=== PATIENT | male | born 1935 | race American Indian/Alaskan Native ===

== ENCOUNTER → 2016-12-22 | Outpatient (CLI) | payer MEDICARE, BC, OTHER ==
--- NOTE | 2016-12-22 10:41 | US ---
EXAMINATION: Right upper quadrant ultrasound HISTORY: Pain COMPARISON: None TECHNIQUE: Grayscale and color Doppler images obtained of the right upper quadrant. FINDINGS: The visualized pancreas appears normal. The liver is normal in contour and echogenicity wi thout a focal hepatic mass. The gallbladder wall thickness is normal. No pericholecystic fluid or sh adowing gallstones. The common bile duct measures 4 mm. The right kidney measures 10.4 cm pole-to-po le without evidence of hydronephrosis. The sonographic Barraza sign is negative. IMPRESSION: Unremarkable right upper quadrant ultrasound.
== END | disposition home or self-care (01) ==
LOC: MW.US 08:57
PROVIDERS: ATTEND Family Medicine
DX: R10.11 Right upper quadrant pain (principal)
CPT/HCPCS: 76705; 76705-26

== ENCOUNTER → 2017-01-19 | Outpatient (CLI) | payer MEDICARE, BC, OTHER | LOC: MW.CHIM 08:00 | PROVIDERS: ATTEND Internal Medicine | DX: I25.10 Atherosclerotic heart disease of native coronary artery without angina pectoris (principal); I10 Essential (primary) hypertension; I48.91 Unspecified atrial fibrillation; Z95.5 Presence of coronary angioplasty implant and graft | CPT/HCPCS: 99214 ==

== ENCOUNTER 2017-04-02 08:26 | Emergency (ER) | payer MEDICARE, BC, OTHER ==
--- NOTE | 2017-04-02 08:45 | EDM.PDOC ---
ED HPI GENERAL MEDICAL PROBLEM - General Chief Complaint: Lower Extremity Injury/Pain Stated Complaint: LEG BLEEDING Time Seen by Provider: 04/02/17 08:35 Source of Information: Reports: Patient History Limitations: Reports: No Limitations - History of Present Illness INITIAL COMMENTS - FREE TEXT/NARRATIVE: History of present illness: []Patient was showering this morning and noticed there was blood in the shower. He looked down and saw a small bleed on his right lower leg. He denies any trauma or pain. Patient is a diet-controlled diabetic with pacemaker and cardiac stents who is treated with blood thinner. Patient denies any other pain , syncope, dizziness orshortness of breath Review of systems: As per history of present illness and below otherwise all systems reviewed and negative. Past medical history: As per history of present illness and as reviewed below otherwise noncontributory. Surgical history: As per history of present illness and as reviewed below otherwise noncontributory. Social history: No reported history of drug or alcohol abuse. Family history: As per history of present illness and as reviewed below otherwise noncontributory. Physical exam: General: Well developed, well nourished in NAD HEENT: Atraumatic, normocephalic, pupils reactive, negative for conjunctival pallor or scleral icterus, mucous membranes moist, throat clear, neck supple, nontender, trachea midline. Lungs: Clear to auscultation, breath sounds equal bilaterally, chest nontender. Heart: S1S2, regular, negative for clicks, rubs, or JVD. Abdomen: Soft, nondistended, nontender. Negative for masses or hepatosplenomegaly. Negative for costovertebral tenderness. Pelvis: Stable nontender. Genitourinary: Deferred. Rectal: Deferred. Extremities: Anterior lower leg shows a small 1 mm varicose vein that is scabbed over recently bleeding. Is no active bleeding at this time., negative for cords or calf pain. Neurovascular unremarkable. Neuro: Awake, alert, oriented. Cranial nerves II through XII unremarkable. Cerebellum unremarkable. Motor and sensory unremarkable throughout. Exam nonfocal. Diagnostics: [] Therapeutics: []Small piece of Surgicel and rolled gauze placed on his leg Impression: []Right leg Varicose vein bleeding, on blood thinners. Plan: []Remove gauze later today if recurs apply pressure dressing. If unable to control bleeding return to the ER or follow with primary care. Definitive disposition and diagnosis as appropriate pending reevaluation and review of above. - Related Data Allergies Allergy/AdvReac Type Severity Reaction Status Date / Time dye Allergy Other Uncoded 04/02/17 08:32 Home Meds: Home Meds Candesartan Cilexetil 8 mg PO ASDIRECTED 08/20/15 [History] Clopidogrel [Plavix] 75 mg PO DAILY 08/20/15 [History] Furosemide [Lasix] 40 mg PO DAILY 08/20/15 [History] LORazepam [Ativan] 0.5 mg PO ASDIRECTED 08/20/15 [History] Lansoprazole [Prevacid] 30 mg PO DAILY PRN 08/20/15 [History] Meclizine HCl 25 mg PO ASDIRECTED 08/20/15 [History] Metoprolol Tartrate [Lopressor] 50 mg PO Q12HR 08/20/15 [History] Rivaroxaban [Xarelto] 20 mg PO DAILY 08/20/15 [History] Aspirin 81 mg PO BRK 09/09/16 [History] Diltiazem HCl [Diltiazem 24Hr Cd] 120 mg PO DAILY 09/09/16 [History] Sucralfate [Carafate] 1 gm PO ASDIRECTED 09/09/16 [History] Past Medical History - Past Health History Medical/Surgical History: Denies Medical/Surgical History HEENT History: Reports: Hard of Hearing, Impaired Vision Cardiovascular History: Reports: Afib, CAD, Hypertension, [place], Pacemaker, Prior Cardiac Arrest, Stents Respiratory History: Reports: Sleep Apnea Other Respiratory History: uses cpap Genitourinary History: Reports: Renal Calculus Musculoskeletal History: Reports: Arthritis Neurological History: Reports: TIA, Vertigo, Other (See Below) Other Neuro History: menieres disease Psychiatric History: Reports: Anxiety Endocrine/Metabolic History: Reports: Diabetes, Type II, Obesity/BMI 30+ Other Endocrine/Metabolic History: diabetes controlled by diet Hematologic History: Reports: None Immunologic History: Reports: None Oncologic (Cancer) History: Reports: None Dermatologic History: Reports: None - Infectious Disease History Infectious Disease History: Reports: Other (See Below) Other Infectious Disease History: unknown - Past Surgical History Musculoskeletal Surgical History: Reports: Hip Replacement, Knee Replacement Social & Family History - Family History Family Medical History: Noncontributory - Tobacco Use Smoking Status *Q: Former Smoker Second Hand Smoke Exposure: No - Caffeine Use Caffeine Use: Reports: Coffee - Recreational Drug Use Recreational Drug Use: No Review of Systems - Review of Systems Review Of Systems: See Below ED EXAM, GENERAL - Physical Exam Exam: See Below (CHPI) Departure - Departure Time of Disposition: 08:45 Disposition: Home, Self-Care 01 Condition: Good Clinical Impression: Hemorrhage of varicose veins of lower extremity Qualifiers: Laterality: right Qualified Code(s): I83.891 - Varicose veins of right lower extremities with other complications - Discharge Information Forms: ED Department Discharge Additional Instructions: The following information is given to patients seen in the emergency department who are being discharged to home. This information is to outline your options for follow-up care. We provide all patients seen in our emergency department with a follow-up referral. The need for follow-up, as well as the timing and circumstances, are variable depending upon the specifics of your emergency department visit. If you don't have a primary care physician on staff, we will provide you with a referral. We always advise you to contact your personal physician following an emergency department visit to inform them of the circumstance of the visit and for follow-up with them and/or the need for any referrals to a consulting specialist. The emergency department will also refer you to a specialist when appropriate. This referral assures that you have the opportunity for follow-up care with a specialist. All of these measure are taken in an effort to provide you with optimal care, which includes your follow-up. Under all circumstances we always encourage you to contact your private physician who remains a resource for coordinating your care. When calling for follow-up care, please make the office aware that this follow-up is from your recent emergency room visit. If for any reason you are refused follow-up, please contact the [facility] Emergency Department at and asked to speak to the emergency department charge nurse. He moved dressing later today return if any symptoms recur or worsen. Follow-up with your primary care as needed [facility] [address] [place] [id number]
== END 2017-04-02 08:53 | disposition home or self-care (01) ==
LOC: MW.ED 08:26
CPT/HCPCS: 99282

== ENCOUNTER 2017-11-11 13:55 | Observation (INO) | payer MEDICARE, BC, OTHER ==
[2017-11-11] MEDS ORDERED: Aspirin 81 MG Tab.Chew PO ONE (14:13)
--- NOTE | 2017-11-11 14:24 | EDM.PDOC ---
ED HPI GENERAL MEDICAL PROBLEM - General Chief Complaint: Chest Pain Stated Complaint: HEART ISSUES Time Seen by Provider: 11/11/17 13:59 Source of Information: Reports: Patient History Limitations: Reports: No Limitations - History of Present Illness INITIAL COMMENTS - FREE TEXT/NARRATIVE: HISTORY AND PHYSICAL: History of present illness: [Patient comes to the emergency room complaining of heart palpitations and mild chest discomfort. Symptoms have been present for the past 7-8 days. He has an extensive cardiac history and follows regularly with Dr. Cat. History of atrial fibrillation and atrial flutter, pacemaker. He's noticed increased frequency of palpitations, and increased intensity. He also complains of some chest discomfort that he describes as mild, and 4-5/10 pain scale, which comes and goes, and to remain constant. After a heart palpitation he feels short of breath, and he feels as though the palpitation takes his breath away. No recent illnesses or infection. He was hospitalized at this facility in August 2017 for chest pain. Had a normal Lexiscan in September 2017 as an outpatient. Was evaluated at the [place] [facility] this morning and was advised to present to the ER for evaluation.] Review of systems: As per history of present illness and below otherwise all systems reviewed and negative. Past medical history: As per history of present illness and as reviewed below otherwise noncontributory. Surgical history: As per history of present illness and as reviewed below otherwise noncontributory. Social history: No reported history of drug or alcohol abuse. Family history: As per history of present illness and as reviewed below otherwise noncontributory. Physical exam: HEENT: Atraumatic, normocephalic. Oral mucous membranes are pink and moist. neck supple, nontender. Lungs: Clear to auscultation, breath sounds equal bilaterally. Heart: S1S2, regular rate and rhythm. Rate 92. , negative for clicks, rubs, and murmur. Abdomen: Soft, nondistended, nontender. Negative for masses, guarding and rebound. Negative for costovertebral tenderness. Pelvis: Stable nontender. Genitourinary: Deferred. Rectal: Deferred. Extremities: Atraumatic, negative for cords or calf pain. Neurovascular unremarkable. Neuro: Awake, alert, oriented. Motor and sensory unremarkable throughout. Exam nonfocal. Diagnostics: [CXR, EKG, CBC, CMP, PT/INR] Therapeutics: [aspirin] Impression: [atypical chest pain] Plan: [Chest x-ray shows no abnormality. Troponin is negative. Labs are otherwise unremarkable. Case is discussed with Dr. Babar Acosta who agrees for patient to be placed in observation with telemetry. Dr. Cat, patient's contract admin, is made aware that patient will be placed in observation and consult was made. Patients in agreement with today's plan. Note: Nitro was not given as patient was not experiencing any pain when med was going to be administered. ] Definitive disposition and diagnosis as appropriate pending reevaluation and review of above. Left Chest Pain Score (Numeric/FACES): 5 Left Shoulder Pain Score (Numeric/FACES): 3 - Related Data Allergies Allergy/AdvReac Type Severity Reaction Status Date / Time dye Allergy Other Uncoded 04/02/17 08:32 Home Meds: Home Meds Furosemide [Lasix] 40 mg PO DAILY 08/20/15 [History] LORazepam [Ativan] 0.5 mg PO ASDIRECTED 08/20/15 [History] Metoprolol Tartrate [Lopressor] 50 mg PO BID 08/20/15 [History] Aspirin 81 mg PO BRK 09/09/16 [History] Antiox#10/Om3/DHA/EPA/Lut/Zeax [I-Caps with Lutein-[place] 3 SFG] 1 cap PO BID [History] Apixaban [Eliquis] 2.5 mg BID 11/11/17 [History] Past Medical History - Past Health History Medical/Surgical History: Denies Medical/Surgical History HEENT History: Reports: Hard of Hearing, Impaired Vision Other HEENT History: on hearing aids Cardiovascular History: Reports: Afib, CAD, Hypertension, [place], Pacemaker, Prior Cardiac Arrest, Stents Respiratory History: Reports: Sleep Apnea Other Respiratory History: uses cpap Gastrointestinal History: Reports: None Genitourinary History: Reports: Renal Calculus Musculoskeletal History: Reports: Arthritis Neurological History: Reports: TIA, Vertigo, Other (See Below) Other Neuro History: menieres disease Psychiatric History: Reports: Anxiety Endocrine/Metabolic History: Reports: Diabetes, Type II, Obesity/BMI 30+ Other Endocrine/Metabolic History: diabetes controlled by diet Hematologic History: Reports: None Immunologic History: Reports: None Oncologic (Cancer) History: Reports: None Dermatologic History: Reports: None - Infectious Disease History Infectious Disease History: Reports: Other (See Below) Other Infectious Disease History: unknown - Past Surgical History Musculoskeletal Surgical History: Reports: Hip Replacement, Knee Replacement Social & Family History - Family History Family Medical History: Noncontributory - Tobacco Use Smoking Status *Q: Former Smoker Used Tobacco, but Quit: No Second Hand Smoke Exposure: No - Caffeine Use Caffeine Use: Reports: Coffee - Recreational Drug Use Recreational Drug Use: No ED ROS GENERAL - Review of Systems Review Of Systems: ROS reveals no pertinent complaints other than HPI. ED EXAM, GENERAL - Physical Exam Exam: See Below Course - Vital Signs Last Recorded V/S: Last Vital Signs Temp 98.9 F 11/11/17 19:55 Pulse 75 11/11/17 21:19 Resp 18 11/11/17 19:55 BP 121/73 11/11/17 21:19 Pulse Ox 96 11/11/17 19:55 - Orders/Labs/Meds Orders: Active Orders 24 hr Category Date Time Status EKG Documentation Completion [RC] STAT Care 11/11/17 14:13 Active Notify Provider Consults [RC] ASDIRECTED Care 11/11/17 14:22 Active Consult to Physician [CONS] Stat Cons 11/11/17 14:22 Active Nitroglycerin [Nitrostat] Med 11/11/17 15:24 Active 0.4 mg SL Q5M PRN Medication Orders Acetaminophen (Tylenol) 650 mg PO Q4H PRN PRN Reason: Pain (Mild 1-3)/fever Last Admin: 11/11/17 21:33 Dose: 650 mg Apixaban (Eliquis) 5 mg PO BID [facility] Last Admin: 11/11/17 21:20 Dose: 5 mg Metoprolol Tartrate (Lopressor) 75 mg PO Q12HR [facility] Last Admin: 11/11/17 21:19 Dose: 75 mg Morphine Sulfate (Morphine) 2 mg IV Q2H PRN PRN Reason: Pain (severe 7-10) Nitroglycerin (Nitrostat) 0.4 mg SL Q5M PRN PRN Reason: Chest Pain Ondansetron HCl (Zofran) 4 mg IVPUSH Q4H PRN PRN Reason: Nausea/Vomiting Sodium Chloride (Saline Flush) 10 ml FLUSH ASDIRECTED PRN PRN Reason: Keep Vein Open Sodium Chloride (Saline Flush) 2.5 ml FLUSH ASDIRECTED PRN PRN Reason: Keep Vein Open Labs: Laboratory Tests 11/11/17 11/11/17 11/11/17 Range/Units 14:15 14:15 14:15 WBC 6.76 (4.0-11.0) K/uL RBC 4.14 L (4.50-5.90) M/uL Hgb 13.3 (13.0-17.0) g/dL Hct 40.4 (38.0-50.0) % MCV 97.6 (80.0-98.0) fL MCH 32.1 H (27.0-32.0) pg MCHC 32.9 (31.0-37.0) g/dL RDW Std Deviation 50.4 (28.0-62.0) fl RDW Coeff of Mary 14 (11.0-15.0) % Plt Count 157 (150-400) K/uL MPV 10.80 (7.40-12.00) fL Neut % (Auto) 64.8 (48.0-80.0) % Lymph % (Auto) 24.9 (16.0-40.0) % [place] % (Auto) 7.8 (0.0-15.0) % Eos % (Auto) 2.1 (0.0-7.0) % Baso % (Auto) 0.4 (0.0-1.5) % Neut # (Auto) 4.4 (1.4-5.7) K/uL Lymph # (Auto) 1.7 (0.6-2.4) K/uL [place] # (Auto) 0.5 (0.0-0.8) K/uL Eos # (Auto) 0.1 (0.0-0.7) K/uL Baso # (Auto) 0.0 (0.0-0.1) K/uL Nucleated RBC % 0.0 /100WBC Nucleated RBCs # 0 K/uL INR 1.05 Sodium 143 (136-148) mmol/L Potassium 3.5 (3.5-5.1) mmol/L Chloride 106 (98-107) mmol/L Carbon Dioxide 28.5 (21.0-32.0) mmol/L BUN 19 H (7.0-18.0) mg/dL Creatinine 1.2 (0.8-1.3) mg/dL Est Cr Clr Drug Dosing TNP Estimated GFR (MDRD) 58.1 ml/min Glucose 123 H (74-106) mg/dL Calcium 9.0 (8.5-10.1) mg/dL Total Bilirubin 0.4 (0.2-1.0) mg/dL AST 19 (15-37) U/L ALT 19 (14-63) U/L Alkaline Phosphatase 79 (46-116) U/L Troponin I < 0.050 (0.000-0.056) ng/mL Total Protein 7.2 (6.4-8.2) g/dL Albumin 3.5 (3.4-5.0) g/dL Globulin 3.7 H (2.0-3.5) g/dL Albumin/Globulin Ratio 1.0 L (1.3-2.8) TSH 3rd Generation (0.47-5.0) uIU/mL 11/11/17 Range/Units 14:15 WBC (4.0-11.0) K/uL RBC (4.50-5.90) M/uL Hgb (13.0-17.0) g/dL Hct (38.0-50.0) % MCV (80.0-98.0) fL MCH (27.0-32.0) pg MCHC (31.0-37.0) g/dL RDW Std Deviation (28.0-62.0) fl RDW Coeff of Mary (11.0-15.0) % Plt Count (150-400) K/uL MPV (7.40-12.00) fL Neut % (Auto) (48.0-80.0) % Lymph % (Auto) (16.0-40.0) % [place] % (Auto) (0.0-15.0) % Eos % (Auto) (0.0-7.0) % Baso % (Auto) (0.0-1.5) % Neut # (Auto) (1.4-5.7) K/uL Lymph # (Auto) (0.6-2.4) K/uL [place] # (Auto) (0.0-0.8) K/uL Eos # (Auto) (0.0-0.7) K/uL Baso # (Auto) (0.0-0.1) K/uL Nucleated RBC % /100WBC Nucleated RBCs # K/uL INR Sodium (136-148) mmol/L Potassium (3.5-5.1) mmol/L Chloride (98-107) mmol/L Carbon Dioxide (21.0-32.0) mmol/L BUN (7.0-18.0) mg/dL Creatinine (0.8-1.3) mg/dL Est Cr Clr Drug Dosing Estimated GFR (MDRD) ml/min Glucose (74-106) mg/dL Calcium (8.5-10.1) mg/dL Total Bilirubin (0.2-1.0) mg/dL AST (15-37) U/L ALT (14-63) U/L Alkaline Phosphatase (46-116) U/L Troponin I (0.000-0.056) ng/mL Total Protein (6.4-8.2) g/dL Albumin (3.4-5.0) g/dL Globulin (2.0-3.5) g/dL Albumin/Globulin Ratio (1.3-2.8) TSH 3rd Generation 1.20 (0.47-5.0) uIU/mL Meds: Medications Generic Name Dose Route Start Last Admin Trade Name Freq PRN Reason Stop Dose Admin Acetaminophen 650 mg 11/11/17 18:50 11/11/17 21:33 Tylenol PO 650 mg Q4H PRN Administration Pain (Mild 1-3)/fever Apixaban 5 mg 11/11/17 21:00 11/11/17 21:20 Eliquis PO 5 mg BID UJLIAN Administration Metoprolol Tartrate 75 mg 11/11/17 21:00 11/11/17 21:19 Lopressor PO 75 mg Q12HR JULIAN Administration Morphine Sulfate 2 mg 11/11/17 19:15 Morphine IV Q2H PRN Pain (severe 7-10) Nitroglycerin 0.4 mg 11/11/17 15:24 Nitrostat SL Q5M PRN Chest Pain Ondansetron HCl 4 mg 11/11/17 18:50 Zofran IVPUSH Q4H PRN Nausea/Vomiting Sodium Chloride 10 ml 11/11/17 18:50 Saline Flush FLUSH ASDIRECTED PRN Keep Vein Open Sodium Chloride 2.5 ml 11/11/17 18:50 Saline Flush FLUSH ASDIRECTED PRN Keep Vein Open Discontinued Medications Generic Name Dose Route Start Last Admin Trade Name Tylor PRN Reason Stop Dose Admin Aspirin 324 mg 11/11/17 14:13 11/11/17 14:21 Aspirin PO 11/11/17 14:14 324 mg ONETIME ONE Administration Departure - Departure Time of Disposition: 15:35 Disposition: Admitted As Inpatient 66 Condition: Good Clinical Impression: Chest pain, atypical - My Orders Last 24 Hours: My Active Orders 11/11/17 14:13 EKG Documentation Completion [RC] STAT 11/11/17 15:24 Nitroglycerin [Nitrostat] 0.4 mg SL Q5M PRN - Assessment/Plan Last 24 Hours: My Active Orders 11/11/17 14:13 EKG Documentation Completion [RC] STAT 11/11/17 15:24 Nitroglycerin [Nitrostat] 0.4 mg SL Q5M PRN
--- NOTE | 2017-11-11 14:28 | PCM.SN ---
- Free Text/Narrative Note: This is Dr. Huerta dictating a brief addendum note as I have seen and evaluated this patient with the nurse practitioner. According to his history in the computer the patient was seen and admitted to the hospital here at the end of August for chest pain. His cardiac enzymes were negative and he did have an echocardiogram which revealed an ejection fraction of 62%. At that point he was following with Dr. Jimenez in [place] but Dr. NEWSOME cargo agent was counseled that the time. The patient also has a history of a pacemaker and A. fib/A flutter as well as coronary artery disease and MIs 2 stents hypertension diet-controlled diabetes and obesity. The patient had an outpatient CT scan performed on October [address] Cat and that revealed an ejection fraction of 55 % and no evidence of any ischemic changes. The patient is on rate controlling medications as well as Xarelto and Plavix. According to the patient and family at bedside he has not followed up in [place] and has only had the outpatient testing with Dr. Cat. [facility] with a history as described by the nurse practitioner and here in the ED he saying that his symptoms are very brief and fleeting but due to his significant history Dr. Cat was notified at 1420 p.m. and will do a formal consult. We will continue monitoring the patient's testing results and clinical status and plan for observation admission due to his significant medical history and atypicality of symptoms.
--- NOTE | 2017-11-11 14:37 | CR ---
EXAMINATION: Portable chest radiograph. HISTORY: Shortness of breath. FINDINGS: The trachea is midline. The cardiomediastinal silhouette is within normal limits. No pulmonary infilt rates, effusions or pneumothorax. There is a left-sided pacemaker. Mild chronic interstitial prominen ce. Osseous structures appear unremarkable. IMPRESSION: No acute cardiopulmonary process.
[2017-11-11 15:02] LABS: CHLORIDE,CL 106 mmol/L (98-107); SODIUM,NA 143 mmol/L (136-148)
[2017-11-11] MEDS ORDERED: Nitroglycerin 0.4 MG Tab.SL SL PRN (15:24)
[2017-11-11] MEDS ORDERED: Sodium Chloride 0.9% 2.5 ML Syringe FLUSH PRN (18:50)
[2017-11-11] MEDS ORDERED: Sodium Chloride 0.9% 10 ML Syringe FLUSH PRN (18:50)
[2017-11-11] MEDS ORDERED: Ondansetron 4 MG/2 ML SDV IVPUSH PRN (18:50)
[2017-11-11] MEDS ORDERED: Acetaminophen 325 MG Tab PO PRN (18:50)
--- NOTE | 2017-11-11 18:50 | PCM.HP ---
H&P History of Present Illness - General Date of Service: 11/11/17 Admit Problem/Dx: Admission Diagnosis/Problem Admission Diagnosis/Problem Chest pain - History of Present Illness Initial Comments - Free Text/Narative: 81-year-old male with a significant past medical history of sick sinus syndrome on with a pacemaker in place is presenting with heart palpitations and concern for pacing issues. She also has a significant past medical history of atrial fibrillation for which he is on Eliquis was 2.5 mg twice a day. Patient states that these palpitation type symptoms have been ongoing for the past week they aren't very quick in nature and resolved on their own, patient was concerned due to this being slightly out of the abnormal for him, the patient also was having chest discomfort secondary to the palpitations. Patient denies any chest pain at the present moment, patient denies any heart palpitations at the present moment. I assessed the patient along with Dr. Cat at the same time, we assessed the pacemaker which appear to be working appropriately with no dysfunction, and pacing the patient appropriately as well. Patient is taking metoprolol tartrate 50 mg twice a day as well for his atrial fibrillation control. Patient states that he was initially on Xeralto however that caused diarrhea and he is sent switch to Eliquis for anticoagulation, however patient stated that at 10 mg he was having muscular skeletal pain and it was cut to 5 mg which she states is appropriate for him at this point in time. Left Chest Pain Score (Numeric/FACES): 5 - Related Data Allergies/Adverse Reactions: Allergies Allergy/AdvReac Type Severity Reaction Status Date / Time dye Allergy Other Uncoded 04/02/17 08:32 Home Medications: Home Meds Furosemide [Lasix] 40 mg PO DAILY 08/20/15 [History] LORazepam [Ativan] 0.5 mg PO ASDIRECTED 08/20/15 [History] Metoprolol Tartrate [Lopressor] 50 mg PO BID 08/20/15 [History] Aspirin 81 mg PO BRK 09/09/16 [History] Antiox#10/Om3/DHA/EPA/Lut/Zeax [I-Caps with Lutein-[place] 3 SFG] 1 cap PO BID [History] Apixaban [Eliquis] 2.5 mg BID 11/11/17 [History] Past Medical History - Past Health History Medical/Surgical History: Denies Medical/Surgical History HEENT History: Reports: Hard of Hearing, Impaired Vision Other HEENT History: on hearing aids Cardiovascular History: Reports: Afib, CAD, Hypertension, GA, Pacemaker, Prior Cardiac Arrest, Stents Respiratory History: Reports: Sleep Apnea Other Respiratory History: uses cpap Gastrointestinal History: Reports: None Genitourinary History: Reports: Renal Calculus Musculoskeletal History: Reports: Arthritis Neurological History: Reports: TIA, Vertigo, Other (See Below) Other Neuro History: menieres disease Psychiatric History: Reports: Anxiety Endocrine/Metabolic History: Reports: Diabetes, Type II, Obesity/BMI 30+ Other Endocrine/Metabolic History: diabetes controlled by diet Hematologic History: Reports: None Immunologic History: Reports: None Oncologic (Cancer) History: Reports: None Dermatologic History: Reports: None - Infectious Disease History Infectious Disease History: Reports: Other (See Below) Other Infectious Disease History: unknown - Past Surgical History Head Surgeries/Procedures: Reports: None Musculoskeletal Surgical History: Reports: Hip Replacement, Knee Replacement Social & Family History - Family History Family Medical History: Noncontributory - Tobacco Use Smoking Status *Q: Never Smoker Used Tobacco, but Quit: No Month Tobacco Last Used: 09/1974 Second Hand Smoke Exposure: No - Caffeine Use Caffeine Use: Reports: Coffee, Soda, Tea - Alcohol Use Days Per Week of Alcohol Use: 2 Number of Drinks Per Day: 1 Total Drinks Per Week: 2 Date of Last Drink: 11/11/17 Time of Last Drink: 21:00 - Recreational Drug Use Recreational Drug Use: No H&P Review of Systems - Review of Systems: Review Of Systems: ROS reveals no pertinent complaints other than HPI. Exam - Exam Exam: See Below - Vital Signs Vital Signs: Last Vital Signs Temp 36.5 C 11/11/17 14:23 Pulse 48 L 11/11/17 15:40 Resp 20 11/11/17 15:40 BP 134/81 11/11/17 15:40 Pulse Ox 99 11/11/17 15:40 Weight: 112.536 kg - Exam General: Alert, Oriented, Cooperative HEENT: Conjunctiva Clear Lungs: Clear to Auscultation, Normal Respiratory Effort Cardiovascular: Regular Rate, Irregular Rhythm GI/Abdominal Exam: Normal Bowel Sounds Extremities: No Pedal Edema - Patient Data Result Diagrams: 11/11/17 14:15 11/11/17 14:15 *Q Meaningful Use (ADM) - VTE *Q VTE Criteria *Q: - Stroke *Q Stroke Criteria *Q: - AMI *Q AMI Criteria *Q: Problem List Initiated/Reviewed/Updated: Yes Orders Last 24hrs: Active Orders 24 hr Category Date Time Status ADA Diabetic [[place] [employer] Diet] [DIET Diet 11/12/17 Dinner Active ] TSH [CHEM] Routine Lab 11/11/17 17:57 Ordered Medication Orders Nitroglycerin (Nitrostat) 0.4 mg SL Q5M PRN PRN Reason: Chest Pain Assessment/Plan Comment:: 81-year-old male presenting today with heart palpitation issues, with a significant past medical history of sick sinus syndrome status post pacemaker as well as atrial fibrillation for which is controlled with metoprolol 50 mg twice a day. After speaking with Dr. Cat we do not believe that the pacemaker is having any issues, Dr. Cat tested the pacemaker out with no present concerns it is pacing the patient appropriately. There is possible concern that the patient is having symptomatic atrial fibrillation as such Dr. Cat recommends the patient be on metoprolol tartrate 75 mg twice a day rather than 50 mg twice a day. He also recommends that the patient have his Eliquis increased back to 10 mg a day and see if he still has muscle pain as the effectiveness of the anticoagulation medication is limited when reducing the dose. We shall admit the patient for observation, do hebert 3 placed the recommendation of Dr. Cat has recommended in place and assess the patient in the morning.
[2017-11-11] MEDS ORDERED: Morphine 2 MG/ML Syringe IV PRN (19:15)
[2017-11-11] MEDS: Metoprolol Tartrate 25 MG Tab PO SCH (21:19)
[2017-11-11] MEDS: Apixaban 5 MG Tab PO SCH (21:20)
[2017-11-12 06:31] LABS: CHLORIDE,CL 107 mmol/L (98-107); SODIUM,NA 143 mmol/L (136-148)
[2017-11-12] MEDS: Apixaban 5 MG Tab PO SCH (08:38)
[2017-11-12] MEDS: Metoprolol Tartrate 25 MG Tab PO SCH (08:38)
--- NOTE | 2017-11-12 10:38 | PCM.PRNOTE ---
- Free Text/Narrative Note: Device interrogation/re-programming DOS 11/12/2017 [employer] Model Adapta ADDR01 Mode DDD LRL 60 % paced Vs 72% [employer] 27% intrinsic rhythm afib, intermittent pacer dependent. Battery life 5 years Atrial lead sensin.18 mV capture threshold: N/A impedance: 452 Ventricular lead sensin.6 mV capture threshold: 0.25 mV/0.4msec impedance: 597 episode: PVCs 0 (probably inaccurate) Rate histrogram there were time V rate (V sensed, V paced) up from 100-180, but most of the time were 50-100 Setting changed (with help fromn [employer]tronic reps) = DDD to DDIR, lower rate limit from 60 to 70 bpm Imp normally functioning dual chamber pacemaker, with permanent afib with PVCs. Plan - will increase metoprolol to 75 BID, will schedule for device clinic and check if any diaphragmatic stimulation.
--- NOTE | 2017-11-12 11:00 | CONS ---
DATE OF CONSULTATION: 11/11/2017 DATE OF : 1935 PRIMARY CARE PHYSICIAN: None PCP REASON FOR CONSULTATION: Palpitation. HISTORY OF PRESENT ILLNESS: This is an 81-year-old male with history of dual-chamber pacemaker Medtronic CAD status post LAD, PCI in the past, hypertension, hyperlipidemia, diabetes and former smoker. He presented to the hospital at this time due to feeling palpitations. He started feeling palpitations on and off for almost 3 weeks. He has been feeling well for years and he stated that he has been on and off for several times a day and when it comes it come very quick and it goes quickly, less than few seconds and he feels like almost every day. When he feels it, it takes his breath away. No dizziness. No syncope. No chest pain. Most of the time when he is sitting at rest, not with his activities and not related to any certain position, have not seen him for a year and he had his pacemaker checked last time two weeks ago and he was told everything was okay. He also mentioned that like he used to take Xarelto, however it irritates his stomach having a diarrhea, so Eliquis was started 5 mg twice a day. However he started having muscle aches and muscle pain and the dose was lowered to 2.5. He is also on metoprolol 50 twice a day as well as the Lasix 40 mg once a day, aspirin 81 mg once a day as well. PAST MEDICAL HISTORY: Sick sinus syndrome status post dual-chamber pacemaker, permanent atrial fibrillation, CAD status post LAD, PCI, diabetes, hypertension, hyperlipidemia and former smoker. ALLERGIES: He is allergic to Lipitor causing myalgia. FAMILY HISTORY: No CAD. SOCIAL HISTORY: Former smoker. No illicit drug use. Occasional alcohol consumption. REVIEW OF SYSTEMS: Positive for palpitation, otherwise indicated in HPI. PHYSICAL EXAMINATION: VITAL SIGNS: Initial blood pressure is 152/84, heart rate of 60 to 70, temperature 36.6, O2 saturation 95% on room air, respiration 19. HEENT: No pallor. No jaundice. No JVD. HEART: Normal S1, S2. No murmur. LUNGS: Clear. ABDOMEN: Soft, nontender. Bowel sounds are present. No hepatosplenomegaly. EXTREMITIES: Legs, no edema. INVESTIGATIONS: CBC show WBC 6, hematocrit of 40, hemoglobin of 13, platelet of 157, INR 1.05. Sodium 143, potassium 3.5, chloride 106, bicarb 28, BUN 19, creatinine 1.2, glucose 123, troponin less than 0.05. TSH is 1.2. Initial pacemaker interrogation from the rate histogram, he still in the DDD tracking mode and his heart rate was up to 160-180 sometime, but most of the time it has run between 60-80 and the PVC count is 20. This seemed to be inaccurate. Apparently I have seen the PVC on the telemetry as well. ASSESSMENT AND PLAN: This is an 81-year-old male with history of dual-chamber pacemaker, permanent atrial fibrillation, CAD, hypertension who has come in with the palpitation, could be related to fast atrial fibrillation, RVR, as well as the PVCs. I will contact with [employer] to see what setting should be set up for his pacemaker and I will increase the metoprolol to 75 twice a day as well as increase the Eliquis to 5 mg twice a day for full protection from stroke and then recommend to cycle cardiac enzymes. BRANDIE / LYLY /[id number]
[2017-11-12 11:37] VITALS: BP 151/99
--- NOTE | 2017-11-12 19:08 | PCM.DCSUM1 ---
<Marco Maldonado Z - Last Filed: 11/12/17 18:57> Discharge Summary - Hospital Course HPI Initial Comments: Discharge Summary Date of admission: 11/11/2017 Date of discharge: 11/12/2017 Admitting diagnosis: #1. Heart Palpitations #2. Chest pain likely secondary to heart palpitations versus acute coronary syndrome #3. Past medical history of atrial fibrillation, sick sinus syndrome and pacemaker #4. #5. Discharge diagnoses: #1. Type palpitations secondary to PVCs, and atrial fibrillation. #2. Pain now resolved tropes negative 3 #3. #4. #5. Consultations: Cardiology Procedures: None Hospitalization course: Patient was admitted secondary to heart palpitations, Dr. Cat assessed the patient and after reviewing his telemetry patient was assessed for his pacemaker functioning appropriately which it was, it was determined that the heart palpitations were likely secondary to atrial fibrillation initially on 11/11/2017. Decision was made to increase the patient's Lopressor from 50 mg twice a day to 75 mg twice a day, and also ensure that the patient is taking his Eliquis is at its optimal dosage of 10 mg of then 5 mg. Overnight the patient did start to throw a lot of PVCs and in the morning Dr. Cat switch the patient in terms of pacemaker capability from DDD to VVI and also increased his pacemaker setting from 60-70. Patient's tropes were negative 3 patient was not having any further chest pain decision was made for the patient to be discharge follow-up with Dr. Cat in one week as well as follow-up with cardiac pacing clinic as well as primary care physician. Was discharged on Eliquis at 10 mg rather than 5 mg because below 10 the patient blood premedication is supple optimal and he is at risk of developing a clot that could possibly cause a stroke. Patient did state that previously he did have muscle pain secondary to his blood thinning medication however he did not report any issues currently and we still strongly recommend that the patient be on 10 mg despite muscle aches and pains if they are tolerable to the patient. Disposition on discharge: home Condition on discharge: stable Discharge medications: continuation of home medication with changes to Lopressor from 50 mg twice a day to 75 mg twice a day and Eliquis at 10 mg daily Follow-up instructions: Urology follow-up in one week, cardiology pacing clinic follow-up in one week, PCP follow-up in one week. - Discharge Data Discharge Date: 11/12/17 Discharge Disposition: Home, Self-Care 01 Condition: Fair - Patient Instructions Diet: Heart Healthy Diet Activity: As Tolerated Driving: Do Not Drive Showering/Bathing: May Shower Notify Provider of: Fever, Increased Pain, Swelling and Redness, Drainage, Nausea and/or Vomiting - Discharge Plan Prescriptions/Med Rec: Apixaban [Eliquis] 5 mg PO BID 30 Days #60 tablet Metoprolol Tartrate 75 mg PO BID 30 Days #60 tablet Home Medications: Home Meds Furosemide [Lasix] 40 mg PO DAILY 08/20/15 [History] LORazepam [Ativan] 0.5 mg PO ASDIRECTED 08/20/15 [History] Aspirin 81 mg PO BRK 09/09/16 [History] Antiox#10/Om3/DHA/EPA/Lut/Zeax [I-Caps with Lutein-[place] 3 SFG] 1 cap PO BID [History] Apixaban [Eliquis] 5 mg PO BID 30 Days #60 tablet 11/12/17 [Rx] Metoprolol Tartrate 75 mg PO BID 30 Days #60 tablet 11/12/17 [Rx] Patient Handouts: Metoprolol tablets, Chest Wall Pain, [id number], Apixaban oral tablets Referrals: Han Saeed MD [Physician] - 11/17/17 10:00 am Rena Enriquez MD [Physician] - 11/18/17 10:30 am - Patient Data Vitals - Most Recent: Last Vital Signs Temp 36.5 C 11/12/17 11:38 Pulse 77 11/12/17 11:38 Resp 22 H 11/12/17 11:38 BP 151/99 H 11/12/17 11:38 Pulse Ox 92 L 11/12/17 11:38 Weight - Most Recent: 112.5 kg I&O - Last 24 hours: Intake & Output 11/12/17 11/12/17 11/12/17 06:59 14:59 22:59 Intake Total 1090 790 Output Total 530 520 Balance 560 270 Lab Results - Last 24 hrs: Laboratory Results - last 24 hr 11/11/17 11/12/17 11/12/17 Range/Units 20:22 02:08 05:31 WBC 5.32 (4.0-11.0) K/uL RBC 4.04 L (4.50-5.90) M/uL Hgb 13.0 (13.0-17.0) g/dL Hct 39.4 (38.0-50.0) % MCV 97.5 (80.0-98.0) fL MCH 32.2 H (27.0-32.0) pg MCHC 33.0 (31.0-37.0) g/dL RDW Std Deviation 50.0 (28.0-62.0) fl RDW Coeff of Mary 14 (11.0-15.0) % Plt Count 146 L (150-400) K/uL MPV 10.50 (7.40-12.00) fL Neut % (Auto) 62.2 (48.0-80.0) % Lymph % (Auto) 25.2 (16.0-40.0) % Bollinger % (Auto) 9.2 (0.0-15.0) % Eos % (Auto) 3.0 (0.0-7.0) % Baso % (Auto) 0.4 (0.0-1.5) % Neut # (Auto) 3.3 (1.4-5.7) K/uL Lymph # (Auto) 1.3 (0.6-2.4) K/uL Bollinger # (Auto) 0.5 (0.0-0.8) K/uL Eos # (Auto) 0.2 (0.0-0.7) K/uL Baso # (Auto) 0.0 (0.0-0.1) K/uL Nucleated RBC % 0.0 /100WBC Nucleated RBCs # 0 K/uL Sodium (136-148) mmol/L Potassium (3.5-5.1) mmol/L Chloride (98-107) mmol/L Carbon Dioxide (21.0-32.0) mmol/L BUN (7.0-18.0) mg/dL Creatinine (0.8-1.3) mg/dL Est Cr Clr Drug Dosing mL/min Estimated GFR (MDRD) ml/min Glucose (74-106) mg/dL POC Glucose (60-110) mg/dL Calcium (8.5-10.1) mg/dL Total Bilirubin (0.2-1.0) mg/dL AST (15-37) U/L ALT (14-63) U/L Alkaline Phosphatase (46-116) U/L Troponin I < 0.050 < 0.050 (0.000-0.056) ng/mL Total Protein (6.4-8.2) g/dL Albumin (3.4-5.0) g/dL Globulin (2.0-3.5) g/dL Albumin/Globulin Ratio (1.3-2.8) 11/12/17 11/12/17 Range/Units 05:31 06:34 WBC (4.0-11.0) K/uL RBC (4.50-5.90) M/uL Hgb (13.0-17.0) g/dL Hct (38.0-50.0) % MCV (80.0-98.0) fL MCH (27.0-32.0) pg MCHC (31.0-37.0) g/dL RDW Std Deviation (28.0-62.0) fl RDW Coeff of Mary (11.0-15.0) % Plt Count (150-400) K/uL MPV (7.40-12.00) fL Neut % (Auto) (48.0-80.0) % Lymph % (Auto) (16.0-40.0) % Bollinger % (Auto) (0.0-15.0) % Eos % (Auto) (0.0-7.0) % Baso % (Auto) (0.0-1.5) % Neut # (Auto) (1.4-5.7) K/uL Lymph # (Auto) (0.6-2.4) K/uL Bollinger # (Auto) (0.0-0.8) K/uL Eos # (Auto) (0.0-0.7) K/uL Baso # (Auto) (0.0-0.1) K/uL Nucleated RBC % /100WBC Nucleated RBCs # K/uL Sodium 143 (136-148) mmol/L Potassium 3.7 (3.5-5.1) mmol/L Chloride 107 (98-107) mmol/L Carbon Dioxide 29.1 (21.0-32.0) mmol/L BUN 18 (7.0-18.0) mg/dL Creatinine 1.1 (0.8-1.3) mg/dL Est Cr Clr Drug Dosing 50.95 mL/min Estimated GFR (MDRD) > 60.0 ml/min Glucose 89 (74-106) mg/dL POC Glucose 88 (60-110) mg/dL Calcium 8.8 (8.5-10.1) mg/dL Total Bilirubin 0.5 (0.2-1.0) mg/dL AST 18 (15-37) U/L ALT 17 (14-63) U/L Alkaline Phosphatase 70 (46-116) U/L Troponin I (0.000-0.056) ng/mL Total Protein 6.7 (6.4-8.2) g/dL Albumin 3.3 L (3.4-5.0) g/dL Globulin 3.4 (2.0-3.5) g/dL Albumin/Globulin Ratio 1.0 L (1.3-2.8) Med Orders - Current: Current Medications Discontinued Medications Acetaminophen (Tylenol) 650 mg PO Q4H PRN PRN Reason: Pain (Mild 1-3)/fever Last Admin: 11/11/17 21:33 Dose: 650 mg Apixaban (Eliquis) 5 mg PO BID [facility] Last Admin: 11/12/17 08:38 Dose: 5 mg Aspirin (Aspirin) 324 mg PO ONETIME ONE Stop: 11/11/17 14:14 Last Admin: 11/11/17 14:21 Dose: 324 mg Metoprolol Tartrate (Lopressor) 75 mg PO Q12HR [facility] Last Admin: 11/12/17 08:38 Dose: 75 mg Morphine Sulfate (Morphine) 2 mg IV Q2H PRN PRN Reason: Pain (severe 7-10) Nitroglycerin (Nitrostat) 0.4 mg SL Q5M PRN PRN Reason: Chest Pain Ondansetron HCl (Zofran) 4 mg IVPUSH Q4H PRN PRN Reason: Nausea/Vomiting Sodium Chloride (Saline Flush) 10 ml FLUSH ASDIRECTED PRN PRN Reason: Keep Vein Open Sodium Chloride (Saline Flush) 2.5 ml FLUSH ASDIRECTED PRN PRN Reason: Keep Vein Open *Q Meaningful Use (DIS) - VTE *Q VTE Criteria *Q: - Stroke *Q Stroke Criteria *Q: - AMI *Q AMI Criteria *Q: <aBbar Acosta - Last Filed: 11/17/17 11:10> - Patient Data Vitals - Most Recent: Last Vital Signs Temp 36.5 C 11/12/17 11:38 Pulse 77 11/12/17 11:38 Resp 22 H 11/12/17 11:38 BP 151/99 H 11/12/17 11:38 Pulse Ox 92 L 11/12/17 11:38 Med Orders - Current: Current Medications Discontinued Medications Acetaminophen (Tylenol) 650 mg PO Q4H PRN PRN Reason: Pain (Mild 1-3)/fever Last Admin: 11/11/17 21:33 Dose: 650 mg Apixaban (Eliquis) 5 mg PO BID [facility] Last Admin: 11/12/17 08:38 Dose: 5 mg Aspirin (Aspirin) 324 mg PO ONETIME ONE Stop: 11/11/17 14:14 Last Admin: 11/11/17 14:21 Dose: 324 mg Metoprolol Tartrate (Lopressor) 75 mg PO Q12HR [facility] Last Admin: 11/12/17 08:38 Dose: 75 mg Morphine Sulfate (Morphine) 2 mg IV Q2H PRN PRN Reason: Pain (severe 7-10) Nitroglycerin (Nitrostat) 0.4 mg SL Q5M PRN PRN Reason: Chest Pain Ondansetron HCl (Zofran) 4 mg IVPUSH Q4H PRN PRN Reason: Nausea/Vomiting Sodium Chloride (Saline Flush) 10 ml FLUSH ASDIRECTED PRN PRN Reason: Keep Vein Open Sodium Chloride (Saline Flush) 2.5 ml FLUSH ASDIRECTED PRN PRN Reason: Keep Vein Open *Q Meaningful Use (DIS) - VTE *Q VTE Criteria *Q: - Stroke *Q Stroke Criteria *Q: - AMI *Q AMI Criteria *Q: - Free Text/Narrative Note: I have examined the patient. I have discussed findings and treatment plan with the resident. I agree with the assessment and plan outlined in the following resident's note.
== END 2017-11-12 13:00 | disposition home or self-care (01) ==
LOC: MW.ED 13:55 → MW.MS 15:35
PROVIDERS: ADMIT Internal Medicine; ATTEND Internal Medicine
DX: I48.2 Chronic atrial fibrillation (principal); I25.10 Atherosclerotic heart disease of native coronary artery without angina pectoris; I10 Essential (primary) hypertension; I25.2 Old myocardial infarction; G47.30 Sleep apnea, unspecified; M19.90 Unspecified osteoarthritis, unspecified site; F41.9 Anxiety disorder, unspecified; E11.9 Type 2 diabetes mellitus without complications; E66.9 Obesity, unspecified; Z68.30 Body mass index [BMI] 30.0-30.9, adult; Z95.0 Presence of cardiac pacemaker; Z86.79 Personal history of other diseases of the circulatory system; Z79.899 Other long term (current) drug therapy; Z79.82 Long term (current) use of aspirin; Z91.09 Other allergy status, other than to drugs and biological substances; Z79.01 Long term (current) use of anticoagulants; Z99.89 Dependence on other enabling machines and devices; Z86.73 Personal history of transient ischemic attack (TIA), and cerebral infarction without residual deficits; Z87.891 Personal history of nicotine dependence; Z88.8 Allergy status to other drugs, medicaments and biological substances
CPT/HCPCS: 36415; 71045; 80053; 82962; 84443; 84484; 85025; 85610; 93005; 99285; A9270; G0378; 99284

== ENCOUNTER 2019-04-05 08:49 | Inpatient (IN) | payer MEDICARE, BC, OTHER ==
--- NOTE | 2019-04-05 08:56 | EDM.PDOC ---
ED HPI GENERAL MEDICAL PROBLEM - General Chief Complaint: Gastrointestinal Problem Stated Complaint: DIAHRREA AND CHEST PAIN Time Seen by Provider: 04/05/19 08:55 Source of Information: Reports: Patient - History of Present Illness INITIAL COMMENTS - FREE TEXT/NARRATIVE: HISTORY AND PHYSICAL: History of present illness: []Shunt presents with chest pain which began last night no fever nausea vomiting chills sweats he has had some loose stools is in no apparent distress no diaphoresis no radiation of pain to arm neck or jaw Review of systems: As per history of present illness and below otherwise all systems reviewed and negative. Past medical history: As per history of present illness and as reviewed below otherwise noncontributory. Surgical history: As per history of present illness and as reviewed below otherwise noncontributory. Social history: No reported history of drug or alcohol abuse. Family history: As per history of present illness and as reviewed below otherwise noncontributory. Physical exam: HEENT: Atraumatic, normocephalic, pupils reactive, negative for conjunctival pallor or scleral icterus, mucous membranes moist, throat clear, neck supple, nontender, trachea midline. Lungs: Clear to auscultation, breath sounds equal bilaterally, chest nontender. Heart: S1S2, regular, negative for clicks, rubs, or JVD. Abdomen: Soft, nondistended, nontender. Negative for masses or hepatosplenomegaly. Negative for costovertebral tenderness. Pelvis: Stable nontender. Genitourinary: Deferred. Rectal: Deferred. Extremities: Atraumatic, negative for cords or calf pain. Neurovascular unremarkable. Neuro: Awake, alert, oriented. Cranial nerves II through XII unremarkable. Cerebellum unremarkable. Motor and sensory unremarkable throughout. Exam nonfocal. Diagnostics: [CBC CMP UA troponin lipase EKG Chest 1 view Stool studies pending -culture guaiac C. difficile ] Therapeutics: [ normal saline GI cocktail Proton X Ativan 0.5 mg ] 1 g Rocephin IV Azithromycin IV Patient admitted Impression: Pancreatitis Renal insufficiency Infiltrates on chest x-ray Leukocytosis Loose stools History of acid reflux History of anxiety ] Chronic history of baseline Definitive disposition and diagnosis as appropriate pending reevaluation and review of above. heartburn Pain Score (Numeric/FACES): 10 - Related Data Allergies Allergy/AdvReac Type Severity Reaction Status Date / Time dye Allergy Cardiac Uncoded 04/05/19 08:55 Arrest Home Meds: Home Meds Furosemide [Lasix] 40 mg PO DAILY 08/20/15 [History] LORazepam [Ativan] 0.5 mg PO ASDIRECTED 08/20/15 [History] Aspirin 81 mg PO BRK 09/09/16 [History] Antiox#10/Om3/DHA/EPA/Lut/Zeax [I-Caps with Lutein-[place] 3 SFG] 1 cap PO BID [History] Metoprolol Tartrate 75 mg PO BID 30 Days #60 tablet 11/12/17 [Rx] Rivaroxaban [Xarelto] 25 mg PO ASDIRECTED 04/05/19 [History] Past Medical History - Past Health History Medical/Surgical History: Denies Medical/Surgical History HEENT History: Reports: Hard of Hearing, Impaired Vision Other HEENT History: on hearing aids Cardiovascular History: Reports: Afib, CAD, Hypertension, [place], Pacemaker, Prior Cardiac Arrest, Stents Respiratory History: Reports: Sleep Apnea Other Respiratory History: uses cpap Gastrointestinal History: Reports: None Genitourinary History: Reports: Renal Calculus Musculoskeletal History: Reports: Arthritis Neurological History: Reports: TIA, Vertigo, Other (See Below) Other Neuro History: menieres disease Psychiatric History: Reports: Anxiety Endocrine/Metabolic History: Reports: Diabetes, Type II, Obesity/BMI 30+ Other Endocrine/Metabolic History: diabetes controlled by diet Hematologic History: Reports: None Immunologic History: Reports: None Oncologic (Cancer) History: Reports: None Dermatologic History: Reports: None - Infectious Disease History Infectious Disease History: Reports: Other (See Below) Other Infectious Disease History: unknown - Past Surgical History Musculoskeletal Surgical History: Reports: Hip Replacement, Knee Replacement Social & Family History - Family History Family Medical History: Noncontributory - Caffeine Use Caffeine Use: Reports: Coffee ED ROS GENERAL - Review of Systems Review Of Systems: See Below ED EXAM, GENERAL - Physical Exam Exam: See Below Course - Vital Signs Last Recorded V/S: Last Vital Signs Temp 98.0 F 04/05/19 08:51 Pulse 88 04/05/19 08:51 Resp 18 04/05/19 08:51 BP 150/91 H 04/05/19 08:51 Pulse Ox 96 04/05/19 09:50 - Orders/Labs/Meds Orders: Active Orders 24 hr Category Date Time Status EKG Documentation Completion [RC] STAT Care 04/05/19 08:55 Active CDIFF TOX A+B [OP] Stat Lab 04/05/19 08:55 Ordered CULTURE BLOOD [BC] Stat Lab 04/05/19 09:35 Ordered CULTURE BLOOD [BC] Stat Lab 04/05/19 09:35 Ordered CULTURE STOOL + CAMPY+SHIGATOX [RM] Stat Lab 04/05/19 08:55 Ordered OCCULT BLOOD DIAGNOSTIC [OP] Stat Lab 04/05/19 08:55 Ordered UA RFX GI AND CULT IF INDIC [URIN] Stat Lab 04/05/19 08:55 Ordered Azithromycin [Zithromax] 1,000 mg Med 04/05/19 09:52 Active Sodium Chloride 0.9% [Normal Saline] 500 ml IV ONETIME Sodium Chloride 0.9% [Normal Saline] 500 ml Med 04/05/19 09:00 Active IV STAT Blood Culture x2 Reflex Set [OM.PC] Stat Oth 04/05/19 09:35 Ordered Isolation [COMM] Stat Oth 04/05/19 08:55 Ordered Medication Orders Sodium Chloride (Normal Saline) 500 mls @ 999 mls/hr IV STAT JULIAN Last Admin: 04/05/19 09:17 Dose: 999 mls/hr Azithromycin 1,000 mg/ Sodium (Chloride) 500 mls @ 250 mls/hr IV ONETIME ONE Stop: 04/05/19 11:51 Labs: Laboratory Tests 04/05/19 04/05/19 Range/Units 09:07 09:07 WBC 14.11 H (4.0-11.0) K/uL RBC 4.47 L (4.50-5.90) M/uL Hgb 14.4 (13.0-17.0) g/dL Hct 43.8 (38.0-50.0) % MCV 98.0 (80.0-98.0) fL MCH 32.2 H (27.0-32.0) pg MCHC 32.9 (31.0-37.0) g/dL RDW Std Deviation 48.5 (28.0-62.0) fl RDW Coeff of Mary 14 (11.0-15.0) % Plt Count 179 (150-400) K/uL MPV 10.80 (7.40-12.00) fL Neut % (Auto) 90.8 H (48.0-80.0) % Lymph % (Auto) 6.2 L (16.0-40.0) % [place] % (Auto) 3.0 (0.0-15.0) % Eos % (Auto) 0.0 (0.0-7.0) % Baso % (Auto) 0.0 (0.0-1.5) % Neut # (Auto) 12.8 H (1.4-5.7) K/uL Lymph # (Auto) 0.9 (0.6-2.4) K/uL [place] # (Auto) 0.4 (0.0-0.8) K/uL Eos # (Auto) 0.0 (0.0-0.7) K/uL Baso # (Auto) 0.0 (0.0-0.1) K/uL Nucleated RBC % 0.0 /100WBC Nucleated RBCs # 0 K/uL Sodium 140 (136-148) mmol/L Potassium 4.3 (3.5-5.1) mmol/L Chloride 104 (98-107) mmol/L Carbon Dioxide 25.5 (21.0-32.0) mmol/L BUN 35 H (7.0-18.0) mg/dL Creatinine 1.5 H (0.8-1.3) mg/dL Est Cr Clr Drug Dosing 36.10 mL/min Estimated GFR (MDRD) 44.7 ml/min Glucose 189 H (74-106) mg/dL Calcium 10.1 (8.5-10.1) mg/dL Total Bilirubin 0.5 (0.2-1.0) mg/dL AST 24 (15-37) IU/L ALT 18 (14-63) IU/L Alkaline Phosphatase 89 (46-116) U/L Troponin I < 0.050 (0.000-0.056) ng/mL Total Protein 8.2 (6.4-8.2) g/dL Albumin 4.1 (3.4-5.0) g/dL Globulin 4.1 H (2.6-4.0) g/dL Albumin/Globulin Ratio 1.0 (0.9-1.6) Lipase 472 H (73-393) U/L Meds: Medications Generic Name Dose Route Start Last Admin Trade Name Tylor PRN Reason Stop Dose Admin Sodium Chloride 500 mls @ 999 mls/hr 04/05/19 09:00 04/05/19 09:17 Normal Saline IV 999 mls/hr STAT JULIAN Administration Azithromycin 1,000 mg/ Sodium 500 mls @ 250 mls/hr 04/05/19 09:52 Chloride IV 04/05/19 11:51 ONETIME ONE Discontinued Medications Generic Name Dose Route Start Last Admin Trade Name Tylor PRN Reason Stop Dose Admin Aspirin 324 mg 04/05/19 09:16 04/05/19 09:24 Aspirin PO 04/05/19 09:17 324 mg ONETIME ONE Administration Al Hydroxide/Mg Hydroxide 15 0 ml 04/05/19 09:14 04/05/19 09:24 ml/ Metoclopramide HCl 5 mg/ PO 04/05/19 09:15 1 each Lidocaine HCl 5 ml ONETIME ONE Administration Ceftriaxone Sodium/Dextrose 1 50 mls @ 100 mls/hr 04/05/19 09:51 04/05/19 10: 29 gm/ Premix IV 04/05/19 10:20 100 mls/hr ONETIME ONE Administration Lorazepam 0.5 mg 04/05/19 09:14 04/05/19 09:24 Ativan IVPUSH 04/05/19 09:15 0.5 mg ONETIME ONE Administration Departure - Departure Time of Disposition: 10:41 Disposition: Admitted As Inpatient 66 Condition: Fair Clinical Impression: Pancreatitis, Pneumonia - Discharge Information Referrals: PCP,Unknown [Primary Care Provider] - Forms: ED Department Discharge - My Orders Last 24 Hours: My Active Orders 04/05/19 08:55 EKG Documentation Completion [RC] STAT CDIFF TOX A+B [OP] Stat CULTURE STOOL + CAMPY+SHIGATOX [RM] Stat OCCULT BLOOD DIAGNOSTIC [OP] Stat UA RFX GI AND CULT IF INDIC [URIN] Stat Isolation [COMM] Stat 04/05/19 09:00 Sodium Chloride 0.9% [Normal Saline] 500 ml IV STAT 04/05/19 09:35 CULTURE BLOOD [BC] Stat CULTURE BLOOD [BC] Stat Blood Culture x2 Reflex Set [OM.PC] Stat 04/05/19 09:52 Azithromycin [Zithromax] 1,000 mg Sodium Chloride 0.9% [Normal Saline] 500 ml IV ONETIME - Assessment/Plan Last 24 Hours: My Active Orders 04/05/19 08:55 EKG Documentation Completion [RC] STAT CDIFF TOX A+B [OP] Stat CULTURE STOOL + CAMPY+SHIGATOX [RM] Stat OCCULT BLOOD DIAGNOSTIC [OP] Stat UA RFX GI AND CULT IF INDIC [URIN] Stat Isolation [COMM] Stat 04/05/19 09:00 Sodium Chloride 0.9% [Normal Saline] 500 ml IV STAT 04/05/19 09:35 CULTURE BLOOD [BC] Stat CULTURE BLOOD [BC] Stat Blood Culture x2 Reflex Set [OM.PC] Stat 04/05/19 09:52 Azithromycin [Zithromax] 1,000 mg Sodium Chloride 0.9% [Normal Saline] 500 ml IV ONETIME
[2019-04-05] MEDS ORDERED: Sodium Chloride 0.9% 500 ML IV SCH (09:00)
[2019-04-05] MEDS ORDERED: Alum Hydrox/Mag Hydrox/Simeth 15 ML, Metoclopramide 5 MG, Lidocaine 2% 5 ML PO ONE ×3 (09:14)
[2019-04-05] MEDS ORDERED: LORazepam 2 MG/ML SDV IVPUSH ONE (09:14)
[2019-04-05] MEDS ORDERED: Aspirin 81 MG Tab.Chew PO ONE (09:16)
--- NOTE | 2019-04-05 09:29 | CR ---
EXAMINATION: Portable chest radiograph. HISTORY: Shortness of breath. Comparison: 11/11/2017. FINDINGS: The trachea is midline. The heart is borderline in size for technique. Left-sided pacemaker is noted. Mild left basilar atelectasis/infiltrate, likely chronic. No pleural effusion or pneumothorax. Osseous structures appear unremarkable. IMPRESSION: 1. Mild cardiomegaly is left-sided pacemaker. 2. Chronic appearing basilar scarring. Infiltrate is less likely.
[2019-04-05] MEDS ORDERED: cefTRIAXone 1 GM in Premix Bag 1 BAG IV ONE (09:51)
[2019-04-05] MEDS ORDERED: Azithromycin 1,000 MG in Sodium Chloride 0.9% 500 ML IV ONE (09:52)
[2019-04-05 10:01] LABS: CHLORIDE,CL 104 mmol/L (98-107); SODIUM,NA 140 mmol/L (136-148)
[2019-04-05] MEDS ORDERED: Sodium Chloride 0.9% 1,000 ML IV SCH (11:00)
[2019-04-05] MEDS ORDERED: Docusate Sodium 100 MG Cap PO PRN (11:42)
[2019-04-05] MEDS ORDERED: oxyCODONE 5 MG Tab PO PRN (11:42)
[2019-04-05] MEDS ORDERED: Temazepam 15 MG Cap PO PRN (11:42)
[2019-04-05] MEDS ORDERED: Heparin Sodium 5,000 Units/ML Vial SUBCUT SCH (11:45)
--- NOTE | 2019-04-05 11:48 | PCM.HP ---
H&P History of Present Illness - General Date of Service: 04/05/19 Admit Problem/Dx: Admission Diagnosis/Problem Admission Diagnosis/Problem bibasilar scarring, no pneumonia, chest pain with reflux. Source of Information: Patient, Family History Limitations: Reports: No Limitations - History of Present Illness Initial Comments - Free Text/Narative: The patient is an 83-year-old gentleman who had presented to the emergency department complaining predominantly of acid reflux that has been radiating into his chest and he has some chest pain associated with this. The patient does have a history of atrial fibrillation, is chronically anticoagulated and has a pacemaker AICD in place. The patient also had been complaining of loose stools. The patient has denied any associated symptoms such as dizziness or lightheadedness. No diaphoresis. No radiation of the pain. The patient has had no specific aggravating or relieving factors. He has been in his usual state of health up until the present time. He takes medication for diabetes, hypertension and his heart disease. Onset of Symptoms: Reports: Gradual Duration of Symptoms: Reports: Day(s):, Getting Worse Location: Reports: Chest Quality: Reports: Ache, Dull, Stabbing Severity: Moderate Improves with: Reports: None Worsens with: Reports: None Associated Symptoms: Reports: No Other Symptoms heartburn Pain Score (Numeric/FACES): 10 - Related Data Allergies/Adverse Reactions: Allergies Allergy/AdvReac Type Severity Reaction Status Date / Time dye Allergy Cardiac Uncoded 04/05/19 08:55 Arrest Home Medications: Home Meds Furosemide [Lasix] 40 mg PO DAILY 08/20/15 [History] LORazepam [Ativan] 1 mg PO TID PRN 08/20/15 [History] Aspirin 81 mg PO BRK 09/09/16 [History] Antiox#10/Om3/DHA/EPA/Lut/Zeax [I-Caps with Lutein-[place] 3 SFG] 1 cap PO BID [History] Metoprolol Tartrate 75 mg PO BID 30 Days #60 tablet 11/12/17 [Rx] Rivaroxaban [Xarelto] 20 mg PO DAILY 04/05/19 [History] Past Medical History - Past Health History Medical/Surgical History: Denies Medical/Surgical History HEENT History: Reports: Hard of Hearing, Impaired Vision Other HEENT History: on hearing aids Cardiovascular History: Reports: Afib, CAD, Hypertension, [place], Pacemaker, Prior Cardiac Arrest, Stents Respiratory History: Reports: Sleep Apnea Other Respiratory History: uses cpap Gastrointestinal History: Reports: None Genitourinary History: Reports: Renal Calculus Musculoskeletal History: Reports: Arthritis Neurological History: Reports: TIA, Vertigo, Other (See Below) Other Neuro History: menieres disease Psychiatric History: Reports: Anxiety Endocrine/Metabolic History: Reports: Diabetes, Type II, Obesity/BMI 30+ Other Endocrine/Metabolic History: diabetes controlled by diet Hematologic History: Reports: None Immunologic History: Reports: None Oncologic (Cancer) History: Reports: None Dermatologic History: Reports: None - Infectious Disease History Infectious Disease History: Reports: Other (See Below) Other Infectious Disease History: unknown - Past Surgical History Musculoskeletal Surgical History: Reports: Hip Replacement, Knee Replacement Social & Family History - Family History Family Medical History: Noncontributory - Tobacco Use Smoking Status *Q: Never Smoker - Caffeine Use Caffeine Use: Reports: Coffee - Alcohol Use Days Per Week of Alcohol Use: 2 Number of Drinks Per Day: 2 Total Drinks Per Week: 4 - Recreational Drug Use Recreational Drug Use: No - Living Situation & Occupation Living situation: Reports: with Family Occupation: Retired H&P Review of Systems - Review of Systems: Review Of Systems: See Below General: Reports: Weakness HEENT: Reports: No Symptoms Pulmonary: Reports: No Symptoms Cardiovascular: Reports: Chest Pain Gastrointestinal: Reports: Abdominal Pain (Epigastric pain), Other (Acid reflux) Genitourinary: Reports: No Symptoms Musculoskeletal: Reports: No Symptoms Skin: Reports: No Symptoms Psychiatric: Reports: No Symptoms Neurological: Reports: No Symptoms Hematologic/Lymphatic: Reports: No Symptoms Immunologic: Reports: No Symptoms Exam - Exam Exam: See Below - Vital Signs Vital Signs: Last Vital Signs Temp 36.7 C 04/05/19 08:51 Pulse 88 04/05/19 08:51 Resp 18 04/05/19 08:51 BP 150/91 H 04/05/19 08:51 Pulse Ox 96 04/05/19 09:50 Weight: 106.594 kg - Exam Quality Assessment: No: Supplemental Oxygen General: Alert HEENT: Conjunctiva Clear, EACs Clear, EOMI, Nares Patent, Pupils Equal, PERRLA. No: Mucosa Moist & [place] (Dry) Neck: Supple, Trachea Midline Lungs: Clear to Auscultation, Normal Respiratory Effort, Other (Pacemaker/AICD left upper chest wall) Cardiovascular: Regular Rate, Regular Rhythm GI/Abdominal Exam: Normal Bowel Sounds, Soft, No Distention Back Exam: Normal Inspection Extremities: Normal Inspection, No Pedal Edema Skin: Warm, Dry, Intact Neurological: Cranial Nerves Intact Neuro Extensive - Mental Status: Alert, Oriented x3 Psychiatric: Alert, Normal Affect, Normal Mood - Patient Data Lab Results Last 24 hrs: Laboratory Results - last 24 hr 04/05/19 04/05/19 Range/Units 09:07 09:07 WBC 14.11 H (4.0-11.0) K/uL RBC 4.47 L (4.50-5.90) M/uL Hgb 14.4 (13.0-17.0) g/dL Hct 43.8 (38.0-50.0) % MCV 98.0 (80.0-98.0) fL MCH 32.2 H (27.0-32.0) pg MCHC 32.9 (31.0-37.0) g/dL RDW Std Deviation 48.5 (28.0-62.0) fl RDW Coeff of Mary 14 (11.0-15.0) % Plt Count 179 (150-400) K/uL MPV 10.80 (7.40-12.00) fL Neut % (Auto) 90.8 H (48.0-80.0) % Lymph % (Auto) 6.2 L (16.0-40.0) % [place] % (Auto) 3.0 (0.0-15.0) % Eos % (Auto) 0.0 (0.0-7.0) % Baso % (Auto) 0.0 (0.0-1.5) % Neut # (Auto) 12.8 H (1.4-5.7) K/uL Lymph # (Auto) 0.9 (0.6-2.4) K/uL [place] # (Auto) 0.4 (0.0-0.8) K/uL Eos # (Auto) 0.0 (0.0-0.7) K/uL Baso # (Auto) 0.0 (0.0-0.1) K/uL Nucleated RBC % 0.0 /100WBC Nucleated RBCs # 0 K/uL Sodium 140 (136-148) mmol/L Potassium 4.3 (3.5-5.1) mmol/L Chloride 104 (98-107) mmol/L Carbon Dioxide 25.5 (21.0-32.0) mmol/L BUN 35 H (7.0-18.0) mg/dL Creatinine 1.5 H (0.8-1.3) mg/dL Est Cr Clr Drug Dosing 36.10 mL/min Estimated GFR (MDRD) 44.7 ml/min Glucose 189 H (74-106) mg/dL Calcium 10.1 (8.5-10.1) mg/dL Total Bilirubin 0.5 (0.2-1.0) mg/dL AST 24 (15-37) IU/L ALT 18 (14-63) IU/L Alkaline Phosphatase 89 (46-116) U/L Troponin I < 0.050 (0.000-0.056) ng/mL Total Protein 8.2 (6.4-8.2) g/dL Albumin 4.1 (3.4-5.0) g/dL Globulin 4.1 H (2.6-4.0) g/dL Albumin/Globulin Ratio 1.0 (0.9-1.6) Lipase 472 H (73-393) U/L Result Diagrams: 04/05/19 09:07 04/05/19 09:07 - Problem List (1) Chest pain, atypical SNOMED Code(s): 822757352 ICD Code: R07.89 - OTHER CHEST PAIN Status: Acute Priority: High Current Visit: Yes (2) HTN (hypertension) SNOMED Code(s): 63043565 ICD Code: I10 - ESSENTIAL (PRIMARY) HYPERTENSION Status: Chronic Priority : High Current Visit: Yes Qualifiers: Hypertension type: essential hypertension Qualified Code(s): I10 - Essential (primary) hypertension (3) CAD (coronary artery disease) SNOMED Code(s): 70458260 ICD Code: I25.10 - ATHSCL HEART DISEASE OF [place] CORONARY ARTERY W/O ANG PCTRS Status: Chronic Priority: High Current Visit: Yes Qualifiers: Coronary Disease-Associated Artery/Lesion type: [place] artery [place] vs. transplanted heart: [place] heart (4) DM type 2 (diabetes mellitus, type 2) SNOMED Code(s): 23382907 ICD Code: E11.9 - TYPE 2 DIABETES MELLITUS WITHOUT COMPLICATIONS Status: Chronic Priority: High Current Visit: Yes Qualifiers: Diabetes mellitus alf insulin use: without alf use Diabetes mellitus complication status: without complication Qualified Code(s): E11.9 - Type 2 diabetes mellitus without complications (5) Pacemaker SNOMED Code(s): 534634520 ICD Code: Z95.0 - PRESENCE OF CARDIAC PACEMAKER Status: Chronic Priority : Medium Current Visit: No Problem List Initiated/Reviewed/Updated: Yes Orders Last 24hrs: Active Orders 24 hr Category Date Time Status Admission Status [Patient Status] [ADT] Stat ADT 04/05/19 10:41 Active Blood Glucose Check, Bedside [RC] WITHMEALSANDBED Care 04/05/19 11:42 Ordered Cardiac Monitoring [RC] . DIRECTED Care 04/05/19 10:41 Active Cardiac Monitoring [RC] CONTINUOUS Care 04/05/19 11:42 Ordered Diabetes Education [RC] Click to Edit Care 04/05/19 11:43 Ordered EKG Documentation Completion [RC] AM Care 04/06/19 08:00 Ordered EKG Documentation Completion [RC] STAT Care 04/05/19 08:55 Active Oxygen Therapy [RC] PRN Care 04/05/19 11:41 Ordered Oxygen Therapy [RC] PRN Care 04/05/19 11:42 Ordered Up ad Kathleen [RC] ASDIRECTED Care 04/05/19 11:41 Ordered VTE/DVT Education [RC] PER UNIT ROUTINE Care 04/05/19 11:41 Ordered VTE/DVT Education [RC] PER UNIT ROUTINE Care 04/05/19 11:42 Ordered Vital Signs [RC] Q4H Care 04/05/19 11:41 Ordered Vital Signs [RC] Q4H Care 04/05/19 11:42 Ordered [place] [employer] Diet [DIET] Diet 04/05/19 Dinner Ordered BASIC METABOLIC PANEL,BMP [CHEM] AM Lab 04/06/19 05:11 Ordered CBC WITH AUTO DIFF [HEME] AM Lab 04/06/19 05:11 Ordered CDIFF TOX A+B [OP] Stat Lab 04/05/19 08:55 Ordered CULTURE BLOOD [BC] Stat Lab 04/05/19 10:27 Received CULTURE BLOOD [BC] Stat Lab 04/05/19 10:35 Received CULTURE STOOL + CAMPY+SHIGATOX [RM] Stat Lab 04/05/19 08:55 Ordered OCCULT BLOOD DIAGNOSTIC [OP] Stat Lab 04/05/19 08:55 Ordered TROPONIN I [CHEM] Q6H Lab 04/05/19 16:00 Ordered TROPONIN I [CHEM] Q6H Lab 04/05/19 22:00 Ordered UA RFX GI AND CULT IF INDIC [URIN] Stat Lab 04/05/19 08:55 Ordered Acetaminophen [Tylenol] Med 04/05/19 11:42 Ordered 650 mg PO Q4H PRN Aspirin Med 04/06/19 08:00 Ordered 81 mg PO BRK Azithromycin [Zithromax] 1,000 mg Med 04/05/19 09:52 Active Sodium Chloride 0.9% [Normal Saline] 500 ml IV ONETIME Docusate Sodium [Colace] Med 04/05/19 11:42 Ordered 100 mg PO BID PRN Furosemide [Lasix] Med 04/06/19 09:00 Ordered 40 mg PO DAILY Insulin Aspart [NovoLOG] Med 04/05/19 17:00 Ordered See Protocol SUBCUT TIDAC LORazepam Med 04/05/19 12:00 Ordered 0.5 mg PO ASDIRECTED Metoprolol Tartrate [Metoprolol Tartrate] Med 04/05/19 21:00 Ordered 75 mg PO BID Ondansetron [Zofran ODT] Med 04/05/19 11:42 Ordered 4 mg PO Q6H PRN Rivaroxaban [Xarelto] Med 04/05/19 12:00 Ordered 25 mg PO ASDIRECTED Sodium Chloride 0.9% [Normal Saline] 1,000 ml Med 04/05/19 11:45 Ordered IV ASDIRECTED Sodium Chloride 0.9% [Normal Saline] 1,000 ml Med 04/05/19 11:00 Active IV STAT Sodium Chloride 0.9% [Normal Saline] 500 ml Med 04/05/19 09:00 Active IV STAT Temazepam [Restoril] Med 04/05/19 11:42 Ordered 15 mg PO BEDTIME PRN oxyCODONE Med 04/05/19 11:42 Ordered 5 mg PO Q4H PRN Blood Culture x2 Reflex Set [OM.PC] Stat Oth 04/05/19 09:35 Ordered Glucose Management Sub Q Reflex [OM.PC] Click To Edit Oth 04/05/19 11:42 Ordered Isolation [COMM] Stat Oth 04/05/19 08:55 Ordered Resuscitation Status Routine Resus Stat 04/05/19 11:41 Ordered Medication Orders Acetaminophen (Tylenol) 650 mg PO Q4H PRN PRN Reason: Pain (Mild 1-3)/fever Aspirin (Aspirin) 81 mg PO BRK JULIAN Docusate Sodium (Colace) 100 mg PO BID PRN PRN Reason: Constipation Furosemide (Lasix) 40 mg PO DAILY [facility] Sodium Chloride (Normal Saline) 500 mls @ 999 mls/hr IV STAT [facility] Last Admin: 04/05/19 09:17 Dose: 999 mls/hr Azithromycin 1,000 mg/ Sodium (Chloride) 500 mls @ 250 mls/hr IV ONETIME ONE Stop: 04/05/19 11:51 Last Admin: 04/05/19 11:03 Dose: 250 mls/hr Sodium Chloride (Normal Saline) 1,000 mls @ 125 mls/hr IV STAT [facility] Last Admin: 04/05/19 11:03 Dose: 125 mls/hr Sodium Chloride (Normal Saline) 1,000 mls @ 75 mls/hr IV ASDIRECTED [facility] Insulin Aspart (Novolog) 0 unit SUBCUT TIDAC JULIAN; Protocol Non-Formulary Medication (Lorazepam) 0.5 mg PO ASDIRECTED [facility] Non-Formulary Medication (Metoprolol Tartrate [Metoprolol Tartrate]) 75 mg PO BID JULIAN Non-Formulary Medication (Rivaroxaban [Xarelto]) 25 mg PO ASDIRECTED [facility] Ondansetron HCl (Zofran Odt) 4 mg PO Q6H PRN PRN Reason: nausea, able to take PO Oxycodone HCl (Oxycodone) 5 mg PO Q4H PRN PRN Reason: Pain (moderate 4-6) Temazepam (Restoril) 15 mg PO BEDTIME PRN PRN Reason: Sleep Assessment/Plan Comment:: The patient is an 83-year-old gentleman who had presented primarily out of concern for acid reflux and chest pain. The patient's narrative for his history of present illness has changed somewhat since initial presentation. Also, chest x-ray was over read by radiologist which did not show any acute pulmonary issues. Pneumonia is not a diagnosis. The patient's antibiotics have been discontinued. The patient will also be kept on an appropriate heart healthy, ADA diet and he has been ordered to have insulin sliding scale before meals and at bedtime. He will be kept on his home medications to include furosemide to help with any concern for pulmonary edema. He'll also be kept on oxygen as necessary. The patient also has had troponins ordered 2 and if these are elevated we'll consider transfer to a tertiary care center. The patient's C. difficile toxin as well as fecal occult blood are currently pending. I've also ordered repeat laboratory studies. The patient has been placed on DVT prophylaxis with the use of Lovenox at 40 mg subcutaneous on a daily basis. The patient has been encouraged to ambulate. The patient should be appropriate for discharge 1 day.
[2019-04-05] MEDS ORDERED: Non-Formulary Medication 1 Each (Lorazepam 0.5 MG) PO PRN (14:00)
[2019-04-05] MEDS: Sodium Chloride 0.9% 1,000 ML IV SCH ×2 (15:17→22:24)
[2019-04-05] MEDS ORDERED: LORazepam 0.5 MG Tab PO PRN (15:54)
[2019-04-05] MEDS: Benzonatate 100 MG Cap PO PRN (16:04)
[2019-04-05] MEDS: Insulin Aspart 100 Units/ML 3 ML Pen SUBCUT SCH (17:29)
[2019-04-05] MEDS: Rivaroxaban 10 MG Tab PO SCH (17:47)
[2019-04-05] MEDS: Metoprolol Tartrate 25 MG Tab PO SCH (22:07)
[2019-04-05] MEDS: Ondansetron 4 MG Tab.DIS PO PRN (22:20)
[2019-04-06] MEDS: Ondansetron 4 MG Tab.DIS PO PRN (03:53)
[2019-04-06] MEDS ORDERED: Alum Hydrox/Mag Hydrox/Simeth 15 ML, Metoclopramide 5 MG, Lidocaine 2% 5 ML PO ONE ×3 (06:07)
[2019-04-06] MEDS: Benzonatate 100 MG Cap PO PRN (06:52)
[2019-04-06] MEDS ORDERED: Azithromycin 500 MG in Sodium Chloride 0.9% 250 ML IV SCH (07:00)
--- NOTE | 2019-04-06 07:22 | PCM.PN ---
- General Info Date of Service: 04/06/19 Admission Dx/Problem (Free Text): Admission Diagnosis/Problem Admission Diagnosis/Problem bibasilar scarring, no pneumonia, chest pain with reflux. Subjective Update: The patient is an 83-year-old gentleman who was admitted yesterday primarily out of concern for heartburn, atypical chest pain and diarrhea. The patient today says that he has had severe heartburn and reflux has been causing him pain in his chest. Also, the patient's diarrhea has not resolved. The patient has been tolerating his diet. The patient has denied any pain. Functional Status: Reports: Pain Controlled - Review of Systems General: Reports: Weakness, Fatigue HEENT: Reports: No Symptoms Pulmonary: Reports: No Symptoms Cardiovascular: Reports: No Symptoms Gastrointestinal: Reports: Abdominal Pain, Diarrhea, Other (Acid reflux) Genitourinary: Reports: No Symptoms Musculoskeletal: Reports: No Symptoms Skin: Reports: No Symptoms Neurological: Reports: No Symptoms Psychiatric: Reports: No Symptoms - Patient Data Vitals - Most Recent: Last Vital Signs Temp 36.9 C 04/06/19 04:00 Pulse 72 04/06/19 04:00 Resp 16 04/06/19 04:00 BP 137/67 04/06/19 04:00 Pulse Ox 95 04/06/19 04:00 Weight - Most Recent: 106.594 kg I&O - Last 24 Hours: Intake & Output 04/05/19 04/06/19 04/06/19 22:59 06:59 14:59 Intake Total 240 1190 Output Total 700 Balance 240 490 Lab Results Last 24 Hours: Laboratory Results - last 24 hr 04/05/19 04/05/19 04/05/19 Range/Units 09:07 09:07 16:09 WBC 14.11 H (4.0-11.0) K/uL RBC 4.47 L (4.50-5.90) M/uL Hgb 14.4 (13.0-17.0) g/dL Hct 43.8 (38.0-50.0) % MCV 98.0 (80.0-98.0) fL MCH 32.2 H (27.0-32.0) pg MCHC 32.9 (31.0-37.0) g/dL RDW Std Deviation 48.5 (28.0-62.0) fl RDW Coeff of Mary 14 (11.0-15.0) % Plt Count 179 (150-400) K/uL MPV 10.80 (7.40-12.00) fL Neut % (Auto) 90.8 H (48.0-80.0) % Lymph % (Auto) 6.2 L (16.0-40.0) % [place] % (Auto) 3.0 (0.0-15.0) % Eos % (Auto) 0.0 (0.0-7.0) % Baso % (Auto) 0.0 (0.0-1.5) % Neut # (Auto) 12.8 H (1.4-5.7) K/uL Lymph # (Auto) 0.9 (0.6-2.4) K/uL [place] # (Auto) 0.4 (0.0-0.8) K/uL Eos # (Auto) 0.0 (0.0-0.7) K/uL Baso # (Auto) 0.0 (0.0-0.1) K/uL Nucleated RBC % 0.0 /100WBC Nucleated RBCs # 0 K/uL Sodium 140 (136-148) mmol/L Potassium 4.3 (3.5-5.1) mmol/L Chloride 104 (98-107) mmol/L Carbon Dioxide 25.5 (21.0-32.0) mmol/L BUN 35 H (7.0-18.0) mg/dL Creatinine 1.5 H (0.8-1.3) mg/dL Est Cr Clr Drug Dosing 36.10 mL/min Estimated GFR (MDRD) 44.7 ml/min Glucose 189 H (74-106) mg/dL POC Glucose (60-110) mg/dL Calcium 10.1 (8.5-10.1) mg/dL Total Bilirubin 0.5 (0.2-1.0) mg/dL AST 24 (15-37) IU/L ALT 18 (14-63) IU/L Alkaline Phosphatase 89 (46-116) U/L Troponin I < 0.050 < 0.050 (0.000-0.056) ng/mL Total Protein 8.2 (6.4-8.2) g/dL Albumin 4.1 (3.4-5.0) g/dL Globulin 4.1 H (2.6-4.0) g/dL Albumin/Globulin Ratio 1.0 (0.9-1.6) Lipase 472 H (73-393) U/L Urine Color Urine Appearance Urine pH (5.0-8.0) Ur Specific Bang[place] (1.001-1.035) Urine Protein (NEGATIVE) mg/dL Urine Glucose (UA) (NEGATIVE) mg/dL Urine Ketones (NEGATIVE) mg/dL Urine Occult Blood (NEGATIVE) Urine Nitrite (NEGATIVE) Urine Bilirubin (NEGATIVE) Urine Urobilinogen (<2.0) EU/dL Ur Leukocyte Esterase (NEGATIVE) Urine RBC (0-2/HPF) Urine WBC (0-5/HPF) Ur Epithelial Cells (NONE-FEW) Urine Bacteria (NEGATIVE) Urine Mucus (NONE-MOD) 04/05/19 04/05/19 04/05/19 Range/Units 16:14 21:26 22:05 WBC (4.0-11.0) K/uL RBC (4.50-5.90) M/uL Hgb (13.0-17.0) g/dL Hct (38.0-50.0) % MCV (80.0-98.0) fL MCH (27.0-32.0) pg MCHC (31.0-37.0) g/dL RDW Std Deviation (28.0-62.0) fl RDW Coeff of Mary (11.0-15.0) % Plt Count (150-400) K/uL MPV (7.40-12.00) fL Neut % (Auto) (48.0-80.0) % Lymph % (Auto) (16.0-40.0) % [place] % (Auto) (0.0-15.0) % Eos % (Auto) (0.0-7.0) % Baso % (Auto) (0.0-1.5) % Neut # (Auto) (1.4-5.7) K/uL Lymph # (Auto) (0.6-2.4) K/uL [place] # (Auto) (0.0-0.8) K/uL Eos # (Auto) (0.0-0.7) K/uL Baso # (Auto) (0.0-0.1) K/uL Nucleated RBC % /100WBC Nucleated RBCs # K/uL Sodium (136-148) mmol/L Potassium (3.5-5.1) mmol/L Chloride (98-107) mmol/L Carbon Dioxide (21.0-32.0) mmol/L BUN (7.0-18.0) mg/dL Creatinine (0.8-1.3) mg/dL Est Cr Clr Drug Dosing mL/min Estimated GFR (MDRD) ml/min Glucose (74-106) mg/dL POC Glucose 134 H 183 H (60-110) mg/dL Calcium (8.5-10.1) mg/dL Total Bilirubin (0.2-1.0) mg/dL AST (15-37) IU/L ALT (14-63) IU/L Alkaline Phosphatase (46-116) U/L Troponin I (0.000-0.056) ng/mL Total Protein (6.4-8.2) g/dL Albumin (3.4-5.0) g/dL Globulin (2.6-4.0) g/dL Albumin/Globulin Ratio (0.9-1.6) Lipase (73-393) U/L Urine Color YELLOW Urine Appearance CLEAR Urine pH 5.5 (5.0-8.0) Ur Specific [place] >= 1.030 (1.001-1.035) Urine Protein NEGATIVE (NEGATIVE) mg/dL Urine Glucose (UA) NEGATIVE (NEGATIVE) mg/dL Urine Ketones NEGATIVE (NEGATIVE) mg/dL Urine Occult Blood NEGATIVE (NEGATIVE) Urine Nitrite NEGATIVE (NEGATIVE) Urine Bilirubin NEGATIVE (NEGATIVE) Urine Urobilinogen 0.2 (<2.0) EU/dL Ur Leukocyte Esterase TRACE H (NEGATIVE) Urine RBC 0-1 (0-2/HPF) Urine WBC 0-3 (0-5/HPF) Ur Epithelial Cells RARE (NONE-FEW) Urine Bacteria FEW (NEGATIVE) Urine Mucus LIGHT (NONE-MOD) 04/05/19 04/06/19 04/06/19 Range/Units 22:09 05:35 05:35 WBC 17.18 H (4.0-11.0) K/uL RBC 4.16 L (4.50-5.90) M/uL Hgb 13.2 (13.0-17.0) g/dL Hct 41.6 (38.0-50.0) % MCV 100.0 H (80.0-98.0) fL MCH 31.7 (27.0-32.0) pg MCHC 31.7 (31.0-37.0) g/dL RDW Std Deviation 51.1 (28.0-62.0) fl RDW Coeff of Mary 14 (11.0-15.0) % Plt Count 183 (150-400) K/uL MPV 10.80 (7.40-12.00) fL Neut % (Auto) 88.8 H (48.0-80.0) % Lymph % (Auto) 5.6 L (16.0-40.0) % [place] % (Auto) 5.6 (0.0-15.0) % Eos % (Auto) 0.0 (0.0-7.0) % Baso % (Auto) 0.0 (0.0-1.5) % Neut # (Auto) 15.3 H (1.4-5.7) K/uL Lymph # (Auto) 1.0 (0.6-2.4) K/uL [place] # (Auto) 1.0 H (0.0-0.8) K/uL Eos # (Auto) 0.0 (0.0-0.7) K/uL Baso # (Auto) 0.0 (0.0-0.1) K/uL Nucleated RBC % 0.0 /100WBC Nucleated RBCs # 0 K/uL Sodium 143 (136-148) mmol/L Potassium 4.8 (3.5-5.1) mmol/L Chloride 109 H (98-107) mmol/L Carbon Dioxide 27.9 (21.0-32.0) mmol/L BUN 33 H (7.0-18.0) mg/dL Creatinine 1.3 (0.8-1.3) mg/dL Est Cr Clr Drug Dosing 41.65 mL/min Estimated GFR (MDRD) 52.7 ml/min Glucose 156 H (74-106) mg/dL POC Glucose (60-110) mg/dL Calcium 8.5 (8.5-10.1) mg/dL Total Bilirubin (0.2-1.0) mg/dL AST (15-37) IU/L ALT (14-63) IU/L Alkaline Phosphatase (46-116) U/L Troponin I < 0.050 (0.000-0.056) ng/mL Total Protein (6.4-8.2) g/dL Albumin (3.4-5.0) g/dL Globulin (2.6-4.0) g/dL Albumin/Globulin Ratio (0.9-1.6) Lipase (73-393) U/L Urine Color Urine Appearance Urine pH (5.0-8.0) Ur Specific [place] (1.001-1.035) Urine Protein (NEGATIVE) mg/dL Urine Glucose (UA) (NEGATIVE) mg/dL Urine Ketones (NEGATIVE) mg/dL Urine Occult Blood (NEGATIVE) Urine Nitrite (NEGATIVE) Urine Bilirubin (NEGATIVE) Urine Urobilinogen (<2.0) EU/dL Ur Leukocyte Esterase (NEGATIVE) Urine RBC (0-2/HPF) Urine WBC (0-5/HPF) Ur Epithelial Cells (NONE-FEW) Urine Bacteria (NEGATIVE) Urine Mucus (NONE-MOD) 04/06/19 Range/Units 05:53 WBC (4.0-11.0) K/uL RBC (4.50-5.90) M/uL Hgb (13.0-17.0) g/dL Hct (38.0-50.0) % MCV (80.0-98.0) fL MCH (27.0-32.0) pg MCHC (31.0-37.0) g/dL RDW Std Deviation (28.0-62.0) fl RDW Coeff of Mary (11.0-15.0) % Plt Count (150-400) K/uL MPV (7.40-12.00) fL Neut % (Auto) (48.0-80.0) % Lymph % (Auto) (16.0-40.0) % [place] % (Auto) (0.0-15.0) % Eos % (Auto) (0.0-7.0) % Baso % (Auto) (0.0-1.5) % Neut # (Auto) (1.4-5.7) K/uL Lymph # (Auto) (0.6-2.4) K/uL [place] # (Auto) (0.0-0.8) K/uL Eos # (Auto) (0.0-0.7) K/uL Baso # (Auto) (0.0-0.1) K/uL Nucleated RBC % /100WBC Nucleated RBCs # K/uL Sodium (136-148) mmol/L Potassium (3.5-5.1) mmol/L Chloride (98-107) mmol/L Carbon Dioxide (21.0-32.0) mmol/L BUN (7.0-18.0) mg/dL Creatinine (0.8-1.3) mg/dL Est Cr Clr Drug Dosing mL/min Estimated GFR (MDRD) ml/min Glucose (74-106) mg/dL POC Glucose 156 H (60-110) mg/dL Calcium (8.5-10.1) mg/dL Total Bilirubin (0.2-1.0) mg/dL AST (15-37) IU/L ALT (14-63) IU/L Alkaline Phosphatase (46-116) U/L Troponin I (0.000-0.056) ng/mL Total Protein (6.4-8.2) g/dL Albumin (3.4-5.0) g/dL Globulin (2.6-4.0) g/dL Albumin/Globulin Ratio (0.9-1.6) Lipase (73-393) U/L Urine Color Urine Appearance Urine pH (5.0-8.0) Ur Specific [place] (1.001-1.035) Urine Protein (NEGATIVE) mg/dL Urine Glucose (UA) (NEGATIVE) mg/dL Urine Ketones (NEGATIVE) mg/dL Urine Occult Blood (NEGATIVE) Urine Nitrite (NEGATIVE) Urine Bilirubin (NEGATIVE) Urine Urobilinogen (<2.0) EU/dL Ur Leukocyte Esterase (NEGATIVE) Urine RBC (0-2/HPF) Urine WBC (0-5/HPF) Ur Epithelial Cells (NONE-FEW) Urine Bacteria (NEGATIVE) Urine Mucus (NONE-MOD) Kaleb Results Last 24 Hours: Microbiology 04/05/19 12:50 Campylobacter Antigen Assay - Final Stool / Feces NEGATIVE CAMPYLOBACTER AG REFERENCE RANGE: NEGATIVE Shiga Toxin I - Final NEGATIVE FOR SHIGA TOXIN 1 REFERENCE RANGE: NEGATIVE Shiga Toxin II - Final NEGATIVE FOR SHIGA TOXIN 2 REFERENCE RANGE: NEGATIVE 04/05/19 12:50 Clostridium difficile Toxin A & B - Final Stool / Feces Negative for C.Diff Toxin/AG REFERENCE RANGE: NEGATIVE Stool Occult Blood (KALEB) - Final Med Orders - Current: Current Medications Acetaminophen (Tylenol) 650 mg PO Q4H PRN PRN Reason: Pain (Mild 1-3)/fever Aspirin (Aspirin) 81 mg PO BRK JULIAN Benzonatate (Tessalon Perles) 100 mg PO TID PRN PRN Reason: Cough Last Admin: 04/06/19 06:52 Dose: 100 mg Docusate Sodium (Colace) 100 mg PO BID PRN PRN Reason: Constipation Furosemide (Lasix) 40 mg PO DAILY [facility] Sodium Chloride (Normal Saline) 500 mls @ 999 mls/hr IV STAT [facility] Last Admin: 04/05/19 09:17 Dose: 999 mls/hr Sodium Chloride (Normal Saline) 1,000 mls @ 125 mls/hr IV STAT [facility] Last Admin: 04/05/19 11:03 Dose: 125 mls/hr Sodium Chloride (Normal Saline) 1,000 mls @ 75 mls/hr IV ASDIRECTED [facility] Last Admin: 04/05/19 22:24 Dose: 75 mls/hr Azithromycin 500 mg/ Sodium (Chloride) 250 mls @ 250 mls/hr IV Q24H [facility] Insulin Aspart (Novolog) 0 unit SUBCUT TIDAC [facility]; Protocol Last Admin: 04/05/19 17:29 Dose: Not Given Lorazepam (Ativan) 0.5 mg PO Q8H PRN PRN Reason: ANXIETY Metoprolol Tartrate (Lopressor) 75 mg PO BID [facility] Last Admin: 04/05/19 22:07 Dose: 75 mg Ondansetron HCl (Zofran Odt) 4 mg PO Q6H PRN PRN Reason: nausea, able to take PO Last Admin: 04/06/19 03:53 Dose: 4 mg Oxycodone HCl (Oxycodone) 5 mg PO Q4H PRN PRN Reason: Pain (moderate 4-6) Rivaroxaban (Xarelto) 20 mg PO DAILY@1730 [facility] Last Admin: 04/05/19 17:47 Dose: 20 mg Temazepam (Restoril) 15 mg PO BEDTIME PRN PRN Reason: Sleep Discontinued Medications Aspirin (Aspirin) 324 mg PO ONETIME ONE Stop: 04/05/19 09:17 Last Admin: 04/05/19 09:24 Dose: 324 mg Al Hydroxide/Mg Hydroxide 15 ml/ Metoclopramide HCl 5 mg/Lidocaine HCl 5 ml 0 ml PO ONETIME ONE Stop: 04/05/19 09:15 Last Admin: 04/05/19 09:24 Dose: 1 each Al Hydroxide/Mg Hydroxide 15 ml/ Metoclopramide HCl 5 mg/Lidocaine HCl 5 ml 0 ml PO ONETIME ONE Stop: 04/06/19 06:08 Last Admin: 04/06/19 06:59 Dose: 1 each Heparin Sodium (Porcine) (Heparin Sodium) 5,000 units SUBCUT Q8H JULIAN Azithromycin 1,000 mg/ Sodium (Chloride) 500 mls @ 250 mls/hr IV ONETIME ONE Stop: 04/05/19 11:51 Last Admin: 04/05/19 11:03 Dose: 250 mls/hr Ceftriaxone Sodium/Dextrose 1 (gm/ Premix) 50 mls @ 100 mls/hr IV ONETIME ONE Stop: 04/05/19 10:20 Last Admin: 04/05/19 10:29 Dose: 100 mls/hr Lorazepam (Ativan) 0.5 mg IVPUSH ONETIME ONE Stop: 04/05/19 09:15 Last Admin: 04/05/19 09:24 Dose: 0.5 mg Non-Formulary Medication (Lorazepam) 0.5 mg PO Q8H PRN PRN Reason: ANXIETY - Exam Quality Assessment: No: Supplemental Oxygen General: Alert, Oriented, Cooperative, Mild Distress HEENT: Pupils Equal, Pupils Reactive, EOMI, Mucous Membr. Moist/[place] Neck: Supple, Trachea Midline Lungs: Clear to Auscultation, Normal Respiratory Effort Cardiovascular: Regular Rate, Regular Rhythm GI/Abdominal Exam: Normal Bowel Sounds, Soft, No Distention, Tender (Epigastrium ). No: Guarding, Rigid, Rebound Back Exam: Normal Inspection, Full Range of Motion Extremities: Normal Inspection, No Pedal Edema Skin: Warm, Dry, Intact Neurological: No New Focal Deficit Psy/Mental Status: Alert, Normal Affect, Normal Mood - Problem List & Annotations (1) Diarrhea SNOMED Code(s): 80410115 Code(s): R19.7 - DIARRHEA, UNSPECIFIED Status: Acute Priority: High Current Visit: Yes Qualifiers: Diarrhea type: functional diarrhea Qualified Code(s): K59.1 - Functional diarrhea (2) Chest pain, atypical SNOMED Code(s): 271207069 Code(s): R07.89 - OTHER CHEST PAIN Status: Resolved Priority: High Current Visit: Yes (3) HTN (hypertension) SNOMED Code(s): 67487501 Code(s): I10 - ESSENTIAL (PRIMARY) HYPERTENSION Status: Chronic Priority : High Current Visit: Yes Qualifiers: Hypertension type: essential hypertension Qualified Code(s): I10 - Essential (primary) hypertension (4) CAD (coronary artery disease) SNOMED Code(s): 76999283 Code(s): I25.10 - ATHSCL HEART DISEASE OF [place] CORONARY ARTERY W/O ANG PCTRS Status: Chronic Priority: High Current Visit: Yes Qualifiers: Coronary Disease-Associated Artery/Lesion type: [place] artery [place] vs. transplanted heart: [place] heart (5) DM type 2 (diabetes mellitus, type 2) SNOMED Code(s): 72855706 Code(s): E11.9 - TYPE 2 DIABETES MELLITUS WITHOUT COMPLICATIONS Status: Chronic Priority: High Current Visit: Yes Qualifiers: Diabetes mellitus terminal make up operator insulin use: without detention use Diabetes mellitus complication status: without complication Qualified Code(s): E11.9 - Type 2 diabetes mellitus without complications (6) Pacemaker SNOMED Code(s): 280311189 Code(s): Z95.0 - PRESENCE OF CARDIAC PACEMAKER Status: Chronic Priority: Medium Current Visit: No - Problem List Review Problem List Initiated/Reviewed/Updated: Yes - My Orders Last 24 Hours: My Active Orders 04/05/19 11:41 Oxygen Therapy [RC] PRN Up ad Kathleen [RC] ASDIRECTED VTE/DVT Education [RC] PER UNIT ROUTINE Vital Signs [RC] Q4H Resuscitation Status Routine 04/05/19 11:42 Blood Glucose Check, Bedside [RC] WITHMEALSANDBED Cardiac Monitoring [RC] CONTINUOUS Oxygen Therapy [RC] PRN VTE/DVT Education [RC] PER UNIT ROUTINE Vital Signs [RC] Q4H Acetaminophen [Tylenol] 650 mg PO Q4H PRN Docusate Sodium [Colace] 100 mg PO BID PRN Ondansetron [Zofran ODT] 4 mg PO Q6H PRN Temazepam [Restoril] 15 mg PO BEDTIME PRN oxyCODONE 5 mg PO Q4H PRN Glucose Management Sub Q Reflex [OM.PC] Click To Edit 04/05/19 11:43 Diabetes Education [RC] Click to Edit 04/05/19 11:45 Sodium Chloride 0.9% [Normal Saline] 1,000 ml IV ASDIRECTED 04/05/19 15:54 LORazepam [Ativan] 0.5 mg PO Q8H PRN 04/05/19 17:00 Insulin Aspart [NovoLOG] See Protocol SUBCUT TIDAC 04/05/19 17:30 Rivaroxaban [Xarelto] 20 mg PO DAILY@1730 04/05/19 21:00 Metoprolol Tartrate [Lopressor] 75 mg PO BID 04/05/19 Dinner [employer] Diet [DIET] 04/06/19 07:00 Azithromycin [Zithromax] 500 mg Sodium Chloride 0.9% [Normal Saline] 250 ml IV Q24H 04/06/19 08:00 EKG Documentation Completion [RC] AM Aspirin 81 mg PO BRK 04/06/19 09:00 Furosemide [Lasix] 40 mg PO DAILY - Plan Plan:: The patient is an 83-year-old gentleman who is still continued to have acid reflux. I placed the patient on Zantac 150 mg by mouth twice a day. I've also ordered a testing for H. pylori. The patient's diarrhea is noninfectious as a testing is come back negative. The patient is still having leukocytosis and he' ll be kept on a the antibiotics for now. The patient's white blood cell count had increased to 17,000. I've also ordered repeat laboratory studies. The patient has been encouraged to ambulate.
[2019-04-06] MEDS: Azithromycin 500 MG in Sodium Chloride 0.9% 250 ML IV SCH (08:20)
[2019-04-06] MEDS: Furosemide 40 MG Tab PO SCH (08:23)
[2019-04-06] MEDS: Aspirin 81 MG Tab.Chew PO SCH (08:23)
[2019-04-06] MEDS: Metoprolol Tartrate 25 MG Tab PO SCH ×2 (08:23→20:24)
[2019-04-06] MEDS: Insulin Aspart 100 Units/ML 3 ML Pen SUBCUT SCH ×3 (09:27→17:40)
[2019-04-06] MEDS: Acetaminophen 325 MG Tab PO PRN ×2 (09:30→19:24)
[2019-04-06] MEDS: Ranitidine 15 MG/ML Syrup 10 ML UD Cup PO SCH ×2 (09:32→20:24)
[2019-04-06] MEDS: Sodium Chloride 0.9% 1,000 ML IV SCH (12:55)
[2019-04-06] MEDS: Rivaroxaban 10 MG Tab PO SCH (18:20)
[2019-04-07] MEDS: Sodium Chloride 0.9% 1,000 ML IV SCH ×4 (03:42→20:53)
[2019-04-07] MEDS: Benzonatate 100 MG Cap PO PRN (07:12)
[2019-04-07] MEDS: Insulin Aspart 100 Units/ML 3 ML Pen SUBCUT SCH ×3 (07:15→17:31)
[2019-04-07] MEDS ORDERED: Loperamide 2 MG Cap PO PRN ×2 (07:18→07:26)
--- NOTE | 2019-04-07 08:00 | PCM.PN ---
- General Info Date of Service: 04/07/19 Admission Dx/Problem (Free Text): Admission Diagnosis/Problem Admission Diagnosis/Problem bibasilar scarring, no pneumonia, chest pain with reflux. Subjective Update: The patient is an 83-year-old gentleman who was admitted secondary to what was thought to be pneumonia. The patient also has been complaining of abdominal pain today it is more generalized. Patient says that he has had heartburn but this is resolved. Patient still complaining of diarrhea. The patient says that he feels worse today than yesterday. Functional Status: Reports: Pain Controlled - Review of Systems General: Reports: Weakness, Fatigue HEENT: Reports: No Symptoms Pulmonary: Reports: No Symptoms Cardiovascular: Reports: No Symptoms Gastrointestinal: Reports: Abdominal Pain, Diarrhea Genitourinary: Reports: No Symptoms Musculoskeletal: Reports: No Symptoms Skin: Reports: No Symptoms Neurological: Reports: No Symptoms Psychiatric: Reports: No Symptoms - Patient Data Vitals - Most Recent: Last Vital Signs Temp 37.1 C 04/07/19 03:41 Pulse 76 04/07/19 03:41 Resp 20 04/07/19 03:41 BP 140/78 04/07/19 03:41 Pulse Ox 94 L 04/07/19 03:41 Weight - Most Recent: 106.594 kg I&O - Last 24 Hours: Intake & Output 04/06/19 04/07/19 04/07/19 22:59 06:59 14:59 Intake Total 640 1361 Output Total 450 300 Balance 190 1061 Lab Results Last 24 Hours: Laboratory Results - last 24 hr 04/06/19 04/06/19 04/06/19 Range/Units 11:22 16:12 20:52 WBC (4.0-11.0) K/uL RBC (4.50-5.90) M/uL Hgb (13.0-17.0) g/dL Hct (38.0-50.0) % MCV (80.0-98.0) fL MCH (27.0-32.0) pg MCHC (31.0-37.0) g/dL RDW Std Deviation (28.0-62.0) fl RDW Coeff of Mary (11.0-15.0) % Plt Count (150-400) K/uL MPV (7.40-12.00) fL Neut % (Auto) (48.0-80.0) % Lymph % (Auto) (16.0-40.0) % [place] % (Auto) (0.0-15.0) % Eos % (Auto) (0.0-7.0) % Baso % (Auto) (0.0-1.5) % Neut # (Auto) (1.4-5.7) K/uL Lymph # (Auto) (0.6-2.4) K/uL [place] # (Auto) (0.0-0.8) K/uL Eos # (Auto) (0.0-0.7) K/uL Baso # (Auto) (0.0-0.1) K/uL Nucleated RBC % /100WBC Nucleated RBCs # K/uL Sodium (136-148) mmol/L Potassium (3.5-5.1) mmol/L Chloride (98-107) mmol/L Carbon Dioxide (21.0-32.0) mmol/L BUN (7.0-18.0) mg/dL Creatinine (0.8-1.3) mg/dL Est Cr Clr Drug Dosing mL/min Estimated GFR (MDRD) ml/min Glucose (74-106) mg/dL POC Glucose 133 H 137 H 142 H (60-110) mg/dL Calcium (8.5-10.1) mg/dL Total Bilirubin (0.2-1.0) mg/dL AST (15-37) IU/L ALT (14-63) IU/L Alkaline Phosphatase (46-116) U/L Total Protein (6.4-8.2) g/dL Albumin (3.4-5.0) g/dL Globulin (2.6-4.0) g/dL Albumin/Globulin Ratio (0.9-1.6) Lipase (73-393) U/L 04/07/19 04/07/19 04/07/19 Range/Units 04:35 04:35 04:35 WBC 12.88 H (4.0-11.0) K/uL RBC 3.92 L (4.50-5.90) M/uL Hgb 12.6 L (13.0-17.0) g/dL Hct 39.4 (38.0-50.0) % MCV 100.5 H (80.0-98.0) fL MCH 32.1 H (27.0-32.0) pg MCHC 32.0 (31.0-37.0) g/dL RDW Std Deviation 51.8 (28.0-62.0) fl RDW Coeff of Mary 14 (11.0-15.0) % Plt Count 169 (150-400) K/uL MPV 11.30 (7.40-12.00) fL Neut % (Auto) 82.9 H (48.0-80.0) % Lymph % (Auto) 8.9 L (16.0-40.0) % [place] % (Auto) 7.9 (0.0-15.0) % Eos % (Auto) 0.2 (0.0-7.0) % Baso % (Auto) 0.1 (0.0-1.5) % Neut # (Auto) 10.7 H (1.4-5.7) K/uL Lymph # (Auto) 1.2 (0.6-2.4) K/uL [place] # (Auto) 1.0 H (0.0-0.8) K/uL Eos # (Auto) 0.0 (0.0-0.7) K/uL Baso # (Auto) 0.0 (0.0-0.1) K/uL Nucleated RBC % 0.0 /100WBC Nucleated RBCs # 0 K/uL Sodium 142 (136-148) mmol/L Potassium 4.4 (3.5-5.1) mmol/L Chloride 107 (98-107) mmol/L Carbon Dioxide 28.2 (21.0-32.0) mmol/L BUN 33 H (7.0-18.0) mg/dL Creatinine 1.3 (0.8-1.3) mg/dL Est Cr Clr Drug Dosing 41.65 mL/min Estimated GFR (MDRD) 52.7 ml/min Glucose 113 H (74-106) mg/dL POC Glucose (60-110) mg/dL Calcium 8.1 L (8.5-10.1) mg/dL Total Bilirubin 0.4 (0.2-1.0) mg/dL AST 24 (15-37) IU/L ALT 26 (14-63) IU/L Alkaline Phosphatase 62 (46-116) U/L Total Protein 6.6 (6.4-8.2) g/dL Albumin 3.5 (3.4-5.0) g/dL Globulin 3.1 (2.6-4.0) g/dL Albumin/Globulin Ratio 1.1 (0.9-1.6) Lipase 208 (73-393) U/L 04/07/19 Range/Units 06:48 WBC (4.0-11.0) K/uL RBC (4.50-5.90) M/uL Hgb (13.0-17.0) g/dL Hct (38.0-50.0) % MCV (80.0-98.0) fL MCH (27.0-32.0) pg MCHC (31.0-37.0) g/dL RDW Std Deviation (28.0-62.0) fl RDW Coeff of Mary (11.0-15.0) % Plt Count (150-400) K/uL MPV (7.40-12.00) fL Neut % (Auto) (48.0-80.0) % Lymph % (Auto) (16.0-40.0) % [place] % (Auto) (0.0-15.0) % Eos % (Auto) (0.0-7.0) % Baso % (Auto) (0.0-1.5) % Neut # (Auto) (1.4-5.7) K/uL Lymph # (Auto) (0.6-2.4) K/uL [place] # (Auto) (0.0-0.8) K/uL Eos # (Auto) (0.0-0.7) K/uL Baso # (Auto) (0.0-0.1) K/uL Nucleated RBC % /100WBC Nucleated RBCs # K/uL Sodium (136-148) mmol/L Potassium (3.5-5.1) mmol/L Chloride (98-107) mmol/L Carbon Dioxide (21.0-32.0) mmol/L BUN (7.0-18.0) mg/dL Creatinine (0.8-1.3) mg/dL Est Cr Clr Drug Dosing mL/min Estimated GFR (MDRD) ml/min Glucose (74-106) mg/dL POC Glucose 101 (60-110) mg/dL Calcium (8.5-10.1) mg/dL Total Bilirubin (0.2-1.0) mg/dL AST (15-37) IU/L ALT (14-63) IU/L Alkaline Phosphatase (46-116) U/L Total Protein (6.4-8.2) g/dL Albumin (3.4-5.0) g/dL Globulin (2.6-4.0) g/dL Albumin/Globulin Ratio (0.9-1.6) Lipase (73-393) U/L Kaleb Results Last 24 Hours: Microbiology 04/05/19 10:35 Aerobic Blood Culture - Preliminary Blood - Venous - Lab Draw NO GROWTH AFTER 1 DAY Anaerobic Blood Culture - Preliminary NO GROWTH AFTER 1 DAY 04/05/19 10:27 Aerobic Blood Culture - Preliminary Blood - Venous NO GROWTH AFTER 1 DAY Anaerobic Blood Culture - Preliminary NO GROWTH AFTER 1 DAY 04/05/19 12:50 Campylobacter Antigen Assay - Final Stool / Feces NEGATIVE CAMPYLOBACTER AG REFERENCE RANGE: NEGATIVE Shiga Toxin I - Final NEGATIVE FOR SHIGA TOXIN 1 REFERENCE RANGE: NEGATIVE Shiga Toxin II - Final NEGATIVE FOR SHIGA TOXIN 2 REFERENCE RANGE: NEGATIVE Med Orders - Current: Current Medications Acetaminophen (Tylenol) 650 mg PO Q4H PRN PRN Reason: Pain (Mild 1-3)/fever Last Admin: 04/06/19 19:24 Dose: 650 mg Aspirin (Aspirin) 81 mg PO BRK [facility] Last Admin: 04/06/19 08:23 Dose: 81 mg Benzonatate (Tessalon Perles) 100 mg PO TID PRN PRN Reason: Cough Last Admin: 04/07/19 07:12 Dose: 100 mg Docusate Sodium (Colace) 100 mg PO BID PRN PRN Reason: Constipation Furosemide (Lasix) 40 mg PO DAILY [facility] Last Admin: 04/06/19 08:23 Dose: 40 mg Sodium Chloride (Normal Saline) 500 mls @ 999 mls/hr IV STAT [facility] Last Admin: 04/05/19 09:17 Dose: 999 mls/hr Sodium Chloride (Normal Saline) 1,000 mls @ 75 mls/hr IV ASDIRECTED [facility] Last Admin: 04/07/19 03:42 Dose: 75 mls/hr Azithromycin 500 mg/ Sodium (Chloride) 250 mls @ 250 mls/hr IV Q24H [facility] Last Admin: 04/06/19 08:20 Dose: 250 mls/hr Insulin Aspart (Novolog) 0 unit SUBCUT TIDAC [facility]; Protocol Last Admin: 04/07/19 07:15 Dose: Not Given Loperamide HCl (Imodium) 4 mg PO ONETIME PRN PRN Reason: Diarrhea Loperamide HCl (Imodium) 2 mg PO .QID PRN PRN Reason: DIARRHEA Lorazepam (Ativan) 0.5 mg PO Q8H PRN PRN Reason: ANXIETY Metoprolol Tartrate (Lopressor) 75 mg PO BID [facility] Last Admin: 04/06/19 20:24 Dose: 75 mg Ondansetron HCl (Zofran Odt) 4 mg PO Q6H PRN PRN Reason: nausea, able to take PO Last Admin: 04/06/19 03:53 Dose: 4 mg Oxycodone HCl (Oxycodone) 5 mg PO Q4H PRN PRN Reason: Pain (moderate 4-6) Ranitidine HCl (Zantac) 150 mg PO BID [facility] Last Admin: 04/06/19 20:24 Dose: 10 ml Rivaroxaban (Xarelto) 20 mg PO DAILY@1730 [facility] Last Admin: 04/06/19 18:20 Dose: 20 mg Temazepam (Restoril) 15 mg PO BEDTIME PRN PRN Reason: Sleep Discontinued Medications Aspirin (Aspirin) 324 mg PO ONETIME ONE Stop: 04/05/19 09:17 Last Admin: 04/05/19 09:24 Dose: 324 mg Al Hydroxide/Mg Hydroxide 15 ml/ Metoclopramide HCl 5 mg/Lidocaine HCl 5 ml 0 ml PO ONETIME ONE Stop: 04/05/19 09:15 Last Admin: 04/05/19 09:24 Dose: 1 each Al Hydroxide/Mg Hydroxide 15 ml/ Metoclopramide HCl 5 mg/Lidocaine HCl 5 ml 0 ml PO ONETIME ONE Stop: 04/06/19 06:08 Last Admin: 04/06/19 06:59 Dose: 1 each Heparin Sodium (Porcine) (Heparin Sodium) 5,000 units SUBCUT Q8H [facility] Last Admin: 04/06/19 08:54 Dose: Not Given Azithromycin 1,000 mg/ Sodium (Chloride) 500 mls @ 250 mls/hr IV ONETIME ONE Stop: 04/05/19 11:51 Last Admin: 04/05/19 11:03 Dose: 250 mls/hr Ceftriaxone Sodium/Dextrose 1 (gm/ Premix) 50 mls @ 100 mls/hr IV ONETIME ONE Stop: 04/05/19 10:20 Last Admin: 04/05/19 10:29 Dose: 100 mls/hr Sodium Chloride (Normal Saline) 1,000 mls @ 125 mls/hr IV STAT [facility] Last Admin: 04/05/19 11:03 Dose: 125 mls/hr Azithromycin 500 mg/ Sodium (Chloride) 250 mls @ 250 mls/hr IV Q24H [facility] Last Admin: 04/06/19 08:54 Dose: Not Given Lorazepam (Ativan) 0.5 mg IVPUSH ONETIME ONE Stop: 04/05/19 09:15 Last Admin: 04/05/19 09:24 Dose: 0.5 mg Non-Formulary Medication (Lorazepam) 0.5 mg PO Q8H PRN PRN Reason: ANXIETY - Exam Quality Assessment: No: Supplemental Oxygen General: Alert, Oriented, Cooperative, Mild Distress HEENT: Pupils Equal, Pupils Reactive, EOMI. No: Mucous Membr. Moist/[place] (Dry) Neck: Supple, Trachea Midline Lungs: Clear to Auscultation, Normal Respiratory Effort Cardiovascular: Regular Rate, Regular Rhythm GI/Abdominal Exam: Soft, No Distention, Tender (Predominantly in umbilical area) , Other (Tympanic). No: Normal Bowel Sounds (Hyperactive), Guarding, Rigid, Rebound Back Exam: Normal Inspection, Full Range of Motion Extremities: Normal Inspection, No Pedal Edema Skin: Warm, Dry, Intact Neurological: No New Focal Deficit Psy/Mental Status: Alert, Normal Affect, Normal Mood - Problem List & Annotations (1) Diarrhea SNOMED Code(s): 92028797 Code(s): R19.7 - DIARRHEA, UNSPECIFIED Status: Acute Priority: High Current Visit: Yes Qualifiers: Diarrhea type: functional diarrhea Qualified Code(s): K59.1 - Functional diarrhea (2) Chest pain, atypical SNOMED Code(s): 534625035 Code(s): R07.89 - OTHER CHEST PAIN Status: Resolved Priority: High Current Visit: Yes (3) HTN (hypertension) SNOMED Code(s): 85382114 Code(s): I10 - ESSENTIAL (PRIMARY) HYPERTENSION Status: Chronic Priority : High Current Visit: Yes Qualifiers: Hypertension type: essential hypertension Qualified Code(s): I10 - Essential (primary) hypertension (4) CAD (coronary artery disease) SNOMED Code(s): 03434240 Code(s): I25.10 - ATHSCL HEART DISEASE OF [place] CORONARY ARTERY W/O ANG PCTRS Status: Chronic Priority: High Current Visit: Yes Qualifiers: Coronary Disease-Associated Artery/Lesion type: [place] artery [place] vs. transplanted heart: [place] heart (5) DM type 2 (diabetes mellitus, type 2) SNOMED Code(s): 22849740 Code(s): E11.9 - TYPE 2 DIABETES MELLITUS WITHOUT COMPLICATIONS Status: Chronic Priority: High Current Visit: Yes Qualifiers: Diabetes mellitus snf insulin use: without snf use Diabetes mellitus complication status: without complication Qualified Code(s): E11.9 - Type 2 diabetes mellitus without complications (6) Pacemaker SNOMED Code(s): 236646291 Code(s): Z95.0 - PRESENCE OF CARDIAC PACEMAKER Status: Chronic Priority: Medium Current Visit: No - Problem List Review Problem List Initiated/Reviewed/Updated: Yes - My Orders Last 24 Hours: My Active Orders 04/06/19 08:00 Aspirin 81 mg PO BRK 04/06/19 08:12 Azithromycin [Zithromax] 500 mg Sodium Chloride 0.9% [Normal Saline] 250 ml IV Q24H 04/06/19 08:14 H PYLORI STOOL ANTIGEN [MREF] Routine 04/06/19 09:00 Furosemide [Lasix] 40 mg PO DAILY Ranitidine [Zantac] 150 mg PO BID 04/06/19 11:23 May Shower [RC] ASDIRECTED 04/07/19 07:18 Loperamide [Imodium] 4 mg PO ONETIME PRN 04/07/19 07:24 Abdomen 2V AP Flat Upright [CR] Routine 04/07/19 07:26 Loperamide [Imodium] 2 mg PO .QID PRN - Plan Plan:: The patient is an 83-year-old gentleman who is still continuing to have diarrhea. I've ordered Imodium to help control this as the patient does not have infectious diarrhea. The patient's abdominal pain has changed in characteristic and as a result of this I've ordered a abdominal x-ray flat and upright to help exclude small bowel obstruction although this is less likely with his diarrhea. The patient will be continued on IV hydration for now. H. pylori test is currently pending. The patient is still having pain leukocytosis although this is improved to 12,000. The patient will be continued on appropriate ADA diet as tolerated. He was still continue with Accu-Cheks before meals and at bedtime. Patient also has been encouraged to ambulate. Overall, the patient's treatment plan will be changed as conditions indicated.
[2019-04-07] MEDS: Aspirin 81 MG Tab.Chew PO SCH (08:36)
[2019-04-07] MEDS: Furosemide 40 MG Tab PO SCH (08:36)
[2019-04-07] MEDS: Azithromycin 500 MG in Sodium Chloride 0.9% 250 ML IV SCH (08:37)
[2019-04-07] MEDS: Metoprolol Tartrate 25 MG Tab PO SCH ×2 (08:39→20:52)
[2019-04-07] MEDS: Ranitidine 15 MG/ML Syrup 10 ML UD Cup PO SCH ×2 (08:39→20:52)
--- NOTE | 2019-04-07 09:42 | CR ---
HISTORY: Abdominal pain. TECHNIQUE: Supine and upright frontal views of the abdomen. COMPARISON: None. FINDINGS: Few mildly to moderately dilated loops of small bowel. On the upright view there are air-fluid levels within the most dilated loop of bowel which measures approximately 4.1 cm in diameter. No free intraperitoneal gas. Degenerative changes of the spine. 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 Phleboliths in the pelvis. IMPRESSION: Findings suggestive of small-bowel obstruction. Dictated by Bryan Mann MD @ Apr 07 2019 9:38AM Signed by Dr. Bryan Mann @ Apr 07 2019 9:40AM
[2019-04-07] MEDS ORDERED: 50% Dextrose in Water 50 ML Syringe IVPUSH ONE (13:35)
--- NOTE | 2019-04-07 15:09 | CT ---
INDICATION: Abdominal pain TECHNIQUE: CT abdomen and pelvis acquired without IV contrast. COMPARISON: CT December 09, 2018 FINDINGS: Lower chest: Faint ground-glass opacities in the lingula. Pacemaker wires partially visualized. Liver: Unremarkable. Spleen: Unremarkable. Pancreas: Unremarkable. Gallbladder and bile ducts: Unremarkable. Adrenal glands: Unremarkable. Kidneys: Unremarkable. GI tract: There are a few air and fluid filled loops of proximal small bowel which reach a maximum diameter of 3.4 cm. The mid to distal small bowel and colon are decompressed. There is some fluid within the colon. Vascular structures: Unremarkable. Lymph nodes: Unremarkable. Miscellaneous: No free air. Trace amount of free fluid. Pelvic Organs: Enlarged prostate gland. Bones: Status post left hip arthroplasty. IMPRESSION: There are few loops of mildly dilated small bowel. There is some fluid within nondistended loops of colon. Findings may represent an early small bowel obstruction versus enteritis with diarrheal illness. There are some faint ground-glass opacities in the lingula which may represent infection. Correlate with symptoms. Enlarged prostate gland. Status post left hip arthroplasty. Please note that all CT scans at this facility use dose modulation, iterative reconstruction, and/or weight-based dosing when appropriate to reduce radiation dose to as low as reasonably achievable. Dictated by Berna Ladd MD @ Apr 07 2019 2:58PM Signed by Dr. Berna Ladd @ Apr 07 2019 3:06PM
--- NOTE | 2019-04-07 15:26 | PCM.CONS ---
H&P History of Present Illness - General Date of Service: 04/07/19 Admit Problem/Dx: Admission Diagnosis/Problem Admission Diagnosis/Problem bibasilar scarring, no pneumonia, chest pain with reflux. Source of Information: Patient History Limitations: Reports: No Limitations - History of Present Illness Initial Comments - Free Text/Narative: 83-year-old gentleman who had presented to the emergency department complaining of diarrhea. He also c/o acid reflux and chest pain. The patient does have a history of atrial fibrillation and is chronically anticoagulated and has a pacemaker AICD in place. The patient denied dizziness or lightheadedness. He had a normal colonoscopy 2 years ago. He has a history of an appendectomy when he was young. He was admitted to the medicine service. He was been NPO and recieving antibiotics. His WBC has come down. He c/o a little nausea this morning but has not vomited. VSS. He has had multiple loose BM today. His stool cultures have been negative so far. abdominal XR showed possible SBO. Ct abdomen pelvis showed mildly thickened loops of small bowel concerning for infectious disease or early partial SBO. heartburn Pain Score (Numeric/FACES): 10 - Related Data Allergies/Adverse Reactions: Allergies Allergy/AdvReac Type Severity Reaction Status Date / Time dye Allergy Cardiac Uncoded 04/05/19 17:31 Arrest Home Medications: Home Meds Furosemide [Lasix] 40 mg PO DAILY 08/20/15 [History] LORazepam [Ativan] 1 mg PO TID PRN 08/20/15 [History] Aspirin 81 mg PO BRK 09/09/16 [History] Antiox#10/Om3/DHA/EPA/Lut/Zeax [I-Caps with Lutein-Glen 3 SFG] 1 cap PO BID [History] Metoprolol Tartrate 75 mg PO BID 30 Days #60 tablet 11/12/17 [Rx] Rivaroxaban [Xarelto] 20 mg PO DAILY 04/05/19 [History] Past Medical History - Past Health History Medical/Surgical History: Denies Medical/Surgical History HEENT History: Reports: Hard of Hearing, Impaired Vision Other HEENT History: on hearing aids Cardiovascular History: Reports: Afib, CAD, Hypertension, MA, Pacemaker, Prior Cardiac Arrest, Stents Respiratory History: Reports: Sleep Apnea Other Respiratory History: uses cpap Gastrointestinal History: Reports: None Genitourinary History: Reports: Renal Calculus Musculoskeletal History: Reports: Arthritis Neurological History: Reports: TIA, Vertigo, Other (See Below) Other Neuro History: menieres disease Psychiatric History: Reports: Anxiety Endocrine/Metabolic History: Reports: Diabetes, Type II, Obesity/BMI 30+ Other Endocrine/Metabolic History: diabetes controlled by diet Hematologic History: Reports: None Immunologic History: Reports: None Oncologic (Cancer) History: Reports: None Dermatologic History: Reports: None - Infectious Disease History Infectious Disease History: Reports: Other (See Below) Other Infectious Disease History: unknown - Past Surgical History Musculoskeletal Surgical History: Reports: Hip Replacement, Knee Replacement Social & Family History - Family History Family Medical History: Noncontributory - Tobacco Use Smoking Status *Q: Never Smoker Second Hand Smoke Exposure: No - Caffeine Use Caffeine Use: Reports: Coffee - Alcohol Use Days Per Week of Alcohol Use: 2 Number of Drinks Per Day: 2 Total Drinks Per Week: 4 Date of Last Drink: 04/04/19 - Recreational Drug Use Recreational Drug Use: No - Living Situation & Occupation Living situation: Reports: with Family Occupation: Retired H&P Review of Systems - Review of Systems: Review Of Systems: ROS reveals no pertinent complaints other than HPI. Exam - Exam Exam: See Below - Vital Signs Vital Signs: Last Vital Signs Temp 36.4 C 04/07/19 12:00 Pulse 76 04/07/19 12:00 Resp 18 04/07/19 12:00 BP 123/77 04/07/19 12:00 Pulse Ox 95 04/07/19 12:00 Weight: 106.594 kg - Exam Quality Assessment: Supplemental Oxygen General: Alert, Oriented HEENT: Conjunctiva Clear, Mucosa Moist & [place], Posterior Pharynx Clear Neck: Supple Cardiovascular: Irregular Rhythm GI/Abdominal Exam: Soft, Non-Tender, No Distention, No Mass Back Exam: Normal Inspection Extremities: Normal Inspection - Patient Data Lab Results Last 24 hrs: Laboratory Results - last 24 hr 04/06/19 04/06/19 04/07/19 Range/Units 16:12 20:52 04:35 WBC 12.88 H (4.0-11.0) K/uL RBC 3.92 L (4.50-5.90) M/uL Hgb 12.6 L (13.0-17.0) g/dL Hct 39.4 (38.0-50.0) % MCV 100.5 H (80.0-98.0) fL MCH 32.1 H (27.0-32.0) pg MCHC 32.0 (31.0-37.0) g/dL RDW Std Deviation 51.8 (28.0-62.0) fl RDW Coeff of Mary 14 (11.0-15.0) % Plt Count 169 (150-400) K/uL MPV 11.30 (7.40-12.00) fL Neut % (Auto) 82.9 H (48.0-80.0) % Lymph % (Auto) 8.9 L (16.0-40.0) % [place] % (Auto) 7.9 (0.0-15.0) % Eos % (Auto) 0.2 (0.0-7.0) % Baso % (Auto) 0.1 (0.0-1.5) % Neut # (Auto) 10.7 H (1.4-5.7) K/uL Lymph # (Auto) 1.2 (0.6-2.4) K/uL [place] # (Auto) 1.0 H (0.0-0.8) K/uL Eos # (Auto) 0.0 (0.0-0.7) K/uL Baso # (Auto) 0.0 (0.0-0.1) K/uL Nucleated RBC % 0.0 /100WBC Nucleated RBCs # 0 K/uL Sodium (136-148) mmol/L Potassium (3.5-5.1) mmol/L Chloride (98-107) mmol/L Carbon Dioxide (21.0-32.0) mmol/L BUN (7.0-18.0) mg/dL Creatinine (0.8-1.3) mg/dL Est Cr Clr Drug Dosing mL/min Estimated GFR (MDRD) ml/min Glucose (74-106) mg/dL POC Glucose 137 H 142 H (60-110) mg/dL Calcium (8.5-10.1) mg/dL Total Bilirubin (0.2-1.0) mg/dL AST (15-37) IU/L ALT (14-63) IU/L Alkaline Phosphatase (46-116) U/L Total Protein (6.4-8.2) g/dL Albumin (3.4-5.0) g/dL Globulin (2.6-4.0) g/dL Albumin/Globulin Ratio (0.9-1.6) Lipase (73-393) U/L 04/07/19 04/07/19 04/07/19 Range/Units 04:35 04:35 06:48 WBC (4.0-11.0) K/uL RBC (4.50-5.90) M/uL Hgb (13.0-17.0) g/dL Hct (38.0-50.0) % MCV (80.0-98.0) fL MCH (27.0-32.0) pg MCHC (31.0-37.0) g/dL RDW Std Deviation (28.0-62.0) fl RDW Coeff of Mary (11.0-15.0) % Plt Count (150-400) K/uL MPV (7.40-12.00) fL Neut % (Auto) (48.0-80.0) % Lymph % (Auto) (16.0-40.0) % [place] % (Auto) (0.0-15.0) % Eos % (Auto) (0.0-7.0) % Baso % (Auto) (0.0-1.5) % Neut # (Auto) (1.4-5.7) K/uL Lymph # (Auto) (0.6-2.4) K/uL [place] # (Auto) (0.0-0.8) K/uL Eos # (Auto) (0.0-0.7) K/uL Baso # (Auto) (0.0-0.1) K/uL Nucleated RBC % /100WBC Nucleated RBCs # K/uL Sodium 142 (136-148) mmol/L Potassium 4.4 (3.5-5.1) mmol/L Chloride 107 (98-107) mmol/L Carbon Dioxide 28.2 (21.0-32.0) mmol/L BUN 33 H (7.0-18.0) mg/dL Creatinine 1.3 (0.8-1.3) mg/dL Est Cr Clr Drug Dosing 41.65 mL/min Estimated GFR (MDRD) 52.7 ml/min Glucose 113 H (74-106) mg/dL POC Glucose 101 (60-110) mg/dL Calcium 8.1 L (8.5-10.1) mg/dL Total Bilirubin 0.4 (0.2-1.0) mg/dL AST 24 (15-37) IU/L ALT 26 (14-63) IU/L Alkaline Phosphatase 62 (46-116) U/L Total Protein 6.6 (6.4-8.2) g/dL Albumin 3.5 (3.4-5.0) g/dL Globulin 3.1 (2.6-4.0) g/dL Albumin/Globulin Ratio 1.1 (0.9-1.6) Lipase 208 (73-393) U/L 04/07/19 04/07/19 04/07/19 Range/Units 11:46 13:25 14:42 WBC (4.0-11.0) K/uL RBC (4.50-5.90) M/uL Hgb (13.0-17.0) g/dL Hct (38.0-50.0) % MCV (80.0-98.0) fL MCH (27.0-32.0) pg MCHC (31.0-37.0) g/dL RDW Std Deviation (28.0-62.0) fl RDW Coeff of Mary (11.0-15.0) % Plt Count (150-400) K/uL MPV (7.40-12.00) fL Neut % (Auto) (48.0-80.0) % Lymph % (Auto) (16.0-40.0) % [place] % (Auto) (0.0-15.0) % Eos % (Auto) (0.0-7.0) % Baso % (Auto) (0.0-1.5) % Neut # (Auto) (1.4-5.7) K/uL Lymph # (Auto) (0.6-2.4) K/uL [place] # (Auto) (0.0-0.8) K/uL Eos # (Auto) (0.0-0.7) K/uL Baso # (Auto) (0.0-0.1) K/uL Nucleated RBC % /100WBC Nucleated RBCs # K/uL Sodium (136-148) mmol/L Potassium (3.5-5.1) mmol/L Chloride (98-107) mmol/L Carbon Dioxide (21.0-32.0) mmol/L BUN (7.0-18.0) mg/dL Creatinine (0.8-1.3) mg/dL Est Cr Clr Drug Dosing mL/min Estimated GFR (MDRD) ml/min Glucose (74-106) mg/dL POC Glucose 89 79 160 H (60-110) mg/dL Calcium (8.5-10.1) mg/dL Total Bilirubin (0.2-1.0) mg/dL AST (15-37) IU/L ALT (14-63) IU/L Alkaline Phosphatase (46-116) U/L Total Protein (6.4-8.2) g/dL Albumin (3.4-5.0) g/dL Globulin (2.6-4.0) g/dL Albumin/Globulin Ratio (0.9-1.6) Lipase (73-393) U/L Result Diagrams: 04/07/19 04:35 04/07/19 04:35 Kaleb Results Last 24 hrs: Microbiology 04/05/19 10:35 Aerobic Blood Culture - Preliminary Blood - Venous - Lab Draw NO GROWTH AFTER 2 DAYS Anaerobic Blood Culture - Preliminary NO GROWTH AFTER 2 DAYS 04/05/19 10:27 Aerobic Blood Culture - Preliminary Blood - Venous NO GROWTH AFTER 2 DAYS Anaerobic Blood Culture - Preliminary NO GROWTH AFTER 2 DAYS 04/05/19 12:50 Stool Culture - Final Stool / Feces NO SALMONELLA, SHIGELLA,OR E.COLI O157 ISOLATED Campylobacter Antigen Assay - Final NEGATIVE CAMPYLOBACTER AG REFERENCE RANGE: NEGATIVE Shiga Toxin I - Final NEGATIVE FOR SHIGA TOXIN 1 REFERENCE RANGE: NEGATIVE Shiga Toxin II - Final NEGATIVE FOR SHIGA TOXIN 2 REFERENCE RANGE: NEGATIVE Consult PN Assessment/Plan Procedures: Procedures ASSAY OF NATRIURETIC PEPTIDE (09/09/16) ASSAY OF PSA TOTAL (02/21/18) ASSAY OF TROPONIN QUANT (11/11/17) ASSAY THYROID STIM HORMONE (11/11/17) CARDIOVASCULAR STRESS TEST (01/12/19) CHEST X-RAY 1 VIEW FRONTAL (09/09/16) COMPLETE CBC W/AUTO DIFF WBC (11/11/17) COMPREHEN METABOLIC PANEL (11/11/17) CREATINE MB FRACTION (09/09/16) CT ABDOMEN W/DYE (12/09/18) DRAIN/INJ JOINT/BURSA W/O US (08/09/18) ECHO EXAM OF ABDOMEN (12/22/16) ELECTROCARDIOGRAM TRACING (12/06/18) EMERGENCY DEPT VISIT (11/11/17) EMERGENCY DEPT VISIT (04/02/17) EMERGENCY DEPT VISIT (09/09/16) EMERGENCY DEPT VISIT (08/20/15) GLUCOSE BLOOD TEST (11/11/17) GLYCOSYLATED HEMOGLOBIN TEST (09/09/16) HT MUSCLE IMAGE SPECT MULT (01/12/19) HT MUSCLE IMAGE SPECT SING (10/06/16) LIPID PANEL (09/09/16) METABOLIC PANEL TOTAL CA (12/06/18) NASAL ENDOSCOPY DX (02/03/16) NEEDLE LOCALIZATION BY XRAY (08/09/18) OFFICE/OUTPATIENT VISIT NEW (02/03/16) PROTHROMBIN TIME (11/11/17) ROUTINE VENIPUNCTURE (12/06/18) TTE W/DOPPLER COMPLETE (09/09/16) URINALYSIS AUTO W/SCOPE (02/21/18) X-RAY EXAM CHEST 1 VIEW (11/11/17) (1) Small bowel obstruction SNOMED Code(s): 352066193 Code(s): K56.609 - UNSP INTESTNL OBST, UNSP TO PARTIAL VERSUS COMPLETE OBST Current Visit: Yes Problem List Initiated/Reviewed/Updated: Yes Plan: I feel the patient has an infectious reason for his bowel thickening. Abdomen is soft and nontender. Diet advancement and antibiotic treatment per primary team. If he has a clinical decline please call.
[2019-04-07] MEDS: Rivaroxaban 10 MG Tab PO SCH (17:28)
[2019-04-08] MEDS: Ondansetron 4 MG Tab.DIS PO PRN (05:07)
--- NOTE | 2019-04-08 05:42 | PCM.PN ---
- General Info Date of Service: 04/08/19 Admission Dx/Problem (Free Text): Admission Diagnosis/Problem Admission Diagnosis/Problem bibasilar scarring, no pneumonia, chest pain with reflux. Subjective Update: The patient is an 83-year-old gentleman who was noted to have a small bowel obstruction on abdominal x-ray yesterday. Patient says that he has had altered mental episodes of loose stools. The patient says that his abdominal pain is better today. Functional Status: Reports: Pain Controlled - Review of Systems General: Reports: No Symptoms HEENT: Reports: No Symptoms Pulmonary: Reports: No Symptoms Cardiovascular: Reports: No Symptoms Gastrointestinal: Reports: Abdominal Pain, Diarrhea Genitourinary: Reports: No Symptoms Musculoskeletal: Reports: No Symptoms Skin: Reports: No Symptoms Neurological: Reports: No Symptoms Psychiatric: Reports: No Symptoms - Patient Data Vitals - Most Recent: Last Vital Signs Temp 36.3 C 04/08/19 04:00 Pulse 70 04/08/19 04:00 Resp 20 04/08/19 04:00 BP 119/57 L 04/08/19 04:00 Pulse Ox 95 04/08/19 04:00 Weight - Most Recent: 106.594 kg I&O - Last 24 Hours: Intake & Output 04/07/19 04/07/19 04/08/19 14:59 22:59 06:59 Intake Total 2576 1071 Output Total 0 Balance 2576 1071 Lab Results Last 24 Hours: Laboratory Results - last 24 hr 04/07/19 04/07/19 04/07/19 Range/Units 04:35 04:35 04:35 WBC 12.88 H (4.0-11.0) K/uL RBC 3.92 L (4.50-5.90) M/uL Hgb 12.6 L (13.0-17.0) g/dL Hct 39.4 (38.0-50.0) % MCV 100.5 H (80.0-98.0) fL MCH 32.1 H (27.0-32.0) pg MCHC 32.0 (31.0-37.0) g/dL RDW Std Deviation 51.8 (28.0-62.0) fl RDW Coeff of Mary 14 (11.0-15.0) % Plt Count 169 (150-400) K/uL MPV 11.30 (7.40-12.00) fL Neut % (Auto) 82.9 H (48.0-80.0) % Lymph % (Auto) 8.9 L (16.0-40.0) % [place] % (Auto) 7.9 (0.0-15.0) % Eos % (Auto) 0.2 (0.0-7.0) % Baso % (Auto) 0.1 (0.0-1.5) % Neut # (Auto) 10.7 H (1.4-5.7) K/uL Lymph # (Auto) 1.2 (0.6-2.4) K/uL [place] # (Auto) 1.0 H (0.0-0.8) K/uL Eos # (Auto) 0.0 (0.0-0.7) K/uL Baso # (Auto) 0.0 (0.0-0.1) K/uL Nucleated RBC % 0.0 /100WBC Nucleated RBCs # 0 K/uL Sodium 142 (136-148) mmol/L Potassium 4.4 (3.5-5.1) mmol/L Chloride 107 (98-107) mmol/L Carbon Dioxide 28.2 (21.0-32.0) mmol/L BUN 33 H (7.0-18.0) mg/dL Creatinine 1.3 (0.8-1.3) mg/dL Est Cr Clr Drug Dosing 41.65 mL/min Estimated GFR (MDRD) 52.7 ml/min Glucose 113 H (74-106) mg/dL POC Glucose (60-110) mg/dL Calcium 8.1 L (8.5-10.1) mg/dL Total Bilirubin 0.4 (0.2-1.0) mg/dL AST 24 (15-37) IU/L ALT 26 (14-63) IU/L Alkaline Phosphatase 62 (46-116) U/L Total Protein 6.6 (6.4-8.2) g/dL Albumin 3.5 (3.4-5.0) g/dL Globulin 3.1 (2.6-4.0) g/dL Albumin/Globulin Ratio 1.1 (0.9-1.6) Lipase 208 (73-393) U/L 04/07/19 04/07/19 04/07/19 Range/Units 06:48 11:46 13:25 WBC (4.0-11.0) K/uL RBC (4.50-5.90) M/uL Hgb (13.0-17.0) g/dL Hct (38.0-50.0) % MCV (80.0-98.0) fL MCH (27.0-32.0) pg MCHC (31.0-37.0) g/dL RDW Std Deviation (28.0-62.0) fl RDW Coeff of Mary (11.0-15.0) % Plt Count (150-400) K/uL MPV (7.40-12.00) fL Neut % (Auto) (48.0-80.0) % Lymph % (Auto) (16.0-40.0) % [place] % (Auto) (0.0-15.0) % Eos % (Auto) (0.0-7.0) % Baso % (Auto) (0.0-1.5) % Neut # (Auto) (1.4-5.7) K/uL Lymph # (Auto) (0.6-2.4) K/uL [place] # (Auto) (0.0-0.8) K/uL Eos # (Auto) (0.0-0.7) K/uL Baso # (Auto) (0.0-0.1) K/uL Nucleated RBC % /100WBC Nucleated RBCs # K/uL Sodium (136-148) mmol/L Potassium (3.5-5.1) mmol/L Chloride (98-107) mmol/L Carbon Dioxide (21.0-32.0) mmol/L BUN (7.0-18.0) mg/dL Creatinine (0.8-1.3) mg/dL Est Cr Clr Drug Dosing mL/min Estimated GFR (MDRD) ml/min Glucose (74-106) mg/dL POC Glucose 101 89 79 (60-110) mg/dL Calcium (8.5-10.1) mg/dL Total Bilirubin (0.2-1.0) mg/dL AST (15-37) IU/L ALT (14-63) IU/L Alkaline Phosphatase (46-116) U/L Total Protein (6.4-8.2) g/dL Albumin (3.4-5.0) g/dL Globulin (2.6-4.0) g/dL Albumin/Globulin Ratio (0.9-1.6) Lipase (73-393) U/L 04/07/19 04/07/19 04/07/19 Range/Units 14:42 17:25 23:33 WBC (4.0-11.0) K/uL RBC (4.50-5.90) M/uL Hgb (13.0-17.0) g/dL Hct (38.0-50.0) % MCV (80.0-98.0) fL MCH (27.0-32.0) pg MCHC (31.0-37.0) g/dL RDW Std Deviation (28.0-62.0) fl RDW Coeff of Mary (11.0-15.0) % Plt Count (150-400) K/uL MPV (7.40-12.00) fL Neut % (Auto) (48.0-80.0) % Lymph % (Auto) (16.0-40.0) % [place] % (Auto) (0.0-15.0) % Eos % (Auto) (0.0-7.0) % Baso % (Auto) (0.0-1.5) % Neut # (Auto) (1.4-5.7) K/uL Lymph # (Auto) (0.6-2.4) K/uL [place] # (Auto) (0.0-0.8) K/uL Eos # (Auto) (0.0-0.7) K/uL Baso # (Auto) (0.0-0.1) K/uL Nucleated RBC % /100WBC Nucleated RBCs # K/uL Sodium (136-148) mmol/L Potassium (3.5-5.1) mmol/L Chloride (98-107) mmol/L Carbon Dioxide (21.0-32.0) mmol/L BUN (7.0-18.0) mg/dL Creatinine (0.8-1.3) mg/dL Est Cr Clr Drug Dosing mL/min Estimated GFR (MDRD) ml/min Glucose (74-106) mg/dL POC Glucose 160 H 82 92 (60-110) mg/dL Calcium (8.5-10.1) mg/dL Total Bilirubin (0.2-1.0) mg/dL AST (15-37) IU/L ALT (14-63) IU/L Alkaline Phosphatase (46-116) U/L Total Protein (6.4-8.2) g/dL Albumin (3.4-5.0) g/dL Globulin (2.6-4.0) g/dL Albumin/Globulin Ratio (0.9-1.6) Lipase (73-393) U/L Kaleb Results Last 24 Hours: Microbiology 04/05/19 10:35 Aerobic Blood Culture - Preliminary Blood - Venous - Lab Draw NO GROWTH AFTER 2 DAYS Anaerobic Blood Culture - Preliminary NO GROWTH AFTER 2 DAYS 04/05/19 10:27 Aerobic Blood Culture - Preliminary Blood - Venous NO GROWTH AFTER 2 DAYS Anaerobic Blood Culture - Preliminary NO GROWTH AFTER 2 DAYS 04/05/19 12:50 Stool Culture - Final Stool / Feces NO SALMONELLA, SHIGELLA,OR E.COLI O157 ISOLATED Campylobacter Antigen Assay - Final NEGATIVE CAMPYLOBACTER AG REFERENCE RANGE: NEGATIVE Shiga Toxin I - Final NEGATIVE FOR SHIGA TOXIN 1 REFERENCE RANGE: NEGATIVE Shiga Toxin II - Final NEGATIVE FOR SHIGA TOXIN 2 REFERENCE RANGE: NEGATIVE Med Orders - Current: Current Medications Acetaminophen (Tylenol) 650 mg PO Q4H PRN PRN Reason: Pain (Mild 1-3)/fever Last Admin: 04/06/19 19:24 Dose: 650 mg Aspirin (Aspirin) 81 mg PO BRK [facility] Last Admin: 04/07/19 08:36 Dose: 81 mg Benzonatate (Tessalon Perles) 100 mg PO TID PRN PRN Reason: Cough Last Admin: 04/07/19 07:12 Dose: 100 mg Docusate Sodium (Colace) 100 mg PO BID PRN PRN Reason: Constipation Furosemide (Lasix) 40 mg PO DAILY [facility] Last Admin: 04/07/19 08:36 Dose: 40 mg Sodium Chloride (Normal Saline) 500 mls @ 999 mls/hr IV STAT [facility] Last Admin: 04/05/19 09:17 Dose: 999 mls/hr Azithromycin 500 mg/ Sodium (Chloride) 250 mls @ 250 mls/hr IV Q24H [facility] Last Admin: 04/07/19 08:37 Dose: 250 mls/hr Sodium Chloride (Normal Saline) 1,000 mls @ 100 mls/hr IV ASDIRECTED [facility] Last Admin: 04/07/19 20:53 Dose: 100 mls/hr Insulin Aspart (Novolog) 0 unit SUBCUT TIDAC [facility]; Protocol Last Admin: 04/07/19 17:31 Dose: Not Given Loperamide HCl (Imodium) 4 mg PO ONETIME PRN PRN Reason: Diarrhea Last Admin: 04/07/19 08:44 Dose: 4 mg Loperamide HCl (Imodium) 2 mg PO .QID PRN PRN Reason: DIARRHEA Lorazepam (Ativan) 0.5 mg PO Q8H PRN PRN Reason: ANXIETY Metoprolol Tartrate (Lopressor) 75 mg PO BID [facility] Last Admin: 04/07/19 20:52 Dose: 75 mg Ondansetron HCl (Zofran Odt) 4 mg PO Q6H PRN PRN Reason: nausea, able to take PO Last Admin: 04/08/19 05:07 Dose: 4 mg Oxycodone HCl (Oxycodone) 5 mg PO Q4H PRN PRN Reason: Pain (moderate 4-6) Ranitidine HCl (Zantac) 150 mg PO BID [facility] Last Admin: 04/07/19 20:52 Dose: 10 ml Rivaroxaban (Xarelto) 20 mg PO DAILY@1730 [facility] Last Admin: 04/07/19 17:28 Dose: 20 mg Temazepam (Restoril) 15 mg PO BEDTIME PRN PRN Reason: Sleep Discontinued Medications Aspirin (Aspirin) 324 mg PO ONETIME ONE Stop: 04/05/19 09:17 Last Admin: 04/05/19 09:24 Dose: 324 mg Al Hydroxide/Mg Hydroxide 15 ml/ Metoclopramide HCl 5 mg/Lidocaine HCl 5 ml 0 ml PO ONETIME ONE Stop: 04/05/19 09:15 Last Admin: 04/05/19 09:24 Dose: 1 each Al Hydroxide/Mg Hydroxide 15 ml/ Metoclopramide HCl 5 mg/Lidocaine HCl 5 ml 0 ml PO ONETIME ONE Stop: 04/06/19 06:08 Last Admin: 04/06/19 06:59 Dose: 1 each Dextrose/Water (Dextrose 50% In Water) 50 ml IVPUSH ONETIME ONE Stop: 04/07/19 13:36 Last Admin: 04/07/19 14:02 Dose: 50 ml Heparin Sodium (Porcine) (Heparin Sodium) 5,000 units SUBCUT Q8H [facility] Last Admin: 04/06/19 08:54 Dose: Not Given Azithromycin 1,000 mg/ Sodium (Chloride) 500 mls @ 250 mls/hr IV ONETIME ONE Stop: 04/05/19 11:51 Last Admin: 04/05/19 11:03 Dose: 250 mls/hr Ceftriaxone Sodium/Dextrose 1 (gm/ Premix) 50 mls @ 100 mls/hr IV ONETIME ONE Stop: 04/05/19 10:20 Last Admin: 04/05/19 10:29 Dose: 100 mls/hr Sodium Chloride (Normal Saline) 1,000 mls @ 125 mls/hr IV STAT [facility] Last Admin: 04/05/19 11:03 Dose: 125 mls/hr Sodium Chloride (Normal Saline) 1,000 mls @ 75 mls/hr IV ASDIRECTED [facility] Last Admin: 04/07/19 03:42 Dose: 75 mls/hr Azithromycin 500 mg/ Sodium (Chloride) 250 mls @ 250 mls/hr IV Q24H [facility] Last Admin: 04/06/19 08:54 Dose: Not Given Lorazepam (Ativan) 0.5 mg IVPUSH ONETIME ONE Stop: 04/05/19 09:15 Last Admin: 04/05/19 09:24 Dose: 0.5 mg Non-Formulary Medication (Lorazepam) 0.5 mg PO Q8H PRN PRN Reason: ANXIETY - Exam Quality Assessment: No: Supplemental Oxygen General: Alert, Oriented, Cooperative, No Acute Distress HEENT: Pupils Equal, Pupils Reactive, EOMI, Mucous Membr. Moist/[place] Neck: Supple, Trachea Midline Lungs: Clear to Auscultation, Normal Respiratory Effort Cardiovascular: Regular Rate, Regular Rhythm GI/Abdominal Exam: Soft, Non-Tender, No Distention. No: Normal Bowel Sounds ( Hyperactive), Guarding, Rigid, Rebound Back Exam: Normal Inspection, Full Range of Motion Extremities: Normal Inspection, No Pedal Edema Skin: Warm, Dry, Intact Neurological: No New Focal Deficit Psy/Mental Status: Alert, Normal Affect, Normal Mood - Problem List & Annotations (1) Small bowel obstruction SNOMED Code(s): 838919232 Code(s): K56.609 - UNSP INTESTNL OBST, UNSP TO PARTIAL VERSUS COMPLETE OBST Status: Acute Priority: High Current Visit: Yes Annotation/Comment: : Partial small bowel obstruction (2) Diarrhea SNOMED Code(s): 17338997 Code(s): R19.7 - DIARRHEA, UNSPECIFIED Status: Acute Priority: High Current Visit: Yes Qualifiers: Diarrhea type: functional diarrhea Qualified Code(s): K59.1 - Functional diarrhea (3) Chest pain, atypical SNOMED Code(s): 035646023 Code(s): R07.89 - OTHER CHEST PAIN Status: Resolved Priority: High Current Visit: Yes (4) HTN (hypertension) SNOMED Code(s): 89607539 Code(s): I10 - ESSENTIAL (PRIMARY) HYPERTENSION Status: Chronic Priority : High Current Visit: Yes Qualifiers: Hypertension type: essential hypertension Qualified Code(s): I10 - Essential (primary) hypertension (5) CAD (coronary artery disease) SNOMED Code(s): 21022205 Code(s): I25.10 - ATHSCL HEART DISEASE OF [place] CORONARY ARTERY W/O ANG PCTRS Status: Chronic Priority: High Current Visit: Yes Qualifiers: Coronary Disease-Associated Artery/Lesion type: [place] artery [place] vs. transplanted heart: [place] heart (6) DM type 2 (diabetes mellitus, type 2) SNOMED Code(s): 98267747 Code(s): E11.9 - TYPE 2 DIABETES MELLITUS WITHOUT COMPLICATIONS Status: Chronic Priority: High Current Visit: Yes Qualifiers: Diabetes mellitus watcher [employer] insulin use: without prison use Diabetes mellitus complication status: without complication Qualified Code(s): E11.9 - Type 2 diabetes mellitus without complications (7) Pacemaker SNOMED Code(s): 343337680 Code(s): Z95.0 - PRESENCE OF CARDIAC PACEMAKER Status: Chronic Priority: Medium Current Visit: No - Problem List Review Problem List Initiated/Reviewed/Updated: Yes - My Orders Last 24 Hours: My Active Orders 04/07/19 07:18 Loperamide [Imodium] 4 mg PO ONETIME PRN 04/07/19 07:26 Loperamide [Imodium] 2 mg PO .QID PRN 04/07/19 11:07 Consult to Physician [CONS] Urgent 04/07/19 11:08 Notify Provider Consults [RC] ASDIRECTED 04/07/19 12:17 Blood Glucose Check, Bedside [RC] Q6H 04/07/19 12:30 Sodium Chloride 0.9% [Normal Saline] 1,000 ml IV ASDIRECTED 04/07/19 Lunch NPO Now [Nothing per Oral Now Diet] [DIET] 04/08/19 05:11 BASIC METABOLIC PANEL,BMP [CHEM] AM CBC WITH AUTO DIFF [HEME] AM - Plan Plan:: The patient is an 83-year-old gentleman who is doing somewhat better today. Patient still has abdominal pain and surgery has evaluated the patient for small bowel obstruction. The periods at this time that the patient small bowel obstruction is partial as he has been having some diarrhea. The patient will be continued nothing by mouth for now with ice chips. Continue the patient on IV fluids. H. pylori testing is currently pending. The patient also has been ambulating. The patient has had some significant improvement we'll consider advancing the patient's diet to an appropriate ADA diet. He should be appropriate for discharge in 1 day. Repeat laboratory studies have been ordered.
[2019-04-08] MEDS: Sodium Chloride 0.9% 1,000 ML IV SCH ×2 (06:37→18:01)
[2019-04-08] MEDS: Insulin Aspart 100 Units/ML 3 ML Pen SUBCUT SCH ×3 (07:05→17:14)
[2019-04-08] MEDS: Furosemide 40 MG Tab PO SCH (08:41)
[2019-04-08] MEDS: Metoprolol Tartrate 25 MG Tab PO SCH ×2 (08:41→20:17)
[2019-04-08] MEDS: Aspirin 81 MG Tab.Chew PO SCH (08:42)
[2019-04-08] MEDS: Ranitidine 15 MG/ML Syrup 10 ML UD Cup PO SCH ×2 (08:42→20:18)
[2019-04-08] MEDS: Azithromycin 500 MG in Sodium Chloride 0.9% 250 ML IV SCH (08:45)
[2019-04-08] MEDS: Rivaroxaban 10 MG Tab PO SCH (18:00)
[2019-04-09] MEDS: Sodium Chloride 0.9% 1,000 ML IV SCH ×2 (04:20→17:23)
[2019-04-09 06:32] LABS: CHLORIDE,CL 108 mmol/L (98-107); SODIUM,NA 142 mmol/L (136-148)
[2019-04-09] MEDS: Insulin Aspart 100 Units/ML 3 ML Pen SUBCUT SCH ×3 (08:10→17:44)
[2019-04-09] MEDS: Ranitidine 15 MG/ML Syrup 10 ML UD Cup PO SCH ×2 (08:11→20:13)
[2019-04-09] MEDS: Metoprolol Tartrate 25 MG Tab PO SCH ×2 (08:11→20:13)
[2019-04-09] MEDS: Furosemide 40 MG Tab PO SCH (08:12)
[2019-04-09] MEDS: Aspirin 81 MG Tab.Chew PO SCH (08:12)
[2019-04-09] MEDS: Azithromycin 500 MG in Sodium Chloride 0.9% 250 ML IV SCH (08:12)
--- NOTE | 2019-04-09 11:25 | PCM.PN ---
- General Info Date of Service: 04/09/19 Admission Dx/Problem (Free Text): Admission Diagnosis/Problem Admission Diagnosis/Problem bibasilar scarring, no pneumonia, chest pain with reflux. Subjective Update: The patient is a 89-year-old gentleman who is doing some better today. He's been evaluated by surgeon who advises current diet and pain control. The patient also has been ambulating. Today the patient says that he is doing better. He is still having pain in the middle of his abdomen less diarrhea. The patient has been tolerating his diet. Functional Status: Reports: Pain Controlled - Review of Systems General: Reports: No Symptoms HEENT: Reports: No Symptoms Pulmonary: Reports: No Symptoms Cardiovascular: Reports: No Symptoms Gastrointestinal: Reports: Abdominal Pain, Diarrhea Genitourinary: Reports: No Symptoms Musculoskeletal: Reports: No Symptoms Skin: Reports: No Symptoms Neurological: Reports: No Symptoms Psychiatric: Reports: No Symptoms - Patient Data Vitals - Most Recent: Last Vital Signs Temp 37.1 C 04/09/19 07:45 Pulse 77 04/09/19 08:11 Resp 18 04/09/19 07:45 BP 139/78 04/09/19 08:11 Pulse Ox 97 04/09/19 07:45 Weight - Most Recent: 106.594 kg I&O - Last 24 Hours: Intake & Output 04/08/19 04/09/19 04/09/19 22:59 06:59 14:59 Intake Total 1610 1334 490 Output Total 200 600 Balance 1410 734 490 Lab Results Last 24 Hours: Laboratory Results - last 24 hr 04/08/19 04/08/19 04/08/19 Range/Units 12:06 16:28 21:20 WBC (4.0-11.0) K/uL RBC (4.50-5.90) M/uL Hgb (13.0-17.0) g/dL Hct (38.0-50.0) % MCV (80.0-98.0) fL MCH (27.0-32.0) pg MCHC (31.0-37.0) g/dL RDW Std Deviation (28.0-62.0) fl RDW Coeff of Mary (11.0-15.0) % Plt Count (150-400) K/uL MPV (7.40-12.00) fL Neut % (Auto) (48.0-80.0) % Lymph % (Auto) (16.0-40.0) % [place] % (Auto) (0.0-15.0) % Eos % (Auto) (0.0-7.0) % Baso % (Auto) (0.0-1.5) % Neut # (Auto) (1.4-5.7) K/uL Lymph # (Auto) (0.6-2.4) K/uL [place] # (Auto) (0.0-0.8) K/uL Eos # (Auto) (0.0-0.7) K/uL Baso # (Auto) (0.0-0.1) K/uL Nucleated RBC % /100WBC Nucleated RBCs # K/uL Sodium (136-148) mmol/L Potassium (3.5-5.1) mmol/L Chloride (98-107) mmol/L Carbon Dioxide (21.0-32.0) mmol/L BUN (7.0-18.0) mg/dL Creatinine (0.8-1.3) mg/dL Est Cr Clr Drug Dosing mL/min Estimated GFR (MDRD) ml/min Glucose (74-106) mg/dL POC Glucose 90 100 95 (60-110) mg/dL Calcium (8.5-10.1) mg/dL 04/09/19 04/09/19 04/09/19 Range/Units 05:47 05:47 08:07 WBC 8.01 (4.0-11.0) K/uL RBC 3.74 L (4.50-5.90) M/uL Hgb 12.0 L (13.0-17.0) g/dL Hct 36.8 L (38.0-50.0) % MCV 98.4 H (80.0-98.0) fL MCH 32.1 H (27.0-32.0) pg MCHC 32.6 (31.0-37.0) g/dL RDW Std Deviation 48.5 (28.0-62.0) fl RDW Coeff of Mary 14 (11.0-15.0) % Plt Count 147 L (150-400) K/uL MPV 10.70 (7.40-12.00) fL Neut % (Auto) 73.9 (48.0-80.0) % Lymph % (Auto) 14.6 L (16.0-40.0) % [place] % (Auto) 9.9 (0.0-15.0) % Eos % (Auto) 1.4 (0.0-7.0) % Baso % (Auto) 0.2 (0.0-1.5) % Neut # (Auto) 5.9 H (1.4-5.7) K/uL Lymph # (Auto) 1.2 (0.6-2.4) K/uL [place] # (Auto) 0.8 (0.0-0.8) K/uL Eos # (Auto) 0.1 (0.0-0.7) K/uL Baso # (Auto) 0.0 (0.0-0.1) K/uL Nucleated RBC % 0.0 /100WBC Nucleated RBCs # 0 K/uL Sodium 142 (136-148) mmol/L Potassium 4.0 (3.5-5.1) mmol/L Chloride 108 H (98-107) mmol/L Carbon Dioxide 26.9 (21.0-32.0) mmol/L BUN 21 H (7.0-18.0) mg/dL Creatinine 1.1 (0.8-1.3) mg/dL Est Cr Clr Drug Dosing 49.23 mL/min Estimated GFR (MDRD) > 60.0 ml/min Glucose 85 (74-106) mg/dL POC Glucose 78 (60-110) mg/dL Calcium 8.0 L (8.5-10.1) mg/dL Kaleb Results Last 24 Hours: Microbiology 04/05/19 10:35 Aerobic Blood Culture - Preliminary Blood - Venous - Lab Draw NO GROWTH AFTER 4 DAYS Anaerobic Blood Culture - Preliminary NO GROWTH AFTER 4 DAYS 04/05/19 10:27 Aerobic Blood Culture - Preliminary Blood - Venous NO GROWTH AFTER 4 DAYS Anaerobic Blood Culture - Preliminary NO GROWTH AFTER 4 DAYS 04/05/19 22:05 Urine Culture - Final Urine, Clean Catch MIXED SUMMER <1000 CFU/ML Med Orders - Current: Current Medications Acetaminophen (Tylenol) 650 mg PO Q4H PRN PRN Reason: Pain (Mild 1-3)/fever Last Admin: 04/06/19 19:24 Dose: 650 mg Aspirin (Aspirin) 81 mg PO BRK [facility] Last Admin: 04/09/19 08:12 Dose: 81 mg Benzonatate (Tessalon Perles) 100 mg PO TID PRN PRN Reason: Cough Last Admin: 04/07/19 07:12 Dose: 100 mg Docusate Sodium (Colace) 100 mg PO BID PRN PRN Reason: Constipation Furosemide (Lasix) 40 mg PO DAILY [facility] Last Admin: 04/09/19 08:12 Dose: 40 mg Sodium Chloride (Normal Saline) 500 mls @ 999 mls/hr IV STAT [facility] Last Admin: 04/05/19 09:17 Dose: 999 mls/hr Azithromycin 500 mg/ Sodium (Chloride) 250 mls @ 250 mls/hr IV Q24H [facility] Last Admin: 04/09/19 08:12 Dose: 250 mls/hr Sodium Chloride (Normal Saline) 1,000 mls @ 100 mls/hr IV ASDIRECTED [facility] Last Admin: 04/09/19 04:20 Dose: 100 mls/hr Insulin Aspart (Novolog) 0 unit SUBCUT TIDAC [facility]; Protocol Last Admin: 04/09/19 08:10 Dose: Not Given Loperamide HCl (Imodium) 4 mg PO ONETIME PRN PRN Reason: Diarrhea Last Admin: 04/07/19 08:44 Dose: 4 mg Loperamide HCl (Imodium) 2 mg PO .QID PRN PRN Reason: DIARRHEA Last Admin: 04/08/19 15:41 Dose: 2 mg Lorazepam (Ativan) 0.5 mg PO Q8H PRN PRN Reason: ANXIETY Metoprolol Tartrate (Lopressor) 75 mg PO BID [facility] Last Admin: 04/09/19 08:11 Dose: 75 mg Ondansetron HCl (Zofran Odt) 4 mg PO Q6H PRN PRN Reason: nausea, able to take PO Last Admin: 04/08/19 05:07 Dose: 4 mg Oxycodone HCl (Oxycodone) 5 mg PO Q4H PRN PRN Reason: Pain (moderate 4-6) Ranitidine HCl (Zantac) 150 mg PO BID [facility] Last Admin: 04/09/19 08:11 Dose: 10 ml Rivaroxaban (Xarelto) 20 mg PO DAILY@1730 [facility] Last Admin: 04/08/19 18:00 Dose: 20 mg Temazepam (Restoril) 15 mg PO BEDTIME PRN PRN Reason: Sleep Discontinued Medications Aspirin (Aspirin) 324 mg PO ONETIME ONE Stop: 04/05/19 09:17 Last Admin: 04/05/19 09:24 Dose: 324 mg Al Hydroxide/Mg Hydroxide 15 ml/ Metoclopramide HCl 5 mg/Lidocaine HCl 5 ml 0 ml PO ONETIME ONE Stop: 04/05/19 09:15 Last Admin: 04/05/19 09:24 Dose: 1 each Al Hydroxide/Mg Hydroxide 15 ml/ Metoclopramide HCl 5 mg/Lidocaine HCl 5 ml 0 ml PO ONETIME ONE Stop: 04/06/19 06:08 Last Admin: 04/06/19 06:59 Dose: 1 each Dextrose/Water (Dextrose 50% In Water) 50 ml IVPUSH ONETIME ONE Stop: 04/07/19 13:36 Last Admin: 04/07/19 14:02 Dose: 50 ml Heparin Sodium (Porcine) (Heparin Sodium) 5,000 units SUBCUT Q8H [facility] Last Admin: 04/06/19 08:54 Dose: Not Given Azithromycin 1,000 mg/ Sodium (Chloride) 500 mls @ 250 mls/hr IV ONETIME ONE Stop: 04/05/19 11:51 Last Admin: 04/05/19 11:03 Dose: 250 mls/hr Ceftriaxone Sodium/Dextrose 1 (gm/ Premix) 50 mls @ 100 mls/hr IV ONETIME ONE Stop: 04/05/19 10:20 Last Admin: 04/05/19 10:29 Dose: 100 mls/hr Sodium Chloride (Normal Saline) 1,000 mls @ 125 mls/hr IV STAT [facility] Last Admin: 04/05/19 11:03 Dose: 125 mls/hr Sodium Chloride (Normal Saline) 1,000 mls @ 75 mls/hr IV ASDIRECTED [facility] Last Admin: 04/07/19 03:42 Dose: 75 mls/hr Azithromycin 500 mg/ Sodium (Chloride) 250 mls @ 250 mls/hr IV Q24H [facility] Last Admin: 04/06/19 08:54 Dose: Not Given Lorazepam (Ativan) 0.5 mg IVPUSH ONETIME ONE Stop: 04/05/19 09:15 Last Admin: 04/05/19 09:24 Dose: 0.5 mg Non-Formulary Medication (Lorazepam) 0.5 mg PO Q8H PRN PRN Reason: ANXIETY - Exam Quality Assessment: No: Supplemental Oxygen General: Alert, Oriented, Cooperative, No Acute Distress HEENT: Pupils Equal, Pupils Reactive, EOMI, Mucous Membr. Moist/[place] Neck: Supple, Trachea Midline Lungs: Clear to Auscultation, Normal Respiratory Effort Cardiovascular: Regular Rate, Regular Rhythm GI/Abdominal Exam: Soft, No Distention, Tender (Umbilical area). No: Normal Bowel Sounds (Hyperactive), Guarding, Rigid, Rebound Back Exam: Normal Inspection, Full Range of Motion Extremities: Normal Inspection, Normal Range of Motion, No Pedal Edema Skin: Warm, Dry, Intact Neurological: No New Focal Deficit, Normal Gait Psy/Mental Status: Alert, Normal Affect, Normal Mood - Problem List & Annotations (1) Small bowel obstruction SNOMED Code(s): 242541001 Code(s): K56.609 - UNSP INTESTNL OBST, UNSP TO PARTIAL VERSUS COMPLETE OBST Status: Acute Priority: High Current Visit: Yes Annotation/Comment: : Partial small bowel obstruction (2) Diarrhea SNOMED Code(s): 06834413 Code(s): R19.7 - DIARRHEA, UNSPECIFIED Status: Acute Priority: High Current Visit: Yes Qualifiers: Diarrhea type: functional diarrhea Qualified Code(s): K59.1 - Functional diarrhea (3) Chest pain, atypical SNOMED Code(s): 190719449 Code(s): R07.89 - OTHER CHEST PAIN Status: Resolved Priority: High Current Visit: Yes (4) HTN (hypertension) SNOMED Code(s): 42068824 Code(s): I10 - ESSENTIAL (PRIMARY) HYPERTENSION Status: Chronic Priority : High Current Visit: Yes Qualifiers: Hypertension type: essential hypertension Qualified Code(s): I10 - Essential (primary) hypertension (5) CAD (coronary artery disease) SNOMED Code(s): 91800001 Code(s): I25.10 - ATHSCL HEART DISEASE OF [place] CORONARY ARTERY W/O ANG PCTRS Status: Chronic Priority: High Current Visit: Yes Qualifiers: Coronary Disease-Associated Artery/Lesion type: [place] artery [place] vs. 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 Diabetes mellitus complication status: without complication Qualified Code(s): E11.9 - Type 2 diabetes mellitus without complications (7) Pacemaker SNOMED Code(s): 268268603 Code(s): Z95.0 - PRESENCE OF CARDIAC PACEMAKER Status: Chronic Priority: Medium Current Visit: No - Problem List Review Problem List Initiated/Reviewed/Updated: Yes - My Orders Last 24 Hours: My Active Orders 04/08/19 15:15 Discontinue Telemetry Monitoring [Cardiac Monitoring Discontinue] [RC] Click to Edit 04/09/19 07:30 Blood Glucose Check, Bedside [RC] TIDAC 04/09/19 Lunch Full Liquid Diet [DIET] - Plan Plan:: The patient is an 83-year-old gentleman who is doing better today. He says that his diarrhea is improved. He still has abdominal pain and hyperactive bowel sounds. The patient will be kept on his full liquid diet as tolerated. H. pylori testing is currently pending. Patient has been ambulating and he's been encouraged to continue this. The patient should be appropriate for discharge in 1 day. I've ordered repeat laboratory studies. Patient will have repeat abdominal x-ray in the morning.
[2019-04-09] MEDS: Rivaroxaban 10 MG Tab PO SCH (17:38)
[2019-04-10] MEDS: Sodium Chloride 0.9% 1,000 ML IV SCH (03:00)
[2019-04-10 06:42] LABS: CHLORIDE,CL 109 mmol/L (98-107); SODIUM,NA 143 mmol/L (136-148)
[2019-04-10] MEDS: Insulin Aspart 100 Units/ML 3 ML Pen SUBCUT SCH ×2 (07:00→11:59)
[2019-04-10] MEDS: Azithromycin 500 MG in Sodium Chloride 0.9% 250 ML IV SCH (08:23)
[2019-04-10] MEDS: Metoprolol Tartrate 25 MG Tab PO SCH (08:26)
[2019-04-10] MEDS: Furosemide 40 MG Tab PO SCH (08:26)
[2019-04-10] MEDS: Aspirin 81 MG Tab.Chew PO SCH (08:27)
[2019-04-10] MEDS: Ranitidine 15 MG/ML Syrup 10 ML UD Cup PO SCH (08:27)
[2019-04-10] MEDS ORDERED: ClonazePAM 1 MG Tab PO PRN (10:48)
--- NOTE | 2019-04-10 12:34 | PCM.DCSUM1 ---
Discharge Summary - Hospital Course Free Text/Narrative:: The patient was admitted secondary to pneumonia however this proved to be by basilar scarring Diagnosis: Stroke: No - Discharge Data Discharge Date: 04/11/19 Discharge Disposition: Home, Self-Care 01 Condition: Fair - Discharge Diagnosis/Problem(s) (1) Small bowel obstruction SNOMED Code(s): 151155324 ICD Code: K56.609 - UNSP INTESTNL OBST, UNSP TO PARTIAL VERSUS COMPLETE OBST Status: Resolved Priority: High Problem Details: Partial small bowel obstruction (2) Diarrhea SNOMED Code(s): 69330142 ICD Code: R19.7 - DIARRHEA, UNSPECIFIED Status: Resolved Priority: High Qualifiers: Diarrhea type: functional diarrhea Qualified Code(s): K59.1 - Functional diarrhea (3) Chest pain, atypical SNOMED Code(s): 592128615 ICD Code: R07.89 - OTHER CHEST PAIN Status: Resolved Priority: High (4) HTN (hypertension) SNOMED Code(s): 88178249 ICD Code: I10 - ESSENTIAL (PRIMARY) HYPERTENSION Status: Chronic Priority : High Qualifiers: Hypertension type: essential hypertension Qualified Code(s): I10 - Essential (primary) hypertension (5) CAD (coronary artery disease) SNOMED Code(s): 42388660 ICD Code: I25.10 - ATHSCL HEART DISEASE OF [place] CORONARY ARTERY W/O ANG PCTRS Status: Chronic Priority: High Qualifiers: Coronary Disease-Associated Artery/Lesion type: [place] artery [place] vs. transplanted heart: [place] heart (6) DM type 2 (diabetes mellitus, type 2) SNOMED Code(s): 03643126 ICD Code: E11.9 - TYPE 2 DIABETES MELLITUS WITHOUT COMPLICATIONS Status: Chronic Priority: High Qualifiers: Diabetes mellitus senior care insulin use: without long term care social worker use Diabetes mellitus complication status: without complication Qualified Code(s): E11.9 - Type 2 diabetes mellitus without complications (7) Pacemaker SNOMED Code(s): 408259374 ICD Code: Z95.0 - PRESENCE OF CARDIAC PACEMAKER Status: Chronic Priority : Medium - Patient Summary/Data Consults: Consultations 04/07/19 11:07 Consult to Physician [CONS] Urgent Hospital Course: The patient is an 83-year-old gentleman who had presented to the emergency department complaining of acid reflux and had been radiating into his chest and he has some chest pain associated with this. The patient initially had a chest x -ray which was interpreted as pneumonia however this had been read as atelectasis and scarring. The patient had been placed on Protonix and Zantac to help with the acid reflux. Stool cultures for H. pylori were ordered and have not returned. Out of concern for patient having pneumonia he was placed on ceftriaxone. The patient had tolerated this well. The patient had also been complaining of diarrhea and he was tested for Salmonella, Shigella, Escherichia coli, Campylobacter and these were all negative. An abdominal examination was obtained radiographically flat and upright plate which had suggested partial small bowel obstruction. The patient had been kept nothing by mouth and on IV fluids. Surgery was consulted and felt that this was not a surgical issue and that observation would be appropriate. Initially the patient's white blood cell count was at a maximum of 17,000 and by day of discharge this had normalized to 7.6 thousand. By day of discharge the patient said that his abdominal pain had resolved and his diarrhea had also resolved. By day of discharge the patient had been doing better. He was on his current diet and this had been advanced and he was tolerating this. The patient has been recommended to continue with his diet as tolerated. The patient is also to continue with his current medications. He is also to have activity as tolerated. The patient has been recommended to follow-up with his primary care physician for this. He has been hemodynamically stable and his vital signs also have been stable and he is discharged from acute hospitalization with recommendations listed above. - Patient Instructions Diet: Heart Healthy Diet, Diabetic Diet Activity: As Tolerated - Discharge Plan *PRESCRIPTION DRUG MONITORING PROGRAM REVIEWED*: No *COPY OF PRESCRIPTION DRUG MONITORING REPORT IN PATIENT FUAD: No Home Medications: Home Meds Furosemide [Lasix] 40 mg PO DAILY 08/20/15 [History] Aspirin 81 mg PO BRK 09/09/16 [History] Antiox#10/Om3/DHA/EPA/Lut/Zeax [I-Caps with Lutein-[place] 3 SFG] 1 cap PO BID [History] Metoprolol Tartrate 75 mg PO BID 30 Days #60 tablet 11/12/17 [Rx] Rivaroxaban [Xarelto] 20 mg PO DAILY 04/05/19 [History] ClonazePAM [KlonoPIN] 1 mg PO BID PRN 04/10/19 [History] Diclofenac Sodium [Voltaren 1% Gel] 1 applic TOP QID PRN 04/10/19 [History] Erythromycin Base [Erythromycin 0.5% Ophth Oint] 1 applic EYEBOTH BEDTIME [History] Meclizine HCl 25 mg PO TID PRN 04/10/19 [History] Metaxalone 800 mg PO BID PRN 04/10/19 [History] Mometasone Furoate 1 applic TOP DAILY 04/10/19 [History] Nitroglycerin [Nitrostat] 0.4 mg SL ASDIRECTED 04/10/19 [History] Omeprazole 20 mg PO DAILY 04/10/19 [History] Oxygen Therapy Mode: Room Air Patient Handouts: Nonspecific Chest Pain, [id number], Community-Acquired Pneumonia, Adult, [id number] Referrals: Rena Enriquez MD [Physician] - [facility] - - Discharge Summary/Plan Comment DC Time >30 min.: Yes - General Info Date of Service: 04/11/19 Admission Dx/Problem (Free Text: Admission Diagnosis/Problem Admission Diagnosis/Problem bibasilar scarring, no pneumonia, chest pain with reflux. Subjective Update: The patient is doing much better today. He feels like he can go home. Functional Status: Reports: Pain Controlled - Review of Systems General: Reports: No Symptoms HEENT: Reports: No Symptoms Pulmonary: Reports: No Symptoms Cardiovascular: Reports: No Symptoms Gastrointestinal: Reports: No Symptoms Genitourinary: Reports: No Symptoms Musculoskeletal: Reports: No Symptoms Skin: Reports: No Symptoms Neurological: Reports: No Symptoms Psychiatric: Reports: No Symptoms - Patient Data Vitals - Most Recent: Last Vital Signs Temp 36.4 C 04/10/19 07:20 Pulse 79 04/10/19 08:26 Resp 16 04/10/19 07:20 BP 125/72 04/10/19 08:26 Pulse Ox 94 L 04/10/19 07:20 Weight - Most Recent: 106.594 kg I&O - Last 24 hours: Intake & Output 04/09/19 04/10/19 04/10/19 22:59 06:59 14:59 Intake Total 1840 1476 240 Output Total 1600 1150 Balance 240 326 240 Lab Results - Last 24 hrs: Laboratory Results - last 24 hr 04/09/19 04/10/19 04/10/19 Range/Units 17:20 05:42 05:42 WBC 7.69 (4.0-11.0) K/uL RBC 3.76 L (4.50-5.90) M/uL Hgb 11.9 L (13.0-17.0) g/dL Hct 36.8 L (38.0-50.0) % MCV 97.9 (80.0-98.0) fL MCH 31.6 (27.0-32.0) pg MCHC 32.3 (31.0-37.0) g/dL RDW Std Deviation 47.5 (28.0-62.0) fl RDW Coeff of Mary 13 (11.0-15.0) % Plt Count 145 L (150-400) K/uL MPV 10.60 (7.40-12.00) fL Neut % (Auto) 72.0 (48.0-80.0) % Lymph % (Auto) 15.6 L (16.0-40.0) % [place] % (Auto) 10.9 (0.0-15.0) % Eos % (Auto) 1.4 (0.0-7.0) % Baso % (Auto) 0.1 (0.0-1.5) % Neut # (Auto) 5.5 (1.4-5.7) K/uL Lymph # (Auto) 1.2 (0.6-2.4) K/uL [place] # (Auto) 0.8 (0.0-0.8) K/uL Eos # (Auto) 0.1 (0.0-0.7) K/uL Baso # (Auto) 0.0 (0.0-0.1) K/uL Nucleated RBC % 0.0 /100WBC Nucleated RBCs # 0 K/uL Sodium 143 (136-148) mmol/L Potassium 3.9 (3.5-5.1) mmol/L Chloride 109 H (98-107) mmol/L Carbon Dioxide 27.4 (21.0-32.0) mmol/L BUN 18 (7.0-18.0) mg/dL Creatinine 1.0 (0.8-1.3) mg/dL Est Cr Clr Drug Dosing 54.15 mL/min Estimated GFR (MDRD) > 60.0 ml/min Glucose 96 (74-106) mg/dL POC Glucose 82 (60-110) mg/dL Calcium 8.2 L (8.5-10.1) mg/dL 04/10/19 04/10/19 Range/Units 06:57 11:53 WBC (4.0-11.0) K/uL RBC (4.50-5.90) M/uL Hgb (13.0-17.0) g/dL Hct (38.0-50.0) % MCV (80.0-98.0) fL MCH (27.0-32.0) pg MCHC (31.0-37.0) g/dL RDW Std Deviation (28.0-62.0) fl RDW Coeff of Mary (11.0-15.0) % Plt Count (150-400) K/uL MPV (7.40-12.00) fL Neut % (Auto) (48.0-80.0) % Lymph % (Auto) (16.0-40.0) % [place] % (Auto) (0.0-15.0) % Eos % (Auto) (0.0-7.0) % Baso % (Auto) (0.0-1.5) % Neut # (Auto) (1.4-5.7) K/uL Lymph # (Auto) (0.6-2.4) K/uL [place] # (Auto) (0.0-0.8) K/uL Eos # (Auto) (0.0-0.7) K/uL Baso # (Auto) (0.0-0.1) K/uL Nucleated RBC % /100WBC Nucleated RBCs # K/uL Sodium (136-148) mmol/L Potassium (3.5-5.1) mmol/L Chloride (98-107) mmol/L Carbon Dioxide (21.0-32.0) mmol/L BUN (7.0-18.0) mg/dL Creatinine (0.8-1.3) mg/dL Est Cr Clr Drug Dosing mL/min Estimated GFR (MDRD) ml/min Glucose (74-106) mg/dL POC Glucose 90 73 (60-110) mg/dL Calcium (8.5-10.1) mg/dL GI Results - Last 24 hrs: Microbiology 04/05/19 10:35 Aerobic Blood Culture - Final Blood - Venous - Lab Draw NO GROWTH AFTER 5 DAYS Anaerobic Blood Culture - Final NO GROWTH AFTER 5 DAYS 04/05/19 10:27 Aerobic Blood Culture - Final Blood - Venous NO GROWTH AFTER 5 DAYS Anaerobic Blood Culture - Final NO GROWTH AFTER 5 DAYS Med Orders - Current: Current Medications Acetaminophen (Tylenol) 650 mg PO Q4H PRN PRN Reason: Pain (Mild 1-3)/fever Last Admin: 04/06/19 19:24 Dose: 650 mg Aspirin (Aspirin) 81 mg PO BRK [facility] Last Admin: 04/10/19 08:27 Dose: 81 mg Benzonatate (Tessalon Perles) 100 mg PO TID PRN PRN Reason: Cough Last Admin: 04/07/19 07:12 Dose: 100 mg Clonazepam (Klonopin) 1 mg PO BID PRN PRN Reason: Anxiety Last Admin: 04/10/19 10:59 Dose: 1 mg Docusate Sodium (Colace) 100 mg PO BID PRN PRN Reason: Constipation Furosemide (Lasix) 40 mg PO DAILY [facility] Last Admin: 04/10/19 08:26 Dose: 40 mg Sodium Chloride (Normal Saline) 500 mls @ 999 mls/hr IV STAT [facility] Last Admin: 04/05/19 09:17 Dose: 999 mls/hr Azithromycin 500 mg/ Sodium (Chloride) 250 mls @ 250 mls/hr IV Q24H [facility] Last Admin: 04/10/19 08:23 Dose: 250 mls/hr Sodium Chloride (Normal Saline) 1,000 mls @ 100 mls/hr IV ASDIRECTED [facility] Last Admin: 04/10/19 03:00 Dose: 100 mls/hr Insulin Aspart (Novolog) 0 unit SUBCUT TIDAC [facility]; Protocol Last Admin: 04/10/19 11:59 Dose: Not Given Loperamide HCl (Imodium) 4 mg PO ONETIME PRN PRN Reason: Diarrhea Last Admin: 04/07/19 08:44 Dose: 4 mg Loperamide HCl (Imodium) 2 mg PO .QID PRN PRN Reason: DIARRHEA Last Admin: 04/08/19 15:41 Dose: 2 mg Lorazepam (Ativan) 0.5 mg PO Q8H PRN PRN Reason: ANXIETY Metoprolol Tartrate (Lopressor) 75 mg PO BID [facility] Last Admin: 04/10/19 08:26 Dose: 75 mg Ondansetron HCl (Zofran Odt) 4 mg PO Q6H PRN PRN Reason: nausea, able to take PO Last Admin: 04/08/19 05:07 Dose: 4 mg Oxycodone HCl (Oxycodone) 5 mg PO Q4H PRN PRN Reason: Pain (moderate 4-6) Ranitidine HCl (Zantac) 150 mg PO BID [facility] Last Admin: 04/10/19 08:27 Dose: 10 ml Rivaroxaban (Xarelto) 20 mg PO DAILY@1730 [facility] Last Admin: 04/09/19 17:38 Dose: 20 mg Temazepam (Restoril) 15 mg PO BEDTIME PRN PRN Reason: Sleep Discontinued Medications Aspirin (Aspirin) 324 mg PO ONETIME ONE Stop: 04/05/19 09:17 Last Admin: 04/05/19 09:24 Dose: 324 mg Al Hydroxide/Mg Hydroxide 15 ml/ Metoclopramide HCl 5 mg/Lidocaine HCl 5 ml 0 ml PO ONETIME ONE Stop: 04/05/19 09:15 Last Admin: 04/05/19 09:24 Dose: 1 each Al Hydroxide/Mg Hydroxide 15 ml/ Metoclopramide HCl 5 mg/Lidocaine HCl 5 ml 0 ml PO ONETIME ONE Stop: 04/06/19 06:08 Last Admin: 04/06/19 06:59 Dose: 1 each Dextrose/Water (Dextrose 50% In Water) 50 ml IVPUSH ONETIME ONE Stop: 04/07/19 13:36 Last Admin: 04/07/19 14:02 Dose: 50 ml Heparin Sodium (Porcine) (Heparin Sodium) 5,000 units SUBCUT Q8H [facility] Last Admin: 04/06/19 08:54 Dose: Not Given Azithromycin 1,000 mg/ Sodium (Chloride) 500 mls @ 250 mls/hr IV ONETIME ONE Stop: 04/05/19 11:51 Last Admin: 04/05/19 11:03 Dose: 250 mls/hr Ceftriaxone Sodium/Dextrose 1 (gm/ Premix) 50 mls @ 100 mls/hr IV ONETIME ONE Stop: 04/05/19 10:20 Last Admin: 04/05/19 10:29 Dose: 100 mls/hr Sodium Chloride (Normal Saline) 1,000 mls @ 125 mls/hr IV STAT [facility] Last Admin: 04/05/19 11:03 Dose: 125 mls/hr Sodium Chloride (Normal Saline) 1,000 mls @ 75 mls/hr IV ASDIRECTED [facility] Last Admin: 04/07/19 03:42 Dose: 75 mls/hr Azithromycin 500 mg/ Sodium (Chloride) 250 mls @ 250 mls/hr IV Q24H [facility] Last Admin: 04/06/19 08:54 Dose: Not Given Lorazepam (Ativan) 0.5 mg IVPUSH ONETIME ONE Stop: 04/05/19 09:15 Last Admin: 04/05/19 09:24 Dose: 0.5 mg Non-Formulary Medication (Lorazepam) 0.5 mg PO Q8H PRN PRN Reason: ANXIETY - Exam Quality Assessment: Denies: Supplemental Oxygen General: Reports: Alert, Oriented, Cooperative HEENT: Reports: Pupils Equal, Pupils Reactive, EOMI Neck: Reports: Supple, Trachea Midline Lungs: Reports: Clear to Auscultation, Normal Respiratory Effort Cardiovascular: Reports: Regular Rate, Regular Rhythm GI/Abdominal Exam: Normal Bowel Sounds, Soft, No Distention. No: Guarding, Rigid, Rebound Back Exam: Reports: Normal Inspection, Full Range of Motion Extremities: Normal Inspection, Normal Range of Motion, No Pedal Edema Skin: Reports: Warm, Dry, Intact Neurological: Reports: No New Focal Deficit Psy/Mental Status: Reports: Alert, Normal Affect, Normal Mood
[2019-04-10 13:22] VITALS: BP 129/76
--- NOTE | 2019-04-10 13:27 | CR ---
EXAMINATION: Abdomen HISTORY: Pain COMPARISON: CT dated 04/07/2019 TECHNIQUE: AP and upright views of the abdomen FINDINGS: There is no free air under the diaphragm. Small amount of gas noted within the colon. No dilated loops of small bowel. Small calcification projects over the region of the right kidney however was not noted on the prior CT. No organomegaly. Degenerative changes noted within the lumbar spine and mildly within the right hip. Left total hip hardware is noted. IMPRESSION: No acute finding noted within the abdomen.
== END 2019-04-10 14:40 | disposition home or self-care (01) | DRG 390 ==
LOC: MW.ED 08:49 → MW.MS 10:57
PROVIDERS: ADMIT Internal Medicine; ATTEND Internal Medicine
DX: K56.600 Partial intestinal obstruction, unspecified as to cause (principal); K85.90 Acute pancreatitis without necrosis or infection, unspecified; J18.9 Pneumonia, unspecified organism; J34.2 Deviated nasal septum; K21.9 Gastro-esophageal reflux disease without esophagitis; H54.7 Unspecified visual loss; H91.90 Unspecified hearing loss, unspecified ear; M19.91 Primary osteoarthritis, unspecified site; F41.9 Anxiety disorder, unspecified; I48.91 Unspecified atrial fibrillation; I25.10 Atherosclerotic heart disease of native coronary artery without angina pectoris; I10 Essential (primary) hypertension; K59.1 Functional diarrhea; R07.89 Other chest pain; I11.9 Hypertensive heart disease without heart failure; I25.2 Old myocardial infarction; Z90.49 Acquired absence of other specified parts of digestive tract; Z95.0 Presence of cardiac pacemaker; Z95.5 Presence of coronary angioplasty implant and graft; Z91.048 Other nonmedicinal substance allergy status; Z86.74 Personal history of sudden cardiac arrest; G47.30 Sleep apnea, unspecified; Z95.810 Presence of automatic (implantable) cardiac defibrillator; M19.90 Unspecified osteoarthritis, unspecified site; Z86.73 Personal history of transient ischemic attack (TIA), and cerebral infarction without residual deficits; E11.9 Type 2 diabetes mellitus without complications; E66.9 Obesity, unspecified; Z68.30 Body mass index [BMI] 30.0-30.9, adult; Z96.649 Presence of unspecified artificial hip joint; Z96.659 Presence of unspecified artificial knee joint; Z91.09 Other allergy status, other than to drugs and biological substances; Z79.01 Long term (current) use of anticoagulants; Z79.82 Long term (current) use of aspirin; Z79.899 Other long term (current) drug therapy
CPT/HCPCS: 36415; 71045; 80053; 83690; 84484; 85025; 87040 ×2; 93005; 96361; 96365; 96375; 99284; A9270 ×4; J0696; J2060; J7040; 74019; 74019-26; 74176; 74176-26; 80048; 81001; 82272; 82962; 87046; 87086; 87324; 87338; 87899; 96367; 99283; J0456; J1815-GY; J7050; J7060

== ENCOUNTER 2019-08-02 14:40 | Observation (INO) | payer MEDICARE, BC, OTHER ==
[2019-08-02] MEDS ORDERED: Aspirin 81 MG Tab.Chew PO ONE (14:43)
[2019-08-02] MEDS ORDERED: Sodium Chloride 0.9% 2.5 ML Syringe FLUSH PRN (14:43)
[2019-08-02] MEDS ORDERED: Sodium Chloride 0.9% 10 ML Syringe FLUSH PRN (14:43)
--- NOTE | 2019-08-02 15:24 | CR ---
EXAM DATE: 08/02/19 PATIENT'S AGE: 83 Chest: Portable view of the chest was obtained. Comparison: Prior chest x-ray of 04/05/19. Heart size and mediastinum are within normal limits for AP technique. Left retrocardiac region is not well penetrated. No definite acute parenchymal change is seen within the lungs. Bichamber pacemaker is present. Bony structures are grossly intact. Impression: 1. Findings as noted above. 2. Nothing acute is appreciated. Diagnostic code #2 Report Signed by Proxy. [facility]
[2019-08-02 15:38] LABS: BLOOD UREA NITROGEN,BUN 19 mg/dL (7.0-18.0); CARBON DIOXIDE,CO2 28.3 mmol/L (21.0-32.0); CHLORIDE,CL 103 mmol/L (98-107); GLUCOSE RANDOM 90 mg/dL (74-106); POTASSIUM,K 3.8 mmol/L (3.5-5.1); SODIUM,NA 138 mmol/L (136-148)
--- NOTE | 2019-08-02 16:14 | EDM.PDOC ---
ED HPI GENERAL MEDICAL PROBLEM - General Chief Complaint: Chest Pain Stated Complaint: CHEST PAIN Time Seen by Provider: 08/02/19 16:12 Source of Information: Reports: Patient - History of Present Illness INITIAL COMMENTS - FREE TEXT/NARRATIVE: HISTORY AND PHYSICAL: History of present illness: []Patient presents with chest pain mild 2-3 out of 10 intermittent shortness breath associated no radiation arm neck or jaw no diaphoresis in terms began at 9 AM he has taken 4 nitroglycerin tablets at home with no benefit He is followed by cardiology through us with Dr. Cat as well as [place] he has had stenting in 2012 with pacemaker placement I've spoken with Dr. Cat he would like to admit and follow enzymes. He is familiar with the patient and has performed a stress test within last year as patient has had these symptoms intermittently however would be more comfortable if he was admitted and following the 3 sets of enzymes No fever nausea vomiting chills sweats no shortness breath headache dizziness palpitation no bowel or urine symptoms Review of systems: As per history of present illness and below otherwise all systems reviewed and negative. Past medical history: As per history of present illness and as reviewed below otherwise noncontributory. Surgical history: As per history of present illness and as reviewed below otherwise noncontributory. Social history: No reported history of drug or alcohol abuse. Family history: As per history of present illness and as reviewed below otherwise noncontributory. Physical exam: HEENT: Atraumatic, normocephalic, pupils reactive, negative for conjunctival pallor or scleral icterus, mucous membranes moist, throat clear, neck supple, nontender, trachea midline. Lungs: Clear to auscultation, breath sounds equal bilaterally, chest nontender. Heart: S1S2, regular, negative for clicks, rubs, or JVD. Abdomen: Soft, nondistended, nontender. Negative for masses or hepatosplenomegaly. Negative for costovertebral tenderness. Pelvis: Stable nontender. Genitourinary: Deferred. Rectal: Deferred. Extremities: Atraumatic, negative for cords or calf pain. Neurovascular unremarkable. Neuro: Awake, alert, oriented. Cranial nerves II through XII unremarkable. Cerebellum unremarkable. Motor and sensory unremarkable throughout. Exam nonfocal. Diagnostics: [ E CMP troponin EKG Chest 1 view ] Therapeutics: [ normal saline Aspirin Admit for observation telemetry ] Impression: [ atypical chest pain chronic history of baseline ] Definitive disposition and diagnosis as appropriate pending reevaluation and review of above. left chest Pain Score (Numeric/FACES): 7 - Related Data Allergies Allergy/AdvReac Type Severity Reaction Status Date / Time dye Allergy Cardiac Uncoded 08/02/19 14:44 Arrest Home Meds: Home Meds Furosemide [Lasix] 40 mg PO DAILY 08/20/15 [History] Aspirin 81 mg PO BRK 09/09/16 [History] Antiox.mv No.10/Omeg3s/Lut/Zac [I-Caps with Lutein-[place] 3 SFG] 1 cap PO BID [History] Metoprolol Tartrate 75 mg PO BID 30 Days #60 tablet 11/12/17 [Rx] Rivaroxaban [Xarelto] 20 mg PO DAILY 04/05/19 [History] ClonazePAM [KlonoPIN] 1 mg PO BID PRN 04/10/19 [History] Diclofenac Sodium [Voltaren 1% Gel] 1 applic TOP QID PRN 04/10/19 [History] Erythromycin Base [Erythromycin 0.5% Ophth Oint] 1 applic EYEBOTH BEDTIME [History] Meclizine HCl 25 mg PO TID PRN 04/10/19 [History] Metaxalone 800 mg PO BID PRN 04/10/19 [History] Mometasone Furoate 1 applic TOP DAILY PRN 04/10/19 [History] Nitroglycerin [Nitrostat] 0.4 mg SL ASDIRECTED 04/10/19 [History] Omeprazole 20 mg PO DAILY 04/10/19 [History] Past Medical History - Past Health History Medical/Surgical History: Denies Medical/Surgical History HEENT History: Reports: Hard of Hearing, Impaired Vision Other HEENT History: on hearing aids Cardiovascular History: Reports: Afib, CAD, Hypertension, [place], Pacemaker, Prior Cardiac Arrest, Stents Respiratory History: Reports: Sleep Apnea Other Respiratory History: uses cpap Gastrointestinal History: Reports: None Genitourinary History: Reports: Renal Calculus Musculoskeletal History: Reports: Arthritis Neurological History: Reports: TIA, Vertigo, Other (See Below) Other Neuro History: menieres disease Psychiatric History: Reports: Anxiety Endocrine/Metabolic History: Reports: Diabetes, Type II, Obesity/BMI 30+ Other Endocrine/Metabolic History: diabetes controlled by diet Hematologic History: Reports: None Immunologic History: Reports: None Oncologic (Cancer) History: Reports: None Dermatologic History: Reports: None - Infectious Disease History Infectious Disease History: Reports: Other (See Below) Other Infectious Disease History: unknown - Past Surgical History Head Surgeries/Procedures: Reports: None Cardiovascular Surgical History: Reports: Coronary Artery Stent Musculoskeletal Surgical History: Reports: Hip Replacement, Knee Replacement Social & Family History - Family History Family Medical History: Noncontributory - Tobacco Use Smoking Status *Q: Never Smoker - Caffeine Use Caffeine Use: Reports: Coffee - Recreational Drug Use Recreational Drug Use: No - Living Situation & Occupation Living situation: Reports: with Family Occupation: Retired ED ROS GENERAL - Review of Systems Review Of Systems: See Below ED EXAM, GENERAL - Physical Exam Exam: See Below Course - Vital Signs Last Recorded V/S: Last Vital Signs Temp 97.0 F 08/02/19 14:41 Pulse 66 08/02/19 15:58 Resp 18 08/02/19 15:58 BP 93/57 L 08/02/19 15:58 Pulse Ox 98 08/02/19 15:58 - Orders/Labs/Meds Orders: Active Orders 24 hr Category Date Time Status EKG Documentation Completion [RC] STAT Care 08/02/19 14:43 Active Sodium Chloride 0.9% [Normal Saline] 1,000 ml Med 08/02/19 16:15 Active IV STAT Sodium Chloride 0.9% [Saline Flush] Med 08/02/19 14:43 Active 10 ml FLUSH ASDIRECTED PRN Sodium Chloride 0.9% [Saline Flush] Med 08/02/19 14:43 Active 2.5 ml FLUSH ASDIRECTED PRN Saline Lock Insert [OM.PC] Stat Oth 08/02/19 14:43 Ordered Medication Orders Sodium Chloride (Normal Saline) 1,000 mls @ 125 mls/hr IV STAT JULIAN Sodium Chloride (Saline Flush) 10 ml FLUSH ASDIRECTED PRN PRN Reason: Keep Vein Open Last Admin: 08/02/19 14:59 Dose: 10 ml Sodium Chloride (Saline Flush) 2.5 ml FLUSH ASDIRECTED PRN PRN Reason: Keep Vein Open Last Admin: 08/02/19 14:59 Dose: 2.5 ml Labs: Laboratory Tests 08/02/19 08/02/19 Range/Units 14:45 14:45 WBC 8.85 (4.0-11.0) K/uL RBC 4.16 L (4.50-5.90) M/uL Hgb 13.6 (13.0-17.0) g/dL Hct 40.9 (38.0-50.0) % MCV 98.3 H (80.0-98.0) fL MCH 32.7 H (27.0-32.0) pg MCHC 33.3 (31.0-37.0) g/dL RDW Std Deviation 48.7 (28.0-62.0) fl RDW Coeff of Mary 14 (11.0-15.0) % Plt Count 164 (150-400) K/uL MPV 10.50 (7.40-12.00) fL Neut % (Auto) 70.5 (48.0-80.0) % Lymph % (Auto) 20.2 (16.0-40.0) % [place] % (Auto) 7.8 (0.0-15.0) % Eos % (Auto) 1.0 (0.0-7.0) % Baso % (Auto) 0.5 (0.0-1.5) % Neut # (Auto) 6.2 H (1.4-5.7) K/uL Lymph # (Auto) 1.8 (0.6-2.4) K/uL [place] # (Auto) 0.7 (0.0-0.8) K/uL Eos # (Auto) 0.1 (0.0-0.7) K/uL Baso # (Auto) 0.0 (0.0-0.1) K/uL Nucleated RBC % 0.0 /100WBC Nucleated RBCs # 0 K/uL Sodium 138 (136-148) mmol/L Potassium 3.8 (3.5-5.1) mmol/L Chloride 103 (98-107) mmol/L Carbon Dioxide 28.3 (21.0-32.0) mmol/L BUN 19 H (7.0-18.0) mg/dL Creatinine 1.3 (0.8-1.3) mg/dL Est Cr Clr Drug Dosing 40.25 mL/min Estimated GFR (MDRD) 52.7 ml/min Glucose 90 (74-106) mg/dL Calcium 8.5 (8.5-10.1) mg/dL Total Bilirubin 0.4 (0.2-1.0) mg/dL AST 20 (15-37) IU/L ALT 18 (14-63) IU/L Alkaline Phosphatase 78 (46-116) U/L Troponin I < 0.050 (0.000-0.056) ng/mL Total Protein 7.7 (6.4-8.2) g/dL Albumin 4.0 (3.4-5.0) g/dL Globulin 3.7 (2.6-4.0) g/dL Albumin/Globulin Ratio 1.1 (0.9-1.6) Meds: Medications Generic Name Dose Route Start Last Admin Trade Name Freq PRN Reason Stop Dose Admin Sodium Chloride 1,000 mls @ 125 mls/hr 08/02/19 16:15 Normal Saline IV STAT JULIAN Sodium Chloride 10 ml 08/02/19 14:43 08/02/19 14:59 Saline Flush FLUSH 10 ml ASDIRECTED PRN Administration Keep Vein Open Sodium Chloride 2.5 ml 08/02/19 14:43 08/02/19 14:59 Saline Flush FLUSH 2.5 ml ASDIRECTED PRN Administration Keep Vein Open Discontinued Medications Generic Name Dose Route Start Last Admin Trade Name Freq PRN Reason Stop Dose Admin Aspirin 324 mg 08/02/19 14:43 08/02/19 14:58 Aspirin PO 08/02/19 14:44 324 mg ONETIME ONE Administration Departure - Departure Time of Disposition: 16:14 Disposition: Home, Self-Care 01 Condition: Good Clinical Impression: Atypical chest pain - Discharge Information Referrals: PCP,Unknown [Primary Care Provider] - - My Orders Last 24 Hours: My Active Orders 08/02/19 16:15 Sodium Chloride 0.9% [Normal Saline] 1,000 ml IV STAT - Assessment/Plan Last 24 Hours: My Active Orders 08/02/19 16:15 Sodium Chloride 0.9% [Normal Saline] 1,000 ml IV STAT
[2019-08-02] MEDS ORDERED: Sodium Chloride 0.9% 1,000 ML IV SCH (16:15)
[2019-08-02] MEDS ORDERED: Rivaroxaban 10 MG Tab PO SCH (17:30)
[2019-08-02] MEDS ORDERED: ClonazePAM 1 MG Tab PO PRN (17:44)
--- NOTE | 2019-08-02 17:44 | PCM.HP.2 ---
H&P History of Present Illness - General Date of Service: 08/02/19 Admit Problem/Dx: Admission Diagnosis/Problem Admission Diagnosis/Problem Atypical chest pain - History of Present Illness Initial Comments - Free Text/Narative: 83 yo male with pmh of CAD, HTN, atrial fibrillation and dual chamber pacemaker who presents to the ED with complaints of chest pain. Patient has had intermitent chest pain today with some shortness of breath. He denies any fever , cough or diaphoresis. left chest Pain Score (Numeric/FACES): 7 - Related Data Allergies/Adverse Reactions: Allergies Allergy/AdvReac Type Severity Reaction Status Date / Time dye Allergy Cardiac Uncoded 08/02/19 17:53 Arrest Home Medications: Home Meds Furosemide [Lasix] 40 mg PO DAILY 08/20/15 [History] Aspirin 81 mg PO BRK 09/09/16 [History] Antiox.mv No.10/Omeg3s/Lut/Zac [I-Caps with Lutein-[place] 3 SFG] 1 cap PO BID [History] Metoprolol Tartrate 75 mg PO BID 30 Days #60 tablet 11/12/17 [Rx] Rivaroxaban [Xarelto] 20 mg PO DAILY 04/05/19 [History] ClonazePAM [KlonoPIN] 1 mg PO BID PRN 04/10/19 [History] Diclofenac Sodium [Voltaren 1% Gel] 1 applic TOP QID PRN 04/10/19 [History] Erythromycin Base [Erythromycin 0.5% Ophth Oint] 1 applic EYEBOTH BEDTIME [History] Meclizine HCl 25 mg PO TID PRN 04/10/19 [History] Metaxalone 800 mg PO BID PRN 04/10/19 [History] Mometasone Furoate 1 applic TOP DAILY PRN 04/10/19 [History] Nitroglycerin [Nitrostat] 0.4 mg SL ASDIRECTED 04/10/19 [History] Omeprazole 20 mg PO DAILY 04/10/19 [History] Past Medical History - Past Health History Medical/Surgical History: Denies Medical/Surgical History HEENT History: Reports: Hard of Hearing, Impaired Vision Other HEENT History: on hearing aids Cardiovascular History: Reports: Afib, CAD, Hypertension, [place], Pacemaker, Prior Cardiac Arrest, Stents Respiratory History: Reports: Sleep Apnea Other Respiratory History: uses cpap Gastrointestinal History: Reports: None Genitourinary History: Reports: Renal Calculus Musculoskeletal History: Reports: Arthritis Neurological History: Reports: TIA, Vertigo, Other (See Below) Other Neuro History: menieres disease Psychiatric History: Reports: Anxiety Endocrine/Metabolic History: Reports: Diabetes, Type II, Obesity/BMI 30+ Other Endocrine/Metabolic History: diabetes controlled by diet Hematologic History: Reports: None Immunologic History: Reports: None Oncologic (Cancer) History: Reports: None Dermatologic History: Reports: None - Infectious Disease History Infectious Disease History: Reports: Other (See Below) Other Infectious Disease History: unknown - Past Surgical History Head Surgeries/Procedures: Reports: None Cardiovascular Surgical History: Reports: Coronary Artery Stent Musculoskeletal Surgical History: Reports: Hip Replacement, Knee Replacement Social & Family History - Family History Family Medical History: Noncontributory - Tobacco Use Smoking Status *Q: Never Smoker Second Hand Smoke Exposure: No - Caffeine Use Caffeine Use: Reports: Coffee, Soda - Recreational Drug Use Recreational Drug Use: No - Living Situation & Occupation Living situation: Reports: with Family Occupation: Retired H&P Review of Systems - Review of Systems: Review Of Systems: Comprehensive ROS is negative, except as noted in HPI. Exam - Exam Exam: See Below - Vital Signs Vital Signs: Last Vital Signs Temp 36.1 C 08/02/19 17:30 Pulse 72 08/02/19 17:30 Resp 14 08/02/19 17:30 BP 137/84 08/02/19 17:30 Pulse Ox 97 08/02/19 17:30 Weight: 106.503 kg - Exam General: Alert, Severe Distress HEENT: Mucosa Moist & [place] Lungs: Clear to Auscultation, Normal Respiratory Effort Cardiovascular: Regular Rate, Regular Rhythm GI/Abdominal Exam: Soft, Non-Tender, No Distention Extremities: Non-Tender, No Pedal Edema Skin: Warm, Dry, Intact - Patient Data Lab Results Last 24 hrs: Laboratory Results - last 24 hr 08/02/19 08/02/19 Range/Units 14:45 14:45 WBC 8.85 (4.0-11.0) K/uL RBC 4.16 L (4.50-5.90) M/uL Hgb 13.6 (13.0-17.0) g/dL Hct 40.9 (38.0-50.0) % MCV 98.3 H (80.0-98.0) fL MCH 32.7 H (27.0-32.0) pg MCHC 33.3 (31.0-37.0) g/dL RDW Std Deviation 48.7 (28.0-62.0) fl RDW Coeff of Mary 14 (11.0-15.0) % Plt Count 164 (150-400) K/uL MPV 10.50 (7.40-12.00) fL Neut % (Auto) 70.5 (48.0-80.0) % Lymph % (Auto) 20.2 (16.0-40.0) % [place] % (Auto) 7.8 (0.0-15.0) % Eos % (Auto) 1.0 (0.0-7.0) % Baso % (Auto) 0.5 (0.0-1.5) % Neut # (Auto) 6.2 H (1.4-5.7) K/uL Lymph # (Auto) 1.8 (0.6-2.4) K/uL [place] # (Auto) 0.7 (0.0-0.8) K/uL Eos # (Auto) 0.1 (0.0-0.7) K/uL Baso # (Auto) 0.0 (0.0-0.1) K/uL Nucleated RBC % 0.0 /100WBC Nucleated RBCs # 0 K/uL Sodium 138 (136-148) mmol/L Potassium 3.8 (3.5-5.1) mmol/L Chloride 103 (98-107) mmol/L Carbon Dioxide 28.3 (21.0-32.0) mmol/L BUN 19 H (7.0-18.0) mg/dL Creatinine 1.3 (0.8-1.3) mg/dL Est Cr Clr Drug Dosing 40.25 mL/min Estimated GFR (MDRD) 52.7 ml/min Glucose 90 (74-106) mg/dL Calcium 8.5 (8.5-10.1) mg/dL Total Bilirubin 0.4 (0.2-1.0) mg/dL AST 20 (15-37) IU/L ALT 18 (14-63) IU/L Alkaline Phosphatase 78 (46-116) U/L Troponin I < 0.050 (0.000-0.056) ng/mL Total Protein 7.7 (6.4-8.2) g/dL Albumin 4.0 (3.4-5.0) g/dL Globulin 3.7 (2.6-4.0) g/dL Albumin/Globulin Ratio 1.1 (0.9-1.6) Result Diagrams: 08/02/19 14:45 08/02/19 14:45 Problem List Initiated/Reviewed/Updated: Yes Orders Last 24hrs: Active Orders 24 hr Category Date Time Status Admission Status [Patient Status] [ADT] Stat ADT 08/02/19 16:14 Active Sodium Chloride 0.9% [Normal Saline] 1,000 ml Med 08/02/19 16:15 Active IV STAT Sodium Chloride 0.9% [Saline Flush] Med 08/02/19 14:43 Active 10 ml FLUSH ASDIRECTED PRN Sodium Chloride 0.9% [Saline Flush] Med 08/02/19 14:43 Active 2.5 ml FLUSH ASDIRECTED PRN Saline Lock Insert [OM.PC] Stat Oth 08/02/19 14:43 Ordered Medication Orders Sodium Chloride (Normal Saline) 1,000 mls @ 125 mls/hr IV STAT JULIAN Sodium Chloride (Saline Flush) 10 ml FLUSH ASDIRECTED PRN PRN Reason: Keep Vein Open Last Admin: 08/02/19 14:59 Dose: 10 ml Sodium Chloride (Saline Flush) 2.5 ml FLUSH ASDIRECTED PRN PRN Reason: Keep Vein Open Last Admin: 08/02/19 14:59 Dose: 2.5 ml Assessment/Plan Comment:: 83 yo male presenting with chest pain. He was monitored overnight with no events on telemetry and no more chest pain. Patient ruled out for acute coronary syndrome with serial negative cardiac enzymes and EKG. Patient was discharged home to have follow up with Dr. Mcgraw.
[2019-08-02] MEDS: Metoprolol Tartrate 25 MG Tab PO SCH (21:03)
[2019-08-02] MEDS: [UNRECOGNIZED DRUG - REMARK] PO SCH (21:04)
[2019-08-03] MEDS ORDERED: Omeprazole 20 MG Cap.CR PO SCH (07:30)
[2019-08-03] MEDS: Metoprolol Tartrate 25 MG Tab PO SCH (08:00)
[2019-08-03] MEDS ORDERED: Aspirin 81 MG Tab.Chew PO SCH (08:00)
[2019-08-03 08:19] VITALS: BP 142/76; PULSE 72
[2019-08-03] MEDS ORDERED: Rivaroxaban 10 MG Tab PO SCH ×3 (09:00→17:30)
[2019-08-03] MEDS ORDERED: Furosemide 40 MG Tab PO SCH (09:00)
[2019-08-03] MEDS: [UNRECOGNIZED DRUG - REMARK] PO SCH (09:04)
== END 2019-08-03 10:55 | disposition home or self-care (01) ==
LOC: MW.ED 14:40 → MW.MS 17:04 → MW.ED 17:20
PROVIDERS: ADMIT Internal Medicine; ATTEND Internal Medicine
DX: R07.89 Other chest pain (principal); I25.10 Atherosclerotic heart disease of native coronary artery without angina pectoris; I10 Essential (primary) hypertension; I48.91 Unspecified atrial fibrillation; I25.2 Old myocardial infarction; E11.9 Type 2 diabetes mellitus without complications; F41.9 Anxiety disorder, unspecified; G47.30 Sleep apnea, unspecified; Z99.89 Dependence on other enabling machines and devices; Z95.0 Presence of cardiac pacemaker; Z91.041 Radiographic dye allergy status; Z79.82 Long term (current) use of aspirin; Z79.01 Long term (current) use of anticoagulants; Z79.899 Other long term (current) drug therapy
CPT/HCPCS: 36415; 71045; 80053; 84484; 85025; 93005; 99285; A9270; G0378; J7040

== ENCOUNTER 2019-11-05 16:33 | Emergency (ER) | payer MEDICARE, OTHER ==
[2019-11-05 16:44] VITALS: BP 136/79; PULSE 90
[2019-11-05] MEDS ORDERED: Acetaminophen 325 MG Tab PO ONE (16:57)
--- NOTE | 2019-11-05 17:20 | EDM.PDOC ---
ED HPI GENERAL MEDICAL PROBLEM - General Chief Complaint: Respiratory Problem Stated Complaint: CHEST PAIN,SHORTNESS OF BREATH Time Seen by Provider: 11/05/19 16:43 - History of Present Illness INITIAL COMMENTS - FREE TEXT/NARRATIVE: 83-year-old gentleman history of CAD history of hypertension history of A. fib on AC, reports that he tripped and fell day prior fell onto the sternum and left shoulder. Denies pain in the lower extremities . Shoulder and sternum is worse with movement and palpation. Denied head trauma. denied Headache. Denied vomiting. Not vision changes. denied weakness denied numbness denied shortness of breath Duration: Day(s): (1) Location: Reports: Chest, Other Quality: Reports: Ache Improves with: Reports: None Worsens with: Reports: Movement Context: Reports: Trauma Associated Symptoms: Reports: No Other Symptoms Treatments GREASER HELPER: Reports: Other (see below) (none) left shoulder Pain Score (Numeric/FACES): 8 - Related Data Allergies Allergy/AdvReac Type Severity Reaction Status Date / Time dye Allergy Cardiac Uncoded 08/02/19 17:53 Arrest Home Meds: Home Meds Furosemide [Lasix] 40 mg PO DAILY 08/20/15 [History] Aspirin 81 mg PO BRK 09/09/16 [History] Antiox.mv No.10/Omeg3s/Lut/Zac [I-Caps with Lutein-[place] 3 SFG] 1 cap PO BID [History] Metoprolol Tartrate 75 mg PO BID 30 Days #60 tablet 11/12/17 [Rx] Rivaroxaban [Xarelto] 20 mg PO DAILY 04/05/19 [History] ClonazePAM [KlonoPIN] 1 mg PO BID PRN 04/10/19 [History] Diclofenac Sodium [Voltaren 1% Gel] 1 applic TOP QID PRN 04/10/19 [History] Erythromycin Base [Erythromycin 0.5% Ophth Oint] 1 applic EYEBOTH BEDTIME [History] Meclizine HCl 25 mg PO TID PRN 04/10/19 [History] Metaxalone 800 mg PO BID PRN 04/10/19 [History] Mometasone Furoate 1 applic TOP DAILY PRN 04/10/19 [History] Nitroglycerin [Nitrostat] 0.4 mg SL ASDIRECTED 04/10/19 [History] Omeprazole 20 mg PO DAILY 04/10/19 [History] Past Medical History - Past Health History Medical/Surgical History: Denies Medical/Surgical History HEENT History: Reports: Hard of Hearing, Impaired Vision Other HEENT History: on hearing aids Cardiovascular History: Reports: Afib, CAD, Hypertension, [place], Pacemaker, Prior Cardiac Arrest, Stents Respiratory History: Reports: Sleep Apnea Other Respiratory History: uses cpap Gastrointestinal History: Reports: None Genitourinary History: Reports: Renal Calculus Musculoskeletal History: Reports: Arthritis Neurological History: Reports: TIA, Vertigo, Other (See Below) Other Neuro History: menieres disease Psychiatric History: Reports: Anxiety Endocrine/Metabolic History: Reports: Diabetes, Type II, Obesity/BMI 30+ Other Endocrine/Metabolic History: diabetes controlled by diet Hematologic History: Reports: None Immunologic History: Reports: None Oncologic (Cancer) History: Reports: None Dermatologic History: Reports: None - Infectious Disease History Infectious Disease History: Reports: Other (See Below) Other Infectious Disease History: unknown - Past Surgical History Head Surgeries/Procedures: Reports: None Cardiovascular Surgical History: Reports: Coronary Artery Stent Musculoskeletal Surgical History: Reports: Hip Replacement, Knee Replacement Social & Family History - Family History Family Medical History: Noncontributory - Tobacco Use Smoking Status *Q: Never Smoker - Caffeine Use Caffeine Use: Reports: Coffee, Soda - Recreational Drug Use Recreational Drug Use: No - Living Situation & Occupation Living situation: Reports: with Family Occupation: Retired ED ROS GENERAL - Review of Systems Review Of Systems: See Below Constitutional: Reports: No Symptoms HEENT: Reports: No Symptoms Respiratory: Reports: No Symptoms Cardiovascular: Reports: No Symptoms Endocrine: Reports: No Symptoms GI/Abdominal: Reports: No Symptoms : Reports: No Symptoms Musculoskeletal: Reports: Muscle Pain Skin: Reports: No Symptoms Neurological: Reports: No Symptoms ED EXAM, GENERAL - Physical Exam Exam: See Below Free Text/Narrative:: [place]-sized area of point tenderness along the left parasternal border at the level of the fourth rib. Tenderness to palpation in the proximal left shoulder. Full range of motion of the shoulder. Sensation and strength intact throughout upper extremities. Exam Limited By: No Limitations General Appearance: Alert, WD/WN, Moderate Distress Eye Exam: Bilateral Eye: EOMI, PERRL Ears: Normal External Exam Nose: Normal Inspection Throat/Mouth: Normal Inspection Head: Atraumatic, Normocephalic Neck: Normal Inspection, Supple, Non-Tender, Full Range of Motion Respiratory/Chest: No Respiratory Distress, Lungs Clear, Normal Breath Sounds Cardiovascular: Normal Peripheral Pulses, Regular Rate, Rhythm, No Edema, No JVD Peripheral Pulses: 4+: Radial (L), Radial (R) GI/Abdominal: Normal Bowel Sounds, Soft, Non-Tender (Male) Exam: Deferred Rectal (Males) Exam: Deferred Back Exam: Normal Inspection, Full Range of Motion, Vertebral Tenderness, Other (no c spine tenderness ). No: CVA Tenderness (L), CVA Tenderness (R) Neurological: Alert, Oriented, CN II-XII Intact, Normal Cognition, Normal Gait Psychiatric: Normal Affect Skin Exam: Warm Course - Vital Signs Last Recorded V/S: Last Vital Signs Temp 96.3 F L 11/05/19 16:42 Pulse 90 11/05/19 16:42 Resp 16 11/05/19 16:42 BP 136/79 11/05/19 16:42 Pulse Ox 95 11/05/19 16:42 - Orders/Labs/Meds Meds: Medications Discontinued Medications Generic Name Dose Route Start Last Admin Trade Name Freq PRN Reason Stop Dose Admin Acetaminophen 650 mg 11/05/19 16:57 11/05/19 17:18 Tylenol PO 11/05/19 16:58 650 mg NOW ONE Administration - Re-Assessments/Exams Free Text/Narrative Re-Assessment/Exam: 11/05/19 18:28 Patient's symptoms consistent with a contusion from a mechanical fall. No fractures on chest x-ray was shoulder x-ray. No Respiratory distress. No head trauma no headache no vomiting. REturn precautions discussed with patient and his grocery caddy. He is ambulatory with a steady gait and verbalized understanding of the return precautions and expected course of his condition. Departure - Departure Time of Disposition: 18:33 Disposition: Home, Self-Care 01 Condition: Good Clinical Impression: Contusion - Discharge Information *PRESCRIPTION DRUG MONITORING PROGRAM REVIEWED*: Not Applicable *COPY OF PRESCRIPTION DRUG MONITORING REPORT IN PATIENT FUAD: Not Applicable Instructions: Contusion, [id number] Referrals: Rena Enriquez MD [Primary Care Provider] - Forms: ED Department Discharge Additional Instructions: Take tylenol as needed for your pain. return to ed if symptoms worsen, you develop worsening chest pain, shortness of breath, weakness, numbness, headache or any concerns. The following information is given to patients seen in the emergency department who are being discharged to home. This information is to outline your options for follow-up care. We provide all patients seen in our emergency department with a follow-up referral. The need for follow-up, as well as the timing and circumstances, are variable depending upon the specifics of your emergency department visit. If you don't have a primary care physician on staff, we will provide you with a referral. We always advise you to contact your personal physician following an emergency department visit to inform them of the circumstance of the visit and for follow-up with them and/or the need for any referrals to a consulting specialist. The emergency department will also refer you to a specialist when appropriate. This referral assures that you have the opportunity for follow-up care with a specialist. All of these measure are taken in an effort to provide you with optimal care, which includes your follow-up. Under all circumstances we always encourage you to contact your private physician who remains a resource for coordinating your care. When calling for follow-up care, please make the office aware that this follow-up is from your recent emergency room visit. If for any reason you are refused follow-up, please contact the [facility] Emergency Department at and asked to speak to the emergency department charge nurse. Sepsis Event Note - Evaluation Sepsis Screening Result: No Definite Risk - Focused Exam Vital Signs: Vital Signs Temp Pulse Resp BP Pulse Ox 11/05/19 16:42 96.3 F L 90 16 136/79 95 Date Exam was Performed: 11/05/19 Time Exam was Performed: 18:33
--- NOTE | 2019-11-05 17:50 | CR ---
Chest: PA view of the chest was obtained. Comparison: Prior chest x-ray of 08/02/19. Increased lung markings are seen. Findings are fairly stable from prior exam and findings presumably are due to fibrosis. Heart size appears within normal limits. Pacemaker is noted. Bony structures are grossly intact. Impression: 1. Findings as described above. 2. No appreciable change from prior chest x-ray is seen. 3. Nothing acute is definitely appreciated. Diagnostic code #3 This report was dictated in [place] Standard Time
--- NOTE | 2019-11-05 17:50 | CR ---
Right shoulder: 3 views of the left shoulder were obtained. Mild degenerative change is noted within the acromioclavicular joint with joint space narrowing and inferior spurring. Slight calcification is seen beneath the acromion process possibly due to calcific bursitis or calcific tendinitis. Osteopenia is noted. No acute fracture or dislocation is seen. Impression: 1. Degenerative change as noted above. 2. Osteopenia. 3. Nothing acute is appreciated. Diagnostic code #2 This report was dictated in [place] Standard Time
== END 2019-11-05 18:55 | disposition home or self-care (01) ==
LOC: MW.ED 16:33
DX: S20.219A Contusion of unspecified front wall of thorax, initial encounter (principal); S40.012A Contusion of left shoulder, initial encounter; I10 Essential (primary) hypertension; I48.91 Unspecified atrial fibrillation; I25.10 Atherosclerotic heart disease of native coronary artery without angina pectoris; Z91.09 Other allergy status, other than to drugs and biological substances; Z79.899 Other long term (current) drug therapy; I25.2 Old myocardial infarction; E11.9 Type 2 diabetes mellitus without complications; E66.9 Obesity, unspecified; Z86.73 Personal history of transient ischemic attack (TIA), and cerebral infarction without residual deficits; Z79.82 Long term (current) use of aspirin; W01.0XXA Fall on same level from slipping, tripping and stumbling without subsequent striking against object, initial encounter
CPT/HCPCS: 71046; 73030; 99284; A9270

== ENCOUNTER 2020-04-17 19:15 | Emergency (ER) | payer MEDICARE, OTHER ==
[2020-04-17] MEDS ORDERED: Sodium Chloride 0.9% 10 ML Syringe FLUSH PRN (19:50)
[2020-04-17] MEDS ORDERED: Sodium Chloride 0.9% 2.5 ML Syringe FLUSH PRN (19:50)
--- NOTE | 2020-04-17 20:06 | EDM.PDOC ---
ED HPI GENERAL MEDICAL PROBLEM - General Chief Complaint: Chest Pain Stated Complaint: cold/cough/chest hurts Time Seen by Provider: 04/17/20 19:19 Source of Information: Reports: Patient History Limitations: Reports: No Limitations - History of Present Illness INITIAL COMMENTS - FREE TEXT/NARRATIVE: 84M presents for non-productive cough x5-6 days. He notes burning chest pain a ssociated with cough. Non-exertional. No SOB. Mild sore throat "after coughing a lot". No fevers. No sick exposure. No known COVID exposure. No abdominal pain or diarrhea. Notes symptoms are improving over the last couple of days. Onset: Other (5-6 days ago) Location: Reports: Chest Quality: Reports: Burning, Dull Severity: Moderate Improves with: Reports: None Worsens with: Reports: Other (cough) Associated Symptoms: Reports: Chest Pain, Cough. Denies: cough w sputum, Diaphoresis, Fever/Chills, Nausea/Vomiting, Shortness of Breath - Related Data Allergies Allergy/AdvReac Type Severity Reaction Status Date / Time dye Allergy Cardiac Uncoded 04/17/20 19:30 Arrest Home Meds: Home Meds Furosemide [Lasix] 40 mg PO DAILY 08/20/15 [History] Aspirin 81 mg PO BRK 09/09/16 [History] Antiox.mv No.10/Omeg3s/Lut/Zac [I-Caps with Lutein-[place] 3 SFG] 1 cap PO BID 04/02/17 [History] Rivaroxaban [Xarelto] 20 mg PO DAILY 04/05/19 [History] ClonazePAM [KlonoPIN] 1 mg PO BID PRN 04/10/19 [History] Diclofenac Sodium [Voltaren 1% Gel] 1 applic TOP QID PRN 04/10/19 [History] Erythromycin Base [Erythromycin 0.5% Ophth Oint] 1 applic EYEBOTH BEDTIME 04/10/19 [History] Meclizine HCl 25 mg PO TID PRN 04/10/19 [History] Mometasone Furoate 1 applic TOP DAILY PRN 04/10/19 [History] Nitroglycerin [Nitrostat] 0.4 mg SL ASDIRECTED 04/10/19 [History] Omeprazole 20 mg PO DAILY 04/10/19 [History] Acetaminophen 500 mg PO Q6HR PRN #60 capsule 11/05/19 [Rx] Azithromycin [Zithromax] 250 mg PO DAILY #6 tab 04/17/20 [Rx] Metoprolol Tartrate 75 mg PO DAILY 04/17/20 [History] predniSONE [Prednisone] 10 mg PO DAILY 5 Days #5 tablet 04/17/20 [Rx] Past Medical History - Past Health History Medical/Surgical History: Denies Medical/Surgical History HEENT History: Reports: Hard of Hearing, Impaired Vision Other HEENT History: on hearing aids Cardiovascular History: Reports: Afib, CAD, Hypertension, [place], Pacemaker, Prior Cardiac Arrest, Stents Respiratory History: Reports: Sleep Apnea Other Respiratory History: uses cpap Gastrointestinal History: Reports: None Genitourinary History: Reports: Renal Calculus Musculoskeletal History: Reports: Arthritis Neurological History: Reports: TIA, Vertigo, Other (See Below) Other Neuro History: menieres disease Psychiatric History: Reports: Anxiety Endocrine/Metabolic History: Reports: Diabetes, Type II, Obesity/BMI 30+ Other Endocrine/Metabolic History: diabetes controlled by diet Hematologic History: Reports: None Immunologic History: Reports: None Oncologic (Cancer) History: Reports: None Dermatologic History: Reports: None - Infectious Disease History Infectious Disease History: Reports: Other (See Below) Other Infectious Disease History: unknown - Past Surgical History Head Surgeries/Procedures: Reports: None Cardiovascular Surgical History: Reports: Coronary Artery Stent GI Surgical History: Reports: Appendectomy Musculoskeletal Surgical History: Reports: Hip Replacement, Knee Replacement Social & Family History - Family History Family Medical History: Noncontributory - Tobacco Use Smoking Status *Q: Former Smoker Used Tobacco, but Quit: Yes Month/Year Tobacco Last Used: 09/1979 - Caffeine Use Caffeine Use: Reports: Coffee - Recreational Drug Use Recreational Drug Use: No - Living Situation & Occupation Living situation: Reports: with Family Occupation: Retired ED ROS GENERAL - Review of Systems Review Of Systems: Comprehensive ROS is negative, except as noted in HPI. ED EXAM, GENERAL - Physical Exam Exam: See Below Exam Limited By: No Limitations General Appearance: Alert, No Apparent Distress Head: Atraumatic Neck: Normal Inspection Respiratory/Chest: No Respiratory Distress, Lungs Clear, Normal Breath Sounds, No Accessory Muscle Use Cardiovascular: Normal Peripheral Pulses, Regular Rate, Rhythm, No Edema GI/Abdominal: Soft, Non-Tender Neurological: Alert EKG INTERPRETATION EKG Date: 04/17/20 Course - Vital Signs Last Recorded V/S: Last Vital Signs Temp 97.3 F 04/17/20 19:26 Pulse 75 04/17/20 20:52 Resp 20 04/17/20 20:52 BP 151/87 H 04/17/20 20:52 Pulse Ox 96 04/17/20 20:52 Orthostatic Blood Pressure [ 125/65 Sitting] Orthostatic Blood Pressure [ 133/67 Standing] Orthostatic Blood Pressure [ 141/75 Supine] - Orders/Labs/Meds Orders: Active Orders 24 hr Category Date Time Status Cardiac Monitoring [RC] . DIRECTED Care 04/17/20 19:51 Active Pulse Oximetry [RC] ASDIRECTED Care 04/17/20 19:51 Active Sodium Chloride 0.9% [Saline Flush] Med 04/17/20 19:50 Active 10 ml FLUSH ASDIRECTED PRN Sodium Chloride 0.9% [Saline Flush] Med 04/17/20 19:50 Active 2.5 ml FLUSH ASDIRECTED PRN Saline Lock Insert [OM.PC] Stat Oth 04/17/20 19:50 Ordered Medication Orders Sodium Chloride (Saline Flush) 10 ml FLUSH ASDIRECTED PRN PRN Reason: Keep Vein Open Last Admin: 04/17/20 20:41 Dose: 10 ml Documented by: ARIES Sodium Chloride (Saline Flush) 2.5 ml FLUSH ASDIRECTED PRN PRN Reason: Keep Vein Open Last Admin: 04/17/20 20:40 Dose: 2.5 ml Documented by: ARIES Labs: Laboratory Tests 04/17/20 04/17/20 04/17/20 Range/Units 19:35 20:05 20:37 WBC 7.13 (4.0-11.0) K/uL RBC 4.20 L (4.50-5.90) M/uL Hgb 13.6 (13.0-17.0) g/dL Hct 41.9 (38.0-50.0) % MCV 99.8 H (80.0-98.0) fL MCH 32.4 H (27.0-32.0) pg MCHC 32.5 (31.0-37.0) g/dL RDW Std Deviation 52.6 (28.0-62.0) fl RDW Coeff of Mary 15 (11.0-15.0) % Plt Count 155 (150-400) K/uL MPV 11.50 (7.40-12.00) fL Neut % (Auto) 66.9 (48.0-80.0) % Lymph % (Auto) 20.9 (16.0-40.0) % [place] % (Auto) 9.0 (0.0-15.0) % Eos % (Auto) 2.9 (0.0-7.0) % Baso % (Auto) 0.3 (0.0-1.5) % Neut # (Auto) 4.8 (1.4-5.7) K/uL Lymph # (Auto) 1.5 (0.6-2.4) K/uL [place] # (Auto) 0.6 (0.0-0.8) K/uL Eos # (Auto) 0.2 (0.0-0.7) K/uL Baso # (Auto) 0.0 (0.0-0.1) K/uL Nucleated RBC % 0.0 /100WBC Nucleated RBCs # 0 K/uL Sodium 142 (136-148) mmol/L Potassium 4.5 (3.5-5.1) mmol/L Chloride 107 (98-107) mmol/L Carbon Dioxide 28.2 (21.0-32.0) mmol/L BUN 24 H (7.0-18.0) mg/dL Creatinine 1.5 H (0.8-1.3) mg/dL Est Cr Clr Drug Dosing 34.27 mL/min Estimated GFR (MDRD) 44.6 ml/min Glucose 110 H (74-106) mg/dL Calcium 8.6 (8.5-10.1) mg/dL Magnesium 2.4 (1.8-2.4) mg/dL Total Bilirubin 0.3 (0.2-1.0) mg/dL AST 16 (15-37) IU/L ALT 16 (14-63) IU/L Alkaline Phosphatase 102 (46-116) U/L Troponin I < 0.050 (0.000-0.056) ng/mL B-Natriuretic Peptide (<100) PG/ML Total Protein 7.5 (6.4-8.2) g/dL Albumin 3.6 (3.4-5.0) g/dL Globulin 3.9 (2.6-4.0) g/dL Albumin/Globulin Ratio 0.9 (0.9-1.6) COVID-19 ([facility]LETTE) NEGATIVE (NEGATIVE) 04/17/20 Range/Units 20:37 WBC (4.0-11.0) K/uL RBC (4.50-5.90) M/uL Hgb (13.0-17.0) g/dL Hct (38.0-50.0) % MCV (80.0-98.0) fL MCH (27.0-32.0) pg MCHC (31.0-37.0) g/dL RDW Std Deviation (28.0-62.0) fl RDW Coeff of Mary (11.0-15.0) % Plt Count (150-400) K/uL MPV (7.40-12.00) fL Neut % (Auto) (48.0-80.0) % Lymph % (Auto) (16.0-40.0) % [place] % (Auto) (0.0-15.0) % Eos % (Auto) (0.0-7.0) % Baso % (Auto) (0.0-1.5) % Neut # (Auto) (1.4-5.7) K/uL Lymph # (Auto) (0.6-2.4) K/uL [place] # (Auto) (0.0-0.8) K/uL Eos # (Auto) (0.0-0.7) K/uL Baso # (Auto) (0.0-0.1) K/uL Nucleated RBC % /100WBC Nucleated RBCs # K/uL Sodium (136-148) mmol/L Potassium (3.5-5.1) mmol/L Chloride (98-107) mmol/L Carbon Dioxide (21.0-32.0) mmol/L BUN (7.0-18.0) mg/dL Creatinine (0.8-1.3) mg/dL Est Cr Clr Drug Dosing mL/min Estimated GFR (MDRD) ml/min Glucose (74-106) mg/dL Calcium (8.5-10.1) mg/dL Magnesium (1.8-2.4) mg/dL Total Bilirubin (0.2-1.0) mg/dL AST (15-37) IU/L ALT (14-63) IU/L Alkaline Phosphatase (46-116) U/L Troponin I (0.000-0.056) ng/mL B-Natriuretic Peptide 322 H (<100) PG/ML Total Protein (6.4-8.2) g/dL Albumin (3.4-5.0) g/dL Globulin (2.6-4.0) g/dL Albumin/Globulin Ratio (0.9-1.6) COVID-19 ([facility]) (NEGATIVE) Meds: Medications Generic Name Dose Route Start Last Admin Trade Name Freq PRN Reason Stop Dose Admin Sodium Chloride 10 ml 04/17/20 19:50 04/17/20 20:41 Saline Flush FLUSH 10 ml ASDIRECTED PRN Administration Keep Vein Open Sodium Chloride 2.5 ml 04/17/20 19:50 04/17/20 20:40 Saline Flush FLUSH 2.5 ml ASDIRECTED PRN Administration Keep Vein Open - Re-Assessments/Exams Free Text/Narrative Re-Assessment/Exam: 04/17/20 21:23 Labs grossly unremarkable, mild EDY Cr 1.5 bump from 1.3, troponin negative, CXR remarkable for evidence of bronchitis otherwise unremarkable. Will d/c with Z- pack and short course low dose prednisone. Return precautions discussed. Instructed to monitor glucose frequently. F/u PMD Departure - Departure Time of Disposition: 21:23 Disposition: Home, Self-Care 01 Preliminary Cause of *Q: Sepsis & Multi System Organ Failure Condition: Good Clinical Impression: Bronchitis - Discharge Information *PRESCRIPTION DRUG MONITORING PROGRAM REVIEWED*: Not Applicable *COPY OF PRESCRIPTION DRUG MONITORING REPORT IN PATIENT FUAD: Not Applicable Prescriptions: predniSONE [Prednisone] 10 mg PO DAILY 5 Days #5 tablet Azithromycin [Zithromax] 250 mg PO DAILY #6 tab Referrals: MD ADENIKE [Other] ([facility] [address] [place] [id number] ) PCP,None [Primary Care Provider] - Forms: ED Department Discharge Additional Instructions: The following information is given to patients seen in the emergency department who are being discharged to home. This information is to outline your options for follow-up care. We provide all patients seen in our emergency department with a follow-up referral. The need for follow-up, as well as the timing and circumstances, are variable depending upon the specifics of your emergency department visit. If you don't have a primary care physician on staff, we will provide you with a referral. We always advise you to contact your personal physician following an emergency department visit to inform them of the circumstance of the visit and for follow-up with them and/or the need for any referrals to a consulting specialist. The emergency department will also refer you to a specialist when appropriate. This referral assures that you have the opportunity for follow-up care with a specialist. All of these measure are taken in an effort to provide you with optimal care, which includes your follow-up. Under all circumstances we always encourage you to contact your private physician who remains a resource for coordinating your care. When calling for follow-up care, please make the office aware that this follow-up is from your recent emergency room visit. If for any reason you are refused follow-up, please contact the [facility] Emergency Department at and asked to speak to the emergency department charge nurse. Sepsis Event Note (ED) - Evaluation Sepsis Screening Result: No Definite Risk - Focused Exam Vital Signs: Vital Signs Temp Pulse Resp BP Pulse Ox 04/17/20 20:52 75 20 151/87 H 96 04/17/20 19:26 97.3 F 74 18 160/93 H 94 L - My Orders Last 24 Hours: My Active Orders 04/17/20 19:50 Sodium Chloride 0.9% [Saline Flush] 10 ml FLUSH ASDIRECTED PRN Sodium Chloride 0.9% [Saline Flush] 2.5 ml FLUSH ASDIRECTED PRN Saline Lock Insert [OM.PC] Stat 04/17/20 19:51 Cardiac Monitoring [RC] . DIRECTED Pulse Oximetry [RC] ASDIRECTED - Assessment/Plan Last 24 Hours: My Active Orders 04/17/20 19:50 Sodium Chloride 0.9% [Saline Flush] 10 ml FLUSH ASDIRECTED PRN Sodium Chloride 0.9% [Saline Flush] 2.5 ml FLUSH ASDIRECTED PRN Saline Lock Insert [OM.PC] Stat 04/17/20 19:51 Cardiac Monitoring [RC] . DIRECTED Pulse Oximetry [RC] ASDIRECTED
[2020-04-17 20:16] LABS: BLOOD UREA NITROGEN,BUN 24 mg/dL (7.0-18.0); CHLORIDE,CL 107 mmol/L (98-107)
--- NOTE | 2020-04-17 20:32 | CR ---
Chest: 2 views of the chest were obtained. Comparison: Prior chest x-ray of 11/05/19. Heart size at the upper limits of normal. Lung markings are increased which appear fairly stable from prior exam presumably due to mild fibrosis. No definite acute parenchymal change is seen although difficult to exclude mild superimposed bronchitis. Degenerative change noted within the spine with scattered endplate osteophytes and disc space narrowing within the mid thoracic spine. Slight anterior wedging within the mid thoracic spine which is stable in appearance. Impression: 1. Multiple findings as noted above believed to be chronic. 2. Difficult to exclude superimposed bronchitis. Diagnostic code #3 This report was dictated in MDT
[2020-04-17 21:06] LABS: CARBON DIOXIDE,CO2 28.2 mmol/L (21.0-32.0); GLUCOSE RANDOM 110 mg/dL (74-106); POTASSIUM,K 4.5 mmol/L (3.5-5.1); SODIUM,NA 142 mmol/L (136-148)
[2020-04-17 22:02] VITALS: BP 145/91; PULSE 71
== END 2020-04-17 22:10 | disposition home or self-care (01) ==
LOC: MW.ED 19:15
DX: J40 Bronchitis, not specified as acute or chronic (principal); I10 Essential (primary) hypertension; I25.10 Atherosclerotic heart disease of native coronary artery without angina pectoris; I48.91 Unspecified atrial fibrillation; E11.9 Type 2 diabetes mellitus without complications; E66.9 Obesity, unspecified; F41.9 Anxiety disorder, unspecified; Z86.73 Personal history of transient ischemic attack (TIA), and cerebral infarction without residual deficits; Z20.828 Contact with and (suspected) exposure to other viral communicable diseases; Z91.041 Radiographic dye allergy status; Z79.899 Other long term (current) drug therapy; Z68.37 Body mass index [BMI] 37.0-37.9, adult; Z87.891 Personal history of nicotine dependence
CPT/HCPCS: 36415; 71046; 80053; 83735; 83880; 84484; 85025; 93005; 99285; U0002

== ENCOUNTER 2020-06-03 10:52 | Emergency (ER) | payer OTHER, MEDICARE ==
[2020-06-03] MEDS ORDERED: Sodium Chloride 0.9% 10 ML Syringe FLUSH PRN (11:12)
[2020-06-03] MEDS ORDERED: Sodium Chloride 0.9% 2.5 ML Syringe FLUSH PRN (11:12)
--- NOTE | 2020-06-03 11:21 | EDM.PDOC ---
ED HPI GENERAL MEDICAL PROBLEM - General Chief Complaint: Cardiovascular Problem Stated Complaint: DIZZY Time Seen by Provider: 06/03/20 11:00 - History of Present Illness INITIAL COMMENTS - FREE TEXT/NARRATIVE: History of present illness: Patient presents today with an altered mental status and dizziness. He is been also coughing for the past 2 days patient has a history of heart disease but has been usually lucid but yesterday he started becoming confused as to what time of day it was and he still remains confused today he has had intermittent headaches apparently he has had a couple falls it is unknown whether he is hit his head he currently is not complaining of any pain anywhere he denies any shortness of breath he denies any chest pain he has had some occasional diarrhea he says and he is complaining of dizziness like he is going to pass out. He was tested for COVID 2 weeks ago this was negative. He has no known exposures. Nothing makes this better or worse Review of systems: As per history of present illness and below otherwise all systems reviewed and negative. Past medical history: As per history of present illness and as reviewed below otherwise noncontributory. Surgical history: As per history of present illness and as reviewed below otherwise noncontributory. Social history: No reported history of drug or alcohol abuse. Family history: As per history of present illness and as reviewed below otherwise noncontributory. Physical exam: HEENT: Atraumatic, normocephalic, pupils reactive, negative for conjunctival pallor or scleral icterus, mucous membranes moist, throat clear, neck supple, nontender, trachea midline. Lungs: Clear to auscultation, breath sounds equal bilaterally, chest nontender. Heart: S1S2, regular, negative for clicks, rubs, or JVD. Abdomen: Soft, nondistended, nontender. Negative for masses or hepatosplenomegaly. Negative for costovertebral tenderness. Pelvis: Stable nontender. Genitourinary: Deferred. Rectal: Deferred. Extremities: Atraumatic, negative for cords or calf pain. Neurovascular unremarkable. Neuro: Awake, alert, oriented. Cranial nerves II through XII unremarkable. Cerebellum unremarkable. Motor and sensory unremarkable throughout. Exam n onfocal. Diagnostics: [] Therapeutics: [] Impression: Altered mental status and cough [] Plan: Altered mental status work-up with COVID testing and reassess the patient. [] Definitive disposition and diagnosis as appropriate pending reevaluation and review of above. - Related Data Allergies Allergy/AdvReac Type Severity Reaction Status Date / Time dye Allergy Cardiac Uncoded 06/03/20 11:02 Arrest Home Meds: Home Meds Furosemide [Lasix] 40 mg PO DAILY 08/20/15 [History] Aspirin 81 mg PO BRK 09/09/16 [History] Antiox.mv No.10/Omeg3s/Lut/Zac [I-Caps with [place] 3 SFG] 1 cap PO BID 04/02/17 [History] Rivaroxaban [Xarelto] 20 mg PO DAILY 04/05/19 [History] ClonazePAM [KlonoPIN] 1 mg PO BID PRN 04/10/19 [History] Diclofenac Sodium [Voltaren 1% Gel] 1 applic TOP QID PRN 04/10/19 [History] Erythromycin Base [Erythromycin 0.5% Ophth Oint] 1 applic EYEBOTH BEDTIME 04/10/19 [History] Meclizine HCl 25 mg PO TID PRN 04/10/19 [History] Mometasone Furoate 1 applic TOP DAILY PRN 04/10/19 [History] Nitroglycerin [Nitrostat] 0.4 mg SL ASDIRECTED 04/10/19 [History] Omeprazole 20 mg PO DAILY 04/10/19 [History] Acetaminophen 500 mg PO Q6HR PRN #60 capsule 11/05/19 [Rx] Azithromycin [Zithromax] 250 mg PO DAILY #6 tab 04/17/20 [Rx] Metoprolol Tartrate 75 mg PO DAILY 04/17/20 [History] predniSONE [Prednisone] 10 mg PO DAILY 5 Days #5 tablet 04/17/20 [Rx] Past Medical History - Past Health History Medical/Surgical History: Denies Medical/Surgical History HEENT History: Reports: Hard of Hearing, Impaired Vision Other HEENT History: on hearing aids Cardiovascular History: Reports: Afib, CAD, Hypertension, RI, Pacemaker, Prior Cardiac Arrest, Stents Respiratory History: Reports: Sleep Apnea Other Respiratory History: uses cpap Gastrointestinal History: Reports: None Genitourinary History: Reports: Renal Calculus Musculoskeletal History: Reports: Arthritis Neurological History: Reports: TIA, Vertigo, Other (See Below) Other Neuro History: menieres disease Psychiatric History: Reports: Anxiety Endocrine/Metabolic History: Reports: Diabetes, Type II, Obesity/BMI 30+ Other Endocrine/Metabolic History: diabetes controlled by diet Hematologic History: Reports: None Immunologic History: Reports: None Oncologic (Cancer) History: Reports: None Dermatologic History: Reports: None - Infectious Disease History Infectious Disease History: Reports: None Other Infectious Disease History: unknown - Past Surgical History Head Surgeries/Procedures: Reports: None Cardiovascular Surgical History: Reports: Coronary Artery Stent GI Surgical History: Reports: Appendectomy Musculoskeletal Surgical History: Reports: Hip Replacement, Knee Replacement Social & Family History - Family History Family Medical History: Noncontributory - Tobacco Use Smoking Status *Q: Never Smoker - Caffeine Use Caffeine Use: Reports: Coffee, Soda - Recreational Drug Use Recreational Drug Use: No - Living Situation & Occupation Living situation: Reports: with Family Occupation: Retired ED ROS GENERAL - Review of Systems Review Of Systems: See Below ED EXAM, GENERAL - Physical Exam Exam: See Below EKG INTERPRETATION EKG Interpretation Comments: EKG is a ventricular paced rhythm at 70 bpm no other abnormalities are noted no padma ischemia is determined by this EKG read interpreted by me Course - Vital Signs Last Recorded V/S: Last Vital Signs Temp 36.8 C 06/03/20 13:14 Pulse 73 06/03/20 13:14 Resp 18 06/03/20 13:14 BP 134/86 06/03/20 13:14 Pulse Ox 93 L 06/03/20 13:14 - Orders/Labs/Meds Orders: Active Orders 24 hr Category Date Time Status EKG Documentation Completion [RC] STAT Care 06/03/20 11:13 Active CORONAVIRUS COVID-19 PCR PHL Stat Lab 06/03/20 12:22 Received UA W/GI RFLX IF INDICATED [URIN] Stat Lab 06/03/20 11:13 Ordered Sodium Chloride 0.9% [Saline Flush] Med 06/03/20 11:12 Active 10 ml FLUSH ASDIRECTED PRN Sodium Chloride 0.9% [Saline Flush] Med 06/03/20 11:12 Active 2.5 ml FLUSH ASDIRECTED PRN Saline Lock Insert [OM.PC] Stat Oth 06/03/20 11:13 Ordered Medication Orders Sodium Chloride (Saline Flush) 10 ml FLUSH ASDIRECTED PRN PRN Reason: Keep Vein Open Last Admin: 06/03/20 13:16 Dose: 10 ml Documented by: BEATRIZ Sodium Chloride (Saline Flush) 2.5 ml FLUSH ASDIRECTED PRN PRN Reason: Keep Vein Open Last Admin: 06/03/20 13:16 Dose: 2.5 ml Documented by: BEATRIZ Labs: Laboratory Tests 06/03/20 06/03/20 06/03/20 Range/Units 11:40 11:40 12:22 WBC 7.14 (4.0-11.0) K/uL RBC 4.21 L (4.50-5.90) M/uL Hgb 13.7 (13.0-17.0) g/dL Hct 41.7 (38.0-50.0) % MCV 99.0 H (80.0-98.0) fL MCH 32.5 H (27.0-32.0) pg MCHC 32.9 (31.0-37.0) g/dL RDW Std Deviation 51.8 (28.0-62.0) fl RDW Coeff of Mary 14 (11.0-15.0) % Plt Count 143 L (150-400) K/uL MPV 11.00 (7.40-12.00) fL Neut % (Auto) 67.1 (48.0-80.0) % Lymph % (Auto) 15.7 L (16.0-40.0) % [place] % (Auto) 15.3 H (0.0-15.0) % Eos % (Auto) 1.3 (0.0-7.0) % Baso % (Auto) 0.6 (0.0-1.5) % Neut # (Auto) 4.8 (1.4-5.7) K/uL Lymph # (Auto) 1.1 (0.6-2.4) K/uL [place] # (Auto) 1.1 H (0.0-0.8) K/uL Eos # (Auto) 0.1 (0.0-0.7) K/uL Baso # (Auto) 0.0 (0.0-0.1) K/uL Nucleated RBC % 0.0 /100WBC Nucleated RBCs # 0 K/uL Sodium 142 (136-148) mmol/L Potassium 4.1 (3.5-5.1) mmol/L Chloride 105 (98-107) mmol/L Carbon Dioxide 26.4 (21.0-32.0) mmol/L BUN 28 H (7.0-18.0) mg/dL Creatinine 1.5 H (0.8-1.3) mg/dL Est Cr Clr Drug Dosing 34.27 mL/min Estimated GFR (MDRD) 44.6 ml/min Glucose 115 H (74-106) mg/dL Calcium 8.6 (8.5-10.1) mg/dL Total Bilirubin 0.3 (0.2-1.0) mg/dL AST 18 (15-37) IU/L ALT 17 (14-63) IU/L Alkaline Phosphatase 93 (46-116) U/L Troponin I < 0.050 (0.000-0.056) ng/mL Total Protein 7.4 (6.4-8.2) g/dL Albumin 3.7 (3.4-5.0) g/dL Globulin 3.7 (2.6-4.0) g/dL Albumin/Globulin Ratio 1.0 (0.9-1.6) SARS CoV-2 RNA Rapid COLLETTE POSITIVE H (NEGATIVE) Meds: Medications Generic Name Dose Route Start Last Admin Trade Name Freq PRN Reason Stop Dose Admin Sodium Chloride 10 ml 06/03/20 11:12 06/03/20 13:16 Saline Flush FLUSH 10 ml ASDIRECTED PRN Administration Keep Vein Open Sodium Chloride 2.5 ml 06/03/20 11:12 06/03/20 13:16 Saline Flush FLUSH 2.5 ml ASDIRECTED PRN Administration Keep Vein Open Discontinued Medications Generic Name Dose Route Start Last Admin Trade Name Freq PRN Reason Stop Dose Admin Sodium Chloride 1,000 mls @ 999 mls/hr 06/03/20 12:46 06/03/20 13:16 Normal Saline IV 06/03/20 13:46 999 mls/hr .Bolus ONE Administration Departure - Departure Time of Disposition: 14:13 Disposition: Home, Self-Care 01 Condition: Good Clinical Impression: COVID-19 Instructions: COVID-19 Frequently Asked Questions, Prevent the Spread of COVID- 19 if You Are Sick - [facility] Referrals: PCP,None [Primary Care Provider] - Forms: ED Department Discharge Additional Instructions: The following information is given to patients seen in the emergency department who are being discharged to home. This information is to outline your options for follow-up care. We provide all patients seen in our emergency department with a follow-up referral. The need for follow-up, as well as the timing and circumstances, are variable depending upon the specifics of your emergency department visit. If you don't have a primary care physician on staff, we will provide you with a referral. We always advise you to contact your personal physician following an emergency department visit to inform them of the circumstance of the visit and for follow-up with them and/or the need for any referrals to a consulting s pecialist. The emergency department will also refer you to a specialist when appropriate. This referral assures that you have the opportunity for follow-up care with a specialist. All of these measure are taken in an effort to provide you with optimal care, which includes your follow-up. Under all circumstances we always encourage you to contact your private physician who remains a resource for coordinating your care. When calling for follow-up care, please make the office aware that this follow-up is from your recent emergency room visit. If for any reason you are refused follow-up, please contact the [facility] Emergency Department at and asked to speak to the emergency department charge nurse. Sepsis Event Note (ED) - Evaluation Sepsis Screening Result: No Definite Risk - Focused Exam Vital Signs: Vital Signs Temp Pulse Resp BP Pulse Ox 06/03/20 13:14 36.8 C 73 18 134/86 93 L 06/03/20 11:03 36.2 C 71 18 134/88 93 L - My Orders Last 24 Hours: My Active Orders 06/03/20 11:12 Sodium Chloride 0.9% [Saline Flush] 10 ml FLUSH ASDIRECTED PRN Sodium Chloride 0.9% [Saline Flush] 2.5 ml FLUSH ASDIRECTED PRN 06/03/20 11:13 EKG Documentation Completion [RC] STAT UA W/GI RFLX IF INDICATED [URIN] Stat Saline Lock Insert [OM.PC] Stat 06/03/20 12:22 CORONAVIRUS COVID-19 PCR PHL Stat - Assessment/Plan Last 24 Hours: My Active Orders 06/03/20 11:12 Sodium Chloride 0.9% [Saline Flush] 10 ml FLUSH ASDIRECTED PRN Sodium Chloride 0.9% [Saline Flush] 2.5 ml FLUSH ASDIRECTED PRN 06/03/20 11:13 EKG Documentation Completion [RC] STAT UA W/GI RFLX IF INDICATED [URIN] Stat Saline Lock Insert [OM.PC] Stat 06/03/20 12:22 CORONAVIRUS COVID-19 PCR PHL Stat
[2020-06-03 12:18] LABS: BLOOD UREA NITROGEN,BUN 28 mg/dL (7.0-18.0); CARBON DIOXIDE,CO2 26.4 mmol/L (21.0-32.0); CHLORIDE,CL 105 mmol/L (98-107); GLUCOSE RANDOM 115 mg/dL (74-106); POTASSIUM,K 4.1 mmol/L (3.5-5.1); SODIUM,NA 142 mmol/L (136-148)
[2020-06-03] MEDS ORDERED: Sodium Chloride 0.9% 1,000 ML IV ONE (12:46)
--- NOTE | 2020-06-03 13:07 | CR ---
Chest: Frontal view of the chest was obtained. Comparison: Prior chest x-ray of 04/17/20. Heart size at the upper limits of normal. Increased lung markings are noted on the left side. Findings are fairly stable from prior exam and difficult to exclude persisting bronchitis. No alveolar type densities are seen. Pacemaker is noted. Bony structures are grossly intact. Impression: 1. Continuing increased lung markings on the left side as described above. 2. Other findings which are also stable. Nothing acute is seen from prior chest x-ray. Diagnostic code #3 This report was dictated in MDT
--- NOTE | 2020-06-03 13:08 | CT ---
Head CT Technique: Multiple axial sections through the brain were obtained. Intravenous contrast not utilized. Comparison: Prior head CT exam of 09/24/13. Findings: Ventricles along with basal cisterns and sulci over convexities are moderately prominent. Mild areas of diminished density are noted within the periventricular white matter which is most likely due to small vessel ischemic demyelination change. No other abnormal parenchymal densities are seen. No evidence of intracranial hemorrhage. No midline shift or mass effect is seen. Bone window settings were reviewed. No acute calvarial finding is seen. Small nodular areas are seen within both maxillary sinuses most likely due to multiple retention cysts. No acute paranasal sinus findings are seen. Impression: 1. Sinus findings as noted above most likely chronic. 2. Mild senescent change. 3. No acute intracranial abnormality is appreciated. Diagnostic code #2 This report was dictated in MDT
[2020-06-03 14:38] VITALS: BP 138/85; PULSE 69
== END 2020-06-03 14:38 | disposition home or self-care (01) ==
LOC: MW.ED 10:52
DX: U07.1 COVID-19 (principal); R41.82 Altered mental status, unspecified; I48.91 Unspecified atrial fibrillation; I25.10 Atherosclerotic heart disease of native coronary artery without angina pectoris; I10 Essential (primary) hypertension; I25.2 Old myocardial infarction; E11.9 Type 2 diabetes mellitus without complications; E66.9 Obesity, unspecified; F41.9 Anxiety disorder, unspecified; Z95.5 Presence of coronary angioplasty implant and graft; Z91.041 Radiographic dye allergy status; Z79.82 Long term (current) use of aspirin; Z79.899 Other long term (current) drug therapy; Z79.01 Long term (current) use of anticoagulants; Z86.73 Personal history of transient ischemic attack (TIA), and cerebral infarction without residual deficits; Z68.37 Body mass index [BMI] 37.0-37.9, adult
CPT/HCPCS: 70450; 71045; 80053; 84484; 85025; 87635; 93005; 96360; 99285; J7030; 99284; U0002

== ENCOUNTER 2020-06-07 21:37 | Emergency (ER) | payer OTHER, MEDICARE ==
[2020-06-07] MEDS ORDERED: Sodium Chloride 0.9% 10 ML Syringe FLUSH PRN (22:01)
[2020-06-07] MEDS ORDERED: Sodium Chloride 0.9% 2.5 ML Syringe FLUSH PRN (22:01)
--- NOTE | 2020-06-07 22:07 | EDM.PDOC ---
ED HPI GENERAL MEDICAL PROBLEM - General Chief Complaint: Gastrointestinal Problem Stated Complaint: GI BLEED Time Seen by Provider: 06/07/20 21:55 - History of Present Illness INITIAL COMMENTS - FREE TEXT/NARRATIVE: History of present illness: [] The patient reports he had blood in his stool. He has had it for 2 days. 1 of our nurses who is his sons best friend went to check and did 2 Hemoccults on what was bright red blood per rectum without stool. There was no obvious abnormality around the perianal area. Hemoccults were positive. Patient was tested for COVID-19 positive by PCR PCR and retroviral test on the of this month. The cough at that time but his respiratory symptoms have improved markedly. Has a pacemaker and he takes Xarelto because of atrial fib. His last dose was in the morning of 07 June. Review of systems: As per history of present illness and below otherwise all systems reviewed and negative. Past medical history: As per history of present illness and as reviewed below otherwise noncontributory. Surgical history: As per history of present illness and as reviewed below otherwise noncontributory. Social history: No reported history of drug or alcohol abuse. Family history: As per history of present illness and as reviewed below otherwise noncontributory. Physical exam: Constitutional - well developed, well-nourished and in no acute distress HEENT - normocephalic, no evidence of trauma - external nose and mouth normal - no mass in neck and no JVD - mucosae moist EYES - full EOM, PERRL, no icterus - no evidence of inflammation, injection, or drainage Respiratory - no respiratory distress, equal bilateral expansion, lungs clear to auscultation and no abnormal lung sounds Cardiovascular - Regular Rhythm with S1 and S2 appreciated and no murmur, gallop or rub. GI - abdomen soft without distension or organomegaly - normal bowel sounds - no guard or rebound Anal soft tissues-there is excoriation and some bleeding in the area of abrasion in the perianal soft tissues mostly in the left buttocks. A deep digital exam of the rectum revealed brown stool that is Hemoccult negative. Musculoskeletal no gross deformity of long bones or joints - no tenderness, swelling or edema Neurologic - Alert and oriented times four - CN II-XII grossly intact - motor sensory and coordination symmetrically normal Psychiatric - appropriate mood and affect with normal thought content Hematologic - No petechiae or purpura - mucosa appropriate color and sclera not pale - normal nail bed color and refill Integument - no rash or evidence of trauma - normal turgor Diagnostics: [] Therapeutics: [] Impression: [] Plan: [] Definitive disposition and diagnosis as appropriate pending reevaluation and review of above. The case was discussed with Dr. Moreno for the patient could hold the Xarelto if he was doing significant bleeding but under the circumstances probably did not need to and should follow-up with his doctor early in the week and she would do a colonoscopy next week. - Related Data Allergies Allergy/AdvReac Type Severity Reaction Status Date / Time dye Allergy Cardiac Uncoded 06/07/20 22:16 Arrest Home Meds: Home Meds Furosemide [Lasix] 40 mg PO DAILY 08/20/15 [History] Aspirin 81 mg PO DAILY 09/09/16 [History] Rivaroxaban [Xarelto] 20 mg PO DAILY 04/05/19 [History] ClonazePAM [KlonoPIN] 1 mg PO BID PRN 04/10/19 [History] Meclizine HCl 25 mg PO TID PRN 04/10/19 [History] Metoprolol Tartrate 75 mg PO BID 04/17/20 [History] Benzonatate [Tessalon Perle] 100 mg PO ASDIRECTED 06/07/20 [History] traMADol [Ultram] 50 mg PO Q6HR PRN 06/07/20 [History] Past Medical History - Past Health History Medical/Surgical History: Denies Medical/Surgical History HEENT History: Reports: Hard of Hearing, Impaired Vision Other HEENT History: on hearing aids Cardiovascular History: Reports: Afib, CAD, Hypertension, [place], Pacemaker, Prior Cardiac Arrest, Stents Respiratory History: Reports: Sleep Apnea Other Respiratory History: uses cpap Gastrointestinal History: Reports: None Genitourinary History: Reports: Renal Calculus Musculoskeletal History: Reports: Arthritis Neurological History: Reports: TIA, Vertigo, Other (See Below) Other Neuro History: menieres disease Psychiatric History: Reports: Anxiety Endocrine/Metabolic History: Reports: Diabetes, Type II, Obesity/BMI 30+ Other Endocrine/Metabolic History: diabetes controlled by diet Hematologic History: Reports: None Immunologic History: Reports: None Oncologic (Cancer) History: Reports: None Dermatologic History: Reports: None - Infectious Disease History Infectious Disease History: Reports: None Other Infectious Disease History: unknown - Past Surgical History Head Surgeries/Procedures: Reports: None Cardiovascular Surgical History: Reports: Coronary Artery Stent GI Surgical History: Reports: Appendectomy Musculoskeletal Surgical History: Reports: Hip Replacement, Knee Replacement Social & Family History - Family History Family Medical History: Noncontributory - Caffeine Use Caffeine Use: Reports: Coffee, Soda - Living Situation & Occupation Living situation: Reports: with Family Occupation: Retired ED ROS GENERAL - Review of Systems Review Of Systems: Comprehensive ROS is negative, except as noted in HPI. ED EXAM, GENERAL - Physical Exam Exam: See Below Free Text/Narrative:: My physical exam as in the HPI Course - Vital Signs Last Recorded V/S: Last Vital Signs Temp 96.6 F L 06/07/20 21:39 Pulse 73 06/07/20 21:39 Resp 20 06/07/20 21:39 BP 140/76 06/07/20 21:39 Pulse Ox 93 L 06/07/20 21:39 - Orders/Labs/Meds Orders: Active Orders 24 hr Category Date Time Status Sodium Chloride 0.9% [Saline Flush] Med 06/07/20 22:01 Active 10 ml FLUSH ASDIRECTED PRN Sodium Chloride 0.9% [Saline Flush] Med 06/07/20 22:01 Active 2.5 ml FLUSH ASDIRECTED PRN Saline Lock Insert [OM.PC] Stat Oth 06/07/20 22:01 Ordered Medication Orders Sodium Chloride (Saline Flush) 10 ml FLUSH ASDIRECTED PRN PRN Reason: Keep Vein Open Sodium Chloride (Saline Flush) 2.5 ml FLUSH ASDIRECTED PRN PRN Reason: Keep Vein Open Labs: Laboratory Tests 06/07/20 06/07/20 06/07/20 Range/Units 22:05 22:05 22:05 WBC 5.72 (4.0-11.0) K/uL RBC 4.37 L (4.50-5.90) M/uL Hgb 14.1 (13.0-17.0) g/dL Hct 43.5 (38.0-50.0) % MCV 99.5 H (80.0-98.0) fL MCH 32.3 H (27.0-32.0) pg MCHC 32.4 (31.0-37.0) g/dL RDW Std Deviation 50.8 (28.0-62.0) fl RDW Coeff of Mary 14 (11.0-15.0) % Plt Count 145 L (150-400) K/uL MPV 10.40 (7.40-12.00) fL Neut % (Auto) 55.9 (48.0-80.0) % Lymph % (Auto) 25.9 (16.0-40.0) % [place] % (Auto) 16.1 H (0.0-15.0) % Eos % (Auto) 1.9 (0.0-7.0) % Baso % (Auto) 0.2 (0.0-1.5) % Neut # (Auto) 3.2 (1.4-5.7) K/uL Lymph # (Auto) 1.5 (0.6-2.4) K/uL [place] # (Auto) 0.9 H (0.0-0.8) K/uL Eos # (Auto) 0.1 (0.0-0.7) K/uL Baso # (Auto) 0.0 (0.0-0.1) K/uL Nucleated RBC % 0.0 /100WBC Nucleated RBCs # 0 K/uL INR 1.25 APTT 30.9 (18.6-31.3) SEC Sodium 140 (136-148) mmol/L Potassium 4.7 (3.5-5.1) mmol/L Chloride 103 (98-107) mmol/L Carbon Dioxide 30.3 (21.0-32.0) mmol/L BUN 23 H (7.0-18.0) mg/dL Creatinine 1.5 H (0.8-1.3) mg/dL Est Cr Clr Drug Dosing TNP Estimated GFR (MDRD) 44.6 ml/min Glucose 138 H (74-106) mg/dL Calcium 8.5 (8.5-10.1) mg/dL Total Bilirubin 0.3 (0.2-1.0) mg/dL AST 17 (15-37) IU/L ALT 21 (14-63) IU/L Alkaline Phosphatase 90 (46-116) U/L Total Protein 7.5 (6.4-8.2) g/dL Albumin 3.6 (3.4-5.0) g/dL Globulin 3.9 (2.6-4.0) g/dL Albumin/Globulin Ratio 0.9 (0.9-1.6) Blood Type Antibody Screen 06/07/20 Range/Units 22:08 WBC (4.0-11.0) K/uL RBC (4.50-5.90) M/uL Hgb (13.0-17.0) g/dL Hct (38.0-50.0) % MCV (80.0-98.0) fL MCH (27.0-32.0) pg MCHC (31.0-37.0) g/dL RDW Std Deviation (28.0-62.0) fl RDW Coeff of Mary (11.0-15.0) % Plt Count (150-400) K/uL MPV (7.40-12.00) fL Neut % (Auto) (48.0-80.0) % Lymph % (Auto) (16.0-40.0) % [place] % (Auto) (0.0-15.0) % Eos % (Auto) (0.0-7.0) % Baso % (Auto) (0.0-1.5) % Neut # (Auto) (1.4-5.7) K/uL Lymph # (Auto) (0.6-2.4) K/uL [place] # (Auto) (0.0-0.8) K/uL Eos # (Auto) (0.0-0.7) K/uL Baso # (Auto) (0.0-0.1) K/uL Nucleated RBC % /100WBC Nucleated RBCs # K/uL INR APTT (18.6-31.3) SEC Sodium (136-148) mmol/L Potassium (3.5-5.1) mmol/L Chloride (98-107) mmol/L Carbon Dioxide (21.0-32.0) mmol/L BUN (7.0-18.0) mg/dL Creatinine (0.8-1.3) mg/dL Est Cr Clr Drug Dosing Estimated GFR (MDRD) ml/min Glucose (74-106) mg/dL Calcium (8.5-10.1) mg/dL Total Bilirubin (0.2-1.0) mg/dL AST (15-37) IU/L ALT (14-63) IU/L Alkaline Phosphatase (46-116) U/L Total Protein (6.4-8.2) g/dL Albumin (3.4-5.0) g/dL Globulin (2.6-4.0) g/dL Albumin/Globulin Ratio (0.9-1.6) Blood Type B POSITIVE Antibody Screen NEGATIVE Meds: Medications Generic Name Dose Route Start Last Admin Trade Name Freq PRN Reason Stop Dose Admin Sodium Chloride 10 ml 06/07/20 22:01 Saline Flush FLUSH ASDIRECTED PRN Keep Vein Open Sodium Chloride 2.5 ml 06/07/20 22:01 Saline Flush FLUSH ASDIRECTED PRN Keep Vein Open Departure - Departure Time of Disposition: 23:23 Disposition: Home, Self-Care 01 Condition: Good Clinical Impression: Blood in stool - Discharge Information Referrals: Rena Enriquez MD [Primary Care Provider] - Wen Moreno MD [Physician] - Forms: ED Department Discharge Additional Instructions: The following information is given to patients seen in the emergency department who are being discharged to home. This information is to outline your options for follow-up care. We provide all patients seen in our emergency department with a follow-up referral. The need for follow-up, as well as the timing and circumstances, are variable depending upon the specifics of your emergency department visit. If you don't have a primary care physician on staff, we will provide you with a referral. We always advise you to contact your personal physician following an emergency department visit to inform them of the circumstance of the visit and for follow-up with them and/or the need for any referrals to a consulting specialist. The emergency department will also refer you to a specialist when appropriate. This referral assures that you have the opportunity for follow-up care with a specialist. All of these measure are taken in an effort to provide you with optimal care, which includes your follow-up. Under all circumstances we always encourage you to contact your private physician who remains a resource for coordinating your care. When calling for follow-up care, please make the office aware that this follow-up is from your recent emergency room visit. If for any reason you are refused follow-up, please contact the [facility] Emergency Department at and asked to speak to the emergency department charge nurse. Please use a stool softener to make sure stool is soft. Please use baby wipes instead of toilet paper and apply some sort of cream like the Anusol HC to the area that is inflamed and irritated around your perianal soft tissues. Sepsis Event Note (ED) - Focused Exam Vital Signs: Vital Signs Temp Pulse Resp BP Pulse Ox 06/07/20 21:39 96.6 F L 73 20 140/76 93 L - My Orders Last 24 Hours: My Active Orders 06/07/20 22:01 Sodium Chloride 0.9% [Saline Flush] 10 ml FLUSH ASDIRECTED PRN Sodium Chloride 0.9% [Saline Flush] 2.5 ml FLUSH ASDIRECTED PRN Saline Lock Insert [OM.PC] Stat - Assessment/Plan Last 24 Hours: My Active Orders 06/07/20 22:01 Sodium Chloride 0.9% [Saline Flush] 10 ml FLUSH ASDIRECTED PRN Sodium Chloride 0.9% [Saline Flush] 2.5 ml FLUSH ASDIRECTED PRN Saline Lock Insert [OM.PC] Stat
[2020-06-07 22:30] LABS: BLOOD UREA NITROGEN,BUN 23 mg/dL (7.0-18.0); CARBON DIOXIDE,CO2 30.3 mmol/L (21.0-32.0); CHLORIDE,CL 103 mmol/L (98-107); GLUCOSE RANDOM 138 mg/dL (74-106); POTASSIUM,K 4.7 mmol/L (3.5-5.1); SODIUM,NA 140 mmol/L (136-148)
[2020-06-08 00:23] VITALS: BP 121/61; PULSE 71
== END 2020-06-08 | disposition home or self-care (01) ==
LOC: MW.ED 21:37
DX: K92.1 Melena (principal); U07.1 COVID-19; I10 Essential (primary) hypertension; I25.10 Atherosclerotic heart disease of native coronary artery without angina pectoris; I25.2 Old myocardial infarction; I48.91 Unspecified atrial fibrillation; M19.90 Unspecified osteoarthritis, unspecified site; E11.9 Type 2 diabetes mellitus without complications; E66.9 Obesity, unspecified; Z86.73 Personal history of transient ischemic attack (TIA), and cerebral infarction without residual deficits; Z91.048 Other nonmedicinal substance allergy status; Z79.82 Long term (current) use of aspirin; Z79.899 Other long term (current) drug therapy; Z79.01 Long term (current) use of anticoagulants
CPT/HCPCS: 36415; 80053; 85025; 85610; 85730; 86850; 86900; 86901; 99283; 99284

== ENCOUNTER 2020-06-16 14:11 | Inpatient (IN) | payer OTHER, MEDICARE ==
[2020-06-16] MEDS ORDERED: Sodium Chloride 0.9% 2.5 ML Syringe FLUSH PRN (14:48)
[2020-06-16] MEDS ORDERED: Sodium Chloride 0.9% 10 ML Syringe FLUSH PRN (14:48)
--- NOTE | 2020-06-16 14:52 | EDM.PDOC ---
ED HPI GENERAL MEDICAL PROBLEM - General Chief Complaint: Respiratory Problem Stated Complaint: SHALLOW BREATHING Time Seen by Provider: 06/16/20 14:37 Source of Information: Reports: Patient, Family History Limitations: Reports: No Limitations - History of Present Illness INITIAL COMMENTS - FREE TEXT/NARRATIVE: 84M PMHx HTN, CAD, DM2, Afib (on xarelto), recent COVID-19 diagnosis roughly 2- weeks ago presents for SOB and generalized weakness. History primarily from daughter at bedside. Patient had been doing well s/p COVID diagnosis; was not having difficulty breathing and his fatigue was improving. He was cleared from quarantine 3 days ago and yesterday went out and "maybe overdid it". Today while ambulating a short distance estimated 20-25 feet to bathroom became very SOB, pale, and diaphoretic. He did have some pain in his upper anterior chest. He currently feels "very weak" although his SOB is improved. Patient is full code - Related Data Allergies Allergy/AdvReac Type Severity Reaction Status Date / Time dye Allergy Cardiac Uncoded 06/16/20 14:42 Arrest Home Meds: Home Meds Furosemide [Lasix] 40 mg PO DAILY 08/20/15 [History] Aspirin 81 mg PO DAILY 09/09/16 [History] Rivaroxaban [Xarelto] 20 mg PO DAILY 04/05/19 [History] ClonazePAM [KlonoPIN] 1 mg PO BID PRN 04/10/19 [History] Meclizine HCl 25 mg PO TID PRN 04/10/19 [History] Metoprolol Tartrate 75 mg PO BID 04/17/20 [History] Benzonatate [Tessalon Perle] 100 mg PO ASDIRECTED 06/07/20 [History] traMADol [Ultram] 50 mg PO Q6HR PRN 06/07/20 [History] Escitalopram [Lexapro] 20 mg PO DAILY 06/16/20 [History] LORazepam [Ativan] 1 mg PO TID PRN 06/16/20 [History] Past Medical History - Past Health History Medical/Surgical History: Denies Medical/Surgical History HEENT History: Reports: Hard of Hearing, Impaired Vision Other HEENT History: on hearing aids Cardiovascular History: Reports: Afib, CAD, Hypertension, [place], Pacemaker, Prior Cardiac Arrest, Stents Respiratory History: Reports: Sleep Apnea Other Respiratory History: uses cpap Gastrointestinal History: Reports: None Genitourinary History: Reports: Renal Calculus Musculoskeletal History: Reports: Arthritis Neurological History: Reports: TIA, Vertigo, Other (See Below) Other Neuro History: menieres disease Psychiatric History: Reports: Anxiety Endocrine/Metabolic History: Reports: Diabetes, Type II, Obesity/BMI 30+ Other Endocrine/Metabolic History: diabetes controlled by diet Hematologic History: Reports: None Immunologic History: Reports: None Oncologic (Cancer) History: Reports: None Dermatologic History: Reports: None - Infectious Disease History Infectious Disease History: Reports: Chicken Pox, Measles, Mumps Other Infectious Disease History: unknown - Past Surgical History Head Surgeries/Procedures: Reports: None Cardiovascular Surgical History: Reports: Coronary Artery Stent GI Surgical History: Reports: Appendectomy Musculoskeletal Surgical History: Reports: Hip Replacement, Knee Replacement Social & Family History - Family History Family Medical History: Noncontributory - Caffeine Use Caffeine Use: Reports: Coffee, Soda - Living Situation & Occupation Living situation: Reports: with Family Occupation: Retired ED ROS GENERAL - Review of Systems Review Of Systems: Comprehensive ROS is negative, except as noted in HPI. ED EXAM, GENERAL - Physical Exam Exam: See Below Exam Limited By: No Limitations General Appearance: Alert, WD/WN, No Apparent Distress Ears: Normal External Exam Nose: Normal Inspection Throat/Mouth: Normal Voice, No Airway Compromise Head: Atraumatic, Normocephalic Neck: Normal Inspection, Supple Respiratory/Chest: No Respiratory Distress, Lungs Clear, Normal Breath Sounds, No Accessory Muscle Use Cardiovascular: Normal Peripheral Pulses, Regular Rate, Rhythm, No Edema GI/Abdominal: Soft, Non-Tender, No Distention Extremities: Normal Inspection Neurological: Alert Psychiatric: Normal Affect, Normal Mood Skin Exam: Warm, Dry, Intact, Normal Color EKG INTERPRETATION EKG Date: 06/16/20 Time: 14:45 Rhythm: Other (ventricular-paced) Rate (Beats/Min): 71 [place]: Normal P-Wave: Absent QRS: Normal ST-T: Normal QT: Normal Course - Vital Signs Last Recorded V/S: Last Vital Signs Temp 95.6 F L 06/16/20 14:38 Pulse 78 06/16/20 14:38 Resp 20 06/16/20 14:38 BP 116/62 06/16/20 14:38 Pulse Ox 86 L 06/16/20 14:38 - Orders/Labs/Meds Orders: Active Orders 24 hr Category Date Time Status Patient Status [ADT] Routine ADT 06/16/20 16:56 Ordered Cardiac Monitoring [RC] . DIRECTED Care 06/16/20 14:49 Active Pulse Oximetry [RC] ASDIRECTED Care 06/16/20 14:49 Active Ang Chest [CT] Stat Exams 06/16/20 15:46 Taken CORONAVIRUS COVID-19 PCR PHL Stat Lab 06/16/20 15:26 Ordered CULTURE BLOOD [BC] Stat Lab 06/16/20 14:44 Received CULTURE BLOOD [BC] Stat Lab 06/16/20 16:43 Ordered UA W/GI RFLX IF INDICATED [URIN] Stat Lab 06/16/20 14:49 Ordered Sodium Chloride 0.9% [Saline Flush] Med 06/16/20 14:48 Active 10 ml FLUSH ASDIRECTED PRN Sodium Chloride 0.9% [Saline Flush] Med 06/16/20 14:48 Active 2.5 ml FLUSH ASDIRECTED PRN Blood Culture x2 Reflex Set [OM.PC] Stat Oth 06/16/20 16:43 Ordered Saline Lock Insert [OM.PC] Stat Oth 06/16/20 14:49 Ordered Medication Orders Sodium Chloride (Saline Flush) 10 ml FLUSH ASDIRECTED PRN PRN Reason: Keep Vein Open Last Admin: 06/16/20 15:15 Dose: 10 ml Documented by: [id number] Sodium Chloride (Saline Flush) 2.5 ml FLUSH ASDIRECTED PRN PRN Reason: Keep Vein Open Last Admin: 06/16/20 15:10 Dose: 2.5 ml Documented by: [email or web address] Labs: Laboratory Tests 06/16/20 06/16/20 06/16/20 Range/Units 14:44 14:44 14:44 WBC 9.37 (4.0-11.0) K/uL RBC 4.37 L (4.50-5.90) M/uL Hgb 13.9 (13.0-17.0) g/dL Hct 42.5 (38.0-50.0) % MCV 97.3 (80.0-98.0) fL MCH 31.8 (27.0-32.0) pg MCHC 32.7 (31.0-37.0) g/dL RDW Std Deviation 49.5 (28.0-62.0) fl RDW Coeff of Mary 14 (11.0-15.0) % Plt Count 178 (150-400) K/uL MPV 10.30 (7.40-12.00) fL Neut % (Auto) 81.9 H (48.0-80.0) % Lymph % (Auto) 7.4 L (16.0-40.0) % [place] % (Auto) 10.2 (0.0-15.0) % Eos % (Auto) 0.3 (0.0-7.0) % Baso % (Auto) 0.2 (0.0-1.5) % Neut # (Auto) 7.7 H (1.4-5.7) K/uL Lymph # (Auto) 0.7 (0.6-2.4) K/uL [place] # (Auto) 1.0 H (0.0-0.8) K/uL Eos # (Auto) 0.0 (0.0-0.7) K/uL Baso # (Auto) 0.0 (0.0-0.1) K/uL Nucleated RBC % 0.0 /100WBC Nucleated RBCs # 0 K/uL INR 1.17 APTT 26.4 (18.6-31.3) SEC D-Dimer, Quantitative 18.30 H (0.0-0.50) mg/L FEU Lactate 2.0 (0.20-2.00) mmol/L Sodium (136-148) mmol/L Potassium (3.5-5.1) mmol/L Chloride (98-107) mmol/L Carbon Dioxide (21.0-32.0) mmol/L BUN (7.0-18.0) mg/dL Creatinine (0.8-1.3) mg/dL Est Cr Clr Drug Dosing mL/min Estimated GFR (MDRD) ml/min Glucose (74-106) mg/dL Calcium (8.5-10.1) mg/dL Magnesium (1.8-2.4) mg/dL Total Bilirubin (0.2-1.0) mg/dL AST (15-37) IU/L ALT (14-63) IU/L Alkaline Phosphatase (46-116) U/L Troponin I (0.000-0.056) ng/mL C-Reactive Protein (0.00-0.90) mg/dL B-Natriuretic Peptide (<100) PG/ML Total Protein (6.4-8.2) g/dL Albumin (3.4-5.0) g/dL Globulin (2.6-4.0) g/dL Albumin/Globulin Ratio (0.9-1.6) 06/16/20 06/16/20 Range/Units 14:44 14:44 WBC (4.0-11.0) K/uL RBC (4.50-5.90) M/uL Hgb (13.0-17.0) g/dL Hct (38.0-50.0) % MCV (80.0-98.0) fL MCH (27.0-32.0) pg MCHC (31.0-37.0) g/dL RDW Std Deviation (28.0-62.0) fl RDW Coeff of Mary (11.0-15.0) % Plt Count (150-400) K/uL MPV (7.40-12.00) fL Neut % (Auto) (48.0-80.0) % Lymph % (Auto) (16.0-40.0) % [place] % (Auto) (0.0-15.0) % Eos % (Auto) (0.0-7.0) % Baso % (Auto) (0.0-1.5) % Neut # (Auto) (1.4-5.7) K/uL Lymph # (Auto) (0.6-2.4) K/uL [place] # (Auto) (0.0-0.8) K/uL Eos # (Auto) (0.0-0.7) K/uL Baso # (Auto) (0.0-0.1) K/uL Nucleated RBC % /100WBC Nucleated RBCs # K/uL INR APTT (18.6-31.3) SEC D-Dimer, Quantitative (0.0-0.50) mg/L FEU Lactate (0.20-2.00) mmol/L Sodium 136 (136-148) mmol/L Potassium 4.3 (3.5-5.1) mmol/L Chloride 100 (98-107) mmol/L Carbon Dioxide 23.6 (21.0-32.0) mmol/L BUN 27 H (7.0-18.0) mg/dL Creatinine 1.6 H (0.8-1.3) mg/dL Est Cr Clr Drug Dosing 35.49 mL/min Estimated GFR (MDRD) 41.4 ml/min Glucose 121 H (74-106) mg/dL Calcium 8.3 L (8.5-10.1) mg/dL Magnesium 2.3 (1.8-2.4) mg/dL Total Bilirubin 1.0 (0.2-1.0) mg/dL AST 40 H (15-37) IU/L ALT 21 (14-63) IU/L Alkaline Phosphatase 89 (46-116) U/L Troponin I < 0.050 (0.000-0.056) ng/mL C-Reactive Protein 56.60 H (0.00-0.90) mg/dL B-Natriuretic Peptide 331 H (<100) PG/ML Total Protein 8.1 (6.4-8.2) g/dL Albumin 3.4 (3.4-5.0) g/dL Globulin 4.7 H (2.6-4.0) g/dL Albumin/Globulin Ratio 0.7 L (0.9-1.6) Meds: Medications Generic Name Dose Route Start Last Admin Trade Name Freq PRN Reason Stop Dose Admin Sodium Chloride 10 ml 06/16/20 14:48 06/16/20 15:15 Saline Flush FLUSH 10 ml ASDIRECTED PRN Administration Keep Vein Open Sodium Chloride 2.5 ml 06/16/20 14:48 06/16/20 15:10 Saline Flush FLUSH 2.5 ml ASDIRECTED PRN Administration Keep Vein Open Discontinued Medications Generic Name Dose Route Start Last Admin Trade Name Freq PRN Reason Stop Dose Admin Dexamethasone 10 mg 06/16/20 16:43 Dexamethasone IVPUSH 06/16/20 16:44 ONETIME ONE Sodium Chloride 500 mls @ 999 mls/hr 06/16/20 15:46 06/16/20 16:38 Normal Saline IV 06/16/20 16:16 999 mls/hr .Bolus ONE Administration Remdesivir 200 mg/ Sodium 250 mls @ 250 mls/hr 06/16/20 16:55 Chloride IV 06/16/20 16:56 ONETIME ONE Iopamidol 100 ml 06/16/20 16:30 06/16/20 16:31 Isovue Multipack-370 (76%) IVPUSH 06/16/20 16:31 100 ml ONETIME ONE Administration - Re-Assessments/Exams Free Text/Narrative Re-Assessment/Exam: 06/16/20 15:25 Will get labs, imaging. EKG non-ischemic. Oxygen initially 86% at triage but is 94% on RA on my eval; will monitor closely but will defer O2 for now. Will f/u results and dispo accordingly. 06/16/20 15:45 CXR looks like worsening COVID PNA. Will get CTA to r/o PE and to better assess COVID PNA. GFR is borderline so will give 500cc bolus. 06/16/20 16:45 I do not see any PE on CT imaging; will f/u radiology read and admit patient. He is requiring nasal cannula O2 at this time for O2 sats >92 (was persistently 89-91% as I was discussing CT results so we put on the NC).\\ 06/16/20 16:56 Patient accepted for admission by Dr. Fay Departure - Departure Time of Disposition: 16:57 Disposition: Admitted As Inpatient 66 Condition: Good, Fair Clinical Impression: COVID-19 - Discharge Information Referrals: Rena Enriquez MD [Primary Care Provider] - Forms: ED Department Discharge Sepsis Event Note (ED) - Evaluation Sepsis Screening Result: No Definite Risk - Focused Exam Vital Signs: Vital Signs Temp Pulse Resp BP Pulse Ox 06/16/20 14:38 95.6 F L 78 20 116/62 86 L - My Orders Last 24 Hours: My Active Orders 06/16/20 14:44 CULTURE BLOOD [BC] Stat 06/16/20 14:48 Sodium Chloride 0.9% [Saline Flush] 10 ml FLUSH ASDIRECTED PRN Sodium Chloride 0.9% [Saline Flush] 2.5 ml FLUSH ASDIRECTED PRN 06/16/20 14:49 Cardiac Monitoring [RC] . DIRECTED Pulse Oximetry [RC] ASDIRECTED UA W/GI RFLX IF INDICATED [URIN] Stat Saline Lock Insert [OM.PC] Stat 06/16/20 15:26 CORONAVIRUS COVID-19 PCR PHL Stat 06/16/20 15:46 Ang Chest [CT] Stat 06/16/20 16:43 CULTURE BLOOD [BC] Stat Blood Culture x2 Reflex Set [OM.PC] Stat 06/16/20 16:56 Patient Status [ADT] Routine - Assessment/Plan Last 24 Hours: My Active Orders 06/16/20 14:44 CULTURE BLOOD [BC] Stat 06/16/20 14:48 Sodium Chloride 0.9% [Saline Flush] 10 ml FLUSH ASDIRECTED PRN Sodium Chloride 0.9% [Saline Flush] 2.5 ml FLUSH ASDIRECTED PRN 06/16/20 14:49 Cardiac Monitoring [RC] . DIRECTED Pulse Oximetry [RC] ASDIRECTED UA W/GI RFLX IF INDICATED [URIN] Stat Saline Lock Insert [OM.PC] Stat 06/16/20 15:26 CORONAVIRUS COVID-19 PCR PHL Stat 06/16/20 15:46 Ang Chest [CT] Stat 06/16/20 16:43 CULTURE BLOOD [BC] Stat Blood Culture x2 Reflex Set [OM.PC] Stat 06/16/20 16:56 Patient Status [ADT] Routine
[2020-06-16 15:22] LABS: BLOOD UREA NITROGEN,BUN 27 mg/dL (7.0-18.0); CARBON DIOXIDE,CO2 23.6 mmol/L (21.0-32.0); CHLORIDE,CL 100 mmol/L (98-107); GLUCOSE RANDOM 121 mg/dL (74-106); POTASSIUM,K 4.3 mmol/L (3.5-5.1); SODIUM,NA 136 mmol/L (136-148)
--- NOTE | 2020-06-16 15:28 | CR ---
INDICATION: Telferner breath. Recent COVID diagnosis. COMPARISON: 03 June 2020. TECHNIQUE: One view. FINDINGS : Increasing patchy indistinct airspace opacities right midlung and right base and similar appearance at the left base. Heart size is enlarged. Central pulmonary arteries are enlarged. Peripheral pulmonary vessels appear well upper normal although low lung volumes cause crowding of the bronchovascular markings. Left-sided pacing body and right are trans venous wires unchanged. IMPRESSION: Worsening multifocal pneumonia compatible with COVID. Dictated by Ravinder Romero MD @ Jun 16 2020 3:26PM Signed by Dr. Ravinder Romero @ Jun 16 2020 3:26PM
[2020-06-16] MEDS ORDERED: Sodium Chloride 0.9% 500 ML IV ONE (15:46)
[2020-06-16] MEDS ORDERED: Iopamidol 755 MG/ML 500 ML Multipack Bottle IVPUSH ONE (16:30)
[2020-06-16] MEDS ORDERED: Dexamethasone 10 MG/ML SDV IVPUSH ONE (16:43)
[2020-06-16] MEDS ORDERED: REMDESIVIR 200 MG in Sodium Chloride 0.9% 250 ML IV ONE (16:55)
--- NOTE | 2020-06-16 17:31 | CT ---
INDICATION: Dyspnea. Prior COVID infection. COMPARISON: Plain film same day and 03 June 2020. TECHNIQUE: 100 mL Isovue-370 IV contrast. FINDINGS: Adequate bolus timing. Small pulmonary embolism filling defect in the medial posterior subsegmental left lower lobe. Low-attenuation filling defect in the posterior subsegmental branch as well. No filling defects appreciated on the right. Prominent diffuse semiopaque and ground-glass opacities with reticular interstitial prominence in an appearance typical for COVID. This involves all lobes of both lungs but is more prominent on the right. No pericardial or pleural effusion. No pathologic mediastinal or hilar lymph nodes. Several small reactive paratracheal mediastinal lymph nodes. Upper normal inferior right hilar lymph nodes. IMPRESSION: 1. Small amount of subsegmental occlusive pulmonary embolism to the left lower lobe. 2. Prominent diffuse pneumonia/pneumonitis appearance typical of COVID. 3. Results discussed with and acknowledged by CHEL Ervin at 1730 06/16/2020. Please note that all CT scans at this facility use dose modulation, iterative reconstruction, and/or weight-based dosing when appropriate to reduce radiation dose to as low as reasonably achievable. Dictated by Ravinder Romero MD @ Jun 16 2020 5:18PM (Electronically Signed)
[2020-06-16] MEDS ORDERED: Enoxaparin 100 MG/1 ML Syringe SUBCUT ONE (17:34)
--- NOTE | 2020-06-16 19:32 | PCM.HP.2 ---
H&P History of Present Illness - General Date of Service: 06/16/20 Admit Problem/Dx: Admission Diagnosis/Problem Admission Diagnosis/Problem Pneumonia - History of Present Illness Initial Comments - Free Text/Narative: 84M PMHx HTN, CAD, s/p pacemaker, DM2, Afib (on xarelto), recent COVID-19 diagnosis roughly 2-weeks ago presents for increasing SOB and generalized weakness. Patient states that he was doing well past 2 weeks , finished his quarnetine 3 days ago. but since last 3 days he has been feeling weak and sob on walking short distances. Today while ambulating a short distance to bathroom patient reportedly became very SOB, pale, and diaphoretic. In th4e triage patient was found to be hypoxic to 86%, intermittently improved to 94% on RA but gaain dropped so was started on NC oxygenation 2 Ls. CXR showed worsening COVID PNA from last 2 weeks. D-dimer was elevated , so CTA chest was done, which revealed a small left lower lobe PE; Patient was started on dexamethasone, remdesivir and Lovenox, admitted for further management. - Related Data Allergies/Adverse Reactions: Allergies Allergy/AdvReac Type Severity Reaction Status Date / Time dye Allergy Cardiac Uncoded 06/16/20 14:42 Arrest Home Medications: Home Meds Furosemide [Lasix] 40 mg PO DAILY 08/20/15 [History] Aspirin 81 mg PO DAILY 09/09/16 [History] Rivaroxaban [Xarelto] 20 mg PO DAILY 04/05/19 [History] Meclizine HCl 25 mg PO TID PRN 04/10/19 [History] Metoprolol Tartrate 75 mg PO BID 04/17/20 [History] Benzonatate [Tessalon Perle] 100 mg PO ASDIRECTED 06/07/20 [History] traMADol [Ultram] 50 mg PO Q6HR PRN 06/07/20 [History] Escitalopram [Lexapro] 20 mg PO DAILY 06/16/20 [History] LORazepam [Ativan] 1 mg PO TID PRN 06/16/20 [History] Past Medical History - Past Health History Medical/Surgical History: Denies Medical/Surgical History HEENT History: Reports: Hard of Hearing, Impaired Vision Other HEENT History: on hearing aids Cardiovascular History: Reports: Afib, CAD, Hypertension, DC, Pacemaker, Prior Cardiac Arrest, Stents Respiratory History: Reports: Sleep Apnea Other Respiratory History: uses cpap Gastrointestinal History: Reports: None Genitourinary History: Reports: Renal Calculus Musculoskeletal History: Reports: Arthritis Neurological History: Reports: TIA, Vertigo, Other (See Below) Other Neuro History: menieres disease Psychiatric History: Reports: Anxiety Endocrine/Metabolic History: Reports: Diabetes, Type II, Obesity/BMI 30+ Other Endocrine/Metabolic History: diabetes controlled by diet Hematologic History: Reports: None Immunologic History: Reports: None Oncologic (Cancer) History: Reports: None Dermatologic History: Reports: None - Infectious Disease History Infectious Disease History: Reports: Chicken Pox, Measles, Mumps Other Infectious Disease History: unknown - Past Surgical History Head Surgeries/Procedures: Reports: None Cardiovascular Surgical History: Reports: Coronary Artery Stent GI Surgical History: Reports: Appendectomy Musculoskeletal Surgical History: Reports: Hip Replacement, Knee Replacement Social & Family History - Family History Family Medical History: Noncontributory - Caffeine Use Caffeine Use: Reports: Coffee, Soda - Living Situation & Occupation Living situation: Reports: with Family Occupation: Retired H&P Review of Systems - Review of Systems: Review Of Systems: See Below General: Reports: Malaise, Weakness, Fatigue. Denies: Fever, Chills Pulmonary: Reports: Shortness of Breath, Pleuritic Chest Pain, Cough. Denies: Wheezing Cardiovascular: Reports: Chest Pain, Dyspnea on Exertion. Denies: Palpitations, Orthopnea, Syncope Gastrointestinal: Denies: Abdominal Pain, Anorexia, Black Stool Genitourinary: Denies: Dysuria, Frequency, Burning Musculoskeletal: Denies: Neck Pain, Shoulder Pain, Arm Pain Skin: Denies: Cyanosis, Jaundice, Mottled Psychiatric: Denies: Confusion, Depression, Mood Lability Neurological: Denies: Confusion, Dizziness, Headache Exam - Exam Exam: See Below - Vital Signs Vital Signs: Last Vital Signs Temp 35.3 C L 06/16/20 14:38 Pulse 78 06/16/20 14:38 Resp 20 06/16/20 14:38 BP 116/62 06/16/20 14:38 Pulse Ox 86 L 06/16/20 14:38 Weight: 90.718 kg - Exam Quality Assessment: Supplemental Oxygen General: Alert, Oriented, Cooperative Neck: Supple, Trachea Midline Lungs: Normal Respiratory Effort, Crackles Cardiovascular: Regular Rate, Regular Rhythm GI/Abdominal Exam: Normal Bowel Sounds, Soft, Non-Tender - Patient Data Lab Results Last 24 hrs: Laboratory Results - last 24 hr 06/16/20 06/16/20 06/16/20 Range/Units 14:44 14:44 14:44 WBC 9.37 (4.0-11.0) K/uL RBC 4.37 L (4.50-5.90) M/uL Hgb 13.9 (13.0-17.0) g/dL Hct 42.5 (38.0-50.0) % MCV 97.3 (80.0-98.0) fL MCH 31.8 (27.0-32.0) pg MCHC 32.7 (31.0-37.0) g/dL RDW Std Deviation 49.5 (28.0-62.0) fl RDW Coeff of Mary 14 (11.0-15.0) % Plt Count 178 (150-400) K/uL MPV 10.30 (7.40-12.00) fL Neut % (Auto) 81.9 H (48.0-80.0) % Lymph % (Auto) 7.4 L (16.0-40.0) % [place] % (Auto) 10.2 (0.0-15.0) % Eos % (Auto) 0.3 (0.0-7.0) % Baso % (Auto) 0.2 (0.0-1.5) % Neut # (Auto) 7.7 H (1.4-5.7) K/uL Lymph # (Auto) 0.7 (0.6-2.4) K/uL [place] # (Auto) 1.0 H (0.0-0.8) K/uL Eos # (Auto) 0.0 (0.0-0.7) K/uL Baso # (Auto) 0.0 (0.0-0.1) K/uL Nucleated RBC % 0.0 /100WBC Nucleated RBCs # 0 K/uL INR 1.17 APTT 26.4 (18.6-31.3) SEC D-Dimer, Quantitative 18.30 H (0.0-0.50) mg/L FEU Lactate 2.0 (0.20-2.00) mmol/L Sodium (136-148) mmol/L Potassium (3.5-5.1) mmol/L Chloride (98-107) mmol/L Carbon Dioxide (21.0-32.0) mmol/L BUN (7.0-18.0) mg/dL Creatinine (0.8-1.3) mg/dL Est Cr Clr Drug Dosing mL/min Estimated GFR (MDRD) ml/min Glucose (74-106) mg/dL Calcium (8.5-10.1) mg/dL Magnesium (1.8-2.4) mg/dL Total Bilirubin (0.2-1.0) mg/dL AST (15-37) IU/L ALT (14-63) IU/L Alkaline Phosphatase (46-116) U/L Troponin I (0.000-0.056) ng/mL C-Reactive Protein (0.00-0.90) mg/dL B-Natriuretic Peptide (<100) PG/ML Total Protein (6.4-8.2) g/dL Albumin (3.4-5.0) g/dL Globulin (2.6-4.0) g/dL Albumin/Globulin Ratio (0.9-1.6) SARS-CoV-2 RNA (COLLETTE) (NEGATIVE) 06/16/20 06/16/20 06/16/20 Range/Units 14:44 14:44 16:30 WBC (4.0-11.0) K/uL RBC (4.50-5.90) M/uL Hgb (13.0-17.0) g/dL Hct (38.0-50.0) % MCV (80.0-98.0) fL MCH (27.0-32.0) pg MCHC (31.0-37.0) g/dL RDW Std Deviation (28.0-62.0) fl RDW Coeff of Mary (11.0-15.0) % Plt Count (150-400) K/uL MPV (7.40-12.00) fL Neut % (Auto) (48.0-80.0) % Lymph % (Auto) (16.0-40.0) % [place] % (Auto) (0.0-15.0) % Eos % (Auto) (0.0-7.0) % Baso % (Auto) (0.0-1.5) % Neut # (Auto) (1.4-5.7) K/uL Lymph # (Auto) (0.6-2.4) K/uL [place] # (Auto) (0.0-0.8) K/uL Eos # (Auto) (0.0-0.7) K/uL Baso # (Auto) (0.0-0.1) K/uL Nucleated RBC % /100WBC Nucleated RBCs # K/uL INR APTT (18.6-31.3) SEC D-Dimer, Quantitative (0.0-0.50) mg/L FEU Lactate (0.20-2.00) mmol/L Sodium 136 (136-148) mmol/L Potassium 4.3 (3.5-5.1) mmol/L Chloride 100 (98-107) mmol/L Carbon Dioxide 23.6 (21.0-32.0) mmol/L BUN 27 H (7.0-18.0) mg/dL Creatinine 1.6 H (0.8-1.3) mg/dL Est Cr Clr Drug Dosing 35.49 mL/min Estimated GFR (MDRD) 41.4 ml/min Glucose 121 H (74-106) mg/dL Calcium 8.3 L (8.5-10.1) mg/dL Magnesium 2.3 (1.8-2.4) mg/dL Total Bilirubin 1.0 (0.2-1.0) mg/dL AST 40 H (15-37) IU/L ALT 21 (14-63) IU/L Alkaline Phosphatase 89 (46-116) U/L Troponin I < 0.050 (0.000-0.056) ng/mL C-Reactive Protein 56.60 H (0.00-0.90) mg/dL B-Natriuretic Peptide 331 H (<100) PG/ML Total Protein 8.1 (6.4-8.2) g/dL Albumin 3.4 (3.4-5.0) g/dL Globulin 4.7 H (2.6-4.0) g/dL Albumin/Globulin Ratio 0.7 L (0.9-1.6) SARS-CoV-2 RNA (COLLETTE) POSITIVE H (NEGATIVE) Result Diagrams: 06/16/20 14:44 10/04/20 14:44 Sepsis Event Note - Evaluation Sepsis Screening Result: No Definite Risk - Focused Exam Vital Signs: Vital Signs Temp Pulse Resp BP Pulse Ox 06/16/20 14:38 35.3 C L 78 20 116/62 86 L - Problem List (1) Acute respiratory failure with hypoxia SNOMED Code(s): 75554442, 456448854 ICD Code: J96.01 - ACUTE RESPIRATORY FAILURE WITH HYPOXIA Status: Acute Current Visit: Yes (2) COVID-19 SNOMED Code(s): 941701877 ICD Code: U07.1 - COVID-19 Status: Acute Current Visit: Yes (3) Pulmonary emboli SNOMED Code(s): 70552318 ICD Code: I26.99 - OTHER PULMONARY EMBOLISM WITHOUT ACUTE COR PULMONALE Status: Acute Current Visit: Yes Problem List Initiated/Reviewed/Updated: Yes Orders Last 24hrs: Active Orders 24 hr Category Date Time Status Patient Status [ADT] Routine ADT 06/16/20 16:56 Active Ambulate [RC] ASDIRECTED Care 06/16/20 18:37 Active Cardiac Monitoring [RC] . DIRECTED Care 06/16/20 14:49 Active Oxygen Therapy [RC] PRN Care 06/16/20 18:37 Active Pulse Oximetry [RC] ASDIRECTED Care 06/16/20 14:49 Active VTE/DVT Education [RC] PER UNIT ROUTINE Care 06/16/20 18:37 Active Vital Signs [RC] Q4H Care 06/16/20 18:37 Active Heart Healthy Diet [DIET] Diet 06/16/20 Dinner Active CBC WITH AUTO DIFF [HEME] AM Lab 06/17/20 05:11 Ordered CMP [COMPREHENSIVE METABOLIC PN,CMP] [CHEM] AM Lab 06/17/20 05:11 Ordered CULTURE BLOOD [BC] Stat Lab 06/16/20 14:44 Received CULTURE BLOOD [BC] Stat Lab 06/16/20 17:07 Received MAGNESIUM [CHEM] AM Lab 06/17/20 05:11 Ordered PHOSPHORUS [CHEM] AM Lab 06/17/20 05:11 Ordered UA W/GI RFLX IF INDICATED [URIN] Stat Lab 06/16/20 14:49 Ordered Enoxaparin [Lovenox] Med 06/17/20 09:00 Active 100 mg SUBCUT Q12H Remdesivir (Eua) [Remdesivir (EUA)] 100 mg Med 06/17/20 09:00 Active Sodium Chloride 0.9% [Normal Saline] 100 ml IV Q24H Sodium Chloride 0.9% [Saline Flush] Med 06/16/20 14:48 Active 10 ml FLUSH ASDIRECTED PRN Sodium Chloride 0.9% [Saline Flush] Med 06/16/20 14:48 Active 2.5 ml FLUSH ASDIRECTED PRN dexAMETHasone Med 06/17/20 09:00 Active 6 mg PO DAILY Blood Culture x2 Reflex Set [OM.PC] Stat Oth 06/16/20 16:43 Ordered Saline Lock Insert [OM.PC] Stat Oth 06/16/20 14:49 Ordered Resuscitation Status Routine Resus Stat 06/16/20 18:37 Ordered Medication Orders Dexamethasone (Dexamethasone) 6 mg PO DAILY JULIAN Enoxaparin Sodium (Lovenox) 100 mg SUBCUT Q12H JULIAN Remdesivir 100 mg/ Sodium (Chloride) 100 mls @ 100 mls/hr IV Q24H JULIAN Sodium Chloride (Saline Flush) 10 ml FLUSH ASDIRECTED PRN PRN Reason: Keep Vein Open Last Admin: 06/16/20 15:15 Dose: 10 ml Documented by: [id number] Sodium Chloride (Saline Flush) 2.5 ml FLUSH ASDIRECTED PRN PRN Reason: Keep Vein Open Last Admin: 06/16/20 15:10 Dose: 2.5 ml Documented by: [id number] Assessment/Plan Comment:: 84 y/o M admitted for hypoxic respiratory failure sec to COVID cont supplemental oxygen via NC, currently on 2Ls Patient given fact sheet and explained emergency use FDA authorization of Remdesivir. He was explained side effects including hepatitis and anaphylaxis and patient consents to treatment. cont dexamethasone, Lovenox, Remdesivir hold Xarelto, possible failure to Xarelto Lovenox full anticoagulation dose for PE Combivent as needed Monitor and replete electrolytes as needed
[2020-06-17 06:41] LABS: CARBON DIOXIDE,CO2 21.1 mmol/L (21.0-32.0); POTASSIUM,K 3.9 mmol/L (3.5-5.1)
[2020-06-17] MEDS ORDERED: Enoxaparin 40 MG/0.4 ML Syringe SUBCUT SCH (09:00)
[2020-06-17] MEDS: Dexamethasone 4 MG Tab PO SCH (09:58)
[2020-06-17] MEDS: Enoxaparin 100 MG/1 ML Syringe SUBCUT SCH ×2 (09:59→20:23)
[2020-06-17] MEDS: REMDESIVIR 100 MG in Sodium Chloride 0.9% 100 ML IV SCH (10:00)
--- NOTE | 2020-06-17 12:36 | PCM.PN ---
- General Info Date of Service: 06/17/20 Admission Dx/Problem (Free Text): Admission Diagnosis/Problem Admission Diagnosis/Problem Pneumonia Subjective Update: seen at bedside, on RA, states he feels much better today - Review of Systems General: Reports: Fatigue. Denies: Fever, Weakness, Malaise, Chills Pulmonary: Reports: Cough. Denies: Shortness of Breath, Sputum Cardiovascular: Denies: Chest Pain, Palpitations Gastrointestinal: Denies: Abdominal Pain, Constipation, Decreased Appetite Genitourinary: Denies: Dysuria, Frequency, Burning Musculoskeletal: Denies: Neck Pain, Shoulder Pain, Arm Pain - Patient Data Vitals - Most Recent: Last Vital Signs Temp 36.6 C 06/17/20 09:00 Pulse 69 06/17/20 09:00 Resp 20 06/17/20 09:00 BP 109/56 L 06/17/20 09:00 Pulse Ox 92 L 06/17/20 09:00 Weight - Most Recent: 90.718 kg I&O - Last 24 Hours: Intake & Output 06/16/20 06/17/20 06/17/20 22:59 06:59 14:59 Intake Total 200 Balance 200 Lab Results Last 24 Hours: Laboratory Results - last 24 hr 06/16/20 06/16/20 06/16/20 Range/Units 14:44 14:44 14:44 WBC 9.37 (4.0-11.0) K/uL RBC 4.37 L (4.50-5.90) M/uL Hgb 13.9 (13.0-17.0) g/dL Hct 42.5 (38.0-50.0) % MCV 97.3 (80.0-98.0) fL MCH 31.8 (27.0-32.0) pg MCHC 32.7 (31.0-37.0) g/dL RDW Std Deviation 49.5 (28.0-62.0) fl RDW Coeff of Mary 14 (11.0-15.0) % Plt Count 178 (150-400) K/uL MPV 10.30 (7.40-12.00) fL Neut % (Auto) 81.9 H (48.0-80.0) % Lymph % (Auto) 7.4 L (16.0-40.0) % [place] % (Auto) 10.2 (0.0-15.0) % Eos % (Auto) 0.3 (0.0-7.0) % Baso % (Auto) 0.2 (0.0-1.5) % Neut # (Auto) 7.7 H (1.4-5.7) K/uL Lymph # (Auto) 0.7 (0.6-2.4) K/uL [place] # (Auto) 1.0 H (0.0-0.8) K/uL Eos # (Auto) 0.0 (0.0-0.7) K/uL Baso # (Auto) 0.0 (0.0-0.1) K/uL Nucleated RBC % 0.0 /100WBC Nucleated RBCs # 0 K/uL INR 1.17 APTT 26.4 (18.6-31.3) SEC D-Dimer, Quantitative 18.30 H (0.0-0.50) mg/L FEU Lactate 2.0 (0.20-2.00) mmol/L Sodium (136-148) mmol/L Potassium (3.5-5.1) mmol/L Chloride (98-107) mmol/L Carbon Dioxide (21.0-32.0) mmol/L BUN (7.0-18.0) mg/dL Creatinine (0.8-1.3) mg/dL Est Cr Clr Drug Dosing mL/min Estimated GFR (MDRD) ml/min Glucose (74-106) mg/dL Calcium (8.5-10.1) mg/dL Phosphorus (2.6-4.7) mg/dL Magnesium (1.8-2.4) mg/dL Total Bilirubin (0.2-1.0) mg/dL AST (15-37) IU/L ALT (14-63) IU/L Alkaline Phosphatase (46-116) U/L Troponin I (0.000-0.056) ng/mL C-Reactive Protein (0.00-0.90) mg/dL B-Natriuretic Peptide (<100) PG/ML Total Protein (6.4-8.2) g/dL Albumin (3.4-5.0) g/dL Globulin (2.6-4.0) g/dL Albumin/Globulin Ratio (0.9-1.6) Urine Color Urine Appearance Urine pH (5.0-8.0) Ur Specific [place] (1.001-1.035) Urine Protein (NEGATIVE) mg/dL Urine Glucose (UA) (NEGATIVE) mg/dL Urine Ketones (NEGATIVE) mg/dL Urine Occult Blood (NEGATIVE) Urine Nitrite (NEGATIVE) Urine Bilirubin (NEGATIVE) Urine Urobilinogen (<2.0) EU/dL Ur Leukocyte Esterase (NEGATIVE) Urine RBC (0-2/HPF) Urine WBC (0-5/HPF) Ur Epithelial Cells (NONE-FEW) Urine Bacteria (NEGATIVE) SARS-CoV-2 RNA (COLLETTE) (NEGATIVE) 06/16/20 06/16/20 06/16/20 Range/Units 14:44 14:44 16:30 WBC (4.0-11.0) K/uL RBC (4.50-5.90) M/uL Hgb (13.0-17.0) g/dL Hct (38.0-50.0) % MCV (80.0-98.0) fL MCH (27.0-32.0) pg MCHC (31.0-37.0) g/dL RDW Std Deviation (28.0-62.0) fl RDW Coeff of Mary (11.0-15.0) % Plt Count (150-400) K/uL MPV (7.40-12.00) fL Neut % (Auto) (48.0-80.0) % Lymph % (Auto) (16.0-40.0) % [place] % (Auto) (0.0-15.0) % Eos % (Auto) (0.0-7.0) % Baso % (Auto) (0.0-1.5) % Neut # (Auto) (1.4-5.7) K/uL Lymph # (Auto) (0.6-2.4) K/uL [place] # (Auto) (0.0-0.8) K/uL Eos # (Auto) (0.0-0.7) K/uL Baso # (Auto) (0.0-0.1) K/uL Nucleated RBC % /100WBC Nucleated RBCs # K/uL INR APTT (18.6-31.3) SEC D-Dimer, Quantitative (0.0-0.50) mg/L FEU Lactate (0.20-2.00) mmol/L Sodium 136 (136-148) mmol/L Potassium 4.3 (3.5-5.1) mmol/L Chloride 100 (98-107) mmol/L Carbon Dioxide 23.6 (21.0-32.0) mmol/L BUN 27 H (7.0-18.0) mg/dL Creatinine 1.6 H (0.8-1.3) mg/dL Est Cr Clr Drug Dosing 35.49 mL/min Estimated GFR (MDRD) 41.4 ml/min Glucose 121 H (74-106) mg/dL Calcium 8.3 L (8.5-10.1) mg/dL Phosphorus (2.6-4.7) mg/dL Magnesium 2.3 (1.8-2.4) mg/dL Total Bilirubin 1.0 (0.2-1.0) mg/dL AST 40 H (15-37) IU/L ALT 21 (14-63) IU/L Alkaline Phosphatase 89 (46-116) U/L Troponin I < 0.050 (0.000-0.056) ng/mL C-Reactive Protein 56.60 H (0.00-0.90) mg/dL B-Natriuretic Peptide 331 H (<100) PG/ML Total Protein 8.1 (6.4-8.2) g/dL Albumin 3.4 (3.4-5.0) g/dL Globulin 4.7 H (2.6-4.0) g/dL Albumin/Globulin Ratio 0.7 L (0.9-1.6) Urine Color Urine Appearance Urine pH (5.0-8.0) Ur Specific [place] (1.001-1.035) Urine Protein (NEGATIVE) mg/dL Urine Glucose (UA) (NEGATIVE) mg/dL Urine Ketones (NEGATIVE) mg/dL Urine Occult Blood (NEGATIVE) Urine Nitrite (NEGATIVE) Urine Bilirubin (NEGATIVE) Urine Urobilinogen (<2.0) EU/dL Ur Leukocyte Esterase (NEGATIVE) Urine RBC (0-2/HPF) Urine WBC (0-5/HPF) Ur Epithelial Cells (NONE-FEW) Urine Bacteria (NEGATIVE) SARS-CoV-2 RNA (COLLETTE) POSITIVE H (NEGATIVE) 06/17/20 06/17/2006/17/20 Range/Units 05:15 06:05 06:05 WBC 7.69 (4.0-11.0) K/uL RBC 4.02 L (4.50-5.90) M/uL Hgb 12.6 L (13.0-17.0) g/dL Hct 39.3 (38.0-50.0) % MCV 97.8 (80.0-98.0) fL MCH 31.3 (27.0-32.0) pg MCHC 32.1 (31.0-37.0) g/dL RDW Std Deviation 49.9 (28.0-62.0) fl RDW Coeff of Mary 14 (11.0-15.0) % Plt Count 177 (150-400) K/uL MPV 10.30 (7.40-12.00) fL Neut % (Auto) 88.5 H (48.0-80.0) % Lymph % (Auto) 7.2 L (16.0-40.0) % [place] % (Auto) 4.0 (0.0-15.0) % Eos % (Auto) 0.0 (0.0-7.0) % Baso % (Auto) 0.3 (0.0-1.5) % Neut # (Auto) 6.8 H (1.4-5.7) K/uL Lymph # (Auto) 0.6 (0.6-2.4) K/uL [place] # (Auto) 0.3 (0.0-0.8) K/uL Eos # (Auto) 0.0 (0.0-0.7) K/uL Baso # (Auto) 0.0 (0.0-0.1) K/uL Nucleated RBC % 0.0 /100WBC Nucleated RBCs # 0 K/uL INR APTT (18.6-31.3) SEC D-Dimer, Quantitative (0.0-0.50) mg/L FEU Lactate (0.20-2.00) mmol/L Sodium 139 (136-148) mmol/L Potassium 3.9 (3.5-5.1) mmol/L Chloride 104 (98-107) mmol/L Carbon Dioxide 21.1 (21.0-32.0) mmol/L BUN 26 H (7.0-18.0) mg/dL Creatinine 1.3 (0.8-1.3) mg/dL Est Cr Clr Drug Dosing 43.68 mL/min Estimated GFR (MDRD) 52.6 ml/min Glucose 178 H (74-106) mg/dL Calcium 8.2 L (8.5-10.1) mg/dL Phosphorus 3.2 (2.6-4.7) mg/dL Magnesium 2.3 (1.8-2.4) mg/dL Total Bilirubin 0.5 (0.2-1.0) mg/dL AST 27 (15-37) IU/L ALT 18 (14-63) IU/L Alkaline Phosphatase 80 (46-116) U/L Troponin I (0.000-0.056) ng/mL C-Reactive Protein (0.00-0.90) mg/dL B-Natriuretic Peptide (<100) PG/ML Total Protein 7.0 (6.4-8.2) g/dL Albumin 2.8 L (3.4-5.0) g/dL Globulin 4.2 H (2.6-4.0) g/dL Albumin/Globulin Ratio 0.7 L (0.9-1.6) Urine Color YELLOW Urine Appearance SLT CLOUDY Urine pH 5.5 (5.0-8.0) Ur Specific [place] 1.025 (1.001-1.035) Urine Protein 30 H (NEGATIVE) mg/dL Urine Glucose (UA) NEGATIVE (NEGATIVE) mg/dL Urine Ketones 15 H (NEGATIVE) mg/dL Urine Occult Blood TRACE-INTACT H (NEGATIVE) Urine Nitrite NEGATIVE (NEGATIVE) Urine Bilirubin NEGATIVE (NEGATIVE) Urine Urobilinogen 0.2 (<2.0) EU/dL Ur Leukocyte Esterase NEGATIVE (NEGATIVE) Urine RBC 0-1 (0-2/HPF) Urine WBC 0-1 (0-5/HPF) Ur Epithelial Cells RARE (NONE-FEW) Urine Bacteria FEW (NEGATIVE) SARS-CoV-2 RNA (COLLETTE) (NEGATIVE) Med Orders - Current: Current Medications Dexamethasone (Dexamethasone) 6 mg PO DAILY [facility] Last Admin: 06/17/20 09:58 Dose: 6 mg Documented by: Enoxaparin Sodium (Lovenox) 90 mg SUBCUT Q12H [facility] Last Admin: 06/17/20 09:59 Dose: 90 mg Documented by: Remdesivir 100 mg/ Sodium (Chloride) 100 mls @ 100 mls/hr IV Q24H JULIAN Last Admin: 06/17/20 10:00 Dose: 100 mls/hr Documented by: Sodium Chloride (Saline Flush) 10 ml FLUSH ASDIRECTED PRN PRN Reason: Keep Vein Open Last Admin: 06/16/20 15:15 Dose: 10 ml Documented by: Sodium Chloride (Saline Flush) 2.5 ml FLUSH ASDIRECTED PRN PRN Reason: Keep Vein Open Last Admin: 06/16/20 15:10 Dose: 2.5 ml Documented by: Discontinued Medications Dexamethasone (Dexamethasone) 10 mg IVPUSH ONETIME ONE Stop: 06/16/20 16:44 Last Admin: 06/16/20 17:57 Dose: 10 mg Documented by: Enoxaparin Sodium (Lovenox) 100 mg SUBCUT ONETIME ONE Stop: 06/16/20 17:35 Last Admin: 06/16/20 17:58 Dose: 100 mg Documented by: Enoxaparin Sodium (Lovenox) 100 mg SUBCUT Q12H [facility] Sodium Chloride (Normal Saline) 500 mls @ 999 mls/hr IV .Bolus ONE Stop: 06/16/20 16:16 Last Admin: 06/16/20 16:38 Dose: 999 mls/hr Documented by: Remdesivir 200 mg/ Sodium (Chloride) 250 mls @ 250 mls/hr IV ONETIME ONE Stop: 06/16/20 16:56 Last Admin: 06/16/20 18:49 Dose: 250 mls/hr Documented by: Iopamidol (Isovue Multipack-370 (76%)) 100 ml IVPUSH ONETIME ONE Stop: 06/16/20 16:31 Last Admin: 06/16/20 16:31 Dose: 100 ml Documented by: Sepsis Event Note - Evaluation Sepsis Screening Result: No Definite Risk - Focused Exam Vital Signs: Vital Signs Temp Pulse Resp BP Pulse Ox 06/17/20 09:00 36.6 C 69 20 109/56 L 92 L 06/17/20 05:00 36.2 C 73 18 137/69 92 L 06/17/20 01:00 37.0 C 68 18 136/70 94 L - Problem List & Annotations (1) Acute respiratory failure with hypoxia SNOMED Code(s): 48418617, 555644018 Code(s): J96.01 - ACUTE RESPIRATORY FAILURE WITH HYPOXIA Status: Acute Current Visit: Yes (2) COVID-19 SNOMED Code(s): 048723920 Code(s): U07.1 - COVID-19 Status: Acute Current Visit: Yes (3) Pulmonary emboli SNOMED Code(s): 16838274 Code(s): I26.99 - OTHER PULMONARY EMBOLISM WITHOUT ACUTE COR PULMONALE Status: Acute Current Visit: Yes - Problem List Review Problem List Initiated/Reviewed/Updated: Yes - My Orders Last 24 Hours: My Active Orders 06/16/20 Dinner Heart Healthy Diet [DIET] 06/16/20 18:11 Telemetry Monitoring [Cardiac Monitoring] [RC] Q8H 06/16/20 18:37 Ambulate [RC] ASDIRECTED Oxygen Therapy [RC] PRN VTE/DVT Education [RC] PER UNIT ROUTINE Vital Signs [RC] Q4H Resuscitation Status Routine 06/17/20 09:00 Enoxaparin [Lovenox] 90 mg SUBCUT Q12H Remdesivir (Eua) [Remdesivir (EUA)] 100 mg Sodium Chloride 0.9% [Normal Saline] 100 ml IV Q24H dexAMETHasone 6 mg PO DAILY - Plan Plan:: 84 y/o M admitted for hypoxic respiratory failure sec to COVID cont supplemental oxygen via NC, as needed, currently on RA cont dexamethasone, Lovenox, Remdesivir hold Xarelto, possible failure to Xarelto Lovenox full anticoagulation dose for PE, will switch to Eliquis upon dc Combivent as needed Monitor and replete electrolytes as needed Possible dc tomorrow
[2020-06-17] MEDS ORDERED: Meclizine 25 MG Tab PO PRN (13:23)
[2020-06-17] MEDS ORDERED: LORazepam 1 MG Tab PO PRN (13:23)
[2020-06-17] MEDS ORDERED: traMADol 50 MG Tab PO PRN (13:23)
[2020-06-17] MEDS ORDERED: Benzonatate 100 MG Cap PO PRN (13:30)
[2020-06-17] MEDS: Metoprolol Tartrate 25 MG Tab PO SCH (20:21)
[2020-06-18 07:09] LABS: CARBON DIOXIDE,CO2 23.1 mmol/L (21.0-32.0); POTASSIUM,K 4.1 mmol/L (3.5-5.1)
[2020-06-18] MEDS: Enoxaparin 100 MG/1 ML Syringe SUBCUT SCH ×2 (08:52→20:24)
[2020-06-18] MEDS: Metoprolol Tartrate 25 MG Tab PO SCH ×2 (08:53→20:22)
[2020-06-18] MEDS: Escitalopram 10 MG Tab PO SCH (08:54)
[2020-06-18] MEDS: Furosemide 40 MG Tab PO SCH (08:54)
[2020-06-18] MEDS: REMDESIVIR 100 MG in Sodium Chloride 0.9% 100 ML IV SCH (08:55)
[2020-06-18] MEDS: Dexamethasone 4 MG Tab PO SCH (09:21)
--- NOTE | 2020-06-18 13:31 | PCM.PN ---
- General Info Date of Service: 06/18/20 Admission Dx/Problem (Free Text): Admission Diagnosis/Problem Admission Diagnosis/Problem Pneumonia Subjective Update: seen at bedside, overnight needed 2 L of oxygen, on 1L oxygen now , feels well - Review of Systems General: Denies: Fever, Weakness, Fatigue Pulmonary: Reports: Cough, Sputum. Denies: Shortness of Breath, Pleuritic Chest Pain Cardiovascular: Reports: Dyspnea on Exertion. Denies: Chest Pain, Palpitations Gastrointestinal: Denies: Abdominal Pain, Constipation, Decreased Appetite Genitourinary: Denies: Dysuria, Frequency, Burning, Pain, Urgency Musculoskeletal: Denies: Neck Pain, Shoulder Pain, Arm Pain, Hand Pain Skin: Denies: Cyanosis, Jaundice, Mottled, Pallor - Patient Data Vitals - Most Recent: Last Vital Signs Temp 36.6 C 06/18/20 08:00 Pulse 74 06/18/20 08:53 Resp 20 06/18/20 08:00 BP 156/70 H 06/18/20 08:53 Pulse Ox 97 06/18/20 08:00 Weight - Most Recent: 90.718 kg I&O - Last 24 Hours: Intake & Output 06/17/20 06/18/20 06/18/20 22:59 06:59 14:59 Intake Total 600 850 100 Balance 600 850 100 Lab Results Last 24 Hours: Laboratory Results - last 24 hr 06/18/20 06/18/20 06/18/20 Range/Units 06:25 06:25 06:31 WBC 16.20 H (4.0-11.0) K/uL RBC 3.99 L (4.50-5.90) M/uL Hgb 12.6 L (13.0-17.0) g/dL Hct 38.5 (38.0-50.0) % MCV 96.5 (80.0-98.0) fL MCH 31.6 (27.0-32.0) pg MCHC 32.7 (31.0-37.0) g/dL RDW Std Deviation 50.1 (28.0-62.0) fl RDW Coeff of Mary 14 (11.0-15.0) % Plt Count 230 (150-400) K/uL MPV 10.60 (7.40-12.00) fL Neut % (Auto) 90.1 H (48.0-80.0) % Lymph % (Auto) 4.7 L (16.0-40.0) % Payne % (Auto) 5.1 (0.0-15.0) % Eos % (Auto) 0.0 (0.0-7.0) % Baso % (Auto) 0.1 (0.0-1.5) % Neut # (Auto) 14.6 H (1.4-5.7) K/uL Lymph # (Auto) 0.8 (0.6-2.4) K/uL Payne # (Auto) 0.8 (0.0-0.8) K/uL Eos # (Auto) 0.0 (0.0-0.7) K/uL Baso # (Auto) 0.0 (0.0-0.1) K/uL Nucleated RBC % 0.0 /100WBC Nucleated RBCs # 0 K/uL Sodium 142 (136-148) mmol/L Potassium 4.1 (3.5-5.1) mmol/L Chloride 106 (98-107) mmol/L Carbon Dioxide 23.1 (21.0-32.0) mmol/L BUN 32 H (7.0-18.0) mg/dL Creatinine 1.3 (0.8-1.3) mg/dL Est Cr Clr Drug Dosing 43.68 mL/min Estimated GFR (MDRD) 52.6 ml/min Glucose 182 H (74-106) mg/dL POC Glucose 166 H (60-110) mg/dL Calcium 8.5 (8.5-10.1) mg/dL Phosphorus 2.9 (2.6-4.7) mg/dL Magnesium 2.6 H (1.8-2.4) mg/dL Total Bilirubin 0.4 (0.2-1.0) mg/dL AST 29 (15-37) IU/L ALT 19 (14-63) IU/L Alkaline Phosphatase 83 (46-116) U/L Total Protein 6.5 (6.4-8.2) g/dL Albumin 2.9 L (3.4-5.0) g/dL Globulin 3.6 (2.6-4.0) g/dL Albumin/Globulin Ratio 0.8 L (0.9-1.6) Kaleb Results Last 24 Hours: Microbiology 06/16/20 17:07 Aerobic Blood Culture - Preliminary Blood - Venous - Lab Draw NO GROWTH AFTER 1 DAY Anaerobic Blood Culture - Preliminary NO GROWTH AFTER 1 DAY 06/16/20 14:44 Aerobic Blood Culture - Preliminary Blood - Venous NO GROWTH AFTER 1 DAY Anaerobic Blood Culture - Preliminary NO GROWTH AFTER 1 DAY Med Orders - Current: Current Medications Benzonatate (Tessalon Perles) 100 mg PO Q8H PRN PRN Reason: cough Dexamethasone (Dexamethasone) 6 mg PO DAILY [facility] Last Admin: 06/18/20 09:21 Dose: 6 mg Documented by: Enoxaparin Sodium (Lovenox) 90 mg SUBCUT Q12H [facility] Last Admin: 06/18/20 08:52 Dose: 90 mg Documented by: Escitalopram Oxalate (Lexapro) 20 mg PO DAILY [facility] Last Admin: 06/18/20 08:54 Dose: 20 mg Documented by: Furosemide (Lasix) 40 mg PO DAILY [facility] Last Admin: 06/18/20 08:54 Dose: 40 mg Documented by: Remdesivir 100 mg/ Sodium (Chloride) 100 mls @ 100 mls/hr IV Q24H [facility] Last Admin: 06/18/20 08:55 Dose: 100 mls/hr Documented by: Lorazepam (Ativan) 1 mg PO TID PRN PRN Reason: Anxiety Meclizine HCl (Antivert) 25 mg PO TID PRN PRN Reason: Dizziness Metoprolol Tartrate (Lopressor) 75 mg PO BID [facility] Last Admin: 06/18/20 08:53 Dose: 75 mg Documented by: Sodium Chloride (Saline Flush) 10 ml FLUSH ASDIRECTED PRN PRN Reason: Keep Vein Open Last Admin: 06/16/20 15:15 Dose: 10 ml Documented by: Sodium Chloride (Saline Flush) 2.5 ml FLUSH ASDIRECTED PRN PRN Reason: Keep Vein Open Last Admin: 06/16/20 15:10 Dose: 2.5 ml Documented by: Tramadol HCl (Ultram) 50 mg PO Q6HR PRN PRN Reason: Pain Discontinued Medications Dexamethasone (Dexamethasone) 10 mg IVPUSH ONETIME ONE Stop: 06/16/20 16:44 Last Admin: 06/16/20 17:57 Dose: 10 mg Documented by: Enoxaparin Sodium (Lovenox) 100 mg SUBCUT ONETIME ONE Stop: 06/16/20 17:35 Last Admin: 06/16/20 17:58 Dose: 100 mg Documented by: Enoxaparin Sodium (Lovenox) 100 mg SUBCUT Q12H [facility] Sodium Chloride (Normal Saline) 500 mls @ 999 mls/hr IV .Bolus ONE Stop: 06/16/20 16:16 Last Admin: 06/16/20 16:38 Dose: 999 mls/hr Documented by: Remdesivir 200 mg/ Sodium (Chloride) 250 mls @ 250 mls/hr IV ONETIME ONE Stop: 06/16/20 16:56 Last Admin: 06/16/20 18:49 Dose: 250 mls/hr Documented by: Iopamidol (Isovue Multipack-370 (76%)) 100 ml IVPUSH ONETIME ONE Stop: 06/16/20 16:31 Last Admin: 06/16/20 16:31 Dose: 100 ml Documented by: - Exam Quality Assessment: Supplemental Oxygen General: Alert, Oriented HEENT: Pupils Equal Lungs: Clear to Auscultation, Decreased Breath Sounds, Rales Cardiovascular: Regular Rate, Other. No: Bradycardia, Tachycardia Peripheral Pulses: 3+: Dorsalis Pedis (L), Dorsalis Pedis (R) Sepsis Event Note - Evaluation Sepsis Screening Result: No Definite Risk - Focused Exam Vital Signs: Vital Signs Temp Pulse Pulse Resp BP BP Pulse Ox 06/18/20 08:53 74 156/70 H 06/18/20 08:00 36.6 C 74 20 156/77 H 97 06/18/20 04:00 36.3 C 75 17 128/73 93 L - Problem List & Annotations (1) Acute respiratory failure with hypoxia SNOMED Code(s): 62338673, 449490158 Code(s): J96.01 - ACUTE RESPIRATORY FAILURE WITH HYPOXIA Status: Acute Current Visit: Yes (2) COVID-19 SNOMED Code(s): 707251417 Code(s): U07.1 - COVID-19 Status: Acute Current Visit: Yes (3) Pulmonary emboli SNOMED Code(s): 95226062 Code(s): I26.99 - OTHER PULMONARY EMBOLISM WITHOUT ACUTE COR PULMONALE Status: Acute Current Visit: Yes - Problem List Review Problem List Initiated/Reviewed/Updated: Yes - My Orders Last 24 Hours: My Active Orders 06/17/20 13:23 LORazepam [Ativan] 1 mg PO TID PRN Meclizine [Antivert] 25 mg PO TID PRN traMADol [Ultram] 50 mg PO Q6HR PRN 06/17/20 13:30 Benzonatate [Tessalon Perles] 100 mg PO Q8H PRN 06/17/20 21:00 Metoprolol Tartrate [Lopressor] 75 mg PO BID 06/18/20 09:00 Escitalopram [Lexapro] 20 mg PO DAILY Furosemide [Lasix] 40 mg PO DAILY - Plan Plan:: 84 y/o M admitted for acute hypoxic respiratory failure sec to COVID cont supplemental oxygen via NC, cont dexamethasone, Lovenox, Remdesivir hold Xarelto, possible failure to Xarelto Lovenox full anticoagulation dose for PE, will switch to Eliquis upon dc Combivent as needed Monitor and replete electrolytes as needed Possible dc tomorrow
[2020-06-19 06:14] LABS: CARBON DIOXIDE,CO2 24.9 mmol/L (21.0-32.0); POTASSIUM,K 3.8 mmol/L (3.5-5.1)
[2020-06-19] MEDS: Metoprolol Tartrate 25 MG Tab PO SCH (08:47)
[2020-06-19] MEDS: Furosemide 40 MG Tab PO SCH (08:48)
[2020-06-19] MEDS: Dexamethasone 4 MG Tab PO SCH (08:48)
[2020-06-19] MEDS: Enoxaparin 100 MG/1 ML Syringe SUBCUT SCH (08:49)
[2020-06-19] MEDS: REMDESIVIR 100 MG in Sodium Chloride 0.9% 100 ML IV SCH (10:37)
[2020-06-19] MEDS: Escitalopram 10 MG Tab PO SCH (10:48)
--- NOTE | 2020-06-19 13:41 | PCM.DCSUM1 ---
Discharge Summary - Hospital Course Free Text/Narrative:: 84M PMHx HTN, CAD, s/p pacemaker, DM2, Afib (on xarelto), recent COVID-19 diagnosis roughly 2-weeks ago presents for increasing SOB and generalized weakness. Patient states that he was doing well past 2 weeks , finished his quarantine 3 days ago. but since last 3 days he has been feeling weak and sob on walking short distances. Today while ambulating a short distance to bathroom patient reportedly became very SOB, pale, and diaphoretic. In th4e triage pat ient was found to be hypoxic to 86%, intermittently improved to 94% on RA but gain dropped so was started on NC oxygenation 2 Ls. CXR showed worsening COVID PNA from last 2 weeks. D-dimer was elevated , so CTA chest was done, which revealed a small left lower lobe PE; Patient was started on dexamethasone, remdesivir and Lovenox, admitted for further management. Patient was started on dexamethasone, Lovenox, Remdesivir. Patients oxygen requirement improved, he felt more energetic and was eating and drinking better. PT evaluated him and deemed patient safe for dc. Patient was successfully weaned off oxygen and was keen to go back home. Due to his PE, He switch from Xarelto to Eliquis, was offered warfarin, which he declined as he didn't tolerate it well in the past. WBC count jumped up but there was no concern on any infection, no cough, fever, leucocytosis likely due to steroid use. Patient was medically stable for dc and recommended to fu with his pcp. Patients daughter was updated prior to dc. - Discharge Data Discharge Date: 06/18/20 Discharge Disposition: Home, Self-Care 01 Condition: Stable - Referral to Home Health Primary Care Physician: Rena Enriquez MD - Discharge Diagnosis/Problem(s) (1) Acute respiratory failure with hypoxia SNOMED Code(s): 31964242, 255918746 ICD Code: J96.01 - ACUTE RESPIRATORY FAILURE WITH HYPOXIA Status: Acute (2) COVID-19 SNOMED Code(s): 292482301 ICD Code: U07.1 - COVID-19 Status: Acute (3) Pulmonary emboli SNOMED Code(s): 92640140 ICD Code: I26.99 - OTHER PULMONARY EMBOLISM WITHOUT ACUTE COR PULMONALE Status: Acute - Patient Summary/Data Consults: Consultations 06/19/20 10:04 PT Evaluation and Treatment [CONS] Routine - Discharge Plan Prescriptions/Med Rec: dexAMETHasone [Dexamethasone] 6 mg PO DAILY #7 tablet Apixaban [Eliquis] 5 mg PO BID #90 tablet Home Medications: Home Meds Furosemide [Lasix] 40 mg PO DAILY 08/20/15 [History] Aspirin 81 mg PO DAILY 09/09/16 [History] Meclizine HCl 25 mg PO TID PRN 04/10/19 [History] Metoprolol Tartrate 75 mg PO BID 04/17/20 [History] Benzonatate [Tessalon Perle] 100 mg PO ASDIRECTED 06/07/20 [History] traMADol [Ultram] 50 mg PO Q6HR PRN 06/07/20 [History] Escitalopram [Lexapro] 20 mg PO DAILY 06/16/20 [History] LORazepam [Ativan] 1 mg PO TID PRN 06/16/20 [History] Apixaban [Eliquis] 5 mg PO BID #90 tablet 06/19/20 [Rx] dexAMETHasone [Dexamethasone] 6 mg PO DAILY #7 tablet 06/19/20 [Rx] Patient Handouts: Hypoxia, COVID-19 Frequently Asked Questions, COVID-19: How to Protect Yourself and Others - CDC, Infection Prevention in the Home, Coronavirus Information 11/27/19, Dexamethasone tablets, Apixaban oral tablets, Prevent the Spread of COVID-19 if You Are Sick - CDC Forms: ED Department Discharge Referrals: Rena Enriquez MD [Primary Care Provider] - 06/25/20 1:00 pm (Appointment was made to see Faina Chan (Dr. Enriquez is out). Please arrive 15mins earli and bring ID and face mask. Thank you!) - Discharge Summary/Plan Comment DC Time >30 min.: Yes - Patient Data Vitals - Most Recent: Last Vital Signs Temp 36.5 C 06/19/20 12:00 Pulse 72 06/19/20 12:00 Resp 19 06/19/20 12:00 BP 118/58 L 06/19/20 12:00 Pulse Ox 95 06/19/20 12:00 Weight - Most Recent: 90.718 kg I&O - Last 24 hours: Intake & Output 06/18/20 06/19/20 06/19/20 22:59 06:59 14:59 Intake Total 620 950 Balance 620 950 Lab Results - Last 24 hrs: Laboratory Results - last 24 hr 06/19/20 06/19/20 Range/Units 05:28 05:28 WBC 15.14 H (4.0-11.0) K/uL RBC 4.15 L (4.50-5.90) M/uL Hgb 13.0 (13.0-17.0) g/dL Hct 39.9 (38.0-50.0) % MCV 96.1 (80.0-98.0) fL MCH 31.3 (27.0-32.0) pg MCHC 32.6 (31.0-37.0) g/dL RDW Std Deviation 48.9 (28.0-62.0) fl RDW Coeff of Mary 14 (11.0-15.0) % Plt Count 257 (150-400) K/uL MPV 10.60 (7.40-12.00) fL Neut % (Auto) 90.0 H (48.0-80.0) % Lymph % (Auto) 4.8 L (16.0-40.0) % Fleming % (Auto) 5.1 (0.0-15.0) % Eos % (Auto) 0.0 (0.0-7.0) % Baso % (Auto) 0.1 (0.0-1.5) % Neut # (Auto) 13.6 H (1.4-5.7) K/uL Lymph # (Auto) 0.7 (0.6-2.4) K/uL Fleming # (Auto) 0.8 (0.0-0.8) K/uL Eos # (Auto) 0.0 (0.0-0.7) K/uL Baso # (Auto) 0.0 (0.0-0.1) K/uL Nucleated RBC % 0.0 /100WBC Nucleated RBCs # 0 K/uL Sodium 140 (136-148) mmol/L Potassium 3.8 (3.5-5.1) mmol/L Chloride 104 (98-107) mmol/L Carbon Dioxide 24.9 (21.0-32.0) mmol/L BUN 36 H (7.0-18.0) mg/dL Creatinine 1.3 (0.8-1.3) mg/dL Est Cr Clr Drug Dosing 43.68 mL/min Estimated GFR (MDRD) 52.6 ml/min Glucose 171 H (74-106) mg/dL Calcium 8.3 L (8.5-10.1) mg/dL Phosphorus 3.4 (2.6-4.7) mg/dL Magnesium 2.1 (1.8-2.4) mg/dL Total Bilirubin 0.4 (0.2-1.0) mg/dL AST 31 (15-37) IU/L ALT 27 (14-63) IU/L Alkaline Phosphatase 81 (46-116) U/L Total Protein 7.2 (6.4-8.2) g/dL Albumin 2.8 L (3.4-5.0) g/dL Globulin 4.4 H (2.6-4.0) g/dL Albumin/Globulin Ratio 0.6 L (0.9-1.6) GI Results - Last 24 hrs: Microbiology 06/19/20 10:45 C. difficile Antigen & Toxins A,B - Final Stool / Feces 06/16/20 17:07 Aerobic Blood Culture - Preliminary Blood - Venous - Lab Draw NO GROWTH AFTER 2 DAYS Anaerobic Blood Culture - Preliminary NO GROWTH AFTER 2 DAYS 06/16/20 14:44 Aerobic Blood Culture - Preliminary Blood - Venous NO GROWTH AFTER 2 DAYS Anaerobic Blood Culture - Preliminary NO GROWTH AFTER 2 DAYS Med Orders - Current: Current Medications Benzonatate (Tessalon Perles) 100 mg PO Q8H PRN PRN Reason: cough Last Admin: 06/18/20 20:45 Dose: 100 mg Documented by: Dexamethasone (Dexamethasone) 6 mg PO DAILY [facility] Last Admin: 06/19/20 08:48 Dose: 6 mg Documented by: Enoxaparin Sodium (Lovenox) 90 mg SUBCUT Q12H [facility] Last Admin: 06/19/20 08:49 Dose: 90 mg Documented by: Escitalopram Oxalate (Lexapro) 20 mg PO BEDTIME [facility] Furosemide (Lasix) 40 mg PO DAILY [facility] Last Admin: 06/19/20 08:48 Dose: 40 mg Documented by: Remdesivir 100 mg/ Sodium (Chloride) 100 mls @ 100 mls/hr IV Q24H [facility] Last Admin: 06/19/20 10:37 Dose: 100 mls/hr Documented by: Lorazepam (Ativan) 1 mg PO TID PRN PRN Reason: Anxiety Last Admin: 06/18/20 20:45 Dose: 1 mg Documented by: Meclizine HCl (Antivert) 25 mg PO TID PRN PRN Reason: Dizziness Metoprolol Tartrate (Lopressor) 75 mg PO BID [facility] Last Admin: 06/19/20 08:47 Dose: 75 mg Documented by: Sodium Chloride (Saline Flush) 10 ml FLUSH ASDIRECTED PRN PRN Reason: Keep Vein Open Last Admin: 06/16/20 15:15 Dose: 10 ml Documented by: Sodium Chloride (Saline Flush) 2.5 ml FLUSH ASDIRECTED PRN PRN Reason: Keep Vein Open Last Admin: 06/16/20 15:10 Dose: 2.5 ml Documented by: Tramadol HCl (Ultram) 50 mg PO Q6HR PRN PRN Reason: Pain Discontinued Medications Dexamethasone (Dexamethasone) 10 mg IVPUSH ONETIME ONE Stop: 06/16/20 16:44 Last Admin: 06/16/20 17:57 Dose: 10 mg Documented by: Enoxaparin Sodium (Lovenox) 100 mg SUBCUT ONETIME ONE Stop: 06/16/20 17:35 Last Admin: 06/16/20 17:58 Dose: 100 mg Documented by: Enoxaparin Sodium (Lovenox) 100 mg SUBCUT Q12H [facility] Escitalopram Oxalate (Lexapro) 20 mg PO DAILY [facility] Last Admin: 06/19/20 10:48 Dose: Not Given Documented by: Sodium Chloride (Normal Saline) 500 mls @ 999 mls/hr IV .Bolus ONE Stop: 06/16/20 16:16 Last Admin: 06/16/20 16:38 Dose: 999 mls/hr Documented by: Remdesivir 200 mg/ Sodium (Chloride) 250 mls @ 250 mls/hr IV ONETIME ONE Stop: 06/16/20 16:56 Last Admin: 06/16/20 18:49 Dose: 250 mls/hr Documented by: Iopamidol (Isovue Multipack-370 (76%)) 100 ml IVPUSH ONETIME ONE Stop: 06/16/20 16:31 Last Admin: 06/16/20 16:31 Dose: 100 ml Documented by:
[2020-06-19 16:56] VITALS: BP 122/65; PULSE 78
[2020-06-19] MEDS ORDERED: Escitalopram 10 MG Tab PO SCH (21:00)
== END 2020-06-19 16:30 | disposition home or self-care (01) | DRG 177 ==
LOC: MW.ED 14:11 → MW.MS 16:56 → OBSVTOIN 06-18 10:01
PROVIDERS: ADMIT Student in an Organized Health Care Education/Training Program; ATTEND Student in an Organized Health Care Education/Training Program
PROC: XW033E5 Introduction of Remdesivir Anti-infective into Peripheral Vein, Percutaneous Approach, New Technology Group 5 (ICD-10-PCS; principal; 2020-06-16)
DX: U07.1 COVID-19 (principal); J96.01 Acute respiratory failure with hypoxia; I26.99 Other pulmonary embolism without acute cor pulmonale; J12.89 Other viral pneumonia; H91.93 Unspecified hearing loss, bilateral; I25.10 Atherosclerotic heart disease of native coronary artery without angina pectoris; I10 Essential (primary) hypertension; F41.9 Anxiety disorder, unspecified; Z96.653 Presence of artificial knee joint, bilateral; G47.33 Obstructive sleep apnea (adult) (pediatric); E11.9 Type 2 diabetes mellitus without complications; Z86.74 Personal history of sudden cardiac arrest; G47.30 Sleep apnea, unspecified; Z87.442 Personal history of urinary calculi; Z96.643 Presence of artificial hip joint, bilateral; H54.7 Unspecified visual loss; R42 Dizziness and giddiness; M19.90 Unspecified osteoarthritis, unspecified site; I48.91 Unspecified atrial fibrillation; E66.9 Obesity, unspecified; Z79.01 Long term (current) use of anticoagulants; Z96.649 Presence of unspecified artificial hip joint; Z96.659 Presence of unspecified artificial knee joint; Z98.890 Other specified postprocedural states; Z91.041 Radiographic dye allergy status; Z95.0 Presence of cardiac pacemaker; Z79.4 Long term (current) use of insulin; Z79.899 Other long term (current) drug therapy; Z95.5 Presence of coronary angioplasty implant and graft; Z90.49 Acquired absence of other specified parts of digestive tract; Z86.73 Personal history of transient ischemic attack (TIA), and cerebral infarction without residual deficits; I25.2 Old myocardial infarction; Z79.82 Long term (current) use of aspirin
CPT/HCPCS: 36415 ×3; 71045; 71275; 80053 ×3; 81001; 82962; 83605; 83735 ×3; 83880; 84100 ×2; 84484; 85025 ×3; 85379; 85610; 85730; 86140; 87040 ×2; 87635; 93005 ×2; 96365 ×2; 96372 ×3; 96375; 96376; 99285; A9270 ×4; G0378 ×4; J1100; J1650 ×4; J7030; J7050 ×3; J8540 ×2; Q9967; 87324; 93010; 97161-GP; 99218; 99224; 99231; 99239; U0002

== ENCOUNTER 2020-12-21 18:17 | Observation (INO) | payer MEDICARE, OTHER ==
--- NOTE | 2020-12-21 18:25 | EDM.PDOC ---
<Dane Cai - Last Filed: 12/21/20 19:08> ED HPI GENERAL MEDICAL PROBLEM - General Stated Complaint: FALL Time Seen by Provider: 12/21/20 18:19 Source of Information: Reports: Patient History Limitations: Reports: No Limitations - History of Present Illness INITIAL COMMENTS - FREE TEXT/NARRATIVE: 85-year-old male past medical history PE on Eliquis, A. fib, type 2 diabetes, CAD, hypertension, history of small bowel obstruction, history of COVID-19 infection presents status post fall. Patient was walking down steps outside when he missed a step and fell down roughly 2 steps hitting the left side of his head and his right elbow. He denies any other injuries. He denies any loss of consciousness and was able to get up on his own and ambulate. He denies any nausea or vomiting. He denies any confusion or slurred speech. He notes mild pain in his right elbow but otherwise no pain. - Related Data Allergies Allergy/AdvReac Type Severity Reaction Status Date / Time dye Allergy Cardiac Uncoded 06/16/20 14:42 Arrest Home Meds: Home Meds Furosemide [Lasix] 40 mg PO DAILY 08/20/15 [History] Aspirin 81 mg PO DAILY 09/09/16 [History] Meclizine HCl 25 mg PO TID PRN 04/10/19 [History] Metoprolol Tartrate 75 mg PO BID 04/17/20 [History] Benzonatate [Tessalon Perle] 100 mg PO ASDIRECTED 06/07/20 [History] traMADol [Ultram] 50 mg PO Q6HR PRN 06/07/20 [History] Escitalopram [Lexapro] 20 mg PO DAILY 06/16/20 [History] LORazepam [Ativan] 1 mg PO TID PRN 06/16/20 [History] Apixaban [Eliquis] 5 mg PO BID #90 tablet 06/19/20 [Rx] dexAMETHasone [Dexamethasone] 6 mg PO DAILY #7 tablet 06/19/20 [Rx] Past Medical History - Past Health History Medical/Surgical History: Denies Medical/Surgical History HEENT History: Reports: Hard of Hearing, Impaired Vision Other HEENT History: on hearing aids Cardiovascular History: Reports: Afib, CAD, Hypertension, CO, Pacemaker, Prior Cardiac Arrest, Stents Respiratory History: Reports: Sleep Apnea Other Respiratory History: uses cpap Gastrointestinal History: Reports: None Genitourinary History: Reports: Renal Calculus Musculoskeletal History: Reports: Arthritis Neurological History: Reports: TIA, Vertigo, Other (See Below) Other Neuro History: menieres disease Psychiatric History: Reports: Anxiety Endocrine/Metabolic History: Reports: Diabetes, Type II, Obesity/BMI 30+ Other Endocrine/Metabolic History: diabetes controlled by diet Hematologic History: Reports: None Immunologic History: Reports: None Oncologic (Cancer) History: Reports: None Dermatologic History: Reports: None - Infectious Disease History Infectious Disease History: Reports: Chicken Pox, Measles, Mumps Other Infectious Disease History: unknown - Past Surgical History Head Surgeries/Procedures: Reports: None Cardiovascular Surgical History: Reports: Coronary Artery Stent GI Surgical History: Reports: Appendectomy Musculoskeletal Surgical History: Reports: Hip Replacement, Knee Replacement Social & Family History - Family History Family Medical History: No Pertinent Family History - Caffeine Use Caffeine Use: Reports: Coffee, Soda - Living Situation & Occupation Living situation: Reports: with Family Occupation: Retired ED ROS GENERAL - Review of Systems Review Of Systems: Comprehensive ROS is negative, except as noted in HPI. ED EXAM, GENERAL - Physical Exam Exam: See Below General Appearance: Alert, WD/WN, No Apparent Distress Eye Exam: Bilateral Eye: EOMI, PERRL Ears: Hearing Grossly Normal Nose: Normal Inspection Throat/Mouth: Normal Voice, No Airway Compromise Head: Normocephalic, Other (small left parietal hematoma) Neck: Normal Inspection, Non-Tender Respiratory/Chest: No Respiratory Distress, Lungs Clear, Normal Breath Sounds, No Accessory Muscle Use Cardiovascular: Normal Peripheral Pulses, No Edema GI/Abdominal: Soft, Non-Tender Back Exam: Normal Inspection. No: Paraspinal Tenderness, Vertebral Tenderness Extremities: Normal Inspection, Normal Range of Motion, Non-Tender Neurological: Alert, Oriented, CN II-XII Intact, Normal Cognition, No Motor/Sensory Deficits Psychiatric: Normal Affect, Normal Mood Skin Exam: Warm, Dry, Intact, Normal Color Course - Re-Assessments/Exams Free Text/Narrative Re-Assessment/Exam: 12/21/20 18:27 We will get imaging of head and neck. Will get chest and pelvis x-ray, right elbow x-ray. Will get basic labs. Low suspicion of serious injury. 12/21/20 19:00 Patient care signed out to Dr. Rocha to follow-up imaging, labs, reassessment, disposition. Departure - Departure Disposition: Refer to Observation Clinical Impression: Contusion, Fall, EDY (acute kidney injury), Scalp hematoma - Discharge Information Referrals: PCP,None [Primary Care Provider] - <Hansel Rocha - Last Filed: 12/21/20 20:07> #1 Interpretation EKG Interpretation Comments: Heart rate = 73 bpm, normal sinus rhythm, normal QRS interval, no STEMI. EKG and rhythm strip interpreted by me at 1921 Course - Vital Signs Last Recorded V/S: Last Vital Signs Temp 97.8 F 12/21/20 18:17 Pulse 70 12/21/20 19:50 Resp 18 12/21/20 19:50 BP 98/52 L 12/21/20 19:50 Pulse Ox 96 12/21/20 19:50 - Orders/Labs/Meds Orders: Active Orders 24 hr Category Date Time Status Patient Status [ADT] Routine ADT 12/21/20 20:05 Ordered EKG Documentation Completion [RC] STAT Care 12/21/20 18:28 Active C-REACTIVE PROTEIN [CHEM] Stat Lab 12/21/20 20:02 Ordered CORONAVIRUS COVID-19 COLLETTE [MOLEC] Stat Lab 12/21/20 19:42 Ordered FERRITIN [CHEM] Routine Lab 12/21/20 20:03 Ordered LACTATE DEHYDROGENASE,LDH [CHEM] Stat Lab 12/21/20 20:03 Ordered PROCALCITONIN [REF] Stat Lab 12/21/20 20:02 Ordered UA W/GI RFLX IF INDICATED [URIN] Stat Lab 12/21/20 18:28 Ordered Sodium Chloride 0.9% [Saline Flush] Med 12/21/20 18:28 Active 10 ml FLUSH ASDIRECTED PRN Sodium Chloride 0.9% [Saline Flush] Med 12/21/20 18:28 Active 2.5 ml FLUSH ASDIRECTED PRN Saline Lock Insert [OM.PC] Stat Oth 12/21/20 18:28 Ordered Medication Orders Sodium Chloride (Sodium Chloride 0.9% 10 Ml Syringe) 10 ml FLUSH ASDIRECTED PRN PRN Reason: Keep Vein Open Sodium Chloride (Sodium Chloride 0.9% 2.5 Ml Syringe) 2.5 ml FLUSH ASDIRECTED PRN PRN Reason: Keep Vein Open Labs: Laboratory Tests 12/21/20 12/21/20 12/21/20 Range/Units 18:26 18:26 18:26 WBC 9.83 (4.0-11.0) K/uL RBC 4.22 L (4.50-5.90) M/uL Hgb 13.4 (13.0-17.0) g/dL Hct 41.6 (38.0-50.0) % MCV 98.6 H (80.0-98.0) fL MCH 31.8 (27.0-32.0) pg MCHC 32.2 (31.0-37.0) g/dL RDW Std Deviation 50.3 (28.0-62.0) fl RDW Coeff of Mary 14 (11.0-15.0) % Plt Count 170 (150-400) K/uL MPV 10.60 (7.40-12.00) fL Neut % (Auto) 66.2 (48.0-80.0) % Lymph % (Auto) 21.9 (16.0-40.0) % [place] % (Auto) 9.9 (0.0-15.0) % Eos % (Auto) 1.8 (0.0-7.0) % Baso % (Auto) 0.2 (0.0-1.5) % Neut # (Auto) 6.5 H (1.4-5.7) K/uL Lymph # (Auto) 2.2 (0.6-2.4) K/uL [place] # (Auto) 1.0 H (0.0-0.8) K/uL Eos # (Auto) 0.2 (0.0-0.7) K/uL Baso # (Auto) 0.0 (0.0-0.1) K/uL Nucleated RBC % 0.0 /100WBC Nucleated RBCs # 0 K/uL INR 1.17 APTT 26.5 (18.6-31.3) SEC Sodium 142 (136-148) mmol/L Potassium 4.5 (3.5-5.1) mmol/L Chloride 105 (98-107) mmol/L Carbon Dioxide 28.7 (21.0-32.0) mmol/L BUN 27 H (7.0-18.0) mg/dL Creatinine 2.0 H (0.8-1.3) mg/dL Est Cr Clr Drug Dosing TNP Estimated GFR (MDRD) 31.9 ml/min Glucose 117 H (74-106) mg/dL Calcium 9.0 (8.5-10.1) mg/dL Total Bilirubin 0.5 (0.2-1.0) mg/dL AST 17 (15-37) IU/L ALT 21 (14-63) IU/L Alkaline Phosphatase 109 (46-116) U/L Troponin I < 0.050 (0.000-0.056) ng/mL Total Protein 8.3 H (6.4-8.2) g/dL Albumin 4.0 (3.4-5.0) g/dL Globulin 4.3 H (2.6-4.0) g/dL Albumin/Globulin Ratio 0.9 (0.9-1.6) Lipase 288 (73-393) U/L Meds: Medications Generic Name Dose Route Start Last Admin Trade Name Freq PRN Reason Stop Dose Admin Sodium Chloride 10 ml 12/21/20 18:28 Sodium Chloride 0.9% 10 Ml Syringe FLUSH ASDIRECTED PRN Keep Vein Open Sodium Chloride 2.5 ml 12/21/20 18:28 Sodium Chloride 0.9% 2.5 Ml Syringe FLUSH ASDIRECTED PRN Keep Vein Open - Re-Assessments/Exams Free Text/Narrative Re-Assessment/Exam: 12/21/20 19:00 This patient was signed out to me from Dr. Cai at this time. I promptly performed a detailed physical examination, my examination was performed after ED treatments were initiated by the signout provider. Patient has been under the care of the previous provider up until this point. 12/21/20 20:[address] Fay, who agrees to admit patient. The hospitalist's documentation supersedes all other documentation on this patient with regard to any conflicts or discrepancies from this point forward. Any emergency conditions have been treated to the ability of the ED prior to admission. Departure - Departure Time of Disposition: 19:44 Condition: Good - Discharge Information *PRESCRIPTION DRUG MONITORING PROGRAM REVIEWED*: Not Applicable *COPY OF PRESCRIPTION DRUG MONITORING REPORT IN PATIENT FUAD: Not Applicable Sepsis Event Note (ED) - Focused Exam Vital Signs: Vital Signs Temp Pulse Resp BP Pulse Ox 12/21/20 19:50 70 18 98/52 L 96 12/21/20 18:17 97.8 F 79 19 143/78 H 94 L - My Orders Last 24 Hours: My Active Orders 12/21/20 19:42 CORONAVIRUS COVID-19 COLLETTE [MOLEC] Stat 12/21/20 20:02 C-REACTIVE PROTEIN [CHEM] Stat PROCALCITONIN [REF] Stat 12/21/20 20:03 FERRITIN [CHEM] Routine LACTATE DEHYDROGENASE,LDH [CHEM] Stat 12/21/20 20:05 Patient Status [ADT] Routine - Assessment/Plan Last 24 Hours: My Active Orders 12/21/20 19:42 CORONAVIRUS COVID-19 COLLETTE [MOLEC] Stat 12/21/20 20:02 C-REACTIVE PROTEIN [CHEM] Stat PROCALCITONIN [REF] Stat 12/21/20 20:03 FERRITIN [CHEM] Routine LACTATE DEHYDROGENASE,LDH [CHEM] Stat 12/21/20 20:05 Patient Status [ADT] Routine
[2020-12-21] MEDS ORDERED: Sodium Chloride 0.9% 2.5 ML Syringe FLUSH PRN (18:28)
[2020-12-21] MEDS ORDERED: Sodium Chloride 0.9% 10 ML Syringe FLUSH PRN (18:28)
[2020-12-21 18:59] LABS: BLOOD UREA NITROGEN,BUN 27 mg/dL (7.0-18.0); CARBON DIOXIDE,CO2 28.7 mmol/L (21.0-32.0); CHLORIDE,CL 105 mmol/L (98-107); GLUCOSE RANDOM 117 mg/dL (74-106); LIPASE 288 U/L (73-393); POTASSIUM,K 4.5 mmol/L (3.5-5.1); SODIUM,NA 142 mmol/L (136-148)
--- NOTE | 2020-12-21 19:51 | CT ---
INDICATION: Fall, anticoagulated. TECHNIQUE: CT of the head without contrast. Coronal and sagittal reformats. Bone and soft tissue algorithms. COMPARISON: CT head 06/03/2020 FINDINGS: No acute intracranial hemorrhage or extra-axial collection. No evidence of acute cortical infarction. No mass effect or midline shift. Moderate generalized cerebral/cerebellar parenchymal volume loss. Moderate regions of decreased attenuation within the periventricular and subcortical white matter of both cerebral hemispheres most likely reflects chronic microvascular ischemic disease and age related change in this patient. Vascular calcifications within the carotid siphons. Orbital contents are normal. No calvarial fractures. No lytic or sclerotic osseous lesions within the calvarium or skull base. Scalp and other imaged soft tissue structures are normal. Mastoid air cells are clear. Small left parietal scalp hematoma. Polypoid mucosal thickening in the left and right maxillary sinuses. IMPRESSION: 1. No acute intracranial abnormality. Moderate parenchymal volume loss and chronic microangiopathic white matter changes. No significant change compared to 06/03/2020 2. Small left parietal scalp hematoma. Please note that all CT scans at this facility use dose modulation, iterative reconstruction, and/or weight-based dosing when appropriate to reduce radiation dose to as low as reasonably achievable. Dictated by Venu Worthy MD @ Dec 21 2020 7:47PM Signed by Dr. Venu Worthy @ Dec 21 2020 7:50PM
--- NOTE | 2020-12-21 19:51 | CT ---
Indication: Fall. Anticoagulated. Technique: Multiple contiguous axial images were obtained through the level of the cervical spine. Sagittal coronal reformatted images were performed. Please note that all CT scans at this facility use dose modulation, iterative reconstruction, and/or weight-based dosing when appropriate to reduce radiation dose to as low as reasonably achievable. Comparison: None Findings: The alignment of the cervical spine is within normal limits. The vertebral body heights are well maintained. Intervertebral disc space narrowing is identified at C4-C5, C5-C6, C6-C7. Anterior osteophytes are seen extending from the C4 through C7. No acute fracture or subluxation is identified. Uncovertebral joint hypertrophy is identified bilaterally. The odontoid is intact. The prevertebral soft tissues are grossly normal. No pneumothorax is identified within the apices. Impression: Degenerative change. No fracture. Please note that all CT scans at this facility use dose modulation, iterative reconstruction, and/or weight-based dosing when appropriate to reduce radiation dose to as low as reasonably achievable. Dictated by Adrianne Blanchard MD @ Dec 21 2020 7:47PM Signed by Dr. Adrianne Blanchard @ Dec 21 2020 7:51PM
--- NOTE | 2020-12-21 19:55 | CR ---
Indication: Fall, anticoagulated Technique: Right elbow 3 views Comparison: None Findings: No fracture or joint effusion. Incidental hypertrophic change at the radial tuberosity. Mild spurring at the ulnohumeral joint. Alignment normal. Chronic ossicle adjacent to the lateral humeral epicondyle. Mild spurring at the medial humeral epicondyle. Impression: No fracture or hemarthrosis. Dictated by Venu White MD @ Dec 21 2020 7:52PM Signed by Dr. Venu White @ Dec 21 2020 7:54PM
--- NOTE | 2020-12-21 19:55 | CR ---
Indication: Fall. On blood thinners. Technique: AP portable view of the chest. Comparison: November 08, 2020. Findings: The heart is normal in size. Coarse interstitial opacities are identified bilaterally. A left-sided pacemaker is identified. No pleural effusion or pneumothorax is identified. Impression: Coarse interstitial opacities identified bilaterally. Dictated by Adrianne Blanchard MD @ Dec 21 2020 7:52PM Signed by Dr. Adrianne Blanchard @ Dec 21 2020 7:53PM
--- NOTE | 2020-12-21 19:55 | CR ---
Indication: Fall. Technique: AP view of the pelvis. Comparison: July 26, 2018. Findings: A left hip arthroplasty is identified. The femoral stem is not completely included on this exam. Degenerative changes of the lower lumbar spine and right hip are identified. No fracture or subluxation is identified. Impression: No acute fracture Dictated by Adrianne Blanchard MD @ Dec 21 2020 7:53PM Signed by Dr. Adrianne Blanchard @ Dec 21 2020 7:54PM
[2020-12-21] MEDS ORDERED: Acetaminophen 325 MG Tab PO PRN (20:10)
[2020-12-21] MEDS ORDERED: Albuterol/Ipratropium 3.0-0.5 MG/3 ML Neb Soln NEB PRN (20:10)
[2020-12-21] MEDS: Lactated Ringers 1,000 ML IV SCH (22:20)
--- NOTE | 2020-12-21 22:48 | PCM.HP.2 ---
H&P History of Present Illness - General Date of Service: 12/22/20 Admit Problem/Dx: Admission Diagnosis/Problem Admission Diagnosis/Problem Acute kidney injury - History of Present Illness Initial Comments - Free Text/Narative: 85-year-old male past medical history PE on Eliquis, A. fib, type 2 diabetes, CAD, hypertension, history of small bowel obstruction, history of COVID-19 infection presents status post fall. Patient was walking down steps outside when he missed a step and fell down roughly 2 steps hitting the left side of his head and his right elbow. He denies any other injuries. He denies any loss of consciousness and was able to get up on his own and ambulate. He denies any nausea or vomiting. He denies any confusion or slurred speech. He notes mild pain in his right elbow but otherwise no pain. 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 L temporal Pain Score (Numeric/FACES): 7 - Related Data Allergies/Adverse Reactions: Allergies Allergy/AdvReac Type Severity Reaction Status Date / Time dye Allergy Cardiac Uncoded 12/21/20 23:18 Arrest Home Medications: Home Meds Furosemide [Lasix] 40 mg PO DAILY 08/20/15 [History] Aspirin 81 mg PO DAILY 09/09/16 [History] Meclizine HCl 25 mg PO TID PRN 04/10/19 [History] Metoprolol Tartrate 75 mg PO BID 04/17/20 [History] Benzonatate [Tessalon Perle] 100 mg PO ASDIRECTED 06/07/20 [History] traMADol [Ultram] 50 mg PO Q6HR PRN 06/07/20 [History] Escitalopram [Lexapro] 20 mg PO DAILY 06/16/20 [History] LORazepam [Ativan] 1 mg PO TID PRN 06/16/20 [History] Apixaban [Eliquis] 5 mg PO BID #90 tablet 06/19/20 [Rx] dexAMETHasone [Dexamethasone] 6 mg PO DAILY #7 tablet 06/19/20 [Rx] Past Medical History - Past Health History Medical/Surgical History: Denies Medical/Surgical History HEENT History: Reports: Hard of Hearing, Impaired Vision Other HEENT History: on hearing aids Cardiovascular History: Reports: Afib, CAD, Hypertension, [place], Pacemaker, Prior Cardiac Arrest, Stents Respiratory History: Reports: Sleep Apnea Other Respiratory History: uses cpap Gastrointestinal History: Reports: None Genitourinary History: Reports: Renal Calculus Musculoskeletal History: Reports: Arthritis Neurological History: Reports: TIA, Vertigo, Other (See Below) Other Neuro History: menieres disease Psychiatric History: Reports: Anxiety Endocrine/Metabolic History: Reports: Diabetes, Type II, Obesity/BMI 30+ Other Endocrine/Metabolic History: diabetes controlled by diet Hematologic History: Reports: None Immunologic History: Reports: None Oncologic (Cancer) History: Reports: None Dermatologic History: Reports: None - Infectious Disease History Infectious Disease History: Reports: Chicken Pox, Measles, Mumps Other Infectious Disease History: unknown - Past Surgical History Head Surgeries/Procedures: Reports: None Cardiovascular Surgical History: Reports: Coronary Artery Stent GI Surgical History: Reports: Appendectomy Musculoskeletal Surgical History: Reports: Hip Replacement, Knee Replacement Social & Family History - Family History Family Medical History: No Pertinent Family History - Tobacco Use Tobacco Use Status *Q: Former Tobacco User Used Tobacco, but Quit: Yes Month/Year Tobacco Last Used: "45years ago" Second Hand Smoke Exposure: No - Caffeine Use Caffeine Use: Reports: Coffee - Recreational Drug Use Recreational Drug Use: No - Living Situation & Occupation Living situation: Reports: with Family Occupation: Retired H&P Review of Systems - Review of Systems: Review Of Systems: See Below General: Denies: Fever, Chills, Malaise HEENT: Reports: Other (right eye redness) Pulmonary: Denies: Shortness of Breath, Wheezing Cardiovascular: Denies: Chest Pain, Palpitations, Dyspnea on Exertion Gastrointestinal: Denies: Abdominal Pain, Anorexia, Black Stool Genitourinary: Denies: Dysuria, Frequency, Burning Musculoskeletal: Reports: Shoulder Pain, Arm Pain, Muscle Pain. Denies: Neck Pain, Foot Pain, Joint Pain, Joint Swelling Skin: Denies: Cyanosis, Jaundice, Mottled Exam - Exam Exam: See Below - Vital Signs Vital Signs: Last Vital Signs Temp 36.4 C 12/21/20 21:30 Pulse 73 12/21/20 21:30 Resp 16 12/21/20 21:30 BP 132/80 12/21/20 21:30 Pulse Ox 93 L 12/21/20 21:30 Weight: 104.326 kg - Exam General: Alert, Oriented, Cooperative Neck: Supple, Trachea Midline Lungs: Clear to Auscultation, Normal Respiratory Effort Cardiovascular: Regular Rate, Regular Rhythm GI/Abdominal Exam: Normal Bowel Sounds, Soft, Non-Tender - Patient Data Lab Results Last 24 hrs: Laboratory Results - last 24 hr 12/21/20 12/21/20 12/21/20 Range/Units 18:26 18:26 18:26 WBC 9.83 (4.0-11.0) K/uL RBC 4.22 L (4.50-5.90) M/uL Hgb 13.4 (13.0-17.0) g/dL Hct 41.6 (38.0-50.0) % MCV 98.6 H (80.0-98.0) fL MCH 31.8 (27.0-32.0) pg MCHC 32.2 (31.0-37.0) g/dL RDW Std Deviation 50.3 (28.0-62.0) fl RDW Coeff of Mary 14 (11.0-15.0) % Plt Count 170 (150-400) K/uL MPV 10.60 (7.40-12.00) fL Neut % (Auto) 66.2 (48.0-80.0) % Lymph % (Auto) 21.9 (16.0-40.0) % [place] % (Auto) 9.9 (0.0-15.0) % Eos % (Auto) 1.8 (0.0-7.0) % Baso % (Auto) 0.2 (0.0-1.5) % Neut # (Auto) 6.5 H (1.4-5.7) K/uL Lymph # (Auto) 2.2 (0.6-2.4) K/uL [place] # (Auto) 1.0 H (0.0-0.8) K/uL Eos # (Auto) 0.2 (0.0-0.7) K/uL Baso # (Auto) 0.0 (0.0-0.1) K/uL Nucleated RBC % 0.0 /100WBC Nucleated RBCs # 0 K/uL INR 1.17 APTT 26.5 (18.6-31.3) SEC Sodium 142 (136-148) mmol/L Potassium 4.5 (3.5-5.1) mmol/L Chloride 105 (98-107) mmol/L Carbon Dioxide 28.7 (21.0-32.0) mmol/L BUN 27 H (7.0-18.0) mg/dL Creatinine 2.0 H (0.8-1.3) mg/dL Est Cr Clr Drug Dosing TNP Estimated GFR (MDRD) 31.9 ml/min Glucose 117 H (74-106) mg/dL Calcium 9.0 (8.5-10.1) mg/dL Ferritin (26-388) ng/mL Total Bilirubin 0.5 (0.2-1.0) mg/dL AST 17 (15-37) IU/L ALT 21 (14-63) IU/L Alkaline Phosphatase 109 (46-116) U/L Lactate Dehydrogenase (81-234) U/L Troponin I < 0.050 (0.000-0.056) ng/mL C-Reactive Protein (0.00-0.90) mg/dL Total Protein 8.3 H (6.4-8.2) g/dL Albumin 4.0 (3.4-5.0) g/dL Globulin 4.3 H (2.6-4.0) g/dL Albumin/Globulin Ratio 0.9 (0.9-1.6) Lipase 288 (73-393) U/L Urine Color Urine Appearance Urine pH (5.0-8.0) Ur Specific [place] (1.001-1.035) Urine Protein (NEGATIVE) mg/dL Urine Glucose (UA) (NEGATIVE) mg/dL Urine Ketones (NEGATIVE) mg/dL Urine Occult Blood (NEGATIVE) Urine Nitrite (NEGATIVE) Urine Bilirubin (NEGATIVE) Urine Urobilinogen (<2.0) EU/dL Ur Leukocyte Esterase (NEGATIVE) Urine RBC (0-2/HPF) Urine WBC (0-5/HPF) Ur Epithelial Cells (NONE-FEW) Urine Bacteria (NEGATIVE) SARS-CoV-2 RNA (COLLETTE) (NEGATIVE) 12/21/20 12/21/20 12/21/20 Range/Units 18:26 18:26 19:56 WBC (4.0-11.0) K/uL RBC (4.50-5.90) M/uL Hgb (13.0-17.0) g/dL Hct (38.0-50.0) % MCV (80.0-98.0) fL MCH (27.0-32.0) pg MCHC (31.0-37.0) g/dL RDW Std Deviation (28.0-62.0) fl RDW Coeff of Mary (11.0-15.0) % Plt Count (150-400) K/uL MPV (7.40-12.00) fL Neut % (Auto) (48.0-80.0) % Lymph % (Auto) (16.0-40.0) % [place] % (Auto) (0.0-15.0) % Eos % (Auto) (0.0-7.0) % Baso % (Auto) (0.0-1.5) % Neut # (Auto) (1.4-5.7) K/uL Lymph # (Auto) (0.6-2.4) K/uL [place] # (Auto) (0.0-0.8) K/uL Eos # (Auto) (0.0-0.7) K/uL Baso # (Auto) (0.0-0.1) K/uL Nucleated RBC % /100WBC Nucleated RBCs # K/uL INR APTT (18.6-31.3) SEC Sodium (136-148) mmol/L Potassium (3.5-5.1) mmol/L Chloride (98-107) mmol/L Carbon Dioxide (21.0-32.0) mmol/L BUN (7.0-18.0) mg/dL Creatinine (0.8-1.3) mg/dL Est Cr Clr Drug Dosing Estimated GFR (MDRD) ml/min Glucose (74-106) mg/dL Calcium (8.5-10.1) mg/dL Ferritin 196 (26-388) ng/mL Total Bilirubin (0.2-1.0) mg/dL AST (15-37) IU/L ALT (14-63) IU/L Alkaline Phosphatase (46-116) U/L Lactate Dehydrogenase 312 H (81-234) U/L Troponin I (0.000-0.056) ng/mL C-Reactive Protein 0.80 (0.00-0.90) mg/dL Total Protein (6.4-8.2) g/dL Albumin (3.4-5.0) g/dL Globulin (2.6-4.0) g/dL Albumin/Globulin Ratio (0.9-1.6) Lipase (73-393) U/L Urine Color Urine Appearance Urine pH (5.0-8.0) Ur Specific [place] (1.001-1.035) Urine Protein (NEGATIVE) mg/dL Urine Glucose (UA) (NEGATIVE) mg/dL Urine Ketones (NEGATIVE) mg/dL Urine Occult Blood (NEGATIVE) Urine Nitrite (NEGATIVE) Urine Bilirubin (NEGATIVE) Urine Urobilinogen (<2.0) EU/dL Ur Leukocyte Esterase (NEGATIVE) Urine RBC (0-2/HPF) Urine WBC (0-5/HPF) Ur Epithelial Cells (NONE-FEW) Urine Bacteria (NEGATIVE) SARS-CoV-2 RNA (COLLETTE) NEGATIVE (NEGATIVE) 12/21/20 Range/Units 21:20 WBC (4.0-11.0) K/uL RBC (4.50-5.90) M/uL Hgb (13.0-17.0) g/dL Hct (38.0-50.0) % MCV (80.0-98.0) fL MCH (27.0-32.0) pg MCHC (31.0-37.0) g/dL RDW Std Deviation (28.0-62.0) fl RDW Coeff of Mary (11.0-15.0) % Plt Count (150-400) K/uL MPV (7.40-12.00) fL Neut % (Auto) (48.0-80.0) % Lymph % (Auto) (16.0-40.0) % [place] % (Auto) (0.0-15.0) % Eos % (Auto) (0.0-7.0) % Baso % (Auto) (0.0-1.5) % Neut # (Auto) (1.4-5.7) K/uL Lymph # (Auto) (0.6-2.4) K/uL [place] # (Auto) (0.0-0.8) K/uL Eos # (Auto) (0.0-0.7) K/uL Baso # (Auto) (0.0-0.1) K/uL Nucleated RBC % /100WBC Nucleated RBCs # K/uL INR APTT (18.6-31.3) SEC Sodium (136-148) mmol/L Potassium (3.5-5.1) mmol/L Chloride (98-107) mmol/L Carbon Dioxide (21.0-32.0) mmol/L BUN (7.0-18.0) mg/dL Creatinine (0.8-1.3) mg/dL Est Cr Clr Drug Dosing Estimated GFR (MDRD) ml/min Glucose (74-106) mg/dL Calcium (8.5-10.1) mg/dL Ferritin (26-388) ng/mL Total Bilirubin (0.2-1.0) mg/dL AST (15-37) IU/L ALT (14-63) IU/L Alkaline Phosphatase (46-116) U/L Lactate Dehydrogenase (81-234) U/L Troponin I (0.000-0.056) ng/mL C-Reactive Protein (0.00-0.90) mg/dL Total Protein (6.4-8.2) g/dL Albumin (3.4-5.0) g/dL Globulin (2.6-4.0) g/dL Albumin/Globulin Ratio (0.9-1.6) Lipase (73-393) U/L Urine Color YELLOW Urine Appearance CLEAR Urine pH 5.0 (5.0-8.0) Ur Specific [place] 1.025 (1.001-1.035) Urine Protein NEGATIVE (NEGATIVE) mg/dL Urine Glucose (UA) NEGATIVE (NEGATIVE) mg/dL Urine Ketones NEGATIVE (NEGATIVE) mg/dL Urine Occult Blood NEGATIVE (NEGATIVE) Urine Nitrite NEGATIVE (NEGATIVE) Urine Bilirubin NEGATIVE (NEGATIVE) Urine Urobilinogen 0.2 (<2.0) EU/dL Ur Leukocyte Esterase TRACE H (NEGATIVE) Urine RBC 0-1 (0-2/HPF) Urine WBC 0-2 (0-5/HPF) Ur Epithelial Cells RARE (NONE-FEW) Urine Bacteria RARE (NEGATIVE) SARS-CoV-2 RNA (COLLETTE) (NEGATIVE) Result Diagrams: 12/22/20 05:38 12/22/20 05:38 Sepsis Event Note - Evaluation Sepsis Screening Result: No Definite Risk - Focused Exam Vital Signs: Vital Signs Temp Pulse Resp BP Pulse Ox 12/21/20 21:30 36.4 C 73 16 132/80 93 L 12/21/20 21:15 37.1 C 72 16 132/74 97 12/21/20 19:50 70 18 98/52 L 96 12/21/20 18:17 36.6 C 79 19 143/78 H 94 L - Problem List (1) EDY (acute kidney injury) SNOMED Code(s): 31479126, 13419712 ICD Code: N17.9 - ACUTE KIDNEY FAILURE, UNSPECIFIED Status: Acute Current Visit: Yes (2) Fall SNOMED Code(s): 4703426, 825420771 ICD Code: W19.XXXA - UNSPECIFIED FALL, INITIAL ENCOUNTER Status: Acute Current Visit: Yes (3) Scalp hematoma SNOMED Code(s): 244017706 ICD Code: S00.03XA - CONTUSION OF SCALP, INITIAL ENCOUNTER Status: Acute Current Visit: Yes (4) Afib SNOMED Code(s): 18515104 ICD Code: I48.91 - UNSPECIFIED ATRIAL FIBRILLATION Status: Chronic Current Visit: No Qualifiers: Atrial fibrillation type: chronic (5) CAD (coronary artery disease) SNOMED Code(s): 79583329 ICD Code: I25.10 - ATHSCL HEART DISEASE OF [place] CORONARY ARTERY W/O ANG PCTRS Status: Chronic Priority: High Current Visit: No Qualifiers: Coronary Disease-Associated Artery/Lesion type: [place] artery [place] vs. transplanted heart: [place] heart (6) DM type 2 (diabetes mellitus, type 2) SNOMED Code(s): 99531311 ICD Code: E11.9 - TYPE 2 DIABETES MELLITUS WITHOUT COMPLICATIONS Status: Chronic Priority: High Current Visit: No Qualifiers: Diabetes mellitus longterm insulin use: without longterm use Diabetes mellitus complication status: without complication Qualified Code(s): E11.9 - Type 2 diabetes mellitus without complications (7) HTN (hypertension) SNOMED Code(s): 59780837 ICD Code: I10 - ESSENTIAL (PRIMARY) HYPERTENSION Status: Chronic Priority: High Current Visit: No Qualifiers: Hypertension type: essential hypertension Qualified Code(s): I10 - E ssential (primary) hypertension (8) Pacemaker SNOMED Code(s): 499663722 ICD Code: Z95.0 - PRESENCE OF CARDIAC PACEMAKER Status: Chronic Priority: Medium Current Visit: No Problem List Initiated/Reviewed/Updated: Yes Orders Last 24hrs: Active Orders 24 hr Category Date Time Status Patient Status [ADT] Routine ADT 12/21/20 20:05 Active Ambulate [RC] ASDIRECTED Care 12/21/20 20:10 Active Antiembolic Devices [RC] PER UNIT ROUTINE Care 12/21/20 20:11 Active Oxygen Therapy [RC] PRN Care 12/21/20 20:10 Active RT Aerosol Therapy [RC] ASDIRECTED Care 12/21/20 20:11 Active Telemetry Monitoring [Cardiac Monitoring] [RC] Q8H Care 12/21/20 21:09 Active VTE/DVT Education [RC] PER UNIT ROUTINE Care 12/21/20 20:10 Active Vital Signs [RC] Q4H Care 12/21/20 20:10 Active Heart Healthy Diet [DIET] Diet 12/21/20 Dinner Active BMP [BASIC METABOLIC PANEL,BMP] [CHEM] AM Lab 12/22/20 05:11 Ordered CBC WITH AUTO DIFF [HEME] AM Lab 12/22/20 05:11 Ordered MAGNESIUM [CHEM] AM Lab 12/22/20 05:11 Ordered PHOSPHORUS [CHEM] AM Lab 12/22/20 05:11 Ordered PROCALCITONIN [REF] Stat Lab 12/21/20 18:26 Received Acetaminophen [TylenoL] Med 12/21/20 20:10 Active 650 mg PO Q4H PRN Albuterol/Ipratropium [DuoNeb 3.0-0.5 MG/3 ML] Med 12/21/20 20:10 Active 3 ml NEB Q4HRRT PRN Lactated Ringers [Ringers, Lactated] 1,000 ml Med 12/21/20 20:15 Active IV ASDIRECTED Sodium Chloride 0.9% [Saline Flush] Med 12/21/20 18:28 Active 10 ml FLUSH ASDIRECTED PRN Sodium Chloride 0.9% [Saline Flush] Med 12/21/20 18:28 Active 2.5 ml FLUSH ASDIRECTED PRN Saline Lock Insert [OM.PC] Stat Oth 12/21/20 18:28 Ordered Sequential Compression Device [OM.PC] Per Unit Routine Oth 12/21/20 20:10 Ordered Medication Orders Acetaminophen (Acetaminophen 325 Mg Tab) 650 mg PO Q4H PRN PRN Reason: Pain (Mild 1-3)/fever Last Admin: 12/21/20 21:57 Dose: 650 mg Documented by: EVA Albuterol/Ipratropium (Albuterol/Ipratropium 3.0-0.5 Mg/3 Ml Neb Soln) 3 ml NEB Q4HRRT PRN PRN Reason: Shortness Of Breath/wheezing Lactated Ringer's (Ringers, Lactated) 1,000 mls @ 125 mls/hr IV ASDIRECTED JULIAN Last Admin: 12/21/20 22:20 Dose: 125 mls/hr Documented by: EVA Sodium Chloride (Sodium Chloride 0.9% 10 Ml Syringe) 10 ml FLUSH ASDIRECTED PRN PRN Reason: Keep Vein Open Sodium Chloride (Sodium Chloride 0.9% 2.5 Ml Syringe) 2.5 ml FLUSH ASDIRECTED PRN PRN Reason: Keep Vein Open Assessment/Plan Comment:: 85 y/o M admitted for s/p fall and EDY EDY has improved, cont IV fluids till tonight UA noted, f/u on cultures cont IV Rocephin Cardiac diet Ambulate as tolerated Hold Blood thinner for now Neuro exam Q12H Possible dc tomorrow
[2020-12-21] MEDS ORDERED: cefTRIAXone 1 GM Vial IVPUSH SCH (23:00)
[2020-12-21] MEDS: cefTRIAXone 1 GM in Premix Bag 1 BAG IV SCH (23:28)
[2020-12-22 06:06] LABS: CARBON DIOXIDE,CO2 30.8 mmol/L (21.0-32.0); POTASSIUM,K 3.7 mmol/L (3.5-5.1)
[2020-12-22] MEDS: Lactated Ringers 1,000 ML IV SCH ×2 (06:57→15:01)
--- NOTE | 2020-12-22 12:01 | PCM.PN ---
- General Info Date of Service: 12/22/20 Admission Dx/Problem (Free Text): Admission Diagnosis/Problem Admission Diagnosis/Problem Acute kidney injury Functional Status: Reports: Pain Controlled, Tolerating Diet, Ambulating - Review of Systems General: Denies: Fever, Weakness, Fatigue Pulmonary: Denies: Shortness of Breath Cardiovascular: Denies: Chest Pain, Palpitations, Dyspnea on Exertion Gastrointestinal: Denies: Abdominal Pain, Constipation Genitourinary: Denies: Dysuria, Frequency, Burning Musculoskeletal: Reports: Joint Pain. Denies: Neck Pain, Shoulder Pain, Leg Pain, Foot Pain, Joint Swelling - Patient Data Vitals - Most Recent: Last Vital Signs Temp 36.3 C 12/22/20 07:48 Pulse 74 12/22/20 07:48 Resp 15 12/22/20 07:48 BP 135/78 12/22/20 07:48 Pulse Ox 96 12/22/20 07:48 Weight - Most Recent: 106.866 kg I&O - Last 24 Hours: Intake & Output 12/21/20 12/22/20 12/22/20 22:59 06:59 14:59 Intake Total 1437 Output Total 200 Balance 1237 Lab Results Last 24 Hours: Laboratory Results - last 24 hr 12/21/20 12/21/20 12/21/20 Range/Units 18:26 18:26 18:26 WBC 9.83 (4.0-11.0) K/uL RBC 4.22 L (4.50-5.90) M/uL Hgb 13.4 (13.0-17.0) g/dL Hct 41.6 (38.0-50.0) % MCV 98.6 H (80.0-98.0) fL MCH 31.8 (27.0-32.0) pg MCHC 32.2 (31.0-37.0) g/dL RDW Std Deviation 50.3 (28.0-62.0) fl RDW Coeff of Mary 14 (11.0-15.0) % Plt Count 170 (150-400) K/uL MPV 10.60 (7.40-12.00) fL Neut % (Auto) 66.2 (48.0-80.0) % Lymph % (Auto) 21.9 (16.0-40.0) % [place] % (Auto) 9.9 (0.0-15.0) % Eos % (Auto) 1.8 (0.0-7.0) % Baso % (Auto) 0.2 (0.0-1.5) % Neut # (Auto) 6.5 H (1.4-5.7) K/uL Lymph # (Auto) 2.2 (0.6-2.4) K/uL [place] # (Auto) 1.0 H (0.0-0.8) K/uL Eos # (Auto) 0.2 (0.0-0.7) K/uL Baso # (Auto) 0.0 (0.0-0.1) K/uL Nucleated RBC % 0.0 /100WBC Nucleated RBCs # 0 K/uL INR 1.17 APTT 26.5 (18.6-31.3) SEC Sodium 142 (136-148) mmol/L Potassium 4.5 (3.5-5.1) mmol/L Chloride 105 (98-107) mmol/L Carbon Dioxide 28.7 (21.0-32.0) mmol/L BUN 27 H (7.0-18.0) mg/dL Creatinine 2.0 H (0.8-1.3) mg/dL Est Cr Clr Drug Dosing TNP Estimated GFR (MDRD) 31.9 ml/min Glucose 117 H (74-106) mg/dL Calcium 9.0 (8.5-10.1) mg/dL Phosphorus (2.6-4.7) mg/dL Magnesium (1.8-2.4) mg/dL Ferritin (26-388) ng/mL Total Bilirubin 0.5 (0.2-1.0) mg/dL AST 17 (15-37) IU/L ALT 21 (14-63) IU/L Alkaline Phosphatase 109 (46-116) U/L Lactate Dehydrogenase (81-234) U/L Troponin I < 0.050 (0.000-0.056) ng/mL C-Reactive Protein (0.00-0.90) mg/dL Total Protein 8.3 H (6.4-8.2) g/dL Albumin 4.0 (3.4-5.0) g/dL Globulin 4.3 H (2.6-4.0) g/dL Albumin/Globulin Ratio 0.9 (0.9-1.6) Lipase 288 (73-393) U/L Urine Color Urine Appearance Urine pH (5.0-8.0) Ur Specific [place] (1.001-1.035) Urine Protein (NEGATIVE) mg/dL Urine Glucose (UA) (NEGATIVE) mg/dL Urine Ketones (NEGATIVE) mg/dL Urine Occult Blood (NEGATIVE) Urine Nitrite (NEGATIVE) Urine Bilirubin (NEGATIVE) Urine Urobilinogen (<2.0) EU/dL Ur Leukocyte Esterase (NEGATIVE) Urine RBC (0-2/HPF) Urine WBC (0-5/HPF) Ur Epithelial Cells (NONE-FEW) Urine Bacteria (NEGATIVE) SARS-CoV-2 RNA (COLLETTE) (NEGATIVE) 12/21/20 12/21/20 12/21/20 Range/Units 18:26 18:26 19:56 WBC (4.0-11.0) K/uL RBC (4.50-5.90) M/uL Hgb (13.0-17.0) g/dL Hct (38.0-50.0) % MCV (80.0-98.0) fL MCH (27.0-32.0) pg MCHC (31.0-37.0) g/dL RDW Std Deviation (28.0-62.0) fl RDW Coeff of Mary (11.0-15.0) % Plt Count (150-400) K/uL MPV (7.40-12.00) fL Neut % (Auto) (48.0-80.0) % Lymph % (Auto) (16.0-40.0) % [place] % (Auto) (0.0-15.0) % Eos % (Auto) (0.0-7.0) % Baso % (Auto) (0.0-1.5) % Neut # (Auto) (1.4-5.7) K/uL Lymph # (Auto) (0.6-2.4) K/uL [place] # (Auto) (0.0-0.8) K/uL Eos # (Auto) (0.0-0.7) K/uL Baso # (Auto) (0.0-0.1) K/uL Nucleated RBC % /100WBC Nucleated RBCs # K/uL INR APTT (18.6-31.3) SEC Sodium (136-148) mmol/L Potassium (3.5-5.1) mmol/L Chloride (98-107) mmol/L Carbon Dioxide (21.0-32.0) mmol/L BUN (7.0-18.0) mg/dL Creatinine (0.8-1.3) mg/dL Est Cr Clr Drug Dosing Estimated GFR (MDRD) ml/min Glucose (74-106) mg/dL Calcium (8.5-10.1) mg/dL Phosphorus (2.6-4.7) mg/dL Magnesium (1.8-2.4) mg/dL Ferritin 196 (26-388) ng/mL Total Bilirubin (0.2-1.0) mg/dL AST (15-37) IU/L ALT (14-63) IU/L Alkaline Phosphatase (46-116) U/L Lactate Dehydrogenase 312 H (81-234) U/L Troponin I (0.000-0.056) ng/mL C-Reactive Protein 0.80 (0.00-0.90) mg/dL Total Protein (6.4-8.2) g/dL Albumin (3.4-5.0) g/dL Globulin (2.6-4.0) g/dL Albumin/Globulin Ratio (0.9-1.6) Lipase (73-393) U/L Urine Color Urine Appearance Urine pH (5.0-8.0) Ur Specific [place] (1.001-1.035) Urine Protein (NEGATIVE) mg/dL Urine Glucose (UA) (NEGATIVE) mg/dL Urine Ketones (NEGATIVE) mg/dL Urine Occult Blood (NEGATIVE) Urine Nitrite (NEGATIVE) Urine Bilirubin (NEGATIVE) Urine Urobilinogen (<2.0) EU/dL Ur Leukocyte Esterase (NEGATIVE) Urine RBC (0-2/HPF) Urine WBC (0-5/HPF) Ur Epithelial Cells (NONE-FEW) Urine Bacteria (NEGATIVE) SARS-CoV-2 RNA ([place]) NEGATIVE (NEGATIVE) 12/21/20 12/22/20 12/22/20 Range/Units 21:20 05:38 05:38 WBC 7.03 (4.0-11.0) K/uL RBC 3.80 L (4.50-5.90) M/uL Hgb 11.8 L (13.0-17.0) g/dL Hct 37.6 L (38.0-50.0) % MCV 98.9 H (80.0-98.0) fL MCH 31.1 (27.0-32.0) pg MCHC 31.4 (31.0-37.0) g/dL RDW Std Deviation 50.4 (28.0-62.0) fl RDW Coeff of Mary 14 (11.0-15.0) % Plt Count 144 L (150-400) K/uL MPV 10.40 (7.40-12.00) fL Neut % (Auto) 67.4 (48.0-80.0) % Lymph % (Auto) 21.3 (16.0-40.0) % [place] % (Auto) 9.0 (0.0-15.0) % Eos % (Auto) 2.0 (0.0-7.0) % Baso % (Auto) 0.3 (0.0-1.5) % Neut # (Auto) 4.7 (1.4-5.7) K/uL Lymph # (Auto) 1.5 (0.6-2.4) K/uL [place] # (Auto) 0.6 (0.0-0.8) K/uL Eos # (Auto) 0.1 (0.0-0.7) K/uL Baso # (Auto) 0.0 (0.0-0.1) K/uL Nucleated RBC % 0.0 /100WBC Nucleated RBCs # 0 K/uL INR APTT (18.6-31.3) SEC Sodium 140 (136-148) mmol/L Potassium 3.7 (3.5-5.1) mmol/L Chloride 106 (98-107) mmol/L Carbon Dioxide 30.8 (21.0-32.0) mmol/L BUN 26 H (7.0-18.0) mg/dL Creatinine 1.4 H (0.8-1.3) mg/dL Est Cr Clr Drug Dosing 37.32 Estimated GFR (MDRD) 48.2 ml/min Glucose 101 (74-106) mg/dL Calcium 8.5 (8.5-10.1) mg/dL Phosphorus 4.6 (2.6-4.7) mg/dL Magnesium 2.2 (1.8-2.4) mg/dL Ferritin (26-388) ng/mL Total Bilirubin (0.2-1.0) mg/dL AST (15-37) IU/L ALT (14-63) IU/L Alkaline Phosphatase (46-116) U/L Lactate Dehydrogenase (81-234) U/L Troponin I (0.000-0.056) ng/mL C-Reactive Protein (0.00-0.90) mg/dL Total Protein (6.4-8.2) g/dL Albumin (3.4-5.0) g/dL Globulin (2.6-4.0) g/dL Albumin/Globulin Ratio (0.9-1.6) Lipase (73-393) U/L Urine Color YELLOW Urine Appearance CLEAR Urine pH 5.0 (5.0-8.0) Ur Specific [place] 1.025 (1.001-1.035) Urine Protein NEGATIVE (NEGATIVE) mg/dL Urine Glucose (UA) NEGATIVE (NEGATIVE) mg/dL Urine Ketones NEGATIVE (NEGATIVE) mg/dL Urine Occult Blood NEGATIVE (NEGATIVE) Urine Nitrite NEGATIVE (NEGATIVE) Urine Bilirubin NEGATIVE (NEGATIVE) Urine Urobilinogen 0.2 (<2.0) EU/dL Ur Leukocyte Esterase TRACE H (NEGATIVE) Urine RBC 0-1 (0-2/HPF) Urine WBC 0-2 (0-5/HPF) Ur Epithelial Cells RARE (NONE-FEW) Urine Bacteria RARE (NEGATIVE) SARS-CoV-2 RNA (COL[place]TTE) (NEGATIVE) Med Orders - Current: Current Medications Acetaminophen (Acetaminophen 325 Mg Tab) 650 mg PO Q4H PRN PRN Reason: Pain (Mild 1-3)/fever Last Admin: 12/21/20 21:57 Dose: 650 mg Documented by: Albuterol/Ipratropium (Albuterol/Ipratropium 3.0-0.5 Mg/3 Ml Neb Soln) 3 ml NEB Q4HRRT PRN PRN Reason: Shortness Of Breath/wheezing Lactated Ringer's (Ringers, Lactated) 1,000 mls @ 125 mls/hr IV ASDIRECTED [facility] Last Admin: 12/22/20 06:57 Dose: 125 mls/hr Documented by: Ceftriaxone Sodium/Dextrose 1 (gm/ Premix) 50 mls @ 100 mls/hr IV Q24H JULIAN Last Admin: 12/21/20 23:28 Dose: 100 mls/hr Documented by: Metoprolol Tartrate (Metoprolol Tartrate 50 Mg Tab) 75 mg PO BID [facility] Sodium Chloride (Sodium Chloride 0.9% 10 Ml Syringe) 10 ml FLUSH ASDIRECTED PRN PRN Reason: Keep Vein Open Sodium Chloride (Sodium Chloride 0.9% 2.5 Ml Syringe) 2.5 ml FLUSH ASDIRECTED PRN PRN Reason: Keep Vein Open - Exam General: Alert, Oriented Neck: Supple, Trachea Midline Lungs: Clear to Auscultation Cardiovascular: Regular Rate, Irregular Rhythm GI/Abdominal Exam: Normal Bowel Sounds, Soft, Non-Tender, No Organomegaly - Patient Data Lab Results Last 24 hrs: Laboratory Results - last 24 hr 12/21/20 12/21/20 12/21/20 Range/Units 18:26 18:26 18:26 WBC 9.83 (4.0-11.0) K/uL RBC 4.22 L (4.50-5.90) M/uL Hgb 13.4 (13.0-17.0) g/dL Hct 41.6 (38.0-50.0) % MCV 98.6 H (80.0-98.0) fL MCH 31.8 (27.0-32.0) pg MCHC 32.2 (31.0-37.0) g/dL RDW Std Deviation 50.3 (28.0-62.0) fl RDW Coeff of Mary 14 (11.0-15.0) % Plt Count 170 (150-400) K/uL MPV 10.60 (7.40-12.00) fL Neut % (Auto) 66.2 (48.0-80.0) % Lymph % (Auto) 21.9 (16.0-40.0) % [place] % (Auto) 9.9 (0.0-15.0) % Eos % (Auto) 1.8 (0.0-7.0) % Baso % (Auto) 0.2 (0.0-1.5) % Neut # (Auto) 6.5 H (1.4-5.7) K/uL Lymph # (Auto) 2.2 (0.6-2.4) K/uL [place] # (Auto) 1.0 H (0.0-0.8) K/uL Eos # (Auto) 0.2 (0.0-0.7) K/uL Baso # (Auto) 0.0 (0.0-0.1) K/uL Nucleated RBC % 0.0 /100WBC Nucleated RBCs # 0 K/uL INR 1.17 APTT 26.5 (18.6-31.3) SEC Sodium 142 (136-148) mmol/L Potassium 4.5 (3.5-5.1) mmol/L Chloride 105 (98-107) mmol/L Carbon Dioxide 28.7 (21.0-32.0) mmol/L BUN 27 H (7.0-18.0) mg/dL Creatinine 2.0 H (0.8-1.3) mg/dL Est Cr Clr Drug Dosing TNP Estimated GFR (MDRD) 31.9 ml/min Glucose 117 H (74-106) mg/dL Calcium 9.0 (8.5-10.1) mg/dL Phosphorus (2.6-4.7) mg/dL Magnesium (1.8-2.4) mg/dL Ferritin (26-388) ng/mL Total Bilirubin 0.5 (0.2-1.0) mg/dL AST 17 (15-37) IU/L ALT 21 (14-63) IU/L Alkaline Phosphatase 109 (46-116) U/L Lactate Dehydrogenase (81-234) U/L Troponin I < 0.050 (0.000-0.056) ng/mL C-Reactive Protein (0.00-0.90) mg/dL Total Protein 8.3 H (6.4-8.2) g/dL Albumin 4.0 (3.4-5.0) g/dL Globulin 4.3 H (2.6-4.0) g/dL Albumin/Globulin Ratio 0.9 (0.9-1.6) Lipase 288 (73-393) U/L Urine Color Urine Appearance Urine pH (5.0-8.0) Ur Specific [place] (1.001-1.035) Urine Protein (NEGATIVE) mg/dL Urine Glucose (UA) (NEGATIVE) mg/dL Urine Ketones (NEGATIVE) mg/dL Urine Occult Blood (NEGATIVE) Urine Nitrite (NEGATIVE) Urine Bilirubin (NEGATIVE) Urine Urobilinogen (<2.0) EU/dL Ur Leukocyte Esterase (NEGATIVE) Urine RBC (0-2/HPF) Urine WBC (0-5/HPF) Ur Epithelial Cells (NONE-FEW) Urine Bacteria (NEGATIVE) SARS-CoV-2 RNA ([place]TT[place]) (NEGATIVE) 12/21/20 12/21/20 12/21/20 Range/Units 18:26 18:26 19:56 WBC (4.0-11.0) K/uL RBC (4.50-5.90) M/uL Hgb (13.0-17.0) g/dL Hct (38.0-50.0) % MCV (80.0-98.0) fL MCH (27.0-32.0) pg MCHC (31.0-37.0) g/dL RDW Std Deviation (28.0-62.0) fl RDW Coeff of Mary (11.0-15.0) % Plt Count (150-400) K/uL MPV (7.40-12.00) fL Neut % (Auto) (48.0-80.0) % Lymph % (Auto) (16.0-40.0) % [place] % (Auto) (0.0-15.0) % Eos % (Auto) (0.0-7.0) % Baso % (Auto) (0.0-1.5) % Neut # (Auto) (1.4-5.7) K/uL Lymph # (Auto) (0.6-2.4) K/uL [place] # (Auto) (0.0-0.8) K/uL Eos # (Auto) (0.0-0.7) K/uL Baso # (Auto) (0.0-0.1) K/uL Nucleated RBC % /100WBC Nucleated RBCs # K/uL INR APTT (18.6-31.3) SEC Sodium (136-148) mmol/L Potassium (3.5-5.1) mmol/L Chloride (98-107) mmol/L Carbon Dioxide (21.0-32.0) mmol/L BUN (7.0-18.0) mg/dL Creatinine (0.8-1.3) mg/dL Est Cr Clr Drug Dosing Estimated GFR (MDRD) ml/min Glucose (74-106) mg/dL Calcium (8.5-10.1) mg/dL Phosphorus (2.6-4.7) mg/dL Magnesium (1.8-2.4) mg/dL Ferritin 196 (26-388) ng/mL Total Bilirubin (0.2-1.0) mg/dL AST (15-37) IU/L ALT (14-63) IU/L Alkaline Phosphatase (46-116) U/L Lactate Dehydrogenase 312 H (81-234) U/L Troponin I (0.000-0.056) ng/mL C-Reactive Protein 0.80 (0.00-0.90) mg/dL Total Protein (6.4-8.2) g/dL Albumin (3.4-5.0) g/dL Globulin (2.6-4.0) g/dL Albumin/Globulin Ratio (0.9-1.6) Lipase (73-393) U/L Urine Color Urine Appearance Urine pH (5.0-8.0) Ur Specific [place] (1.001-1.035) Urine Protein (NEGATIVE) mg/dL Urine Glucose (UA) (NEGATIVE) mg/dL Urine Ketones (NEGATIVE) mg/dL Urine Occult Blood (NEGATIVE) Urine Nitrite (NEGATIVE) Urine Bilirubin (NEGATIVE) Urine Urobilinogen (<2.0) EU/dL Ur Leukocyte Esterase (NEGATIVE) Urine RBC (0-2/HPF) Urine WBC (0-5/HPF) Ur Epithelial Cells (NONE-FEW) Urine Bacteria (NEGATIVE) SARS-CoV-2 RNA ([place]) NEGATIVE (NEGATIVE) 12/21/20 12/22/20 12/22/20 Range/Units 21:20 05:38 05:38 WBC 7.03 (4.0-11.0) K/uL RBC 3.80 L (4.50-5.90) M/uL Hgb 11.8 L (13.0-17.0) g/dL Hct 37.6 L (38.0-50.0) % MCV 98.9 H (80.0-98.0) fL MCH 31.1 (27.0-32.0) pg MCHC 31.4 (31.0-37.0) g/dL RDW Std Deviation 50.4 (28.0-62.0) fl RDW Coeff of Mary 14 (11.0-15.0) % Plt Count 144 L (150-400) K/uL MPV 10.40 (7.40-12.00) fL Neut % (Auto) 67.4 (48.0-80.0) % Lymph % (Auto) 21.3 (16.0-40.0) % [place] % (Auto) 9.0 (0.0-15.0) % Eos % (Auto) 2.0 (0.0-7.0) % Baso % (Auto) 0.3 (0.0-1.5) % Neut # (Auto) 4.7 (1.4-5.7) K/uL Lymph # (Auto) 1.5 (0.6-2.4) K/uL [place] # (Auto) 0.6 (0.0-0.8) K/uL Eos # (Auto) 0.1 (0.0-0.7) K/uL Baso # (Auto) 0.0 (0.0-0.1) K/uL Nucleated RBC % 0.0 /100WBC Nucleated RBCs # 0 K/uL INR APTT (18.6-31.3) SEC Sodium 140 (136-148) mmol/L Potassium 3.7 (3.5-5.1) mmol/L Chloride 106 (98-107) mmol/L Carbon Dioxide 30.8 (21.0-32.0) mmol/L BUN 26 H (7.0-18.0) mg/dL Creatinine 1.4 H (0.8-1.3) mg/dL Est Cr Clr Drug Dosing 37.32 Estimated GFR (MDRD) 48.2 ml/min Glucose 101 (74-106) mg/dL Calcium 8.5 (8.5-10.1) mg/dL Phosphorus 4.6 (2.6-4.7) mg/dL Magnesium 2.2 (1.8-2.4) mg/dL Ferritin (26-388) ng/mL Total Bilirubin (0.2-1.0) mg/dL AST (15-37) IU/L ALT (14-63) IU/L Alkaline Phosphatase (46-116) U/L Lactate Dehydrogenase (81-234) U/L Troponin I (0.000-0.056) ng/mL C-Reactive Protein (0.00-0.90) mg/dL Total Protein (6.4-8.2) g/dL Albumin (3.4-5.0) g/dL Globulin (2.6-4.0) g/dL Albumin/Globulin Ratio (0.9-1.6) Lipase (73-393) U/L Urine Color YELLOW Urine Appearance CLEAR Urine pH 5.0 (5.0-8.0) Ur Specific [place] 1.025 (1.001-1.035) Urine Protein NEGATIVE (NEGATIVE) mg/dL Urine Glucose (UA) NEGATIVE (NEGATIVE) mg/dL Urine Ketones NEGATIVE (NEGATIVE) mg/dL Urine Occult Blood NEGATIVE (NEGATIVE) Urine Nitrite NEGATIVE (NEGATIVE) Urine Bilirubin NEGATIVE (NEGATIVE) Urine Urobilinogen 0.2 (<2.0) EU/dL Ur Leukocyte Esterase TRACE H (NEGATIVE) Urine RBC 0-1 (0-2/HPF) Urine WBC 0-2 (0-5/HPF) Ur Epithelial Cells RARE (NONE-FEW) Urine Bacteria RARE (NEGATIVE) SARS-CoV-2 RNA (COLLETTE) (NEGATIVE) Result Diagrams: 12/22/20 05:38 12/22/20 05:38 Sepsis Event Note - Evaluation Sepsis Screening Result: No Definite Risk - Focused Exam Vital Signs: Vital Signs Temp Pulse Resp BP BP Pulse Ox 12/22/20 07:48 36.3 C 74 15 135/78 96 12/22/20 03:44 36.7 C 74 16 138/76 97 - Problem List & Annotations (1) EDY (acute kidney injury) SNOMED Code(s): 65192473, 11858520 Code(s): N17.9 - ACUTE KIDNEY FAILURE, UNSPECIFIED Status: Acute Current Visit: Yes (2) Fall SNOMED Code(s): 0687877, 031401837 Code(s): W19.XXXA - UNSPECIFIED FALL, INITIAL ENCOUNTER Status: Acute Current Visit: Yes (3) Scalp hematoma SNOMED Code(s): 376271517 Code(s): S00.03XA - CONTUSION OF SCALP, INITIAL ENCOUNTER Status: Acute Current Visit: Yes (4) Afib SNOMED Code(s): 11051185 Code(s): I48.91 - UNSPECIFIED ATRIAL FIBRILLATION Status: Chronic Current Visit: No Qualifiers: Atrial fibrillation type: chronic (5) CAD (coronary artery disease) SNOMED Code(s): 96866266 Code(s): I25.10 - ATHSCL HEART DISEASE OF [place] CORONARY ARTERY W/O ANG PCTRS Status: Chronic Priority: High Current Visit: No Qualifiers: Coronary Disease-Associated Artery/Lesion type: [place] artery [place] vs. transplanted heart: [place] heart (6) DM type 2 (diabetes mellitus, type 2) SNOMED Code(s): 85930425 Code(s): E11.9 - TYPE 2 DIABETES MELLITUS WITHOUT COMPLICATIONS Status: Chronic Priority: High Current Visit: No Qualifiers: Diabetes mellitus skilled nursing insulin use: without skilled nursing use Diabetes mellitus complication status: without complication Qualified Code(s): E11.9 - Type 2 diabetes mellitus without complications (7) HTN (hypertension) SNOMED Code(s): 47067030 Code(s): I10 - ESSENTIAL (PRIMARY) HYPERTENSION Status: Chronic Priority: High Current Visit: No Qualifiers: Hypertension type: essential hypertension Qualified Code(s): I10 - Essential (primary) hypertension (8) Pacemaker SNOMED Code(s): 931282168 Code(s): Z95.0 - PRESENCE OF CARDIAC PACEMAKER Status: Chronic Priority: Medium Current Visit: No - Problem List Review Problem List Initiated/Reviewed/Updated: Yes - My Orders Last 24 Hours: My Active Orders 12/21/20 Dinner Heart Healthy Diet [DIET] 12/21/20 20:10 Ambulate [RC] ASDIRECTED Oxygen Therapy [RC] PRN VTE/DVT Education [RC] PER UNIT ROUTINE Vital Signs [RC] Q4H Acetaminophen [TylenoL] 650 mg PO Q4H PRN Albuterol/Ipratropium [DuoNeb 3.0-0.5 MG/3 ML] 3 ml NEB Q4HRRT PRN Sequential Compression Device [OM.PC] Per Unit Routine 12/21/20 20:11 Antiembolic Devices [RC] PER UNIT ROUTINE RT Aerosol Therapy [RC] ASDIRECTED 12/21/20 20:15 Lactated Ringers [Ringers, Lactated] 1,000 ml IV ASDIRECTED 12/21/20 21:09 Telemetry Monitoring [Cardiac Monitoring] [RC] Q8H 12/21/20 21:20 CULTURE URINE [RM] Routine 12/21/20 22:52 Neuro Check [RC] BID 12/21/20 23:00 cefTRIAXone [Rocephin in Dextrose,Iso-Osm 1 GM/50 ML] 1 gm Premix Bag 1 bag IV Q24H 12/22/20 10:15 Resuscitation Status Routine 12/22/20 21:00 Metoprolol Tartrate [Lopressor] 75 mg PO BID - Plan Plan:: 85 y/o M admitted for s/p fall and EDY EDY has improved, cont IV fluids till tonight UA noted, f/u on cultures till pending cont IV Rocephin pending cultures cont Cardiac diet Ambulate as tolerated Hold Blood thinner for now Neuro exam Q12H Possible dc tomorrow
[2020-12-22] MEDS: Metoprolol Tartrate 50 MG Tab PO SCH (21:49)
[2020-12-22] MEDS: cefTRIAXone 1 GM in Premix Bag 1 BAG IV SCH (23:07)
[2020-12-23 06:46] LABS: BLOOD UREA NITROGEN,BUN 18 mg/dL (7.0-18.0); CARBON DIOXIDE,CO2 29.4 mmol/L (21.0-32.0); CHLORIDE,CL 106 mmol/L (98-107); GLUCOSE RANDOM 102 mg/dL (74-106); POTASSIUM,K 4.2 mmol/L (3.5-5.1); SODIUM,NA 143 mmol/L (136-148)
[2020-12-23] MEDS: Metoprolol Tartrate 50 MG Tab PO SCH (08:54)
--- NOTE | 2020-12-23 10:35 | PCM.DCSUM1 ---
Discharge Summary - Hospital Course Brief History: 85-year-old male past medical history PE on Tonio Lora fib, type 2 diabetes, CAD, hypertension, history of small bowel obstruction, history of COVID-19 infection presents status post fall. Patient was walking down steps outside when he missed a step and fell down roughly 2 steps hitting the left side of his head and his right elbow. He denies any other injuries. He denies any loss of consciousness and was able to get up on his own and ambulate. He denies any nausea or vomiting. He denies any confusion or slurred speech. He notes mild pain in his right elbow but otherwise no pain. CT scan head negative for intracranial bleed or fracture, did show small left parietal scalp hematoma, CT neck negative for acute fractures, xray right elbow and left hip negative for fracture as well, Labs reveled EDY with testboard operator of 2.0, and UA showed mild Leucocyte esterase positive, Patient was admitted for further management. Diagnosis: Stroke: No - Discharge Data Discharge Date: 12/23/20 Discharge Disposition: Home, Home Health Agency 06 Condition: Good - Referral to Home Health Date of Face to Face Encounter: 12/23/20 Reason for Homebound Status: Patient is in need of caregier and assistive device to leave the house safely due to unsteady gait. Primary Care Physician: PCP None Skilled Need: bran is in need of [facility] care for evaluation of blood pressure and medication management. He is also in need of PT/OT to evaluate and treat for gait instability and home safety evaluation. - Discharge Diagnosis/Problem(s) (1) EDY (acute kidney injury) SNOMED Code(s): 59025896, [id number] ICD Code: N17.9 - ACUTE KIDNEY FAILURE, UNSPECIFIED Status: Acute (2) Contusion SNOMED Code(s): 962133489 ICD Code: T14.8XXA - OTHER INJURY OF UNSPECIFIED BODY REGION, INITIAL ENCOUNTER Status: Acute (3) Fall SNOMED Code(s): 2731448, 406733222 ICD Code: W19.XXXA - UNSPECIFIED FALL, INITIAL ENCOUNTER Status: Acute - Patient Summary/Data Hospital Course: Admission diagnoses EDY Fall Scalp contusion Discharge diagnoses EDY resolved Fall Scalp contusion improved Bran was admitted secondary to fall and hitting his head while on anticoagulation. CT was negative for any intracranial bleeding but did note scalp hematoma. Patient was monitored and treated with IV fluids. His Eliquis and Lasix were held due to EDY and fall. It noted he potentially had UTI and was treated with Rocephin but UC returned mixed darrell less than 1000 colonies. Today he is doing much better he is ambulating in the hallway with nursing staff with his walker that he has at home as well. He feels safe and ready to go home. Today he will be discharged home on home medications he is to restart Lasix and Eliquis tomorrow morning. I did speak with daughter and she is in agreement with treatment plan. He will be discharged home as well with home health which he has had in the past. He is to return to ER or clinic if concerns should arise sooner. Follow-up with PCP in 1 week. - Patient Instructions Diet: Heart Healthy Diet Activity: As Tolerated, No Strenuous Activities Driving: Do Not Drive Showering/Bathing: May Shower Notify Provider of: Fever, Increased Pain, Swelling and Redness, Drainage, Nausea and/or Vomiting Other/Special Instructions: Hold Lasix today. Restart Eliquis tomorrow. Monitor symptoms for bleeding in the brain such as headache, blurred vision, confusion. If you notice these seek medical evaluation immediately. - Discharge Plan *PRESCRIPTION DRUG MONITORING PROGRAM REVIEWED*: Not Applicable *COPY OF PRESCRIPTION DRUG MONITORING REPORT IN PATIENT FUAD: Not Applicable Home Medications: Home Meds Furosemide [Lasix] 40 mg PO DAILY 08/20/15 [History] Aspirin 81 mg PO DAILY 09/09/16 [History] Meclizine HCl 25 mg PO TID PRN 04/10/19 [History] Metoprolol Tartrate 75 mg PO BID 04/17/20 [History] traMADol [Ultram] 50 mg PO Q6HR PRN 06/07/20 [History] Escitalopram [Lexapro] 20 mg PO BEDTIME 06/16/20 [History] LORazepam [Ativan] 1 mg PO TID PRN 06/16/20 [History] Apixaban [Eliquis] 5 mg PO BID #90 tablet 06/19/20 [Rx] Famotidine 20 mg PO BID 12/23/20 [History] Rosuvastatin Calcium 20 mg PO BEDTIME 12/23/20 [History] Oxygen Therapy Mode: Room Air Patient Handouts: Chronic Kidney Disease, Adult, [id number] Referrals: Arnol Washburn MD [Physician] - 01/08/21 1:45 pm - Discharge Summary/Plan Comment DC Time >30 min.: No - Patient Data Vitals - Most Recent: Last Vital Signs Temp 98.0 F 12/23/20 07:52 Pulse 74 12/23/20 08:54 Resp 16 12/23/20 07:52 BP 147/78 H 12/23/20 08:54 Pulse Ox 94 L 12/23/20 07:52 Weight - Most Recent: 106.866 kg I&O - Last 24 hours: Intake & Output 12/22/20 12/23/20 12/23/20 22:59 06:59 14:59 Intake Total 1964 1055 Output Total 635 650 Balance 1329 405 Lab Results - Last 24 hrs: Laboratory Results - last 24 hr 12/23/20 12/23/20 Range/Units 06:13 06:13 WBC 6.84 (4.0-11.0) K/uL RBC 3.74 L (4.50-5.90) M/uL Hgb 11.9 L (13.0-17.0) g/dL Hct 37.2 L (38.0-50.0) % MCV 99.5 H (80.0-98.0) fL MCH 31.8 (27.0-32.0) pg MCHC 32.0 (31.0-37.0) g/dL RDW Std Deviation 51.7 (28.0-62.0) fl RDW Coeff of Mary 14 (11.0-15.0) % Plt Count 143 L (150-400) K/uL MPV 10.70 (7.40-12.00) fL Neut % (Auto) 70.5 (48.0-80.0) % Lymph % (Auto) 15.9 L (16.0-40.0) % [place] % (Auto) 10.5 (0.0-15.0) % Eos % (Auto) 2.8 (0.0-7.0) % Baso % (Auto) 0.3 (0.0-1.5) % Neut # (Auto) 4.8 (1.4-5.7) K/uL Lymph # (Auto) 1.1 (0.6-2.4) K/uL [place] # (Auto) 0.7 (0.0-0.8) K/uL Eos # (Auto) 0.2 (0.0-0.7) K/uL Baso # (Auto) 0.0 (0.0-0.1) K/uL Nucleated RBC % 0.0 /100WBC Nucleated RBCs # 0 K/uL Sodium 143 (136-148) mmol/L Potassium 4.2 (3.5-5.1) mmol/L Chloride 106 (98-107) mmol/L Carbon Dioxide 29.4 (21.0-32.0) mmol/L BUN 18 (7.0-18.0) mg/dL Creatinine 1.1 (0.8-1.3) mg/dL Est Cr Clr Drug Dosing 47.50 mL/min Estimated GFR (MDRD) > 60.0 ml/min Glucose 102 (74-106) mg/dL Calcium 8.6 (8.5-10.1) mg/dL Phosphorus 3.5 (2.6-4.7) mg/dL Magnesium 2.1 (1.8-2.4) mg/dL GI Results - Last 24 hrs: Microbiology 12/21/20 21:20 Urine Culture - Final Urine, Clean Catch MIXED DARRELL <1000 CFU/ML Med Orders - Current: Current Medications Acetaminophen (Acetaminophen 325 Mg Tab) 650 mg PO Q4H PRN PRN Reason: Pain (Mild 1-3)/fever Last Admin: 12/21/20 21:57 Dose: 650 mg Documented by: Albuterol/Ipratropium (Albuterol/Ipratropium 3.0-0.5 Mg/3 Ml Neb Soln) 3 ml NEB Q4HRRT PRN PRN Reason: Shortness Of Breath/wheezing Metoprolol Tartrate (Metoprolol Tartrate 50 Mg Tab) 75 mg PO BID JULIAN Last Admin: 12/23/20 08:54 Dose: 75 mg Documented by: Sodium Chloride (Sodium Chloride 0.9% 10 Ml Syringe) 10 ml FLUSH ASDIRECTED PRN PRN Reason: Keep Vein Open Sodium Chloride (Sodium Chloride 0.9% 2.5 Ml Syringe) 2.5 ml FLUSH ASDIRECTED PRN PRN Reason: Keep Vein Open Discontinued Medications Lactated Ringer's (Ringers, Lactated) 1,000 mls @ 125 mls/hr IV ASDIRECTED [facility] Stop: 12/22/20 21:00 Last Admin: 12/22/20 15:01 Dose: 125 mls/hr Documented by: Ceftriaxone Sodium/Dextrose 1 (gm/ Premix) 50 mls @ 100 mls/hr IV Q24H [facility] Last Admin: 12/22/20 23:07 Dose: 100 mls/hr Documented by:
[2020-12-23 12:19] VITALS: BP 103/55; PULSE 75
== END 2020-12-23 13:40 | disposition home health service (06) ==
LOC: MW.ED 18:17 → MW.MS 20:05
PROVIDERS: ADMIT Student in an Organized Health Care Education/Training Program; ATTEND Student in an Organized Health Care Education/Training Program
DX: S00.03XA Contusion of scalp, initial encounter (principal); N17.9 Acute kidney failure, unspecified; M25.521 Pain in right elbow; I48.91 Unspecified atrial fibrillation; E11.9 Type 2 diabetes mellitus without complications; I25.10 Atherosclerotic heart disease of native coronary artery without angina pectoris; I10 Essential (primary) hypertension; I26.99 Other pulmonary embolism without acute cor pulmonale; I25.2 Old myocardial infarction; E66.9 Obesity, unspecified; Z87.891 Personal history of nicotine dependence; Z86.16 Personal history of COVID-19; Z95.0 Presence of cardiac pacemaker; Z79.01 Long term (current) use of anticoagulants; Z91.041 Radiographic dye allergy status; Z79.899 Other long term (current) drug therapy; Z79.82 Long term (current) use of aspirin; W19.XXXA Unspecified fall, initial encounter; Z68.34 Body mass index [BMI] 34.0-34.9, adult; Z20.822 Contact with and (suspected) exposure to COVID-19
CPT/HCPCS: 36415; 70450; 71045; 72125; 72170; 73080; 80048; 80053; 81001; 82728; 83615; 83690; 83735; 84100; 84145; 84484; 85025; 85610; 85730; 86140; 87086; 93005; A9270; J0696; J7120; U0002; 93010; 99284; 99285-25

== ENCOUNTER 2021-12-31 20:21 | Emergency (ER) | payer MEDICARE, OTHER ==
[2021-12-31] MEDS ORDERED: Aspirin 81 MG Tab.Chew PO ONE (20:35)
[2021-12-31] MEDS ORDERED: Ondansetron 4 MG/2 ML SDV IVPUSH ONE (20:38)
[2021-12-31] MEDS ORDERED: Morphine 4 MG/ML VIAL IVPUSH ONE (20:38)
[2021-12-31 21:07] LABS: CARBON DIOXIDE,CO2 29.2 mmol/L (21.0-32.0); POTASSIUM,K 4.3 mmol/L (3.5-5.1)
[2021-12-31] MEDS ORDERED: Furosemide 20 MG/2 ML VIAL IVPUSH ONE (21:49)
[2021-12-31 23:57] VITALS: BP 120/68; PULSE 71
== END 2022-01-01 00:10 | disposition home or self-care (01) ==
LOC: MW.ED 20:21
DX: R07.89 Other chest pain (principal); I48.91 Unspecified atrial fibrillation; I25.10 Atherosclerotic heart disease of native coronary artery without angina pectoris; I10 Essential (primary) hypertension; I25.2 Old myocardial infarction; E11.9 Type 2 diabetes mellitus without complications; E66.9 Obesity, unspecified; Z68.36 Body mass index [BMI] 36.0-36.9, adult; Z90.49 Acquired absence of other specified parts of digestive tract; Z79.899 Other long term (current) drug therapy; Z79.01 Long term (current) use of anticoagulants; Z91.041 Radiographic dye allergy status; Z20.822 Contact with and (suspected) exposure to COVID-19
CPT/HCPCS: 36415; 71045; 80053; 83735; 83880; 84484; 85025; 85610; 85730; 93005; 96374; 96375; 99285; A9270; J1940; J2270; J2405; U0002

== ENCOUNTER 2022-01-20 13:27 | Emergency (ER) | payer MEDICARE, OTHER ==
[2022-01-20] MEDS ORDERED: Acetaminophen 325 MG Tab PO ONE (14:21)
[2022-01-20] MEDS ORDERED: Octyl 2-Cyanoacrylate 1 Tube ONE (15:06)
[2022-01-20] MEDS ORDERED: Octyl 2-Cyanoacrylate 1 Tube TOP ONE ×2 (15:31→15:32)
[2022-01-20 15:54] VITALS: PULSE 70
[2022-01-20 15:55] VITALS: BP 113/75
== END 2022-01-20 15:46 | disposition home or self-care (01) ==
LOC: MW.ED 13:27
DX: S00.33XA Contusion of nose, initial encounter (principal); M54.2 Cervicalgia; D68.9 Coagulation defect, unspecified; I10 Essential (primary) hypertension; E11.9 Type 2 diabetes mellitus without complications; I25.10 Atherosclerotic heart disease of native coronary artery without angina pectoris; I48.91 Unspecified atrial fibrillation; I25.2 Old myocardial infarction; E66.9 Obesity, unspecified; Z68.30 Body mass index [BMI] 30.0-30.9, adult; Z91.041 Radiographic dye allergy status; Z79.01 Long term (current) use of anticoagulants; Z79.899 Other long term (current) drug therapy; Z86.73 Personal history of transient ischemic attack (TIA), and cerebral infarction without residual deficits; Z86.16 Personal history of COVID-19; Z95.0 Presence of cardiac pacemaker; W18.09XA Striking against other object with subsequent fall, initial encounter
CPT/HCPCS: 12001; 70450; 71045; 72125; 99284; A9270

== ENCOUNTER 2022-04-14 16:14 | Emergency (ER) | payer MEDICARE, OTHER ==
[2022-04-14] MEDS ORDERED: Sodium Chloride 0.9% 1,000 ML IV ONE (16:30)
[2022-04-14 16:57] LABS: CARBON DIOXIDE,CO2 28.6 mmol/L (21.0-32.0); POTASSIUM,K 4.5 mmol/L (3.5-5.1)
[2022-04-14 17:14] VITALS: BP 101/64; PULSE 70
== END 2022-04-14 17:37 | disposition home or self-care (01) ==
LOC: MW.ED 16:14
DX: I95.9 Hypotension, unspecified (principal); I48.91 Unspecified atrial fibrillation; I25.10 Atherosclerotic heart disease of native coronary artery without angina pectoris; I25.2 Old myocardial infarction; E11.9 Type 2 diabetes mellitus without complications; E66.9 Obesity, unspecified; Z68.36 Body mass index [BMI] 36.0-36.9, adult; Z95.0 Presence of cardiac pacemaker; Z86.73 Personal history of transient ischemic attack (TIA), and cerebral infarction without residual deficits; Z91.041 Radiographic dye allergy status; Z79.01 Long term (current) use of anticoagulants; Z79.899 Other long term (current) drug therapy; Z86.16 Personal history of COVID-19; Z20.822 Contact with and (suspected) exposure to COVID-19
CPT/HCPCS: 36415; 80053; 84484; 85025; 93005; 96360; 99285; J7030; U0002; 93010; 99283

== ENCOUNTER 2023-02-08 20:28 | Emergency (ER) | payer MEDICARE, OTHER ==
[2023-02-08] MEDS ORDERED: Sodium Chloride 0.9% 2.5 ML Syringe FLUSH PRN (21:40)
[2023-02-08] MEDS ORDERED: Sodium Chloride 0.9% 10 ML Syringe FLUSH PRN (21:40)
[2023-02-08 21:56] LABS: BASOPHILS PERCENT AUTO 0.2 % (0.0-1.5); EOSINOPHILS PERCENT AUTO 0.3 % (0.0-7.0); HEMATOCRIT 39.1 % (38.0-50.0); HEMOGLOBIN 12.9 g/dL (13.0-17.0); LYMPHOCYTES ABSOLUTE AUTO 0.6 K/uL (0.6-2.4); LYMPHOCYTES PERCENT AUTO 6.8 % (16.0-40.0); MONOCYTES PERCENT AUTO 10.7 % (0.0-15.0); NEUTROPHILS ABSOLUTE AUTO 7.3 K/uL (1.4-5.7); PLATELET COUNT,PLT 159 K/uL (150-400); RED BLOOD CELL COUNT 3.91 M/uL (4.50-5.90); WHITE BLOOD CELL COUNT,WBC 8.92 K/uL (4.0-11.0)
[2023-02-08] MEDS ORDERED: Sodium Chloride 0.9% 500 ML IV ONE (22:03)
[2023-02-08] MEDS ORDERED: Morphine 4 MG/ML Syringe IVPUSH ONE (22:03)
[2023-02-08] MEDS ORDERED: Ondansetron 4 MG/2 ML SDV IVPUSH ONE (22:03)
[2023-02-08 22:22] LABS: A/G RATIO 0.8 (0.9-1.6); ALBUMIN 3.5 g/dL (3.4-5.0); BILIRUBIN TOTAL 0.5 mg/dL (0.2-1.0); CALCIUM 8.6 mg/dL (8.5-10.1); CARBON DIOXIDE,CO2 21.6 mmol/L (21.0-32.0); CREATININE 1.7 mg/dL (0.8-1.3); EST CRCL DRUG DOSING (CG) 30.61 mL/min; POTASSIUM,K 3.7 mmol/L (3.5-5.1); PROTEIN TOTAL,TP 7.7 g/dL (6.4-8.2)
[2023-02-08 22:44] LABS: LACTIC ACID 1.8 mmol/L (0.4-2.0)
[2023-02-08] MEDS ORDERED: Iopamidol 755 MG/ML 500 ML Multipack Bottle IVPUSH STA (23:20)
[2023-02-09 00:52] LABS: BILIRUBIN,URINE NEGATIVE (NEGATIVE); GLUCOSE,URINE NEGATIVE (NEGATIVE); KETONES,URINE NEGATIVE (NEGATIVE); LEUKOCYTE ESTERASE,URINE MODERATE (NEGATIVE); NITRITE,URINE POSITIVE (NEGATIVE); OCCULT BLOOD,URINE MODERATE (NEGATIVE); PROTEIN,URINE 30 mg/dL (NEGATIVE); UROBILINOGEN,URINE 0.2 EU/dL (<2.0)
[2023-02-09 00:54] LABS: COLOR,URINE YELLOW
[2023-02-09 00:55] LABS: APPEARANCE,URINE SLT CLOUDY
[2023-02-09 01:00] LABS: BACTERIA,URINE FEW (NEGATIVE); EPITHELIAL CELLS,URINE FEW (NONE-FEW)
[2023-02-09 01:10] VITALS: BP 110/60; PULSE 71
== END 2023-02-09 01:09 | disposition home or self-care (01) ==
LOC: MW.ED 20:28
DX: K52.9 Noninfective gastroenteritis and colitis, unspecified (principal); I48.91 Unspecified atrial fibrillation; I10 Essential (primary) hypertension; E11.9 Type 2 diabetes mellitus without complications; I25.2 Old myocardial infarction; I25.10 Atherosclerotic heart disease of native coronary artery without angina pectoris; Z95.0 Presence of cardiac pacemaker; Z91.041 Radiographic dye allergy status; Z79.01 Long term (current) use of anticoagulants; Z79.899 Other long term (current) drug therapy
CPT/HCPCS: 36415; 71045; 74177; 80053; 81001; 83605; 83690; 83735; 83880; 84484; 85025; 93005; 96361; 96374; 96375; 99285; J2270; J2405; J7030; Q9967; 93010; 99284

== ENCOUNTER 2023-02-25 13:24 | Emergency (ER) | payer MEDICARE, OTHER ==
[2023-02-25] MEDS ORDERED: Lidocaine 1% PF 2 ML SDV INJECT ONE (13:40)
[2023-02-25] MEDS ORDERED: Diphtheria,Pertussis(Acell),Tetanus Vaccine 0.5 ML Syringe IM ONE (13:53)
[2023-02-25 14:26] VITALS: BP 119/63; PULSE 82
== END 2023-02-25 14:24 | disposition home or self-care (01) ==
LOC: MW.ED 13:24
DX: S61.217A Laceration without foreign body of left little finger without damage to nail, initial encounter (principal); I48.91 Unspecified atrial fibrillation; I25.10 Atherosclerotic heart disease of native coronary artery without angina pectoris; I10 Essential (primary) hypertension; I25.2 Old myocardial infarction; E11.9 Type 2 diabetes mellitus without complications; E66.9 Obesity, unspecified; Z68.33 Body mass index [BMI] 33.0-33.9, adult; Z23 Encounter for immunization; Z86.16 Personal history of COVID-19; Z91.041 Radiographic dye allergy status; Z79.899 Other long term (current) drug therapy; Z79.01 Long term (current) use of anticoagulants; W23.0XXA Caught, crushed, jammed, or pinched between moving objects, initial encounter
CPT/HCPCS: 12001; 73140-26-F4; 73140-F4; 90471; 90715; 99283; 99283-25; J3490

== ENCOUNTER 2023-04-10 12:28 | Emergency (ER) | payer MEDICARE, OTHER ==
[2023-04-10] MEDS ORDERED: Acetaminophen 500 MG Tab PO ONE (13:48)
[2023-04-10 14:27] VITALS: BP 106/50; PULSE 72
== END 2023-04-10 14:52 | disposition home or self-care (01) ==
LOC: MW.ED 12:28
DX: S62.316A Displaced fracture of base of fifth metacarpal bone, right hand, initial encounter for closed fracture (principal); I25.10 Atherosclerotic heart disease of native coronary artery without angina pectoris; I48.91 Unspecified atrial fibrillation; I10 Essential (primary) hypertension; E11.9 Type 2 diabetes mellitus without complications; E66.9 Obesity, unspecified; Z86.16 Personal history of COVID-19; Z95.0 Presence of cardiac pacemaker; Z79.01 Long term (current) use of anticoagulants; Z91.041 Radiographic dye allergy status; Z68.36 Body mass index [BMI] 36.0-36.9, adult; Z79.899 Other long term (current) drug therapy; W18.30XA Fall on same level, unspecified, initial encounter
CPT/HCPCS: 70450; 70486; 72125; 73110; 73130; 99284; A9270; 99283

== ENCOUNTER 2023-08-17 10:56 | Emergency (ER) | payer MEDICARE, OTHER ==
[2023-08-17] MEDS ORDERED: Acetaminophen 500 MG Tab PO ONE (11:12)
[2023-08-17 15:50] VITALS: BP 159/87; PULSE 70
== END 2023-08-17 12:50 | disposition home or self-care (01) ==
LOC: MW.ED 10:56
DX: R51.9 Headache, unspecified (principal); I10 Essential (primary) hypertension; I25.10 Atherosclerotic heart disease of native coronary artery without angina pectoris; I48.91 Unspecified atrial fibrillation; I25.2 Old myocardial infarction; Z86.73 Personal history of transient ischemic attack (TIA), and cerebral infarction without residual deficits; E11.9 Type 2 diabetes mellitus without complications; E66.9 Obesity, unspecified; Z86.16 Personal history of COVID-19; Z95.5 Presence of coronary angioplasty implant and graft; Z95.0 Presence of cardiac pacemaker; Z90.49 Acquired absence of other specified parts of digestive tract; Z79.899 Other long term (current) drug therapy; Z68.34 Body mass index [BMI] 34.0-34.9, adult; Z91.041 Radiographic dye allergy status; W01.198A Fall on same level from slipping, tripping and stumbling with subsequent striking against other object, initial encounter
CPT/HCPCS: 70450; 72125; 99283; A9270

== ENCOUNTER 2023-09-02 10:05 | Emergency (ER) | payer MEDICARE, OTHER ==
[2023-09-02] MEDS ORDERED: Acetaminophen 500 MG Tab PO ONE (11:21)
[2023-09-02 12:52] VITALS: BP 130/77; PULSE 70
== END 2023-09-02 12:50 | disposition home or self-care (01) ==
LOC: MW.ED 10:05
DX: S09.90XA Unspecified injury of head, initial encounter (principal); I10 Essential (primary) hypertension; I25.2 Old myocardial infarction; I25.10 Atherosclerotic heart disease of native coronary artery without angina pectoris; E11.9 Type 2 diabetes mellitus without complications; E66.9 Obesity, unspecified; Z86.16 Personal history of COVID-19; Z88.8 Allergy status to other drugs, medicaments and biological substances; Z91.041 Radiographic dye allergy status; Z79.899 Other long term (current) drug therapy; W19.XXXA Unspecified fall, initial encounter
CPT/HCPCS: 70450; 72125; 99284; A9270

== ENCOUNTER 2023-10-28 16:18 | Inpatient (IN) | payer MEDICARE, OTHER ==
[2023-10-28] MEDS: Sodium Chloride 0.9% 10 ML Syringe FLUSH PRN (16:55)
[2023-10-28] MEDS: Sodium Chloride 0.9% 2.5 ML Syringe FLUSH PRN (16:55)
[2023-10-28] MEDS: cefTRIAXone 2 GM in Sodium Chloride 0.9% 50 ML IV ONE (16:55)
[2023-10-28 16:59] LABS: BASE EXCESS VENOUS 5.9 (-2.0-3.0); BICARBONATE,VENOUS 32 mEq/L (23-28); PCO2 VENOUS 51 mmHG (41-51)
[2023-10-28 17:01] LABS: BASOPHILS ABSOLUTE AUTO 0.04 K/uL (0.00-0.20); BASOPHILS PERCENT AUTO 0.4 % (0.0-1.0); EOSINOPHILS ABSOLUTE AUTO 0.05 K/uL (0.00-0.45); EOSINOPHILS PERCENT AUTO 0.5 % (0.0-6.0); HEMATOCRIT 36.5 % (42.0-52.0); HEMOGLOBIN 12.1 g/dL (14.0-18.0); IMMATURE GRAN ABSOLUTE AUTO 0.05 K/uL (0.00-0.05); IMMATURE GRAN PERCENT AUTO 0.5 % (0.0-0.4); LYMPHOCYTES ABSOLUTE AUTO 1.52 K/uL (1.00-4.80); LYMPHOCYTES PERCENT AUTO 14.7 % (24.0-44.0); MEAN CORPUSCULAR HEMOGLOBIN 32.9 pg (28.0-32.0); MEAN CORPUSCULAR HGB CONC 33.2 g/dL (32.0-36.0); MEAN CORPUSCULAR VOLUME 99.2 fL (83.0-99.0); MEAN PLATELET VOLUME 10.9 fL (9.4-12.4); MONOCYTES PERCENT AUTO 13.5 % (0.0-8.0); NEUTROPHILS ABSOLUTE AUTO 7.28 K/uL (1.80-7.70); NEUTROPHILS PERCENT AUTO 70.4 % (41.0-71.0); PLATELET COUNT,PLT 136 K/uL (150-400); RED BLOOD CELL COUNT 3.68 M/uL (4.52-5.90); WHITE BLOOD CELL COUNT,WBC 10.34 K/uL (3.9-11.3)
[2023-10-28 17:02] LABS: PO2 VENOUS < 30 mmHG
[2023-10-28 17:06] LABS: INR 1.17 (0.86-1.11); PTT,PARTIAL THROMBOPLSTIN TIME 28.4 SEC (23.9-30.7)
[2023-10-28 17:20] LABS: CORONAVIRUS COVID-19 NAA POSITIVE (NEGATIVE); INFLUENZA A NAA NEGATIVE (NEGATIVE); INFLUENZA B NAA NEGATIVE (NEGATIVE); RESPIRATORY SYNCYTIAL VIR NAA NEGATIVE (NEGATIVE)
[2023-10-28 17:30] LABS: A/G RATIO 0.8 (0.9-1.6); ALBUMIN 3.4 g/dL (3.4-5.0); BILIRUBIN TOTAL 0.5 mg/dL (0.2-1.0); CALCIUM 8.8 mg/dL (8.5-10.1); CARBON DIOXIDE,CO2 28.3 mmol/L (21.0-32.0); CREATININE 1.6 mg/dL (0.8-1.3); EST CRCL DRUG DOSING (CG) 30.41 mL/min; POTASSIUM,K 4.2 mmol/L (3.5-5.1); PROTEIN TOTAL,TP 7.6 g/dL (6.4-8.2)
[2023-10-28 17:34] LABS: LACTIC ACID 1.6 mmol/L (0.4-2.0)
[2023-10-28] MEDS: REMDESIVIR 200 MG in Sodium Chloride 0.9% 250 ML IV ONE (20:09)
[2023-10-28] MEDS: Pantoprazole 40 MG in Sodium Chloride 0.9% 10 ML IVPUSH SCH (20:11)
[2023-10-28] MEDS ORDERED: Acetaminophen 325 MG Tab PO PRN (20:56)
[2023-10-28 21:45] LABS: APPEARANCE,URINE CLEAR; BILIRUBIN,URINE NEGATIVE (NEGATIVE); COLOR,URINE YELLOW; GLUCOSE,URINE NEGATIVE (NEGATIVE); KETONES,URINE NEGATIVE (NEGATIVE); LEUKOCYTE ESTERASE,URINE NEGATIVE (NEGATIVE); NITRITE,URINE NEGATIVE (NEGATIVE); OCCULT BLOOD,URINE TRACE-INTACT (NEGATIVE); PROTEIN,URINE NEGATIVE (NEGATIVE); UROBILINOGEN,URINE 0.2 EU/dL (<2.0)
[2023-10-28 22:02] LABS: BACTERIA,URINE RARE (NEGATIVE); EPITHELIAL CELLS,URINE RARE (NONE-FEW); RBC,URINE 0-2 (0-2/HPF); WBC,URINE 0-3 (0-5/HPF)
[2023-10-29 06:17] LABS: BASOPHILS ABSOLUTE AUTO 0.04 K/uL (0.00-0.20); BASOPHILS PERCENT AUTO 0.4 % (0.0-1.0); EOSINOPHILS ABSOLUTE AUTO 0.06 K/uL (0.00-0.45); EOSINOPHILS PERCENT AUTO 0.6 % (0.0-6.0); HEMATOCRIT 36.4 % (42.0-52.0); HEMOGLOBIN 11.9 g/dL (14.0-18.0); IMMATURE GRAN ABSOLUTE AUTO 0.03 K/uL (0.00-0.05); IMMATURE GRAN PERCENT AUTO 0.3 % (0.0-0.4); LYMPHOCYTES ABSOLUTE AUTO 1.35 K/uL (1.00-4.80); LYMPHOCYTES PERCENT AUTO 13.8 % (24.0-44.0); MEAN CORPUSCULAR HEMOGLOBIN 32.8 pg (28.0-32.0); MEAN CORPUSCULAR HGB CONC 32.7 g/dL (32.0-36.0); MEAN CORPUSCULAR VOLUME 100.3 fL (83.0-99.0); MEAN PLATELET VOLUME 10.6 fL (9.4-12.4); MONOCYTES ABSOLUTE AUTO 1.24 K/uL (0.00-0.80); MONOCYTES PERCENT AUTO 12.7 % (0.0-8.0); NEUTROPHILS ABSOLUTE AUTO 7.03 K/uL (1.80-7.70); NEUTROPHILS PERCENT AUTO 72.2 % (41.0-71.0); PLATELET COUNT,PLT 137 K/uL (150-400); RED BLOOD CELL COUNT 3.63 M/uL (4.52-5.90); WHITE BLOOD CELL COUNT,WBC 9.75 K/uL (3.9-11.3)
[2023-10-29 06:49] LABS: A/G RATIO 0.8 (0.9-1.6); ALBUMIN 3.3 g/dL (3.4-5.0); BILIRUBIN TOTAL 0.4 mg/dL (0.2-1.0); CARBON DIOXIDE,CO2 27.4 mmol/L (21.0-32.0); CREATININE 1.5 mg/dL (0.8-1.3); EST CRCL DRUG DOSING (CG) 31.31 mL/min; MAGNESIUM 2.2 mg/dL (1.8-2.4); POTASSIUM,K 4.2 mmol/L (3.5-5.1); PROTEIN TOTAL,TP 7.5 g/dL (6.4-8.2)
[2023-10-29] MEDS ORDERED: Non-Formulary Medication 1 Each (Sacubitril/Valsartan 1 EACH Tablet) PO SCH (09:00)
[2023-10-29] MEDS: Clopidogrel 75 MG Tab PO SCH (10:41)
[2023-10-29] MEDS: Apixaban 5 MG Tab PO SCH (10:41)
[2023-10-29] MEDS: Finasteride 5 MG Tab PO SCH (10:41)
[2023-10-29] MEDS: Furosemide 40 MG Tab PO SCH (10:41)
[2023-10-29] MEDS: Albuterol/Ipratropium 3.0-0.5 MG/3 ML Neb Soln NEB PRN (12:34)
[2023-10-29] MEDS: cefTRIAXone 1 GM in Sodium Chloride 0.9% 50 ML IV SCH (15:49)
[2023-10-29] MEDS: REMDESIVIR 100 MG in Sodium Chloride 0.9% 100 ML IV SCH (19:16)
[2023-10-29] MEDS: Rosuvastatin 10 MG Tab PO SCH (20:25)
[2023-10-29] MEDS: Tamsulosin 0.4 MG Cap.ER PO SCH (20:25)
[2023-10-30 05:59] LABS: BASOPHILS ABSOLUTE AUTO 0.03 K/uL (0.00-0.20); BASOPHILS PERCENT AUTO 0.4 % (0.0-1.0); EOSINOPHILS PERCENT AUTO 2.8 % (0.0-6.0); HEMATOCRIT 33.6 % (42.0-52.0); IMMATURE GRAN ABSOLUTE AUTO 0.02 K/uL (0.00-0.05); IMMATURE GRAN PERCENT AUTO 0.3 % (0.0-0.4); LYMPHOCYTES ABSOLUTE AUTO 1.05 K/uL (1.00-4.80); LYMPHOCYTES PERCENT AUTO 14.5 % (24.0-44.0); MEAN CORPUSCULAR HEMOGLOBIN 32.4 pg (28.0-32.0); MEAN CORPUSCULAR HGB CONC 32.7 g/dL (32.0-36.0); MEAN CORPUSCULAR VOLUME 98.8 fL (83.0-99.0); MEAN PLATELET VOLUME 10.3 fL (9.4-12.4); MONOCYTES PERCENT AUTO 12.4 % (0.0-8.0); NEUTROPHILS ABSOLUTE AUTO 5.05 K/uL (1.80-7.70); NEUTROPHILS PERCENT AUTO 69.6 % (41.0-71.0); PLATELET COUNT,PLT 131 K/uL (150-400); WHITE BLOOD CELL COUNT,WBC 7.25 K/uL (3.9-11.3)
[2023-10-30 06:20] LABS: A/G RATIO 0.7 (0.9-1.6); ALBUMIN 2.9 g/dL (3.4-5.0); BILIRUBIN TOTAL 0.5 mg/dL (0.2-1.0); CALCIUM 8.8 mg/dL (8.5-10.1); CARBON DIOXIDE,CO2 28.5 mmol/L (21.0-32.0); CREATININE 1.5 mg/dL (0.8-1.3); EST CRCL DRUG DOSING (CG) 31.31 mL/min; MAGNESIUM 2.2 mg/dL (1.8-2.4); POTASSIUM,K 3.6 mmol/L (3.5-5.1); PROTEIN TOTAL,TP 6.9 g/dL (6.4-8.2)
[2023-10-30 12:22] VITALS: BP 118/62; PULSE 76
== END 2023-10-30 11:50 | disposition home or self-care (01) | DRG 689 ==
LOC: MW.ED 16:18 → MW.MS 18:24 → OBSVTOIN 10-29 09:34 → MW.MS 10-29 11:24
PROVIDERS: ADMIT Internal Medicine; ATTEND Internal Medicine
PROC: XW033E5 Introduction of Remdesivir Anti-infective into Peripheral Vein, Percutaneous Approach, New Technology Group 5 (ICD-10-PCS; principal; 2023-10-28)
DX: N39.0 Urinary tract infection, site not specified (principal); A41.9 Sepsis, unspecified organism; U07.1 COVID-19; I13.0 Hypertensive heart and chronic kidney disease with heart failure and stage 1 through stage 4 chronic kidney disease, or unspecified chronic kidney disease; R19.7 Diarrhea, unspecified; I50.9 Heart failure, unspecified; I48.91 Unspecified atrial fibrillation; M19.90 Unspecified osteoarthritis, unspecified site; Z66 Do not resuscitate; F41.9 Anxiety disorder, unspecified; J44.9 Chronic obstructive pulmonary disease, unspecified; N18.9 Chronic kidney disease, unspecified; Z96.659 Presence of unspecified artificial knee joint; Z96.649 Presence of unspecified artificial hip joint; Z87.442 Personal history of urinary calculi; Z79.01 Long term (current) use of anticoagulants; Z86.73 Personal history of transient ischemic attack (TIA), and cerebral infarction without residual deficits; Z95.0 Presence of cardiac pacemaker; Z88.1 Allergy status to other antibiotic agents; I11.0 Hypertensive heart disease with heart failure; Z91.041 Radiographic dye allergy status; Z79.899 Other long term (current) drug therapy; Z86.16 Personal history of COVID-19
CPT/HCPCS: 0241U; 36415; 71045; 71045-26; 80053; 81001; 82803; 83605; 83690; 83735; 83880; 84484; 85025; 85610; 85730; 87040; 87086; 87324; 87651-QW; 93005; 93010; 96365; 96375; 99222; 99232; 99239; 99285; 99285-25; A9270-GY; C9113; G0378; J0248; J0696; J3490; J7050; J7620-GY

== ENCOUNTER 2023-12-23 20:22 | Inpatient (IN) | payer MEDICARE, OTHER ==
[2023-12-23 20:44] LABS: HEMATOCRIT 33.5 % (42.0-52.0); IMMATURE GRAN ABSOLUTE AUTO 0.04 K/uL (0.00-0.05); IMMATURE GRAN PERCENT AUTO 0.5 % (0.0-0.4); LYMPHOCYTES ABSOLUTE AUTO 0.68 K/uL (1.00-4.80); MEAN CORPUSCULAR HEMOGLOBIN 32.7 pg (28.0-32.0); MEAN CORPUSCULAR HGB CONC 32.8 g/dL (32.0-36.0); MEAN CORPUSCULAR VOLUME 99.7 fL (83.0-99.0); MEAN PLATELET VOLUME 10.2 fL (9.4-12.4); MONOCYTES ABSOLUTE AUTO 0.49 K/uL (0.00-0.80); MONOCYTES PERCENT AUTO 5.7 % (0.0-8.0); NEUTROPHILS ABSOLUTE AUTO 7.32 K/uL (1.80-7.70); NEUTROPHILS PERCENT AUTO 85.8 % (41.0-71.0); PLATELET COUNT,PLT 157 K/uL (150-400); RED BLOOD CELL COUNT 3.36 M/uL (4.52-5.90); WHITE BLOOD CELL COUNT,WBC 8.53 K/uL (3.9-11.3)
[2023-12-23 20:46] LABS: BASE EXCESS VENOUS 0.4 (-2.0-3.0); BICARBONATE,VENOUS 27 mEQ/mL (22-28); PCO2 VENOUS 49 mmHG (41-51); PH,VENOUS 7.34 (7.31-7.41)
[2023-12-23 20:52] LABS: PO2 VENOUS < 30 mmHG (80-100)
[2023-12-23] MEDS: Sodium Chloride 0.9% 10 ML Syringe FLUSH PRN (21:00)
[2023-12-23] MEDS: Sodium Chloride 0.9% 2.5 ML Syringe FLUSH PRN (21:00)
[2023-12-23] MEDS: Albuterol/Ipratropium 3.0-0.5 MG/3 ML Neb Soln NEB ONE (21:20)
[2023-12-23 21:23] LABS: A/G RATIO 0.9 (0.9-1.6); ALANINE AMINOTRANSFERASE,ALT 20 IU/L (14-63); ALBUMIN 3.6 g/dL (3.4-5.0); ALKALINE PHOSPHATASE 63 U/L (46-116); ASPARTATE AMNIOTRANSFERASE,AST 39 IU/L (15-37); BILIRUBIN TOTAL 0.4 mg/dL (0.2-1.0); BLOOD UREA NITROGEN,BUN 57 mg/dL (7.0-18.0); CALCIUM 9.2 mg/dL (8.5-10.1); CARBON DIOXIDE,CO2 25.7 mmol/L (21.0-32.0); CHLORIDE,CL 104 mmol/L (98-107); EST CRCL DRUG DOSING (CG) 23.87 mL/min; ETHANOL BLOOD MEDICAL <3 mg/dL; GLUCOSE RANDOM 202 mg/dL (74-106); MAGNESIUM 2.4 mg/dL (1.8-2.4); POTASSIUM,K 4.5 mmol/L (3.5-5.1); PROTEIN TOTAL,TP 7.7 g/dL (6.4-8.2); SODIUM,NA 142 mmol/L (136-148)
[2023-12-23 21:28] LABS: ESTIMATED GFR 32 mL/min (>60)
[2023-12-23] MEDS ORDERED: 50% Dextrose in Water 50 ML Syringe IVPUSH PRN (22:50)
[2023-12-23] MEDS ORDERED: Glucagon,Human Recombinant 1 MG Vial IM PRN (22:50)
[2023-12-23] MEDS ORDERED: Polyethylene Glycol 3350 Powder 17 GM Packet PO PRN (22:55)
[2023-12-23] MEDS ORDERED: Ondansetron 4 MG/2 ML SDV IVPUSH PRN (22:55)
[2023-12-23] MEDS: Insulin Aspart 100 Units/ML 3 ML Pen SUBCUT SCH (23:39)
[2023-12-23] MEDS: Albuterol/Ipratropium 3.0-0.5 MG/3 ML Neb Soln NEB PRN (23:49)
[2023-12-24 00:53] LABS: APPEARANCE,URINE CLEAR; BILIRUBIN,URINE NEGATIVE (NEGATIVE); COLOR,URINE YELLOW; GLUCOSE,URINE NEGATIVE (NEGATIVE); KETONES,URINE NEGATIVE (NEGATIVE); LEUKOCYTE ESTERASE,URINE NEGATIVE (NEGATIVE); NITRITE,URINE NEGATIVE (NEGATIVE); OCCULT BLOOD,URINE NEGATIVE (NEGATIVE); PROTEIN,URINE NEGATIVE (NEGATIVE); UROBILINOGEN,URINE 0.2 EU/dL (<2.0)
[2023-12-24 01:01] LABS: AMPHETAMINES SCREEN, URINE NEGATIVE (CUTOFF=500); BARBITURATE SCREEN,URINE NEGATIVE (CUTOFF=200); BENZODIAZEPINES SCREEN,URINE NEGATIVE (CUTOFF=150); BUPRENORPHINE SCREEN,URINE NEGATIVE (CUTOFF=10); METHADONE SCREEN, URINE NEGATIVE (CUTOFF=200); METHAMPHETAMINES SCREEN, URINE NEGATIVE (CUTOFF=500); OXYCODONE SCREEN,URINE NEGATIVE (CUT0FF=100); PCP SCREEN,URINE NEGATIVE (CUTOFF=25); THC SCREEN,URINE 20 NG/ML NEGATIVE (CUTOFF=50)
[2023-12-24 06:37] LABS: HEMATOCRIT 33.3 % (42.0-52.0); HEMOGLOBIN 10.9 g/dL (14.0-18.0); IMMATURE GRAN ABSOLUTE AUTO 0.03 K/uL (0.00-0.05); IMMATURE GRAN PERCENT AUTO 0.4 % (0.0-0.4); LYMPHOCYTES ABSOLUTE AUTO 1.31 K/uL (1.00-4.80); LYMPHOCYTES PERCENT AUTO 17.2 % (24.0-44.0); MEAN CORPUSCULAR HEMOGLOBIN 32.2 pg (28.0-32.0); MEAN CORPUSCULAR HGB CONC 32.7 g/dL (32.0-36.0); MEAN CORPUSCULAR VOLUME 98.2 fL (83.0-99.0); MEAN PLATELET VOLUME 9.8 fL (9.4-12.4); MONOCYTES ABSOLUTE AUTO 0.72 K/uL (0.00-0.80); MONOCYTES PERCENT AUTO 9.4 % (0.0-8.0); NEUTROPHILS ABSOLUTE AUTO 5.57 K/uL (1.80-7.70); PLATELET COUNT,PLT 148 K/uL (150-400); RED BLOOD CELL COUNT 3.39 M/uL (4.52-5.90); WHITE BLOOD CELL COUNT,WBC 7.63 K/uL (3.9-11.3)
[2023-12-24 06:57] LABS: CALCIUM 8.9 mg/dL (8.5-10.1); CARBON DIOXIDE,CO2 28.7 mmol/L (21.0-32.0); CREATININE 1.8 mg/dL (0.8-1.3); EST CRCL DRUG DOSING (CG) 26.52 mL/min; MAGNESIUM 2.4 mg/dL (1.8-2.4); POTASSIUM,K 3.7 mmol/L (3.5-5.1)
[2023-12-24] MEDS: Metoprolol Tartrate 50 MG Tab PO SCH (08:18)
[2023-12-24] MEDS: Apixaban 5 MG Tab PO SCH (08:19)
[2023-12-24] MEDS: Clopidogrel 75 MG Tab PO SCH (08:19)
[2023-12-24] MEDS: Finasteride 5 MG Tab PO SCH (08:19)
[2023-12-24] MEDS: Rosuvastatin 10 MG Tab PO SCH (08:23)
[2023-12-24] MEDS: Haloperidol Lactate 5 MG/ML SDV IM ONE ×2 (08:48→14:22)
[2023-12-24] MEDS: LORazepam 0.5 MG Tab PO PRN (10:16)
[2023-12-24] MEDS: LORazepam 2 MG/ML SDV IVPUSH ONE (12:34)
[2023-12-24] MEDS: Furosemide 40 MG/4 ML VIAL IVPUSH SCH (14:22)
[2023-12-24] MEDS ORDERED: LORazepam 2 MG/ML SDV IVPUSH PRN (17:06)
[2023-12-24] MEDS: Tamsulosin 0.4 MG Cap.ER PO SCH (21:39)
[2023-12-25 06:10] LABS: BASOPHILS ABSOLUTE AUTO 0.01 K/uL (0.00-0.20); BASOPHILS PERCENT AUTO 0.1 % (0.0-1.0); EOSINOPHILS ABSOLUTE AUTO 0.04 K/uL (0.00-0.45); EOSINOPHILS PERCENT AUTO 0.5 % (0.0-6.0); HEMATOCRIT 34.5 % (42.0-52.0); HEMOGLOBIN 11.3 g/dL (14.0-18.0); IMMATURE GRAN ABSOLUTE AUTO 0.05 K/uL (0.00-0.05); IMMATURE GRAN PERCENT AUTO 0.6 % (0.0-0.4); LYMPHOCYTES ABSOLUTE AUTO 1.17 K/uL (1.00-4.80); LYMPHOCYTES PERCENT AUTO 13.9 % (24.0-44.0); MEAN CORPUSCULAR HEMOGLOBIN 33.2 pg (28.0-32.0); MEAN CORPUSCULAR HGB CONC 32.8 g/dL (32.0-36.0); MEAN CORPUSCULAR VOLUME 101.5 fL (83.0-99.0); MEAN PLATELET VOLUME 10.2 fL (9.4-12.4); MONOCYTES ABSOLUTE AUTO 0.71 K/uL (0.00-0.80); MONOCYTES PERCENT AUTO 8.4 % (0.0-8.0); NEUTROPHILS ABSOLUTE AUTO 6.46 K/uL (1.80-7.70); NEUTROPHILS PERCENT AUTO 76.5 % (41.0-71.0); PLATELET COUNT,PLT 146 K/uL (150-400); WHITE BLOOD CELL COUNT,WBC 8.44 K/uL (3.9-11.3)
[2023-12-25 06:39] LABS: ALBUMIN 3.3 g/dL (3.4-5.0); BILIRUBIN TOTAL 0.7 mg/dL (0.2-1.0); CALCIUM 9.1 mg/dL (8.5-10.1); CARBON DIOXIDE,CO2 31.2 mmol/L (21.0-32.0); CREATININE 1.5 mg/dL (0.8-1.3); EST CRCL DRUG DOSING (CG) 31.83 mL/min; POTASSIUM,K 3.8 mmol/L (3.5-5.1); PROTEIN TOTAL,TP 7.2 g/dL (6.4-8.2)
[2023-12-25 06:44] LABS: A/G RATIO 0.9 (0.9-1.6)
[2023-12-25] MEDS: Acetaminophen 325 MG Tab PO PRN (22:07)
[2023-12-26 06:32] LABS: BASOPHILS ABSOLUTE AUTO 0.02 K/uL (0.00-0.20); BASOPHILS PERCENT AUTO 0.3 % (0.0-1.0); EOSINOPHILS ABSOLUTE AUTO 0.14 K/uL (0.00-0.45); HEMATOCRIT 35.9 % (42.0-52.0); HEMOGLOBIN 11.7 g/dL (14.0-18.0); IMMATURE GRAN ABSOLUTE AUTO 0.05 K/uL (0.00-0.05); IMMATURE GRAN PERCENT AUTO 0.7 % (0.0-0.4); LYMPHOCYTES ABSOLUTE AUTO 1.37 K/uL (1.00-4.80); LYMPHOCYTES PERCENT AUTO 19.7 % (24.0-44.0); MEAN CORPUSCULAR HEMOGLOBIN 32.3 pg (28.0-32.0); MEAN CORPUSCULAR HGB CONC 32.6 g/dL (32.0-36.0); MEAN CORPUSCULAR VOLUME 99.2 fL (83.0-99.0); MEAN PLATELET VOLUME 10.5 fL (9.4-12.4); MONOCYTES ABSOLUTE AUTO 0.65 K/uL (0.00-0.80); MONOCYTES PERCENT AUTO 9.4 % (0.0-8.0); NEUTROPHILS ABSOLUTE AUTO 4.71 K/uL (1.80-7.70); NEUTROPHILS PERCENT AUTO 67.9 % (41.0-71.0); PLATELET COUNT,PLT 166 K/uL (150-400); RED BLOOD CELL COUNT 3.62 M/uL (4.52-5.90); WHITE BLOOD CELL COUNT,WBC 6.94 K/uL (3.9-11.3)
[2023-12-26 06:48] LABS: CARBON DIOXIDE,CO2 31.7 mmol/L (21.0-32.0); CREATININE 1.6 mg/dL (0.8-1.3); EST CRCL DRUG DOSING (CG) 29.84 mL/min; MAGNESIUM 2.3 mg/dL (1.8-2.4); POTASSIUM,K 3.4 mmol/L (3.5-5.1)
[2023-12-26] MEDS: Potassium Chloride 20 MEQ Tab.ER PO ONE (08:24)
[2023-12-27 06:13] LABS: BASOPHILS ABSOLUTE AUTO 0.02 K/uL (0.00-0.20); BASOPHILS PERCENT AUTO 0.3 % (0.0-1.0); EOSINOPHILS ABSOLUTE AUTO 0.26 K/uL (0.00-0.45); EOSINOPHILS PERCENT AUTO 3.3 % (0.0-6.0); HEMATOCRIT 34.9 % (42.0-52.0); HEMOGLOBIN 11.5 g/dL (14.0-18.0); IMMATURE GRAN ABSOLUTE AUTO 0.08 K/uL (0.00-0.05); LYMPHOCYTES ABSOLUTE AUTO 1.38 K/uL (1.00-4.80); LYMPHOCYTES PERCENT AUTO 17.4 % (24.0-44.0); MEAN CORPUSCULAR HEMOGLOBIN 32.5 pg (28.0-32.0); MEAN CORPUSCULAR VOLUME 98.6 fL (83.0-99.0); MEAN PLATELET VOLUME 10.4 fL (9.4-12.4); MONOCYTES ABSOLUTE AUTO 0.77 K/uL (0.00-0.80); MONOCYTES PERCENT AUTO 9.7 % (0.0-8.0); NEUTROPHILS ABSOLUTE AUTO 5.44 K/uL (1.80-7.70); NEUTROPHILS PERCENT AUTO 68.3 % (41.0-71.0); PLATELET COUNT,PLT 173 K/uL (150-400); RED BLOOD CELL COUNT 3.54 M/uL (4.52-5.90); WHITE BLOOD CELL COUNT,WBC 7.95 K/uL (3.9-11.3)
[2023-12-27 06:39] LABS: A/G RATIO 0.8 (0.9-1.6); ALBUMIN 3.1 g/dL (3.4-5.0); BILIRUBIN TOTAL 0.8 mg/dL (0.2-1.0); CALCIUM 9.1 mg/dL (8.5-10.1); CARBON DIOXIDE,CO2 31.6 mmol/L (21.0-32.0); CREATININE 1.5 mg/dL (0.8-1.3); EST CRCL DRUG DOSING (CG) 31.83 mL/min; POTASSIUM,K 3.8 mmol/L (3.5-5.1)
[2023-12-27] MEDS: Furosemide 40 MG Tab PO SCH (09:14)
[2023-12-27 11:32] VITALS: BP 102/62; PULSE 70
== END 2023-12-27 12:45 | disposition home health service (06) | DRG 880 ==
LOC: MW.ED 20:22 → MW.MS 22:36 → OBSVTOIN 12-25 12:31
PROVIDERS: ADMIT Family Medicine; ATTEND Family Medicine
DX: R44.3 Hallucinations, unspecified (principal); N17.9 Acute kidney failure, unspecified; T38.0X5A Adverse effect of glucocorticoids and synthetic analogues, initial encounter; J44.9 Chronic obstructive pulmonary disease, unspecified; I48.91 Unspecified atrial fibrillation; Z66 Do not resuscitate; R45.1 Restlessness and agitation; I11.0 Hypertensive heart disease with heart failure; I50.9 Heart failure, unspecified; Z91.018 Allergy to other foods; M19.90 Unspecified osteoarthritis, unspecified site; Z75.8 Other problems related to medical facilities and other health care; M54.9 Dorsalgia, unspecified; G89.29 Other chronic pain; F41.9 Anxiety disorder, unspecified; E11.9 Type 2 diabetes mellitus without complications; I25.10 Atherosclerotic heart disease of native coronary artery without angina pectoris; E78.5 Hyperlipidemia, unspecified; Z87.01 Personal history of pneumonia (recurrent); Z88.1 Allergy status to other antibiotic agents; Z91.041 Radiographic dye allergy status; Z79.01 Long term (current) use of anticoagulants; Z79.02 Long term (current) use of antithrombotics/antiplatelets; Z79.899 Other long term (current) drug therapy; Z95.0 Presence of cardiac pacemaker; Z87.442 Personal history of urinary calculi; Z86.73 Personal history of transient ischemic attack (TIA), and cerebral infarction without residual deficits; Z90.49 Acquired absence of other specified parts of digestive tract
CPT/HCPCS: 36415 ×3; 70450; 71045 ×2; 80048; 80053 ×2; 80305; 80307; 81003; 82140; 82803; 82947 ×7; 83735 ×2; 84484; 85025 ×3; 93005; 94640; 99285; A9270 ×14; J1630; J1815; J1940 ×2; J2060; J3490; 93010; 96372; 96374; 96375; 97162-GP; 99284; G0378; J7620-GY

== ENCOUNTER 2025-01-27 15:20 | Inpatient (IN) | payer MEDICARE, OTHER ==
[2025-01-27] MEDS ORDERED: Sodium Chloride 0.9% 20 ML SDV IV PRN (15:21)
[2025-01-27] MEDS ORDERED: methylPREDNISolone Sodium Succinate 125 MG/2 ML SDV IVPUSH ONE (15:28)
[2025-01-27] MEDS ORDERED: Albuterol/Ipratropium 3.0-0.5 MG/3 ML Neb Soln NEB ONE (15:28)
[2025-01-27 15:42] LABS: BASE EXCESS VENOUS 3.5 (-2.0-3.0); PH,VENOUS 7.42 (7.32-7.43)
[2025-01-27] MEDS: Furosemide 40 MG/4 ML VIAL IVPUSH ONE ×2 (15:42→17:29)
[2025-01-27] MEDS: Aspirin 81 MG Tab.Chew PO ONE (15:42)
[2025-01-27 15:44] LABS: BASOPHILS ABSOLUTE AUTO 0.04 K/uL (0.00-0.20); BASOPHILS PERCENT AUTO 0.5 % (0.0-1.0); EOSINOPHILS ABSOLUTE AUTO 0.18 K/uL (0.00-0.45); EOSINOPHILS PERCENT AUTO 2.1 % (0.0-6.0); HEMATOCRIT 34.9 % (42.0-52.0); HEMOGLOBIN 11.2 g/dL (14.0-18.0); IMMATURE GRAN ABSOLUTE AUTO 0.04 K/uL (0.00-0.05); IMMATURE GRAN PERCENT AUTO 0.5 % (0.0-0.4); LYMPHOCYTES ABSOLUTE AUTO 0.99 K/uL (1.00-4.80); LYMPHOCYTES PERCENT AUTO 11.5 % (24.0-44.0); MEAN CORPUSCULAR HEMOGLOBIN 32.2 pg (28.0-32.0); MEAN CORPUSCULAR HGB CONC 32.1 g/dL (32.0-36.0); MEAN CORPUSCULAR VOLUME 100.3 fL (83.0-99.0); MEAN PLATELET VOLUME 10.3 fL (9.4-12.4); MONOCYTES ABSOLUTE AUTO 0.55 K/uL (0.00-0.80); MONOCYTES PERCENT AUTO 6.4 % (0.0-8.0); NEUTROPHILS ABSOLUTE AUTO 6.79 K/uL (1.80-7.70); PLATELET COUNT,PLT 154 K/uL (150-400); RED BLOOD CELL COUNT 3.48 M/uL (4.52-5.90); WHITE BLOOD CELL COUNT,WBC 8.59 K/uL (3.9-11.3)
[2025-01-27 15:55] LABS: INR 1.11 (0.86-1.11); PTT,PARTIAL THROMBOPLSTIN TIME 27.2 SEC (23.9-30.7)
[2025-01-27 16:16] LABS: A/G RATIO 1.1 (0.9-1.6); ALBUMIN 3.7 g/dL (3.4-5.0); BILIRUBIN TOTAL 0.8 mg/dL (0.2-1.0); CALCIUM 8.6 mg/dL (8.5-10.1); CARBON DIOXIDE,CO2 30.6 mmol/L (21.0-32.0); CREATININE 1.4 mg/dL (0.8-1.3); EST CRCL DRUG DOSING (CG) 33.44 mL/min; MAGNESIUM 2.3 mg/dL (1.8-2.4); POTASSIUM,K 4.6 mmol/L (3.5-5.1); PROTEIN TOTAL,TP 7.2 g/dL (6.4-8.2)
[2025-01-27] MEDS ORDERED: Nitroglycerin 0.4 MG Tab.SL SL PRN (18:41)
[2025-01-27] MEDS ORDERED: 50% Dextrose in Water 50 ML Syringe IVPUSH PRN (18:45)
[2025-01-27] MEDS ORDERED: Glucagon,Human Recombinant 1 MG Vial IM PRN (18:45)
[2025-01-27] MEDS ORDERED: LORazepam 0.5 MG Tab PO PRN (18:46)
[2025-01-27] MEDS: Insulin Aspart 100 Units/ML 3 ML Pen SUBCUT SCH (19:07)
[2025-01-27] MEDS ORDERED: Tamsulosin 0.4 MG Cap.ER PO SCH (21:00)
[2025-01-27] MEDS: Apixaban 5 MG Tab PO SCH (22:46)
[2025-01-27] MEDS: Melatonin 3 MG Tab PO PRN (22:46)
[2025-01-27] MEDS: Metoprolol Tartrate 50 MG Tab PO SCH (22:46)
[2025-01-28 05:44] LABS: BASOPHILS ABSOLUTE AUTO 0.04 K/uL (0.00-0.20); BASOPHILS PERCENT AUTO 0.5 % (0.0-1.0); EOSINOPHILS ABSOLUTE AUTO 0.24 K/uL (0.00-0.45); EOSINOPHILS PERCENT AUTO 3.2 % (0.0-6.0); HEMATOCRIT 35.5 % (42.0-52.0); HEMOGLOBIN 11.2 g/dL (14.0-18.0); IMMATURE GRAN ABSOLUTE AUTO 0.02 K/uL (0.00-0.05); IMMATURE GRAN PERCENT AUTO 0.3 % (0.0-0.4); LYMPHOCYTES ABSOLUTE AUTO 1.06 K/uL (1.00-4.80); LYMPHOCYTES PERCENT AUTO 14.1 % (24.0-44.0); MEAN CORPUSCULAR HEMOGLOBIN 32.2 pg (28.0-32.0); MEAN CORPUSCULAR HGB CONC 31.5 g/dL (32.0-36.0); MEAN PLATELET VOLUME 10.7 fL (9.4-12.4); MONOCYTES ABSOLUTE AUTO 0.65 K/uL (0.00-0.80); MONOCYTES PERCENT AUTO 8.7 % (0.0-8.0); NEUTROPHILS PERCENT AUTO 73.2 % (41.0-71.0); PLATELET COUNT,PLT 134 K/uL (150-400); RED BLOOD CELL COUNT 3.48 M/uL (4.52-5.90); WHITE BLOOD CELL COUNT,WBC 7.51 K/uL (3.9-11.3)
[2025-01-28 06:05] LABS: CALCIUM 8.6 mg/dL (8.5-10.1); CARBON DIOXIDE,CO2 31.7 mmol/L (21.0-32.0); CREATININE 1.5 mg/dL (0.8-1.3); EST CRCL DRUG DOSING (CG) 31.21 mL/min; MAGNESIUM 2.4 mg/dL (1.8-2.4); POTASSIUM,K 4.1 mmol/L (3.5-5.1)
[2025-01-28] MEDS: Finasteride 5 MG Tab PO SCH (08:44)
[2025-01-28] MEDS: Rosuvastatin 10 MG Tab PO SCH (08:44)
[2025-01-28] MEDS: Furosemide 40 MG/4 ML VIAL IVPUSH SCH ×2 (08:45→16:15)
[2025-01-29] MEDS: Benzonatate 100 MG Cap PO PRN (00:18)
[2025-01-29 05:58] LABS: BASOPHILS ABSOLUTE AUTO 0.06 K/uL (0.00-0.20); BASOPHILS PERCENT AUTO 0.7 % (0.0-1.0); EOSINOPHILS ABSOLUTE AUTO 0.22 K/uL (0.00-0.45); EOSINOPHILS PERCENT AUTO 2.6 % (0.0-6.0); HEMATOCRIT 36.3 % (42.0-52.0); HEMOGLOBIN 11.6 g/dL (14.0-18.0); IMMATURE GRAN ABSOLUTE AUTO 0.05 K/uL (0.00-0.05); IMMATURE GRAN PERCENT AUTO 0.6 % (0.0-0.4); LYMPHOCYTES ABSOLUTE AUTO 1.33 K/uL (1.00-4.80); LYMPHOCYTES PERCENT AUTO 15.8 % (24.0-44.0); MEAN CORPUSCULAR HEMOGLOBIN 32.1 pg (28.0-32.0); MEAN CORPUSCULAR VOLUME 100.6 fL (83.0-99.0); MEAN PLATELET VOLUME 10.7 fL (9.4-12.4); MONOCYTES PERCENT AUTO 9.5 % (0.0-8.0); NEUTROPHILS ABSOLUTE AUTO 5.96 K/uL (1.80-7.70); NEUTROPHILS PERCENT AUTO 70.8 % (41.0-71.0); PLATELET COUNT,PLT 148 K/uL (150-400); RED BLOOD CELL COUNT 3.61 M/uL (4.52-5.90); WHITE BLOOD CELL COUNT,WBC 8.42 K/uL (3.9-11.3)
[2025-01-29 06:28] LABS: CALCIUM 8.9 mg/dL (8.5-10.1); CARBON DIOXIDE,CO2 32.8 mmol/L (21.0-32.0); CREATININE 1.5 mg/dL (0.8-1.3); EST CRCL DRUG DOSING (CG) 31.21 mL/min; MAGNESIUM 2.3 mg/dL (1.8-2.4)
[2025-01-29] MEDS: Acetaminophen 325 MG Tab PO PRN (14:48)
[2025-01-30 05:51] LABS: BASOPHILS ABSOLUTE AUTO 0.05 K/uL (0.00-0.20); BASOPHILS PERCENT AUTO 0.5 % (0.0-1.0); EOSINOPHILS ABSOLUTE AUTO 0.16 K/uL (0.00-0.45); EOSINOPHILS PERCENT AUTO 1.5 % (0.0-6.0); HEMATOCRIT 34.6 % (42.0-52.0); HEMOGLOBIN 11.3 g/dL (14.0-18.0); IMMATURE GRAN ABSOLUTE AUTO 0.05 K/uL (0.00-0.05); IMMATURE GRAN PERCENT AUTO 0.5 % (0.0-0.4); LYMPHOCYTES ABSOLUTE AUTO 1.28 K/uL (1.00-4.80); LYMPHOCYTES PERCENT AUTO 11.8 % (24.0-44.0); MEAN CORPUSCULAR HEMOGLOBIN 31.9 pg (28.0-32.0); MEAN CORPUSCULAR HGB CONC 32.7 g/dL (32.0-36.0); MEAN CORPUSCULAR VOLUME 97.7 fL (83.0-99.0); MEAN PLATELET VOLUME 10.5 fL (9.4-12.4); MONOCYTES ABSOLUTE AUTO 1.16 K/uL (0.00-0.80); MONOCYTES PERCENT AUTO 10.7 % (0.0-8.0); NEUTROPHILS ABSOLUTE AUTO 8.13 K/uL (1.80-7.70); PLATELET COUNT,PLT 147 K/uL (150-400); RED BLOOD CELL COUNT 3.54 M/uL (4.52-5.90); WHITE BLOOD CELL COUNT,WBC 10.83 K/uL (3.9-11.3)
[2025-01-30 06:07] LABS: CALCIUM 8.8 mg/dL (8.5-10.1); CARBON DIOXIDE,CO2 31.3 mmol/L (21.0-32.0); CREATININE 1.7 mg/dL (0.8-1.3); EST CRCL DRUG DOSING (CG) 27.54 mL/min; MAGNESIUM 2.3 mg/dL (1.8-2.4); POTASSIUM,K 4.2 mmol/L (3.5-5.1)
[2025-01-30] MEDS: predniSONE 20 MG Tab PO ONE (10:51)
[2025-01-30] MEDS: Benzocaine/Cetylpyridinium/Menthol Lozenge MUCMEM PRN (12:47)
[2025-01-30] MEDS: Midodrine 5 MG Tab PO SCH (12:47)
[2025-01-30] MEDS: Clopidogrel 75 MG Tab PO SCH (14:58)
[2025-01-30] MEDS: Tamsulosin 0.4 MG Cap.ER PO SCH (19:48)
[2025-01-31 06:09] LABS: BASOPHILS ABSOLUTE AUTO 0.01 K/uL (0.00-0.20); BASOPHILS PERCENT AUTO 0.1 % (0.0-1.0); HEMATOCRIT 35.3 % (42.0-52.0); HEMOGLOBIN 11.3 g/dL (14.0-18.0); IMMATURE GRAN ABSOLUTE AUTO 0.03 K/uL (0.00-0.05); IMMATURE GRAN PERCENT AUTO 0.3 % (0.0-0.4); LYMPHOCYTES ABSOLUTE AUTO 1.05 K/uL (1.00-4.80); LYMPHOCYTES PERCENT AUTO 10.2 % (24.0-44.0); MEAN CORPUSCULAR HEMOGLOBIN 31.9 pg (28.0-32.0); MEAN CORPUSCULAR VOLUME 99.7 fL (83.0-99.0); MEAN PLATELET VOLUME 10.7 fL (9.4-12.4); MONOCYTES ABSOLUTE AUTO 0.97 K/uL (0.00-0.80); MONOCYTES PERCENT AUTO 9.4 % (0.0-8.0); NEUTROPHILS ABSOLUTE AUTO 8.24 K/uL (1.80-7.70); PLATELET COUNT,PLT 147 K/uL (150-400); RED BLOOD CELL COUNT 3.54 M/uL (4.52-5.90)
[2025-01-31 06:38] LABS: CALCIUM 9.1 mg/dL (8.5-10.1); CARBON DIOXIDE,CO2 33.4 mmol/L (21.0-32.0); CREATININE 1.7 mg/dL (0.8-1.3); EST CRCL DRUG DOSING (CG) 27.54 mL/min; MAGNESIUM 2.5 mg/dL (1.8-2.4); POTASSIUM,K 4.1 mmol/L (3.5-5.1)
[2025-01-31 08:46] VITALS: BP 115/62
[2025-01-31] MEDS: Escitalopram 10 MG Tab PO SCH (08:47)
[2025-01-31 10:29] VITALS: PULSE 73
== END 2025-01-31 11:38 | disposition home or self-care (01) | DRG 291 ==
LOC: MW.ED 15:20 → MW.MS 17:04
PROVIDERS: ADMIT Family Medicine; ATTEND Family Medicine
DX: I13.0 Hypertensive heart and chronic kidney disease with heart failure and stage 1 through stage 4 chronic kidney disease, or unspecified chronic kidney disease (principal); I50.1 Left ventricular failure, unspecified; I50.33 Acute on chronic diastolic (congestive) heart failure; J81.1 Chronic pulmonary edema; Z66 Do not resuscitate; N18.9 Chronic kidney disease, unspecified; J44.9 Chronic obstructive pulmonary disease, unspecified; I48.91 Unspecified atrial fibrillation; N20.0 Calculus of kidney; I25.10 Atherosclerotic heart disease of native coronary artery without angina pectoris; M19.90 Unspecified osteoarthritis, unspecified site; M54.9 Dorsalgia, unspecified; G89.29 Other chronic pain; F41.9 Anxiety disorder, unspecified; R42 Dizziness and giddiness; E11.22 Type 2 diabetes mellitus with diabetic chronic kidney disease; Z90.49 Acquired absence of other specified parts of digestive tract; Z99.81 Dependence on supplemental oxygen; Z79.899 Other long term (current) drug therapy; Z79.01 Long term (current) use of anticoagulants; Z88.8 Allergy status to other drugs, medicaments and biological substances; Z95.0 Presence of cardiac pacemaker
CPT/HCPCS: 36415; 71045; 80053; 82803; 83690; 83735; 83880; 84484 ×2; 85025; 85610; 85730; 93005; 96374; 99285; A9270; J1938; 80048; 82947; 87428-QW; 87651; 93010; 93306; 97161-GP; 97530-GP

== ENCOUNTER 2025-04-17 15:01 | Emergency (ER) | payer MEDICARE, OTHER ==
[2025-04-17] MEDS ORDERED: Sodium Chloride 0.9% 2.5 ML Syringe FLUSH PRN (15:15)
[2025-04-17] MEDS ORDERED: Sodium Chloride 0.9% 10 ML Syringe FLUSH PRN (15:15)
[2025-04-17 15:26] LABS: BASOPHILS ABSOLUTE AUTO 0.06 K/uL (0.00-0.20); BASOPHILS PERCENT AUTO 0.7 % (0.0-1.0); EOSINOPHILS ABSOLUTE AUTO 0.25 K/uL (0.00-0.45); EOSINOPHILS PERCENT AUTO 3.0 % (0.0-6.0); IMMATURE GRAN ABSOLUTE AUTO 0.01 K/uL (0.00-0.05); IMMATURE GRAN PERCENT AUTO 0.1 % (0.0-0.4); LYMPHOCYTES ABSOLUTE AUTO 1.40 K/uL (1.00-4.80); LYMPHOCYTES PERCENT AUTO 16.9 % (24.0-44.0); MEAN PLATELET VOLUME 10.3 fL (9.4-12.4); MONOCYTES ABSOLUTE AUTO 0.73 K/uL (0.00-0.80); MONOCYTES PERCENT AUTO 8.8 % (0.0-8.0); NEUTROPHILS ABSOLUTE AUTO 5.81 K/uL (1.80-7.70); NEUTROPHILS PERCENT AUTO 70.5 % (41.0-71.0); NRBC ABSOLUTE 0.00 K/uL (0.00-0.02); NRBC PERCENT 0.0 /100WBC (0.0-0.2); PLATELET COUNT,PLT 167 K/uL (150-400); RED BLOOD CELL COUNT 3.39 M/uL (4.52-5.90); WHITE BLOOD CELL COUNT,WBC 8.26 K/uL (3.9-11.3)
[2025-04-17 15:33] LABS: INR 1.07 (0.86-1.11)
[2025-04-17 15:47] LABS: A/G RATIO 0.9 (0.9-1.6); ALANINE AMINOTRANSFERASE,ALT 14.0 IU/L (14-63); ASPARTATE AMNIOTRANSFERASE,AST 18.0 IU/L (15-37); BILIRUBIN TOTAL 0.6 mg/dL (0.2-1.0); BLOOD UREA NITROGEN,BUN 27.0 mg/dL (7.0-18.0); CARBON DIOXIDE,CO2 29.1 mmol/L (21.0-32.0); CHLORIDE,CL 105.0 mmol/L (98-107); CREATININE 1.9 mg/dL (0.8-1.3); EST CRCL DRUG DOSING (CG) 24.64 mL/min; GLUCOSE RANDOM 103.0 mg/dL (74-106); POTASSIUM,K 4.5 mmol/L (3.5-5.1); PRO B-TYPE NATRIUR PEPT,BNPPRO 5097.0 pg/mL (0-450); PROTEIN TOTAL,TP 7.6 g/dL (6.4-8.2); SODIUM,NA 141.0 mmol/L (136-148)
[2025-04-17 15:52] LABS: ESTIMATED GFR 33.0 mL/min (>60)
[2025-04-17] MEDS: Iopamidol 755 MG/ML 500 ML Multipack Bottle IVPUSH STA (17:37)
[2025-04-17 19:01] VITALS: BP 136/72; PULSE 69
== END 2025-04-17 19:01 | disposition home or self-care (01) ==
LOC: MW.ED 15:01
DX: R07.89 Other chest pain (principal); I11.0 Hypertensive heart disease with heart failure; I50.9 Heart failure, unspecified; E11.9 Type 2 diabetes mellitus without complications; Z79.899 Other long term (current) drug therapy; Z90.49 Acquired absence of other specified parts of digestive tract
CPT/HCPCS: 36415; 71275; 80053; 83690; 83880; 84484; 85025; 85610; 93005; 99285; Q9967; 93010; 99284

== ENCOUNTER 2025-06-01 17:48 | Emergency (ER) | payer MEDICARE, OTHER ==
[2025-06-01 18:28] LABS: BASOPHILS ABSOLUTE AUTO 0.05 K/uL (0.00-0.20); BASOPHILS PERCENT AUTO 0.6 % (0.0-1.0); EOSINOPHILS ABSOLUTE AUTO 0.24 K/uL (0.00-0.45); EOSINOPHILS PERCENT AUTO 2.9 % (0.0-6.0); IMMATURE GRAN ABSOLUTE AUTO 0.03 K/uL (0.00-0.05); IMMATURE GRAN PERCENT AUTO 0.4 % (0.0-0.4); LYMPHOCYTES ABSOLUTE AUTO 1.35 K/uL (1.00-4.80); LYMPHOCYTES PERCENT AUTO 16.5 % (24.0-44.0); MEAN PLATELET VOLUME 9.8 fL (9.4-12.4); MONOCYTES ABSOLUTE AUTO 0.65 K/uL (0.00-0.80); MONOCYTES PERCENT AUTO 7.9 % (0.0-8.0); NEUTROPHILS ABSOLUTE AUTO 5.86 K/uL (1.80-7.70); NEUTROPHILS PERCENT AUTO 71.7 % (41.0-71.0); NRBC ABSOLUTE 0.00 K/uL (0.00-0.02); NRBC PERCENT 0.0 /100WBC (0.0-0.2); PLATELET COUNT,PLT 172 K/uL (150-400); RED BLOOD CELL COUNT 3.42 M/uL (4.52-5.90); WHITE BLOOD CELL COUNT,WBC 8.18 K/uL (3.9-11.3)
[2025-06-01 18:49] LABS: A/G RATIO 0.9 (0.9-1.6); ALANINE AMINOTRANSFERASE,ALT 8 IU/L (14-63); ASPARTATE AMNIOTRANSFERASE,AST 15 IU/L (15-37); BILIRUBIN TOTAL 0.4 mg/dL (0.2-1.0); BLOOD UREA NITROGEN,BUN 39 mg/dL (7.0-18.0); CARBON DIOXIDE,CO2 28.8 mmol/L (21.0-32.0); CHLORIDE,CL 103 mmol/L (98-107); CREATININE 2.2 mg/dL (0.8-1.3); GLUCOSE RANDOM 138 mg/dL (74-106); POTASSIUM,K 4.3 mmol/L (3.5-5.1); PROTEIN TOTAL,TP 7.4 g/dL (6.4-8.2); SODIUM,NA 143 mmol/L (136-148)
[2025-06-01 18:51] LABS: ESTIMATED GFR 28 mL/min (>60)
[2025-06-01 19:46] VITALS: BP 137/70; PULSE 65
[2025-06-01 19:53] LABS: APPEARANCE,URINE CLEAR; GLUCOSE,URINE NEGATIVE (NEGATIVE); OCCULT BLOOD,URINE NEGATIVE (NEGATIVE)
[2025-06-01 20:09] LABS: EPITHELIAL CELLS,URINE FEW (NONE-FEW)
== END 2025-06-01 19:52 | disposition home or self-care (01) ==
LOC: MW.ED 17:48
DX: S00.03XA Contusion of scalp, initial encounter (principal); I48.91 Unspecified atrial fibrillation; I11.0 Hypertensive heart disease with heart failure; I50.9 Heart failure, unspecified; J44.9 Chronic obstructive pulmonary disease, unspecified; E11.9 Type 2 diabetes mellitus without complications; Z88.1 Allergy status to other antibiotic agents; Z91.041 Radiographic dye allergy status; Z79.02 Long term (current) use of antithrombotics/antiplatelets; Z79.899 Other long term (current) drug therapy; Z79.01 Long term (current) use of anticoagulants; Z95.0 Presence of cardiac pacemaker; W18.39XA Other fall on same level, initial encounter; Y93.01 Activity, walking, marching and hiking
CPT/HCPCS: 36415; 70450; 70450-26; 72125; 72125-26; 80053; 81001; 85025; 99283; 99284